=== PATIENT | male | born 1950 | race Caucasian/White ===

== ENCOUNTER 2016-08-30 15:30 | Emergency (ER) | payer MEDICARE, BC ==
[~2016-08-30] VITALS: Ht 185.4 cm; Wt 77.1 kg
[2016-08-30] MEDS ORDERED: METO-209 PO (15:50)
[2016-08-30] MEDS ORDERED: AMLO10CA29 PO (15:50)
[2016-08-30 17:21] VITALS: BP 140/90
== END 2016-08-30 18:43 | disposition home or self-care (01) ==
LOC: M ED 18:38
DX: R04.0 Epistaxis (principal); I10 Essential (primary) hypertension; F17.200 Nicotine dependence, unspecified, uncomplicated; Z79.899 Other long term (current) drug therapy

== ENCOUNTER 2018-05-07 14:52 | Inpatient (IN) | payer MEDICARE, BC ==
[~2018-05-07] VITALS: Ht 185.4 cm; Wt 85.6 kg
[~2018-05-07 14:52] MED LIST: AMLO10CA29 PO; METO1TAB33 PO
[2018-05-07] MEDS ORDERED: IBUPOTC PO (15:15)
--- NOTE | 2018-05-07 16:30 | REP ---
Clinical: Pain with recent fall. Technique: AP, lateral, bilateral oblique views of the left knee. Findings: Lateral view demonstrates a moderate suprapatellar effusion. Moderate to early advanced osteoarthritic degenerative changes include subchondral sclerosis and heterogeneity, joint space narrowing, cortical irregularity and chondrocalcinosis. No obvious acute fracture or dislocation. Peripheral vascular disease noted. Impression: Suprapatellar effusion. Osteoarthritic degenerative changes. No obvious acute fracture or dislocation. Electronically Signed by Cong Fay MD 05/07/2018 04:22 P
--- NOTE | 2018-05-07 18:04 | REP ---
Portable chest, 05:44 p.m., single AP view, the patient upright: There are two AP views. There are no comparisons. There is a focal mass-like density in the right mid lung of uncertain significance in the absence of comparison studies. No focal infiltrates are identified. No pleural effusions are identified. Cardiac size is normal. The abraham, mediastinum, skeletal structures are remarkable. Impression: Mass-like density in the right mid lung of uncertain significance in the absence of comparison studies. Electronically Signed by Alex Kowalski MD 05/07/2018 05:56 P
[2018-05-07 18:38] LABS: HEMATOCRIT 45.3 % (42.0-52.0); HEMOGLOBIN 16.2 g/dl (13.5-17.5); MEAN CORPUSCULAR HEMOGLOBIN 29.3 pg (27.0-33.0); MEAN CORPUSCULAR HGB CONC 35.8 g/dl (32.0-36.5); MEAN CORPUSCULAR VOLUME 81.9 fl (80.0-96.0); PLATELET COUNT, AUTOMATED 212 10^3/uL (150-450); RED BLOOD COUNT 5.53 10^6/uL (4.30-6.10); WHITE BLOOD COUNT 10.4 10^3/uL (4.0-10.0)
[2018-05-07 18:54] LABS: BLOOD UREA NITROGEN 4 MG/DL (7-18); CALCIUM LEVEL 8.5 MG/DL (8.8-10.2); CARBON DIOXIDE LEVEL 24 MEQ/L (21-32); CHLORIDE LEVEL 86 MEQ/L (98-107); GLOMERULAR FILTRATION RATE > 60.0 (>49); GLUCOSE, FASTING 84 MG/DL (70-100); POTASSIUM SERUM 4.4 MEQ/L (3.5-5.1); SODIUM LEVEL 122 MEQ/L (136-145)
[2018-05-07] MEDS ORDERED: NORCO, ANEXSIA 5/325MG TABLET (HYDROcodone/ACETAMINOPHEN) PO ONE (20:00)
[2018-05-07] MEDS ORDERED: NS 1,000 ML IV ONE (20:00)
[2018-05-07 20:01] LABS: ETHYL ALCOHOL (ETHANOL) < 0.003 % (0.000-0.010); THYROID STIMULATING HORMONE 0.437 uIU/ML (0.358-3.740)
[2018-05-07] MEDS ORDERED: ISOVUE-370 76% 100ML VIAL (Q9967) As Ordered ONE (20:12)
--- NOTE | 2018-05-07 21:09 | REPVR ---
EXAM: CT Chest With Contrast EXAM DATE/TIME: 05/07/2018 8:31 PM CLINICAL HISTORY: 68 years old, male; Signs and symptoms; Mass, lump, or swelling in the chest; Patient HX: Mass seen on cxr TECHNIQUE: Axial computed tomography images of the chest with intravenous contrast. All CT scans at this facility use at least one of these dose optimization techniques: automated exposure control; mA and/or kV adjustment per patient size (includes targeted exams where dose is matched to clinical indication); or iterative reconstruction. Coronal and sagittal reformatted images were created and reviewed. CONTRAST: 100 ml of iso 370 administered intravenously. COMPARISON: CR PORTABLE CHEST X-RAY 05/07/2018 5:42 PM FINDINGS: Thyroid: Normal thyroid. Lungs: There is a 3 CM oval solid spiculated mass right upper lobe at the mid lung field abutting and tenting the pleura. This has the appearance of a primary malignant neoplasm of the lung. There is hyperinflation of the lungs probably the result of COPD or emphysema. Pleural space: There is no evidence of pneumothorax. There is no evidence of pleural effusion. Heart: Mild cardiac enlargement. Pulmonary arteries: There is opacification of the pulmonary arteries with no evidence of pulmonary embolus. Aorta: There is opacification of the aorta which appears intact. There is atherosclerotic change with calcification. Lymph nodes: There are small lymph nodes in the mediastinum and a small right hilar lymph node. Bones/joints: There is no evidence of bony abnormality. Soft tissues: Small lateral hernia. IMPRESSION: 3 CM oval solid mass lesion right upper lung/right midlung field with prominent spiculated borders suspicious for primary malignancy of the lung. Electronically signed by: Misael Lemon On 05/07/2018 21:09:32 PM
--- NOTE | 2018-05-07 21:19 | REPVR ---
EXAM: CT Abdomen and Pelvis With Contrast EXAM DATE/TIME: 05/07/2018 8:31 PM CLINICAL HISTORY: 68 years old, male; Signs and symptoms; Mass, lump, or swelling; Additional info: Mass/staging TECHNIQUE: Axial computed tomography images of the abdomen and pelvis with intravenous contrast. All CT scans at this facility use at least one of these dose optimization techniques: automated exposure control; mA and/or kV adjustment per patient size (includes targeted exams where dose is matched to clinical indication); or iterative reconstruction. Coronal and sagittal reformatted images were created and reviewed. CONTRAST: 100 ml of iso 370 administered intravenously. COMPARISON: No relevant prior studies available. FINDINGS: Lower thorax: There is a small hiatal hernia. ABDOMEN: Liver: Normal appearing liver. Gallbladder and bile ducts: Normal gallbladder. Normal common bile duct. Pancreas: Normal pancreas. Spleen: Normal appearing spleen. Adrenals: Normal adrenal glands. Kidneys and ureters: 4 CM cyst lower pole right kidney. There is enhancement of the right and left kidney. There is no evidence of a stone in the right or left ureter. Stomach and bowel: The cecum is in the right pelvis. Normal-appearing small bowel with no evidence of obstruction. PELVIS: Bladder: Normal appearing urinary bladder. Reproductive: Normal-appearing prostate. ABDOMEN and PELVIS: Intraperitoneal space: There is no evidence of pneumoperitoneum. There is no evidence of free fluid in the abdomen or pelvis. Bones/joints: DJD Vasculature: There is severe atherosclerotic plaque along the anterior and margins of the aorta. There is occlusion of the origin of the left iliac artery. Thrombus in the left proximal femoral artery. Probable reconstitution of the lower left femoral artery. Lymph nodes: There is no evidence of lymphadenopathy. Small lymph nodes right and left groin. IMPRESSION: There is atherosclerotic plaque formation throughout the aorta and occlusion of the left iliac artery. Electronically signed by: Misael Lemon On 05/07/2018 21:19:10 PM
[2018-05-07] MEDS ORDERED: ALBUTEROL SULFATE 2.5 MG/0.5 ML INH NEB SOLN INH ONE (21:45)
[2018-05-07] MEDS ORDERED: IPRATROPIUM 0.5MG/ALBUTEROL 2.5MG INH SOL UD 3ML (DUONEB)(J7620) NEB ONE (21:45)
[2018-05-07] MEDS ORDERED: METO200T28 PO (21:52)
[2018-05-08] VITALS (7 sets, daily range): BP systolic 136–159; BP diastolic 70–98
[2018-05-08 00:13] LABS: CPK CREATINE PHOSPHOKINASE 103 U/L (39-308); MB/CK RELATIVE INDEX 3.59 (< OR =4); TROPONIN I < 0.02 NG/ML (< 0.10)
[2018-05-08 00:14] LABS: CREATININE,RANDOM URINE 83.2 MG/DL
[2018-05-08 00:26] LABS: OSMOLALITY SERUM 258 MOSM/KG (280-301)
--- NOTE | 2018-05-08 00:30 | REPVR ---
EXAM: US Duplex Bilateral Lower Extremity Veins EXAM DATE/TIME: 05/07/2018 12:04 AM CLINICAL HISTORY: 68 years old, male; Pain; Other: Lt knee; Additional info: Hypoxia TECHNIQUE: Real-time duplex ultrasound of the Bilateral Lower Extremities with 2-D larsen scale, color Doppler flow and spectral waveform analysis. Complete exam focused on the bilateral lower extremity veins. COMPARISON: No relevant prior studies available. FINDINGS: Right deep veins: Unremarkable. The common femoral, femoral, proximal profunda femoral and popliteal veins are patent without thrombus. Normal Doppler waveforms. Normal compressibility and/or augmentation response. Right superficial veins: Saphenofemoral junction is patent without thrombus. Left deep veins: Unremarkable. The common femoral, femoral, proximal profunda femoral and popliteal veins are patent without thrombus. Normal Doppler waveforms. Normal compressibility and/or augmentation response. Left superficial veins: Saphenofemoral junction is patent without thrombus. Soft tissues: Unremarkable. IMPRESSION: No sonographic evidence of deep vein thrombosis. Electronically signed by: Adrian Bills On 05/08/2018 00:30:27 AM
[2018-05-08] MEDS ORDERED: NICOTINE 21MG/24HR 1 EA TRANSDERMAL TD PRN (01:00)
[2018-05-08] MEDS ORDERED: ACETAMINOPHEN TAB 650MG DOSE (2X325MG) PO PRN (01:00)
[2018-05-08] MEDS ORDERED: ENOXAPARIN 100MG/1ML SYRINGE (J1650) SC ONE (01:00)
[2018-05-08] MEDS ORDERED: LORazepam 2 MG TAB PO PRN (01:15)
[2018-05-08] MEDS ORDERED: NS 1,000 ML IV SCH (01:15)
[2018-05-08] MEDS ORDERED: ACETAMINOPHEN 325 MG TAB PO PRN (01:15)
[2018-05-08 02:23] LABS: INR 1.13; PROTHROMBIN TIME 14.7 SECONDS (12.1-14.4)
[2018-05-08 02:24] LABS: PARTIAL THROMBOPLASTIN TIME 37.5 SECONDS (25.4-37.6)
[2018-05-08 02:32] LABS: BLOOD UREA NITROGEN 6 MG/DL (7-18); CALCIUM LEVEL 7.9 MG/DL (8.8-10.2); CARBON DIOXIDE LEVEL 23 MEQ/L (21-32); CHLORIDE LEVEL 90 MEQ/L (98-107); CREATININE FOR GFR 0.55 MG/DL (0.70-1.30); GLOMERULAR FILTRATION RATE > 60.0 (>49); GLUCOSE, FASTING 87 MG/DL (70-100); POTASSIUM SERUM 4.1 MEQ/L (3.5-5.1); SODIUM LEVEL 124 MEQ/L (136-145)
[2018-05-08] MEDS: amLODIPine 10 MG TAB PO SCH ×2 (03:21→17:23)
[2018-05-08] MEDS: BENAZEPRIL 20 MG TAB PO SCH ×2 (03:22→17:23)
[2018-05-08] MEDS: METOPROLOL SUCC (TopROL XL) 100MG *XL* TAB PO SCH ×2 (03:23→17:22)
[2018-05-08] MEDS: THIAMINE 100 MG TAB PO SCH ×3 (03:23→20:49)
[2018-05-08] MEDS: IPRATROPIUM 0.5MG/ALBUTEROL 2.5MG INH SOL UD 3ML (DUONEB)(J7620) NEB SCH ×5 (04:00→20:00)
--- NOTE | 2018-05-08 04:32 | HPE ---
DATE OF ADMISSION: 05/08/2018 CHIEF COMPLAINT: The patient presents for knee pain status post fall but also incidentally complained of shortness of breath. HISTORY OF PRESENT ILLNESS: The patient is a 68-year-old male with a significant past medical history of hypertension, tobacco abuse without presented to the emergency room after sustaining a fall to the knee yesterday afternoon. He presents with knee pain, difficulty moving the knee. An x-ray was done which showed a small suprapateller effusion. Incidentally, the patient was noted to be hypoxic in the emergency room to the 80s. He has a strong smoking history. An x-ray of the chest was done which showed a mass like density in the right lung. Subsequently, a CT of the chest was completed with contrast which showed a 3.3 cm oval solid mass lesion in the right upper lung, right midlung field with prominent spiculated borders suspicious for malignancy. On laboratories the patient was also noted to be hyponatremic with a sodium of 122. The patient also has a history of ethanol (EtOH) abuse. He does complain of progressive dyspnea on exertion. He is mildly wheezing on examination. He denies any chest pain. He denies any fevers, chills, cough. He denies any urinary symptoms, abdominal pain, constipation or diarrhea. PAST MEDICAL HISTORY: See history of the present illness (HPI). PAST SURGICAL HISTORY: None. ALLERGIES: No known drug allergies. HOME MEDICATIONS: Include: - amlodipine - benazepril - metoprolol SOCIAL HISTORY: He consumes approximately 8 beers per day for many years. Smokes now 1 pack per day. He has smoked for the last 50 years. Was previously smoking 2 packs per day. Denies any illicit drug use. FAMILY HISTORY: Family history is noncontributory. REVIEW OF SYSTEMS: A 12-point review of systems was completed, all of which were negative except those listed in the history of the present illness. VITAL SIGNS ON ADMISSION: Temperature 97.6, pulse of 79, respirations of 30, blood pressure (BP) 165/98, saturating at 93% on room air initially went down to the mid 80s, was supplemented with nasal cannula and subsequently improved. PHYSICAL EXAMINATION: General: He is in no apparent distress. He is slightly disheveled. Head is normocephalic, atraumatic. Eyes: Extraocular movements are intact. Pupils equal, round, reactive to light. Neck is supple. No jugular venous pressure (JVP). Lungs: Expiratory wheezing noted at the bases. No crackles. Cardiovascular: Regular rate and rhythm. Normal S1, S2. No murmurs, gallops, or rubs. Abdomen: Soft, nontender, nondistended, positive bowel sounds. No rebound or guarding. Extremities: He has multiple abrasions. Dorsalis pedis is diminished but still palpable. Trace edema. No calf tenderness. Neurological: Neurological: Alert and oriented (A and O) times three. No focal deficits appreciated on examination. LABORATORIES AND IMAGING COMPLETED IN THE EMERGENCY ROOM: He has a white count of 10, hemoglobin and hematocrit (H and H) of 16/45, platelet count of 212. Chemistry shows a sodium of 122, chloride of 86, BUN and creatinine of 4/0.5. Thyroid-stimulating hormone (TSH) within normal limits. Troponins are negative. Blood alcohol level was negative. X-ray of the knee shows suprapatellar effusion, osteoarthritic degenerative changes. Chest x-ray shows a mass-like density in the right midlung. Chest CT shows 3 cm oval solid mass lesion right upper lung, right midlung field with prominent spiculated borders suspicious for primary malignancy of the lung. CT of the abdomen and pelvis shows there are atherosclerotic plaque formation throughout the aorta and occlusion of the left iliac artery and Doppler showed no sonographic evidence of deep vein thrombosis (DVT). ASSESSMENT AND PLAN: 1. Acute hypoxic respiratory failure likely secondary to chronic obstructive pulmonary disease (COPD) exacerbation. Rule out malignancy in the setting of what appears to be possible primary lung cancer. For now, we will place the patient on oxygen as needed to maintain oxygen saturations greater than 90%, standing DuoNebs every 4 hours, prednisone 40 mg by mouth daily. Since the patient already received contrast we will get a V/Q scan in the morning. Doppler is already negative. We will give him one dose of Lovenox. 2. Lung mass. Likely possibly malignancy versus inflammatory, the patient will likely benefit from a CT-guided biopsy as the lung mass is peripheral. Discussed with patient and he is open to the idea of having a biopsy. 3. Hyponatremia. Likely secondary to beer potomania versus syndrome of inappropriate antidiuretic hormone secretion (SIADH) from lung mass. Will fluid hydrate. Will do serial basic metabolic panels (BMP) to correct sodium 8 - 10 in the first 24 hours. If this is acute or chronic I am not fully aware but likely the patient will benefit from fluid restriction if this is SIADH from the underlying lung lesion. Will send morning cortisol. Thyroid-stimulating hormone (TSH) within normal limits. Will send urine and serum osmolality. 4. For left iliac occlusion peripheral arterial disease. Likely has collaterals because patient does not have an ischemic limb and peripheral pulses are palpable though diminished. Vascular surgery consulted. Will place on aspirin. 5. Tobacco abuse. Nicotine replacement patch, consult. 6. Ethanol (EtOH) abuse. Will place on the Clinical [place] Withdrawal Assessment for Alcohol (CIWA) protocol. Ativan as needed. 7. Will send his liver function tests (LFTs) as well as coagulation panel (coags) before initiating the one dose of Lovenox. 8. Fall with knee pain: anti-inflammatories PRN. consider ortho consult in am MTDD
--- NOTE | 2018-05-08 05:57 | ECGEPIP ---
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
[2018-05-08] MEDS: MULTIVITAMINS/MINERALS THERAP 1 TAB PO SCH (08:10)
[2018-05-08] MEDS: ASPIRIN 81 MG ENTERIC TAB PO SCH (08:10)
[2018-05-08] MEDS: FOLIC ACID 1 MG TAB PO SCH (08:10)
[2018-05-08 08:47] LABS: ALBUMIN 2.7 GM/DL (3.2-5.2); BILIRUBIN,DIRECT 0.3 MG/DL (0.0-0.2); TOTAL PROTEIN 6.7 GM/DL (6.4-8.2)
[2018-05-08] MEDS ORDERED: predniSONE 20 MG TAB PO SCH (09:00)
[2018-05-08 09:54] LABS: CORTISOL AM 28.3 UG/DL (4.3-22.4)
[2018-05-08 11:42] LABS: ABG BASE EXCESS 1.5 (-2.0-2.0); ABG HCO3 25.5 MEQ/L (22.0-26.0); ABG O2 SATURATION 89.4 % (95.0-99.0); ABG PARTIAL PRESSURE CO2 38.5 mmHg (35.0-45.0); ABG PARTIAL PRESSURE O2 54.2 mmHg (75.0-100.0); ABG STANDARD HCO3 25.5 MEQ/L (22.0-26.0); ABG TOTAL CO2 26.7 MEQ/L (23.0-31.0); ABG pH (ARTERIAL) 7.439 UNITS (7.350-7.450)
[2018-05-08] MEDS ORDERED: PERCOCET 5MG/325MG TAB PO PRN ×2 (12:30)
--- NOTE | 2018-05-08 14:19 | CR ---
DATE OF CONSULTATION: 05/08/2018 CHIEF COMPLAINT: Left knee pain and swelling after a fall sustained yesterday. HISTORY OF PRESENT ILLNESS: This is a 68-year-old male who tripped on a cord while navigating in his trailer making direct impact about his left knee to a metal threshold. He was taken to [facility] for evaluation. X-rays were taken showing tricompartmental degenerative knee arthritis with some suprapatellar effusion. During his workup, it was uncovered that he has multiple medical comorbidities that have not been attended to formerly in some time including dyspnea, chronic tobacco abuse, hypertension. Chest x-ray showed a mass density in the right lung with subsequent CT chest with contrast showing a 3.3 cm oval solid mass lesion in the right upper lung, right mid lung field with prominent spiculated borders suspicious for malignancy. Laboratories positive for hyponatremia with sodium 122 with a history of alcohol abuse. PAST MEDICAL HISTORY: As noted above. PAST SURGICAL HISTORY: None. ALLERGIES: None known to drugs. HOME MEDICATIONS INCLUDE: Amlodipine, benazepril, metoprolol. SOCIAL HISTORY: He consumes eight beers per day times many years. Smokes a pack of cigarettes per day for the last 50 years. Previously was a two pack per day smoker. Denies illicit drugs. FAMILY HISTORY: Noncontributory. REVIEW OF SYSTEMS: He denies chest pain. Admits to shortness of breath longstanding with wheezing. No urinary tract symptoms. No dizziness. He can feel his extremities without numbness or tingling. Admits to positive pain about the left knee with fullness. The pain is with palpation or weightbearing. Otherwise, resting it settles. VITALS: Temperature 98.5 temporal today as of 0600. Respiratory rate 88 as of 1200. Blood pressure 142/76 at 1200. Pulse oximetry 96 nasal cannula at 2 liters as of 0600. PHYSICAL EXAMINATION: This is a pleasant 68-year-old male, alert and oriented times three. Mood and affect are appropriate. He is resting comfortably about a hospital bed with his left lower extremity propped up on a blanket with ice directly to the knee. He is noted to be on oxygen. His deliverer outside strength was intact about the left hand, rather weak to the right. All four extremities appear to be well perfused, intact to light touch. Normocephalic. Eyes equal, round and reactive to light. Chest rises symmetrically. Breathing was not labored during our conversation. Bilateral lower extremities noted anterior knee abrasions which are benign and not infectious looking, not hot to touch. He does have left knee supracondylar tenderness to palpation with a mild suprapatellar effusion. No gross defect at the quad tendon. He can do a straight leg raise. Just mild tenderness to the patella bone. The tendon is intact without defect or tenderness to palpation. No proximal or lateral tibial plateau pain. He has some mild tenderness to the proximal fibula. Knee range of motion is 0 to just about 45 actively passively, approximately 60-70 degrees. Left hip range of motion was irritable through internal and external range of motion. He is not tender about the thigh or below the knee. He can wiggle his toes just fine. Brisk capillary refill. Distal pulse was intact. No popliteal fossa mass or pain. His knee is grossly. Stable to A to P stressing intact with end ramos to valgus and varus stressing without pain. Right knee was not tender to palpation and stable about the collateral ligaments, and patella quadriceps tendons. No popliteal fossa mass just abrasion as noted at the anterior knee. LABS: Reviewed which were acquired on at 1827. White count 10.4, RDW 14.6, otherwise within normal limits. Chemistry: Sodium 124, chloride 90, BUN 6, GFR filtration rate 0.55, calcium 7.9, direct bilirubin 0.3, alkaline phosphatase 144, albumin 2.7, albumin/globulin ratio 0.68. CK MB: CK 2, 4.0, cortisol am 28.3. Osmolality 258. These were labs acquired between 05/07/2018 and 05/08/2018: ABG pO2 54.2, ABG oxygen saturation 89.4, otherwise unremarkable. Ethyl alcohol less than 0.003. PT 14.7, INR 1.13, APTT 37.5. Abdomen and pelvis CT completed on 05/07/2018 at 2301 showing atherosclerotic plaque formation throughout the aorta and occlusion of the left iliac artery as read by Dr. Villeda. Awaiting MRI results as ordered by Dr. Grider. ASSESSMENT: Bilateral knee abrasions with a left knee contusion and suprapatellar effusion awaiting MRI completion to rule out internal derangement and/or fracture. This is overlapped with multiple comorbidities including acute hypoxic respiratory failure, lung mass, hyponatremia, left iliac occlusion, peripheral artery disease, longstanding tobacco and ethanol abuse. RECOMMENDATION: We will await MRI results to see if it sheds light on a subtle fracture, bony contusion or soft tissue derangement. If that requires further orthopaedic intervention will be available at that time. Thank you for letting me participate in Mr. Saulo Gabriel's care. If there is any further orthopaedic issue, please contact our service. ARA
[2018-05-08] MEDS: methylPREDNISolone INJ 40 MG/1 ML VIAL (J2920) IV SCH ×2 (14:33→20:49)
[2018-05-08 16:09] LABS: BLOOD UREA NITROGEN 8 MG/DL (7-18); CARBON DIOXIDE LEVEL 27 MEQ/L (21-32); CHLORIDE LEVEL 93 MEQ/L (98-107); CREATININE FOR GFR 0.72 MG/DL (0.70-1.30); GLOMERULAR FILTRATION RATE > 60.0 (>49); GLUCOSE, FASTING 163 MG/DL (70-100); POTASSIUM SERUM 4.1 MEQ/L (3.5-5.1); SODIUM LEVEL 126 MEQ/L (136-145)
--- NOTE | 2018-05-08 16:50 | REP ---
MRI LEFT KNEE: TECHNIQUE: Axial proton density fat saturation, sagittal proton density T2 STIR, water excitation, coronal proton density, proton density fat saturation. There appears to be a tear centrally at the posterior horn of the lateral meniscus. The medial meniscus is intact. The cruciate and collateral ligaments are intact. The extensor mechanism is intact. There is mild global chondromalacia with a moderate degree of chondromalacia along the medial femoral condyle. There is an osteochondral defect of the medial femoral condyle with a depth of 5 mm, AP diameter of 2.2 cm in transverse approximately 16 mm. There is an occult nondisplaced fracture involving the central and lateral tibial plateau extending to the tibial joint surface. The fracture predominately is just inferior to the tibial spines and involves the central aspect of the lateral tibial plateau. Mild subchondral marrow edema is seen in the peripheral medial femoral condyle. Hemarthrosis is noted which is moderate in size. IMPRESSION: Occult nondisplaced fracture of the tibial plateau. Hemarthrosis. There is a tear centrally of the posterior horn of the lateral meniscus. Osteochondral defect medial femoral condyle. Electronically Signed by Alex Mata MD 05/09/2018 10:46 A
[2018-05-09] VITALS (10 sets, daily range): BP systolic 120–150; BP diastolic 72–91
[2018-05-09] MEDS: IPRATROPIUM 0.5MG/ALBUTEROL 2.5MG INH SOL UD 3ML (DUONEB)(J7620) NEB SCH ×7 (03:39→23:08)
[2018-05-09] MEDS: methylPREDNISolone INJ 40 MG/1 ML VIAL (J2920) IV SCH ×3 (05:07→21:02)
[2018-05-09 06:44] LABS: HEMATOCRIT 42.2 % (42.0-52.0); HEMOGLOBIN 14.7 g/dl (13.5-17.5); MEAN CORPUSCULAR HEMOGLOBIN 29.3 pg (27.0-33.0); MEAN CORPUSCULAR HGB CONC 34.8 g/dl (32.0-36.5); MEAN CORPUSCULAR VOLUME 84.1 fl (80.0-96.0); PLATELET COUNT, AUTOMATED 206 10^3/uL (150-450); RED BLOOD COUNT 5.02 10^6/uL (4.30-6.10); WHITE BLOOD COUNT 6.8 10^3/uL (4.0-10.0)
[2018-05-09 07:11] LABS: ALBUMIN 2.6 GM/DL (3.2-5.2); ALT/SGPT 15 U/L (12-78); BILIRUBIN,TOTAL 0.7 MG/DL (0.2-1.0); BLOOD UREA NITROGEN 10 MG/DL (7-18); CALCIUM LEVEL 8.4 MG/DL (8.8-10.2); CARBON DIOXIDE LEVEL 25 MEQ/L (21-32); CHLORIDE LEVEL 91 MEQ/L (98-107); CREATININE FOR GFR 0.56 MG/DL (0.70-1.30); GLOMERULAR FILTRATION RATE > 60.0 (>49); GLUCOSE, FASTING 128 MG/DL (70-100); SODIUM LEVEL 126 MEQ/L (136-145); TOTAL PROTEIN 6.9 GM/DL (6.4-8.2)
[2018-05-09] MEDS: THIAMINE 100 MG TAB PO SCH ×2 (07:52→21:02)
[2018-05-09] MEDS: MULTIVITAMINS/MINERALS THERAP 1 TAB PO SCH (07:52)
[2018-05-09] MEDS: ASPIRIN 81 MG ENTERIC TAB PO SCH (07:52)
[2018-05-09] MEDS: FOLIC ACID 1 MG TAB PO SCH (07:52)
[2018-05-09 08:14] LABS: URIC ACID 2.3 MG/DL (3.5-7.2)
[2018-05-09] MEDS ORDERED: ISOVUE-370 76% 100ML VIAL (Q9967) As Ordered ONE (08:30)
--- NOTE | 2018-05-09 09:23 | PFTRPT ---
Site: [facility], [address] [place], [address] ID: [id number] Name: KULWANT CORREIA Visit Date: 05/09/2018 Second ID: [id number] Referring Doctor: Sivan Grider DO Reviewing Doctor: Adán Pedroza MD Forepart Rounder: Aicha RUBIN RRT Age: 68 : 1950 Sex: Male Race: Height: 73.00 Inches Weight: 185.00 Lbs BSA: 2.08 Order IDs: [id number] Requested Test(s): <RESP-PFT.PFTINPT> Diagnosis: SOB Review Status: Not Reviewed Pre-Bronch Post-Bronch Pred Actual %Pred Actual %Chng SPIROMETRY FVC (L) 5.01 2.23 44 FEV1 (L) 3.72 1.11 29 FEV1/FVC (%) 74 50 66 FEF 25% (L/sec) 7.26 1.02 13 FEF 50% (L/sec) 3.94 0.62 15 FEF 75% (L/sec) 1.25 0.39 30 FEF 25-75% (L/sec) 2.86 0.56 19 FEF Max (L/sec) 9.24 4.16 45 FIVC (L) 2.36 FIF 50% (L/sec) 4.51 3.06 67 FIF Max (L/sec) 3.17 Expiratory Time (sec) 4.49 Back Extrap Vol (L) 0.06 Time To FEFmax (sec) 0.055
[2018-05-09] MEDS ORDERED: LIDOCAINE 1% MDV 20ML VIAL As Ordered ONE (09:53)
--- NOTE | 2018-05-09 10:08 | PULFX ---
DATE OF PROCEDURE: 05/09/2018 ORDERED BY: Cheo. Study of excellent technical quality. Forced vital capacity reduced. FEV1 out of proportion. Obstructive index is, therefore, reduced. The expiratory limb of the flow volume loop is consistent with significant flow rate limitation. IMPRESSION: At least moderate obstructive ventilatory impairment with air trapping versus true concomitant restriction. Clinical correlation as well as flow study will be required.
--- NOTE | 2018-05-09 10:58 | REP ---
CT pulmonary angiogram: With IV contrast. History: Hypoxia. Comparison studies: May 07, 2018. Contrast dose: 75 mL of Isovue [address] technique: Helical scanning is acquired and overlapping 1.5 mm and contiguous 3 mm axial images are reformatted. In addition, maximum intensity projection and multiplanar re-formation images are generated in sagittal and coronal imaging projections. CT pulmonary angiographic findings: There is good opacification of the pulmonary arterial tree and there is no CT evidence to suggest pulmonary embolism. Thoracic aorta shows atherosclerotic changes without evidence of aneurysm or dissection. No mediastinal or hilar mass or adenopathy is observed. The previously noted spiculated 3.1 cm posterior segment right upper lobe lung mass is again seen unchanged. There is some new consolidation posterior to the mass and superior to it. There is also new consolidation in the left lower lobe posteriorly and to a lesser extent in the right lower lobe. There are small bilateral pleural effusions which are new findings as well. No pericardial effusion is seen. No adrenal lesion is observed. The visualized upper abdominal structures are otherwise unremarkable. Impression: 3.1 cm mass again noted in the right upper lobe with spiculated contours consistent with primary lung malignancy. There are new areas of pulmonary parenchymal consolidation consistent with pneumonia posterior and superior to the mass in the right upper lobe as well as in the left lower lobe and, to some degree, the right lower lobe. There is a band of linear plate-like atelectasis in the left upper lobe posteriorly. There is a small spiculated nodule in the left upper lobe measuring 6 mm as well. Electronically Signed by Jose Luis Garland MD 05/09/2018 11:38 A
--- NOTE | 2018-05-09 11:18 | IPNPDOC ---
Date Seen The patient was seen on 05/09/18. Progress Note SUBJECTIVE: Patient is a 68-year-old male with mechanical fall and incidental finding of right lung mass with hypoxia. Patient is evaluated at bedside this morning. He is drinking hot chocolate. Patient has a 98.5 pack year smoking history and is an active every day beer drinker of approximately 6- 8 beers. He sustained a mechanical fall to his left knee when he tripped over a cord running across his floor by the back door into the living room. He denies fecal or urinary incontinence and did not hit his head or pass out. He has also noticed over the last couple of week that he has become increasingly short of breath without orthopnea or PND. He is coughing, but it is non-productive. He does not wear oxygen at home. Denies fevers, night sweats, chills. He follows regularly with the [facility] and was last seen about 60 days ago. 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 He denies any prior imaging. He does not recall any weight loss and has no numbness, tingling, lateralizing weakness. He has been informed of the right sided lung mass which is possibly cancer. Yesterday, he said that he would like to undergo the lung biopsy and would be agreeable to possible chemotherapy and radiation, but has declined surgical intervention. Today during discussions, patient seems a bit more apprehensive regarding the lung biopsy due to the possible complications. Patient has been informed that he can decline proceeding with the biopsy at any time. He said that he would like to have his left knee investigated first. OBJECTIVE PHYSICAL EXAMINATION: VITAL SIGNS: Please see below. GENERAL: Well nourished, well developed male, appropriately dressed in hospital attire, alert and conversant, answers questions appropriately, no acute distress. HEENT: Atraumatic, normocephalic, PERRL, EOMI, facial plethora, nasal cannula in place, oral mucosa appears pink and moist, nasal septum appears midline, nares are patent. CARDIOVASCULAR: Somewhat difficult to appreciate cardiac sounds; however, appears to have a regular rate and rhythm, normal S1 and S2, no definite cardiac murmur, rub, or click. RESPIRATORY: Poor inspiratory and expiratory effort, diminished in the lower lobes bilaterally, no definite wheeze, rhonchi, or crackles. ABDOMINAL: Soft, non-tender, non-distended, bowel sounds appreciated. EXTREMITIES: No clubbing, no cyanosis, no peripheral edema, suprapatellar edema noted on the left knee, no discoloration, bruising, or rashes appreciated. NEUROLOGICAL: No focal neurological deficits. PSYCHOLOGICAL: Mood and affect appropriate. LABORATORY DATA, IMAGING STUDIES, MICROBIOLOGY: Please see below. Left complete knee x-ray on 05/07/2018 - suprapatellar effusion, osteoarthritic degenerative changes, no fracture or dislocation. Portable chest x-ray on 05/07/2018 - mass-like density in the right mid lung. CT chest with contrast on 05/07/2018 - 3cm oval solid mass lesion right upper lung/right midlung field with prominent spiculated borders. CT abdomen and pelvis with contrast on 05/07/2018 - artherosclerotic plaque formation throughout aorta and occlusion of left iliac artery. Bilateral lower extremity duplex ultrasound on 05/07/2018 - no sonographic evidence of deep venous thrombosis. MRI left knee without contrast on 05/08/2018 - occult non-displaced fracture of tibial plateau, hemarthrosis, tear centrally of posterior horn of lateral meniscus, osteochondral defect medial femoral condyle. DVT prophylaxis ordered?: TEDs, sequentials, knee high compression. ASSESSMENT AND PLAN: This is a 68-year-old male with mechanical fall resulting in left knee injury; shortness of breath and hypoxia likely secondary to undiagnosed chronic obstructive pulmonary disease; incidentally found right lung mass suspicious for malignancy. PROBLEMS: 1. Mechanical fall: MRI reveals non-displaced fracture of tibial plateau with hemarthosis, and lateral meniscal tear. Orthopedics consulted. Will organize for patient to receive brace will hospitalized. May be toe-down weightbearing/egg-shell weight bearing with a walker or crutches. Physical therapy and occupational therapy have been ordered. Oxycodone for pain. 2. Shortness of breath with hypoxia: Likely undiagnosed COPD. Oxygen orders to maintain saturations 88-92%. ABG within normal limits. Spirometry which revealed "moderate obstructive ventilatory impairment with air trapping versus true concomitant restriction." Would benefit from full PFTs. Would benefit from out-patient pulmonology referral. Ambulate patient on room to document saturation. Patient may require oxygen at home. Continue with Duonebs. Continue with Methylprednisolone 40mg IV every 8 hours. Obtaining CTA chest to rule out PE. Possible pneumonia noted on imaging. 3. Right sided lung mass: Suspicious for malignancy. Ordered CT guided biopsy. Out-patient work-up would be strongly recommended. Smoking cessation counseling provided at every encounter. Nicotine patch ordered. No pharmacological DVT prophylaxis due to needle thoracentesis. 4. Hyponatremia: Serum osmolality 258. Urine osmolality 501. Renal function within normal limits with a serum creatinine 0.56. Urine creatinine 83.2. Urine sodium 16. Serum sodium 126. Uric acid 2.3. SIADH vs. beer potomania vs. adrenal insufficiency. Intravenous fluids have been discontinued. Fluid restriction of 2L daily. Active alcohol drinker. Alcohol level < 0.003. Ativan as needed for agitation. Continue multivitamin, folic acid, and thiamine. Cortisol level 28.3. However, patient has been on steroids which could alter the test result. 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 Leg is not cool to the touch, pulse is appreciated, no mottling noted. 6. Hypertension: Continue Amlodipine, Benazepril, and Metoprolol. 7. Tobacco dependence: Nicotine patch ordered. Counseling provided. 8. Alcohol dependence: CIWA. Ativan as needed. Continue with multivitamin, folic acid, and thiamine. DISPOSITION: Left knee brace. Optimize respiratory status. [facility]/I&O Vital Signs Date Time Temp Pulse Resp B/P (MAP) Pulse Ox O2 Delivery O2 Flow Rate FiO2 05/09/18 08:00 3.0 05/09/18 06:00 98.1 94 22 131/90 (104) 91 05/08/18 06:00 Nasal Cannula I&O- Last 24 Hours up to 6 AM 05/09/18 06:00 Intake Total 1745 ml Output Total 900 ml Balance 845 ml Laboratory Data 24H LABS Laboratory Tests 2 05/08/18 11:25: Blood Gas Bicarbonate Standard 25.5, Arterial Blood pH 7.439, Arterial Blood Partial Pressure CO2 38.5, Arterial Blood Partial Pressure O2 54.2L, Arterial Blood Total CO2 26.7, Arterial Blood HCO3 25.5, Arterial Blood Base Excess 1.5, Arterial Blood Oxygen Saturation 89.4L 05/08/18 15:39: Anion Gap 6L, Glomerular Filtration Rate > 60.0, Blood Urea Nitrogen 8, Creatinine 0.72, Sodium Level 126L, Potassium Level 4.1, Chloride Level 93L, Carbon Dioxide Level 27, Calcium Level 8.0L 05/08/18 17:24: Urine Random Sodium 16 05/09/18 06:13: Anion Gap 10, Glomerular Filtration Rate > 60.0, Blood Urea Nitrogen 10, Creatinine 0.56L, Sodium Level 126L, Potassium Level 4.0, Chloride Level 91L, Carbon Dioxide Level 25, Calcium Level 8.4L, Nucleated Red Blood Cells % (auto) 0.0, Aspartate Amino Transf (AST/SGOT) 19, Alanine Aminotransferase (ALT/SGPT) 15, Alkaline Phosphatase 119H, Total Bilirubin 0.7, Uric Acid 2.3L, Total Protein 6.9, Albumin 2.6L, Albumin/Globulin Ratio 0.60L CBC/BMP Laboratory Tests 05/08/18 15:39 Calcium Level 8.0 L 05/09/18 06:13 Calcium Level 8.4 L, Red Blood Count 5.02, Mean Corpuscular Volume 84.1, Mean Corpuscular Hemoglobin 29.3, Mean Corpuscular Hemoglobin Concent 34.8, Red Cell Distribution Width 14.8 H, Aspartate Amino Transf (AST/SGOT) 19, Alanine Aminotransferase (ALT/SGPT) 15, Alkaline Phosphatase 119 H, Total Bilirubin 0.7, Uric Acid 2.3 L, Total Protein 6.9, Albumin 2.6 L GME ATTESTATION GME ATTESTATION My faculty preceptor for this patient encounter was physically present during the encounter and was fully available. All aspects of the patient interview, examination, medical decision making process, and medical care plan development were reviewed and approved by the faculty preceptor. The faculty preceptor is aware and concurs with the plan as stated in the body of this note and will attest to such by his/her cosignature. ATTENDING NOTE I, Adele Obrien, have both independently examined this patient as well as reviewed the documentation. I have discussed in detail with the resident the findings and plan of treatment as documented in the residents documentation. I will continue to follow the patient and offer further guidance to the patients care as necessary during this hospital stay. EBENEZER OLSON DO May 09, 2018 11:17 ADELE OBRIEN MD May 23, 2018 17:36
--- NOTE | 2018-05-09 11:59 | REP ---
POSTBIOPSY CHEST: Single view of the chest is performed status post right lung biopsy. I do not see a significant pneumothorax. Spiculated mass is again seen in the right upper lobe. Very mild patchy atelectasis or infiltrate is seen in each lung base. Electronically Signed by Alex Mata MD 05/09/2018 12:01 P
--- NOTE | 2018-05-09 13:57 | REP ---
Clinical: Status post biopsy. Comparison: 05/09/2018. Findings: No evidence for pneumothorax. A spiculated mass in the right mid lung zone is unchanged. Perihilar and bibasilar opacities/atelectasis identified. Pulmonary vascular congestion as well as small basilar pleural reactions cannot be excluded. Impression: 1. No pneumothorax identified. 2. Spiculated mass in the right mid lung zone unchanged. 3. Findings suggesting bibasilar atelectasis as well as possible pulmonary vascular congestion and small pleural reactions. Electronically Signed by Cong Fay MD 05/09/2018 01:48 P
[2018-05-09] MEDS: METOPROLOL SUCC (TopROL XL) 100MG *XL* TAB PO SCH (17:24)
[2018-05-09] MEDS: AZITHROMYCIN INJ 500 MG, VIAL MATE ADAPTER 1 EACH in D5W 250 ML IV SCH (17:24)
[2018-05-09] MEDS: BENAZEPRIL 20 MG TAB PO SCH (17:25)
[2018-05-09] MEDS: amLODIPine 10 MG TAB PO SCH (17:25)
[2018-05-09] MEDS: cefTRIAXone SOD 1 GM in D5W MINI-BAG PLUS 50 ML IV SCH (18:52)
[2018-05-10] MEDS: IPRATROPIUM 0.5MG/ALBUTEROL 2.5MG INH SOL UD 3ML (DUONEB)(J7620) NEB SCH ×5 (04:00→20:00)
[2018-05-10 04:51] VITALS: BP 130/80
[2018-05-10] MEDS: methylPREDNISolone INJ 40 MG/1 ML VIAL (J2920) IV SCH ×2 (05:01→17:41)
[2018-05-10 06:00] VITALS: BP 130/80
[2018-05-10 06:44] LABS: HEMATOCRIT 38.8 % (42.0-52.0); HEMOGLOBIN 13.6 g/dl (13.5-17.5); MEAN CORPUSCULAR HEMOGLOBIN 28.9 pg (27.0-33.0); MEAN CORPUSCULAR HGB CONC 35.1 g/dl (32.0-36.5); MEAN CORPUSCULAR VOLUME 82.6 fl (80.0-96.0); PLATELET COUNT, AUTOMATED 229 10^3/uL (150-450)
[2018-05-10 07:14] LABS: ALBUMIN 2.7 GM/DL (3.2-5.2); ALT/SGPT 15 U/L (12-78); BILIRUBIN,TOTAL 0.6 MG/DL (0.2-1.0); BLOOD UREA NITROGEN 12 MG/DL (7-18); CALCIUM LEVEL 8.2 MG/DL (8.8-10.2); CARBON DIOXIDE LEVEL 26 MEQ/L (21-32); CHLORIDE LEVEL 95 MEQ/L (98-107); CREATININE FOR GFR 0.63 MG/DL (0.70-1.30); GLOMERULAR FILTRATION RATE > 60.0 (>49); GLUCOSE, FASTING 144 MG/DL (70-100); SODIUM LEVEL 129 MEQ/L (136-145); TOTAL PROTEIN 6.7 GM/DL (6.4-8.2)
[2018-05-10] MEDS: ASPIRIN 81 MG ENTERIC TAB PO SCH (08:57)
[2018-05-10] MEDS: THIAMINE 100 MG TAB PO SCH (08:57)
[2018-05-10] MEDS: FOLIC ACID 1 MG TAB PO SCH (08:57)
[2018-05-10] MEDS: MULTIVITAMINS/MINERALS THERAP 1 TAB PO SCH (08:57)
--- NOTE | 2018-05-10 10:35 | REP ---
CT-GUIDED RIGHT UPPER LOBE LUNG BIOPSY The procedure was performed under the direct supervision of Dr. mata. Patient has a history of a 3.1 cm mass in the right upper lobe seen on a previous CT scan dated 05/07/2018. The risks and benefits of the procedure were explained to the patient and informed consent was obtained. The right upper lobe lung mass was localized using CT guidance. The skin was prepped and draped in a sterile fashion. 1% lidocaine was used as a local anesthetic. Using CT guidance a 19/20 gauge coaxial needle biopsy system was inserted and advanced into the mass. Four core biopsy samples were obtained and sent to lab. Post biopsy images demonstrate a tiny pneumothorax. Images obtained 5 minutes later show some resolution of the pneumothorax. Chest x-ray performed immediately after the procedure shows no evidence of pneumothorax. The patient tolerated the procedure well and there were no immediate complications. Reviewed by ALEXANDRA Garcia 05/09/2018 04:12 P Electronically Signed by Alex Mata MD 05/10/2018 10:27 A
[2018-05-10] MEDS: ADVAIR HFA 115/21MCG INHALER INH SCH ×2 (10:53→20:30)
--- NOTE | 2018-05-10 11:18 | IPNPDOC ---
Date Seen The patient was seen on 05/10/18. Progress Note SUBJECTIVE: Patient is a 68-year-old male with mechanical fall and incidental finding of right lung mass with hypoxia. Patient is evaluated at bedside this morning. He is sitting up in bed. He is alert and oriented. He has no chest pain and feels as though his breathing has improved somewhat. He is not getting out of bed, but is able to bend his left knee. No fevers, night sweats, chills. OBJECTIVE PHYSICAL EXAMINATION: VITAL SIGNS: Please see below. GENERAL: Well nourished, well developed male, appropriately dressed in hospital attire, alert and conversant, answers questions appropriately, no acute distress. HEENT: Atraumatic, normocephalic, PERRL, EOMI, facial plethora, nasal cannula in place, oral mucosa appears pink and moist, nasal septum appears midline, nares are patent. CARDIOVASCULAR: Somewhat difficult to appreciate cardiac sounds; however, appear s to have a regular rate and rhythm, normal S1 and S2, no definite cardiac murmur, rub, or click. RESPIRATORY: Poor inspiratory and expiratory effort, diminished in the lower lobes bilaterally, no definite wheeze, rhonchi, or crackles. ABDOMINAL: Soft, non-tender, non-distended, bowel sounds appreciated. EXTREMITIES: No clubbing, no cyanosis, no peripheral edema, suprapatellar edema noted on the left knee, no discoloration, bruising, or rashes appreciated. NEUROLOGICAL: No focal neurological deficits. PSYCHOLOGICAL: Mood and affect appropriate. LABORATORY DATA, IMAGING STUDIES, MICROBIOLOGY: Please see below. Left complete knee x-ray on 05/07/2018 - suprapatellar effusion, osteoarthritic degenerative changes, no fracture or dislocation. Portable chest x-ray on 05/07/2018 - mass-like density in the right mid lung. CT chest with contrast on 05/07/2018 - 3cm oval solid mass lesion right upper lung/right midlung field with prominent spiculated borders. CT abdomen and pelvis with contrast on 05/07/2018 - artherosclerotic plaque formation throughout aorta and occlusion of left iliac artery. Bilateral lower extremity duplex ultrasound on 05/07/2018 - no sonographic evidence of deep venous thrombosis. MRI left knee without contrast on 05/08/2018 - occult non-displaced fracture of tibial plateau, hemarthrosis, tear centrally of posterior horn of lateral meniscus, osteochondral defect medial femoral condyle. CT chest angiogram on 05/09/2018 - 3.1 cm mass again noted in the right upper lobe with spiculated contours consistent with primary lung malignancy. There are new areas of pulmonary parenchymal consolidation consistent with pneumonia posterior and superior to the mass in the right upper lobe as well as in the left lower lobe and, to some degree, the right lower lobe. There is a band of linear plate-like atelectasis in the left upper lobe posteriorly. There is a sma ll spiculated nodule in the left upper lobe measuring [address] guided thoracentesis needle placement. Post-biopsy chest x-ray on 05/09/2018 - no pneumothorax. Chest x-ray, 1 view on 05/09/2018 - no pneumothorax, spiculated mass in right mid lung. DVT prophylaxis ordered?: Lovenox 40mg subcutaneously daily; TEDs, sequentials, knee high compression. ASSESSMENT AND PLAN: This is a 68-year-old male with mechanical fall resulting in left knee injury; shortness of breath and hypoxia likely secondary to undiagnosed chronic obstructive pulmonary disease; incidentally found right lung mass suspicious for malignancy. PROBLEMS: 1. Mechanical fall: MRI reveals non-displaced fracture of tibial plateau with hemarthosis, and lateral meniscal tear. Orthopedics consulted. Patient to receive brace. Physical and occupational therapy once left knee brace has been fitted. May be toe-down weightbearing/eggshell weightbearing with walker and/or crutches with brace. May remove brace when in bed. May need rehabilitation. Percocet and Tylenol for pain management as needed. 2. Shortness of breath with hypoxia: Likely undiagnosed COPD. Oxygen orders to maintain saturations 88-92%. ABG within normal limits. Spirometry which revealed "moderate obstructive ventilatory impairment with air trapping versus true concomitant restriction." Would benefit from full PFTs. Would benefit from out-patient pulmonology referral. Ambulate patient on room to document saturation. Patient may require oxygen at home. Continue with Duonebs. Decrease Methylprednisolone 40mg IV every 12 hours. Negative for Pe on CTA chest. Added Advair. 3. 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 Discussed verbally with hematology/oncology. Recommended brain MRI with contrast and adding pharmacological DVT prophylaxis. Would need to obtain out-patient PET scan for staging. Patient to follow up out-patient with hematology/oncology. Smoking cessation counseling provided at every encounter. Nicotine patch ordered. 4. Post-obstructive pneumonia: Started Ceftriaxone and Azithromycin. Mildly elevated leukocytosis. Continue oxygen therapy orders. 5. Hyponatremia: Likely SIADH. Serum osmolality 258. Urine osmolality 501. Renal function within normal limits with a serum creatinine 0.63. Urine creatinine 83.2. Urine sodium 16. Serum sodium 126. Uric acid 2.3. SIADH vs. beer potomania vs. adrenal insufficiency (less likely). Intravenous fluids have been discontinued. Fluid restriction of 2L daily. Active alcohol drinker. Alcohol level < 0.003. Ativan as needed for agitation. Continue multivitamin, folic acid, and thiamine. Cortisol level 28.3. However, patient has been on steroids which could alter the test result. 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 Leg is not cool to the touch, pulse is appreciated, no mottling noted. 7. Hypertension: Continue Amlodipine, Benazepril, and Metoprolol. 8. Tobacco dependence: Nicotine patch ordered. Counseling provided. 9. Alcohol dependence: CIWA. Ativan as needed. Continue with multivitamin, folic acid, and thiamine. DISPOSITION: Left knee brace. Physical and occupational therapy. Optimize respiratory status. Brain MRI. VS, I&O, 24H, Fishbone Vital Signs/I&O Vital Signs Date Time Temp Pulse Resp B/P (MAP) Pulse Ox O2 Delivery O2 Flow Rate FiO2 05/10/18 06:00 98.7 89 22 130/80 (97) 4.0 05/09/18 22:00 90 05/08/18 06:00 Nasal Cannula I&O- Last 24 Hours up to 6 AM 05/10/18 06:00 Intake Total 1880 ml Output Total 1290 ml Balance 590 ml Laboratory Data 24H LABS Laboratory Tests 2 05/10/18 06:05: Nucleated Red Blood Cells % (auto) 0.0, Anion Gap 8, Glomerular Filtration Rate > 60.0, Blood Urea Nitrogen 12, Creatinine 0.63L, Sodium Level 129L, Potassium Level 4.0, Chloride Level 95L, Carbon Dioxide Level 26, Calcium Level 8.2L, Aspartate Amino Transf (AST/SGOT) 22, Alanine Aminotransferase (ALT/SGPT) 15, Alkaline Phosphatase 96, Total Bilirubin 0.6, Total Protein 6.7, Albumin 2.7L, Albumin/Globulin Ratio 0.68L CBC/BMP Laboratory Tests 05/10/18 06:05 Red Blood Count 4.70, Mean Corpuscular Volume 82.6, Mean Corpuscular Hemoglobin 28.9, Mean Corpuscular Hemoglobin Concent 35.1, Red Cell Distribution Width 15.1 H, Calcium Level 8.2 L, Aspartate Amino Transf (AST/SGOT) 22, Alanine Aminotransferase (ALT/SGPT) 15, Alkaline Phosphatase 96, Total Bilirubin 0.6, Total Protein 6.7, Albumin 2.7 L Microbiology Microbiology 05/10/18 Gram Stain - Final, Resulted 05/10/18 Sputum Culture, Resulted Pending GME ATTESTATION GME ATTESTATION My faculty preceptor for this patient encounter was physically present during the encounter and was fully available. All aspects of the patient interview, examination, medical decision making process, and medical care plan development were reviewed and approved by the faculty preceptor. The faculty preceptor is aware and concurs with the plan as stated in the body of this note and will attest to such by his/her cosignature. ATTENDING NOTE I, Adele Obrien, have both independently examined this patient as well as reviewed the documentation. I have discussed in detail with the resident the findings and plan of treatment as documented in the residents documentation. I will continue to follow the patient and offer further guidance to the patients care as necessary during this hospital stay. EBENEZER OLSON DO May 10, 2018 11:18 ADELE OBRIEN MD May 23, 2018 17:38
[2018-05-10] MEDS ORDERED: ISOVUE-370 76% 100ML VIAL (Q9967) As Ordered ONE (12:50)
--- NOTE | 2018-05-10 13:15 | REP ---
CT brain without and with IV contrast: History: Moderately differentiated adenocarcinoma right lung. No comparison brain imaging. CT contrast dose: 75 ml of intravenous Isovue 370. CT findings: Preliminary digital attorney lawyer radiograph is unremarkable. Bone window settings show vascular calcification in the distal vertebral and distal carotid arteries bilaterally. No bony calvarial defect is seen. A small amount of fluid is seen in the apex of the right maxillary sinus. Otherwise, the visualized paranasal sinuses appear appear clear. On soft tissue window settings, there is generalized cerebral atrophy. There is no evidence of infarct or hemorrhage. There is some periventricular white matter low density in the frontal and parietal lobes bilaterally consistent with small vessel atherosclerotic changes. Postcontrast imaging shows no abnormal contrast enhancement. There is no evidence of infarct, mass, or midline shift. Impression: Diffuse atrophy, vascular calcification, small vessel changes. No evidence to suggest intracranial metastasis by CT scanning. No acute intracranial abnormality. Electronically Signed by Jose Luis Garland MD 05/10/2018 01:06 P
[2018-05-10] MEDS: ENOXAPARIN 40 MG/0.4 ML SYRINGE (J1650) SC SCH (13:24)
[2018-05-10 14:00] VITALS: BP 135/97
[2018-05-10] MEDS: amLODIPine 10 MG TAB PO SCH (17:40)
[2018-05-10] MEDS: AZITHROMYCIN INJ 500 MG, VIAL MATE ADAPTER 1 EACH in D5W 250 ML IV SCH (17:40)
[2018-05-10] MEDS: METOPROLOL SUCC (TopROL XL) 100MG *XL* TAB PO SCH (17:41)
[2018-05-10] MEDS: BENAZEPRIL 20 MG TAB PO SCH (17:41)
[2018-05-10] MEDS: cefTRIAXone SOD 1 GM in D5W MINI-BAG PLUS 50 ML IV SCH (19:23)
[2018-05-10 22:00] VITALS: BP 128/76
[2018-05-11] MEDS: IPRATROPIUM 0.5MG/ALBUTEROL 2.5MG INH SOL UD 3ML (DUONEB)(J7620) NEB SCH ×7 (04:42→23:25)
[2018-05-11] MEDS: methylPREDNISolone INJ 40 MG/1 ML VIAL (J2920) IV SCH ×2 (05:38→17:40)
[2018-05-11 06:00] VITALS: BP 132/80
[2018-05-11 06:07] LABS: HEMATOCRIT 40.6 % (42.0-52.0); HEMOGLOBIN 13.9 g/dl (13.5-17.5); MEAN CORPUSCULAR HGB CONC 34.2 g/dl (32.0-36.5); MEAN CORPUSCULAR VOLUME 84.8 fl (80.0-96.0); PLATELET COUNT, AUTOMATED 235 10^3/uL (150-450); RED BLOOD COUNT 4.79 10^6/uL (4.30-6.10); WHITE BLOOD COUNT 11.2 10^3/uL (4.0-10.0)
[2018-05-11 06:36] LABS: ALBUMIN 2.7 GM/DL (3.2-5.2); ALT/SGPT 24 U/L (12-78); BILIRUBIN,TOTAL 0.5 MG/DL (0.2-1.0); BLOOD UREA NITROGEN 17 MG/DL (7-18); CARBON DIOXIDE LEVEL 29 MEQ/L (21-32); CHLORIDE LEVEL 98 MEQ/L (98-107); CREATININE FOR GFR 0.62 MG/DL (0.70-1.30); GLOMERULAR FILTRATION RATE > 60.0 (>49); GLUCOSE, FASTING 131 MG/DL (70-100); POTASSIUM SERUM 3.7 MEQ/L (3.5-5.1); SODIUM LEVEL 134 MEQ/L (136-145); TOTAL PROTEIN 6.5 GM/DL (6.4-8.2)
[2018-05-11] MEDS: ADVAIR HFA 115/21MCG INHALER INH SCH ×2 (07:43→21:02)
[2018-05-11] MEDS: FOLIC ACID 1 MG TAB PO SCH (09:07)
[2018-05-11] MEDS: ASPIRIN 81 MG ENTERIC TAB PO SCH (09:07)
[2018-05-11] MEDS: ENOXAPARIN 40 MG/0.4 ML SYRINGE (J1650) SC SCH (09:07)
[2018-05-11] MEDS: MULTIVITAMINS/MINERALS THERAP 1 TAB PO SCH (09:07)
--- NOTE | 2018-05-11 09:21 | IPNPDOC ---
Date Seen The patient was seen on 05/11/18. Progress Note SUBJECTIVE: Patient is a 68-year-old male with mechanical fall and incidental finding of right lung mass with hypoxia. Patient is evaluated at bedside this morning. He is finishing breakfast during my evaluation. He underwent head CT yesterday which was unrevealing for intracranial mass or lesion. He states that his breathing continues to be problematic and he continues to feel short of breath. He did receive his left knee brace and has been out of bed. He inquires about exercises and activities to sustain his muscle strength in his right lower extremity. OBJECTIVE PHYSICAL EXAMINATION: VITAL SIGNS: Please see below. GENERAL: Well nourished, well developed male, appropriately dressed in hospital attire, alert and conversant, answers questions appropriately, no acute distress, somewhat tremulous. HEENT: Atraumatic, normocephalic, PERRL, EOMI, improving facial plethora, nasal cannula in place, oral mucosa appears pink and moist, nasal septum appears midline, nares are patent, dentition in poor condition. CARDIOVASCULAR: Regular rate and rhythm, normal S1 and S2, no murmur, rub, click. RESPIRATORY: Improved inspiratory and expiratory effort, diminished airway entry throughout, no wheeze, rhonchi, crackles appreciated. ABDOMINAL: Soft, non-tender, non-distended, bowel sounds appreciated. EXTREMITIES: No clubbing, no cyanosis, no peripheral edema, suprapatellar edema noted on the left knee, abrasions and excoriations noted to bilateral knees and bilateral lower extremities. NEUROLOGICAL: No focal neurological deficits. PSYCHOLOGICAL: Mood and affect appropriate. LABORATORY DATA, IMAGING STUDIES, MICROBIOLOGY: Please see below. Left complete knee x-ray on 05/07/2018 - suprapatellar effusion, osteoarthritic degenerative changes, no fracture or dislocation. Portable chest x-ray on 05/07/2018 - mass-like density in the right mid lung. CT chest with contrast on 05/07/2018 - 3cm oval solid mass lesion right upper lung/right midlung field with prominent spiculated borders. CT abdomen and pelvis with contrast on 05/07/2018 - artherosclerotic plaque formation throughout aorta and occlusion of left iliac artery. Bilateral lower extremity duplex ultrasound on 05/07/2018 - no sonographic evidence of deep venous thrombosis. MRI left knee without contrast on 05/08/2018 - occult non-displaced fracture of tibial plateau, hemarthrosis, tear centrally of posterior horn of lateral meniscus, osteochondral defect medial femoral condyle. CT chest angiogram on 05/09/2018 - 3.1 cm mass again noted in the right upper lobe with spiculated contours consistent with primary lung malignancy. There are new areas of pulmonary parenchymal consolidation consistent with pneumonia posterior and superior to the mass in the right upper lobe as well as in the left lower lobe and, to some degree, the right lower lobe. There is a band of linear plate-like atelectasis in the left upper lobe posteriorly. There is a small spiculated nodule in the left upper lobe measuring [address] guided thoracentesis needle placement. Post-biopsy chest x-ray on 05/09/2018 - no pneumothorax. Chest x-ray, 1 view on 05/09/2018 - no pneumothorax, spiculated mass in right mid lung. CT head without followed by with contrast on 05/10/2018 - diffuse atrophy, vas cular calcification, small vessel changes, no evidence to suggest intracranial metastasis, no acute intracranial abnormality. DVT prophylaxis ordered?: Lovenox 40mg subcutaneously daily; TEDs, sequentials, knee high compression. ASSESSMENT AND PLAN: This is a 68-year-old male with mechanical fall resulting in left knee injury; shortness of breath and hypoxia likely secondary to undiagnosed chronic obstructive pulmonary disease; incidentally found right lung mass suspicious for malignancy. PROBLEMS: 1. Mechanical fall: MRI reveals non-displaced fracture of tibial plateau with hemarthosis, and lateral meniscal tear. Orthopedics consulted. Patient has received brace. Patient may be out of bed and toe touchdown/eggshell touchdown on the left lower extremity with a walker or crutches. Patient needs to wear the brace when out of bed. He may remove the brace when in bed. Physical and occupational therapy have been ordered. Patient may benefit from continued rehabilitation once medically stable. Continue with Percocet and Tylenol as needed for pain. 2. Shortness of breath with hypoxia: Likely undiagnosed COPD. Oxygen orders to maintain saturations 88-92%. ABG within normal limits. Spirometry which revealed "moderate obstructive ventilatory impairment with air trapping versus true concomitant restriction." Would benefit from full PFTs. Would benefit from out-patient pulmonology referral. Ambulate patient on room air to document saturation. Patient may require oxygen at home. Continue with Duonebs and Advair. Continue with methylprednisolone 40 mg IV every 12 hours. Negative for pulmonary embolus on CTA chest. 3. 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 Discussed verbally with hematology/oncology. Patient refused brain MRI, but agreed to head CT with results reported above. Continue with Lovenox 40 mg subcutaneous daily. Would need to obtain out-patient PET scan for staging. Patient to follow up out-patient with hematology/oncology. Nicotine patch ordered. 4. Post-obstructive pneumonia: Continue Ceftriaxone and Azithromycin. Mildly elevated leukocytosis. Continue oxygen therapy orders. 5. Hyponatremia: Significantly improved. Likely SIADH. Serum osmolality 258. Urine osmolality 501. Renal function within normal limits with a serum creatinine 0.62. Urine creatinine 83.2. Urine sodium 16. Serum sodium 126. Uric acid 2.3. Intravenous fluids have been discontinued. Fluid restriction of 2L daily. Active alcohol drinker. Alcohol level < 0.003. Ativan as needed for agitation. Continue multivitamin, folic acid, and thiamine. Cortisol level 28.3. 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 Leg is not cool to the touch, pulse is appreciated, no mottling noted. 7. Hypertension: Continue Amlodipine, Benazepril, and Metoprolol. 8. Tobacco dependence: Nicotine patch ordered. Counseling provided. 9. Alcohol dependence: Is noted to be tremulous on examination. CIWA. Ativan as needed. Continue with multivitamin, folic acid, and thiamine. DISPOSITION: Physical and occupational therapy. Improvement in respiratory status. Would likely benefit from continued rehabilitation once medically cleared. VS, I&O, 24H, Fishbone Vital Signs/I&O Vital Signs Date Time Temp Pulse Resp B/P (MAP) Pulse Ox O2 Delivery O2 Flow Rate FiO2 05/11/18 06:00 98.5 85 18 132/80 (97) 90 3.0 05/08/18 06:00 Nasal Cannula I&O- Last 24 Hours up to 6 AM 05/11/18 06:00 Intake Total 1290 ml Output Total 1140 ml Balance 150 ml Laboratory Data 24H LABS Laboratory Tests 2 05/11/18 05:44: Nucleated Red Blood Cells % (auto) 0.0, Anion Gap 7L, Glomerular Filtration Rate > 60.0, Blood Urea Nitrogen 17, Creatinine 0.62L, Sodium Level 134L, Potassium Level 3.7, Chloride Level 98, Carbon Dioxide Level 29, Calcium Level 8.0L, Aspartate Amino Transf (AST/SGOT) 27, Alanine Aminotransferase (ALT/SGPT) 24, Alkaline Phosphatase 90, Total Bilirubin 0.5, Total Protein 6.5, Albumin 2.7L, Albumin/Globulin Ratio 0.71L CBC/BMP Laboratory Tests 05/11/18 05:44 Red Blood Count 4.79, Mean Corpuscular Volume 84.8, Mean Corpuscular Hemoglobin 29.0, Mean Corpuscular Hemoglobin Concent 34.2, Red Cell Distribution Width 15.3 H, Calcium Level 8.0 L, Aspartate Amino Transf (AST/SGOT) 27, Alanine Aminotransferase (ALT/SGPT) 24, Alkaline Phosphatase 90, Total Bilirubin 0.5, Total Protein 6.5, Albumin 2.7 L Microbiology Microbiology 05/10/18 Gram Stain - Final, Resulted 05/10/18 Sputum Culture, Resulted Pending GME ATTESTATION GME ATTESTATION My faculty preceptor for this patient encounter was physically present during the encounter and was fully available. All aspects of the patient interview, examination, medical decision making process, and medical care plan development were reviewed and approved by the faculty preceptor. The faculty preceptor is aware and concurs with the plan as stated in the body of this note and will attest to such by his/her cosignature. ATTENDING NOTE I, Adele Obrien, have both independently examined this patient as well as reviewed the documentation. I have discussed in detail with the resident the findings and plan of treatment as documented in the residents documentation. I will continue to follow the patient and offer further guidance to the patients care as necessary during this hospital stay. EBENEZER OLSON DO May 11, 2018 09:21 ADELE OBRIEN MD May 23, 2018 17:41
[2018-05-11 09:54] VITALS: BP 130/93
[2018-05-11 09:55] VITALS: BP 130/93
[2018-05-11] MEDS ORDERED: LORazepam 1 MG TAB PO PRN (13:00)
[2018-05-11 14:00] VITALS: BP 146/91
[2018-05-11] MEDS: BENAZEPRIL 20 MG TAB PO SCH (17:41)
[2018-05-11] MEDS: amLODIPine 10 MG TAB PO SCH (17:42)
[2018-05-11] MEDS: AZITHROMYCIN INJ 500 MG, VIAL MATE ADAPTER 1 EACH in D5W 250 ML IV SCH (17:42)
[2018-05-11] MEDS: METOPROLOL SUCC (TopROL XL) 100MG *XL* TAB PO SCH (17:42)
[2018-05-11 19:30] VITALS: BP 148/96
[2018-05-11] MEDS: cefTRIAXone SOD 1 GM in D5W MINI-BAG PLUS 50 ML IV SCH (19:37)
[2018-05-11 22:00] VITALS: BP 135/84
[2018-05-12] MEDS: IPRATROPIUM 0.5MG/ALBUTEROL 2.5MG INH SOL UD 3ML (DUONEB)(J7620) NEB SCH ×5 (03:41→23:14)
[2018-05-12 04:00] VITALS: BP 155/85
[2018-05-12] MEDS: methylPREDNISolone INJ 40 MG/1 ML VIAL (J2920) IV SCH (05:08)
[2018-05-12 06:00] VITALS: BP 155/85
[2018-05-12 06:23] LABS: HEMATOCRIT 41.3 % (42.0-52.0); HEMOGLOBIN 14.4 g/dl (13.5-17.5); MEAN CORPUSCULAR HEMOGLOBIN 29.3 pg (27.0-33.0); MEAN CORPUSCULAR HGB CONC 34.9 g/dl (32.0-36.5); MEAN CORPUSCULAR VOLUME 84.1 fl (80.0-96.0); PLATELET COUNT, AUTOMATED 243 10^3/uL (150-450); RED BLOOD COUNT 4.91 10^6/uL (4.30-6.10); WHITE BLOOD COUNT 10.1 10^3/uL (4.0-10.0)
[2018-05-12 06:45] LABS: ALBUMIN 2.8 GM/DL (3.2-5.2); ALT/SGPT 46 U/L (12-78); BILIRUBIN,TOTAL 0.5 MG/DL (0.2-1.0); BLOOD UREA NITROGEN 17 MG/DL (7-18); CALCIUM LEVEL 8.3 MG/DL (8.8-10.2); CARBON DIOXIDE LEVEL 29 MEQ/L (21-32); CHLORIDE LEVEL 98 MEQ/L (98-107); CREATININE FOR GFR 0.62 MG/DL (0.70-1.30); GLOMERULAR FILTRATION RATE > 60.0 (>49); GLUCOSE, FASTING 129 MG/DL (70-100); SODIUM LEVEL 134 MEQ/L (136-145); TOTAL PROTEIN 6.5 GM/DL (6.4-8.2)
[2018-05-12] MEDS: ADVAIR HFA 115/21MCG INHALER INH SCH ×2 (08:11→20:48)
[2018-05-12] MEDS: MULTIVITAMINS/MINERALS THERAP 1 TAB PO SCH (10:44)
[2018-05-12] MEDS: ASPIRIN 81 MG ENTERIC TAB PO SCH (10:45)
[2018-05-12] MEDS: FOLIC ACID 1 MG TAB PO SCH (10:45)
[2018-05-12] MEDS: ENOXAPARIN 40 MG/0.4 ML SYRINGE (J1650) SC SCH (10:45)
[2018-05-12 14:00] VITALS: BP 141/92
--- NOTE | 2018-05-12 15:27 | IPNPDOC ---
Text Note Date of Service The patient was seen on 05/12/18. NOTE Subjective: Patient is a 60-year-old male with a PMHx of HTN, Tobacco abuse, who presented to the ER after he had fallen on his left knee. Patient was also found requiring supplemental oxygen. Imaging completed revealed that the patient had a nondisplaced fracture of his left tibial plateau. Patient was admitted to hospitalist service for further evaluation and treatment, orthopedic surgery was called on consultation. Patient was seen and examined at the bedside. Patient was complaining about diet being restricted to 2 g sodium and fluid restricted 2000 advised him that we will transition to a normal diet with more liberal fluid restrictions. He denies chest pain or palpitations. Notes that his breathing is somewhat improved. Denies nausea, vomiting, abdominal pain, constipation, diarrhea or discomfort with urination. Objective: Vitals (See below) General: Lying in bed, no acute distress, comfortable, AAOx3 HEENT: NC, AT CVS: RRR, +S1S2 Lungs: Poor inspiratory effort, difficult to appreciate airflow, no significant wheezing, rales or rhonchi Abdomen: Soft, ND, NT Extremities: - Edema, - Calf tenderness Assessment and plan: Mechanical fall with non-displaced fracture of left tibial plateau - Left knee with decreased ROM - MRI L Knee 05/09: Occult nondisplaced fracture of the tibial plateau. Hemarthrosis. There is a tear centrally of the posterior horn of the lateral meniscus. Osteochondral defect medial femoral condyle. - Brace in placed - c/w PT / OT; will likely need subacute rehabilitation - Orthopedic surgery on consultation; appreciate their input Shortness of breath - likely 2/2 acute on chronic COPD, possibly 2/2 Community acquired pneumonia - Patient is having improvement in his breathing - Still requiring supplement oxygen; will likely need to be discharged with supplemental oxygen - Leukocytosis improving - possibly 2/2 corticosteroids - Sputum culture 05/10: Pending - CTA chest 05/09: 3.1 cm mass again noted in the right upper lobe with spiculated contours consistent with primary lung malignancy. There are new areas of pulmonary parenchymal consolidation consistent with pneumonia posterior and superior to the mass in the right upper lobe as well as in the left lower lobe and, to some degree, the right lower lobe. There is a band of linear plate-like atelectasis in the left upper lobe posteriorly. There is a small spiculated nodule in the left upper lobe measuring 6 mm as well. - Will start Prednisone; Will DC solumedrol - c/w Ceftriaxone and Azithromycin (Day #4) - c/w Inhaled therapy as ordered Right upper lung mass - likely 2/2 moderately differentiated adenocarcinoma - s/p CT guided biopsy - Pathology 05/09: Moderately differentiated adenocarcinoma - CT head 05/10: Diffuse atrophy, vascular calcification, small vessel changes. No evidence to suggest intracranial metastasis by CT scanning. No acute intracranial abnormality. - Discussed with Dr. Workman (Oncology); will have outpatient f/u for PET scan / treatment options Smoking dependence - Advised smoking cessation; notes he stopped a few years ago - c/w Nicotine patch Hyponatremia - likely 2/2 hypotonic euvolemic etiology - likely 2/2 SIADH - Improving - c/w Fluid restrictions Left iliac artery occlusion - Left leg without any signs of ischemia - CT abdomen / pelvis 05/07: There is atherosclerotic plaque formation throughout the aorta and occlusion of the left iliac artery. - c/w ASA 81 - Discussed with vascular surgery (Dr. Villatoro); advised that collaterals are likely in place; c/w HTN - BP well controlled - c/w Amlodipine, Benazepril, Metoprolol Alcohol dependence - c/w Thiamine, Folate, MVI DVT prophylaxis - c/w Lovenox VS,Fishbone, I+O VS, Fishbone, I+O Laboratory Tests 05/12/18 06:03 Red Blood Count 4.91, Mean Corpuscular Volume 84.1, Mean Corpuscular Hemoglobin 29.3, Mean Corpuscular Hemoglobin Concent 34.9, Red Cell Distribution Width 15.7 H, Calcium Level 8.3 L, Aspartate Amino Transf (AST/SGOT) 34, Alanine Aminotransferase (ALT/SGPT) 46, Alkaline Phosphatase 86, Total Bilirubin 0.5, Total Protein 6.5, Albumin 2.8 L Vital Signs Date Time Temp Pulse Resp B/P (MAP) Pulse Ox O2 Delivery O2 Flow Rate FiO2 05/12/18 14:00 98.4 95 21 141/92 (108) 88 3.0 05/08/18 06:00 Nasal Cannula I&O- Last 24 Hours up to 6 AM 05/12/18 06:00 Intake Total 930 ml Output Total 1325 ml Balance -395 ml KODY OBRIEN MD May 12, 2018 15:27
[2018-05-12] MEDS: BENAZEPRIL 20 MG TAB PO SCH (17:52)
[2018-05-12] MEDS: METOPROLOL SUCC (TopROL XL) 100MG *XL* TAB PO SCH (17:52)
[2018-05-12] MEDS: amLODIPine 10 MG TAB PO SCH (17:53)
[2018-05-12] MEDS: cefTRIAXone SOD 1 GM in D5W MINI-BAG PLUS 50 ML IV SCH (17:54)
[2018-05-12] MEDS: AZITHROMYCIN INJ 500 MG, VIAL MATE ADAPTER 1 EACH in D5W 250 ML IV SCH (18:41)
[2018-05-12 22:00] VITALS: BP 137/87
[2018-05-13] MEDS: IPRATROPIUM 0.5MG/ALBUTEROL 2.5MG INH SOL UD 3ML (DUONEB)(J7620) NEB SCH ×6 (04:00→23:57)
[2018-05-13 06:00] VITALS: BP 143/91
[2018-05-13 06:55] LABS: HEMATOCRIT 43.4 % (42.0-52.0); HEMOGLOBIN 14.7 g/dl (13.5-17.5); MEAN CORPUSCULAR HEMOGLOBIN 29.2 pg (27.0-33.0); MEAN CORPUSCULAR HGB CONC 33.9 g/dl (32.0-36.5); MEAN CORPUSCULAR VOLUME 86.1 fl (80.0-96.0); PLATELET COUNT, AUTOMATED 251 10^3/uL (150-450); RED BLOOD COUNT 5.04 10^6/uL (4.30-6.10); WHITE BLOOD COUNT 11.9 10^3/uL (4.0-10.0)
[2018-05-13 07:25] LABS: ALBUMIN 2.8 GM/DL (3.2-5.2); ALT/SGPT 57 U/L (12-78); BILIRUBIN,TOTAL 0.6 MG/DL (0.2-1.0); BLOOD UREA NITROGEN 21 MG/DL (7-18); CARBON DIOXIDE LEVEL 30 MEQ/L (21-32); CHLORIDE LEVEL 98 MEQ/L (98-107); CREATININE FOR GFR 0.66 MG/DL (0.70-1.30); GLOMERULAR FILTRATION RATE > 60.0 (>49); GLUCOSE, FASTING 92 MG/DL (70-100); POTASSIUM SERUM 3.9 MEQ/L (3.5-5.1); SODIUM LEVEL 135 MEQ/L (136-145); TOTAL PROTEIN 6.4 GM/DL (6.4-8.2)
[2018-05-13] MEDS: ADVAIR HFA 115/21MCG INHALER INH SCH ×2 (08:00→20:00)
[2018-05-13] MEDS: ASPIRIN 81 MG ENTERIC TAB PO SCH (10:40)
[2018-05-13] MEDS: MULTIVITAMINS/MINERALS THERAP 1 TAB PO SCH (10:40)
[2018-05-13] MEDS: predniSONE 20 MG TAB PO SCH (10:40)
[2018-05-13] MEDS: FOLIC ACID 1 MG TAB PO SCH (10:40)
[2018-05-13] MEDS: ENOXAPARIN 40 MG/0.4 ML SYRINGE (J1650) SC SCH (10:41)
--- NOTE | 2018-05-13 12:25 | IPNPDOC ---
Text Note Date of Service The patient was seen on 05/13/18. NOTE Subjective: Patient is a 60-year-old male with a PMHx of HTN, Tobacco abuse, who presented to the ER after he had fallen on his left knee. Patient was also found requiring supplemental oxygen. Imaging completed revealed that the patient had a nondisplaced fracture of his left tibial plateau. Patient was admitted to hospitalist service for further evaluation and treatment, orthopedic surgery was called on consultation. Patient was seen and examined at the bedside. Patient notes that his breathing is slightly better. Still notes a cough. Denies chest pain or palpitations. Denies nausea, vomiting, abdominal pain, constipation, diarrhea or discomfort with urination. Objective: Vitals (See below) General: Lying in bed, no acute distress, comfortable, AAOx3 HEENT: NC, AT CVS: RRR, +S1S2 Lungs: Poor inspiratory effort, there does not appear to be any evidence of rhonchi or rales. Does appear to be mild wheezing Abdomen: Soft, abdomen, remains nondistended without tenderness Extremities: No evidence of lower extremity edema, - Calf tenderness Assessment and plan: Mechanical fall with non-displaced fracture of left tibial plateau - Patient notes that his left knee does not experience much pain - MRI L Knee 05/09: Occult nondisplaced fracture of the tibial plateau. Hemarthrosis. There is a tear centrally of the posterior horn of the lateral meniscus. Osteochondral defect medial femoral condyle. - Brace in place - c/w PT / OT; will likely need subacute rehabilitation - Orthopedic surgery on consultation; appreciate their input Shortness of breath - likely 2/2 acute on chronic COPD, possibly 2/2 Community acquired pneumonia - Patient is having improvement in his breathing - Will likely need outpatient supplemental oxygen - Leukocytosis improving - possibly 2/2 corticosteroids - Sputum culture 05/10: Pending - CTA chest 05/09: 3.1 cm mass again noted in the right upper lobe with spiculated contours consistent with primary lung malignancy. There are new areas of pulmonary parenchymal consolidation consistent with pneumonia posterior and superior to the mass in the right upper lobe as well as in the left lower lobe and, to some degree, the right lower lobe. There is a band of linear plate-like atelectasis in the left upper lobe posteriorly. There is a small spiculated nodule in the left upper lobe measuring 6 mm as well. - c/w Prednisone; s/p solumedrol - c/w Ceftriaxone and Azithromycin (Day #5) - c/w Inhaled therapy as ordered Right upper lung mass - likely 2/2 moderately differentiated adenocarcinoma - s/p CT guided biopsy - Pathology 05/09: Moderately differentiated adenocarcinoma - CT head 05/10: Diffuse atrophy, vascular calcification, small vessel changes. No evidence to suggest intracranial metastasis by CT scanning. No acute intracranial abnormality. - Discussed with Dr. Workman (Oncology); will have outpatient f/u for PET scan / treatment options Smoking dependence - Advised smoking cessation; notes he stopped a few years ago - c/w Nicotine patch Hyponatremia - likely 2/2 hypotonic euvolemic etiology - likely 2/2 SIADH - Improving - c/w Fluid restrictions Left iliac artery occlusion - Left leg without any signs of ischemia - Discussed with vascular surgery (Dr. Villatoro); advised that collaterals are likely in place; c/w ASA 81 HTN - BP well controlled - c/w Amlodipine, Benazepril, Metoprolol Alcohol dependence - c/w Thiamine, Folate, MVI DVT prophylaxis - c/w Lovenox Disposition: - c/w Physical therapy; likely will need TONY placement VS,Fishbone, I+O VS, Fishbone, I+O Laboratory Tests 05/13/18 06:06 Red Blood Count 5.04, Mean Corpuscular Volume 86.1, Mean Corpuscular Hemoglobin 29.2, Mean Corpuscular Hemoglobin Concent 33.9, Red Cell Distribution Width 15.9 H, Calcium Level 8.0 L, Aspartate Amino Transf (AST/SGOT) 37, Alanine Aminotransferase (ALT/SGPT) 57, Alkaline Phosphatase 81, Total Bilirubin 0.6, Total Protein 6.4, Albumin 2.8 L Vital Signs Date Time Temp Pulse Resp B/P (MAP) Pulse Ox O2 Delivery O2 Flow Rate FiO2 05/13/18 06:00 98.2 83 18 143/91 (108) 88 3.0 05/08/18 06:00 Nasal Cannula I&O- Last 24 Hours up to 6 AM 05/13/18 05:59 Intake Total 1835 ml Output Total 1725 ml Balance 110 ml KODY OBRIEN MD May 13, 2018 12:25
[2018-05-13 14:00] VITALS: BP 142/83
[2018-05-13] MEDS: AZITHROMYCIN 250 MG TAB PO SCH (14:54)
[2018-05-13] MEDS: CEFDINIR 300 MG CAP (OMNICEF) PO SCH ×2 (14:54→20:10)
[2018-05-13] MEDS: BENAZEPRIL 20 MG TAB PO SCH (17:26)
[2018-05-13] MEDS: amLODIPine 10 MG TAB PO SCH (17:26)
[2018-05-13] MEDS: METOPROLOL SUCC (TopROL XL) 100MG *XL* TAB PO SCH (17:27)
[2018-05-13 22:00] VITALS: BP 126/78
[2018-05-14] MEDS ORDERED: FUROSEMIDE 20 MG/2 ML VIAL (J1940) IV ONE (00:30)
[2018-05-14 00:51] VITALS: BP 150/94
[2018-05-14] MEDS: IPRATROPIUM 0.5MG/ALBUTEROL 2.5MG INH SOL UD 3ML (DUONEB)(J7620) NEB SCH ×5 (04:00→23:29)
[2018-05-14 06:00] VITALS: BP 135/92
[2018-05-14 06:29] LABS: HEMATOCRIT 47.4 % (42.0-52.0); HEMOGLOBIN 16.1 g/dl (13.5-17.5); MEAN CORPUSCULAR HEMOGLOBIN 29.1 pg (27.0-33.0); MEAN CORPUSCULAR VOLUME 85.7 fl (80.0-96.0); PLATELET COUNT, AUTOMATED 279 10^3/uL (150-450); RED BLOOD COUNT 5.53 10^6/uL (4.30-6.10); WHITE BLOOD COUNT 13.6 10^3/uL (4.0-10.0)
[2018-05-14 06:52] LABS: ALBUMIN 2.9 GM/DL (3.2-5.2); ALT/SGPT 68 U/L (12-78); BILIRUBIN,TOTAL 0.8 MG/DL (0.2-1.0); BLOOD UREA NITROGEN 22 MG/DL (7-18); CALCIUM LEVEL 8.3 MG/DL (8.8-10.2); CARBON DIOXIDE LEVEL 30 MEQ/L (21-32); CHLORIDE LEVEL 97 MEQ/L (98-107); CREATININE FOR GFR 0.67 MG/DL (0.70-1.30); GLOMERULAR FILTRATION RATE > 60.0 (>49); GLUCOSE, FASTING 92 MG/DL (70-100); POTASSIUM SERUM 3.8 MEQ/L (3.5-5.1); SODIUM LEVEL 136 MEQ/L (136-145); TOTAL PROTEIN 6.7 GM/DL (6.4-8.2)
[2018-05-14 07:38] LABS: C REACTIVE PROTEIN QUANTITATIV 0.49 MG/DL (0.00-0.30)
[2018-05-14] MEDS: ADVAIR HFA 115/21MCG INHALER INH SCH ×2 (08:11→20:28)
[2018-05-14] MEDS: predniSONE 20 MG TAB PO SCH (08:45)
[2018-05-14] MEDS: CEFDINIR 300 MG CAP (OMNICEF) PO SCH ×2 (08:45→20:21)
[2018-05-14] MEDS: FOLIC ACID 1 MG TAB PO SCH (08:46)
[2018-05-14] MEDS: MULTIVITAMINS/MINERALS THERAP 1 TAB PO SCH (08:46)
[2018-05-14] MEDS: ASPIRIN 81 MG ENTERIC TAB PO SCH (08:46)
[2018-05-14] MEDS: AZITHROMYCIN 250 MG TAB PO SCH (08:46)
[2018-05-14] MEDS: ENOXAPARIN 40 MG/0.4 ML SYRINGE (J1650) SC SCH (08:46)
[2018-05-14 09:00] VITALS: BP 131/92
--- NOTE | 2018-05-14 11:37 | IPNPDOC ---
Text Note Date of Service The patient was seen on 05/14/18. NOTE Subjective: Patient is a 60-year-old male with a PMHx of HTN, Tobacco abuse, who presented to the ER after he had fallen on his left knee. Patient was also found requiring supplemental oxygen. Imaging completed revealed that the patient had a nondisplaced fracture of his left tibial plateau. Patient was admitted to hospitalist service for further evaluation and treatment, orthopedic surgery was called on consultation. Patient was seen and examined at the bedside. Patient notes that he hasn't slept well. He denies any chest pain, shortness of breath or palpitations. Denies nausea, vomiting, abdominal pain, constipation, diarrhea or discomfort with urination. He does note that yesterday he had received diuretics and was urinating excessively. Patient is willing to continue working with physical therapy and wants to find an exercise band for his right leg to help improve his strength. Objective: Vitals (See below) General: Lying in bed, no acute distress, comfortable, AAOx3 HEENT: NC, AT CVS: RRR, +S1S2 Lungs: Poor inspiratory effort without any evidence of rhonchi or crackles. There does appear to be mild wheezing upon expiration Abdomen: Soft, nondistended, no evidence of tenderness Extremities: LE without any edema, - Calf tenderness Assessment and plan: Mechanical fall with non-displaced fracture of left tibial plateau - Notes that there is some pain of his left knee. This morning - MRI L Knee 05/09: Occult nondisplaced fracture of the tibial plateau. Hemarthrosis. There is a tear centrally of the posterior horn of the lateral meniscus. Osteochondral defect medial femoral condyle. - Brace in place - c/w PT / OT; will likely need subacute rehabilitation - Orthopedic surgery on consultation; appreciate their input Shortness of breath - likely 2/2 acute on chronic COPD, possibly 2/2 Community acquired pneumonia - Patient is having improvement in his breathing - Will likely need outpatient supplemental oxygen - Remains afebrile and hemodynamically stable - Elevation of WBC; Will trend CRP - Sputum culture 05/10: Normal jose - CTA chest 05/09: 3.1 cm mass again noted in the right upper lobe with spiculated contours consistent with primary lung malignancy. There are new areas of pulmonary parenchymal consolidation consistent with pneumonia posterior and superior to the mass in the right upper lobe as well as in the left lower lobe and, to some degree, the right lower lobe. There is a band of linear plate-like atelectasis in the left upper lobe posteriorly. There is a small spiculated nodule in the left upper lobe measuring 6 mm as well. - c/w Prednisone; s/p solumedrol - will continue taper steroids - Will start Cefdinir and Azithromycin PO; Will DC Ceftriaxone and Azithromycin (Day #6) - c/w Inhaled therapy as ordered Right upper lung mass - likely 2/2 moderately differentiated adenocarcinoma - I discussed the findings with the patient extensively on several occasions; advised him that we are aware of the diagnosis of cancer at his right upper lung - Patient has noted that he "kind of knew it would be cancer" - He understands that he will need further workup before treatment can begin; advised him that case has been discussed with Dr. Workman of oncology and that a PET scan will be required - s/p CT guided biopsy - Pathology 05/09: Moderately differentiated adenocarcinoma - CT head 05/10: Diffuse atrophy, vascular calcification, small vessel changes. No evidence to suggest intracranial metastasis by CT scanning. No acute intracranial abnormality. - Discussed with Dr. 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 Villatoro); advised that collaterals are likely in place; c/w ASA 81 HTN - BP well controlled - c/w Amlodipine, Benazepril, Metoprolol Alcohol dependence - c/w Thiamine, Folate, MVI DVT prophylaxis - c/w Lovenox Disposition: - c/w Physical therapy; likely will need TONY placement VS,Fishbone, I+O VS, Fishbone, I+O Laboratory Tests 05/14/18 06:06 Red Blood Count 5.53, Mean Corpuscular Volume 85.7, Mean Corpuscular Hemoglobin 29.1, Mean Corpuscular Hemoglobin Concent 34.0, Red Cell Distribution Width 15.9 H, Calcium Level 8.3 L, Aspartate Amino Transf (AST/SGOT) 38 H, Alanine A minotransferase (ALT/SGPT) 68, Alkaline Phosphatase 90, Total Bilirubin 0.8, Total Protein 6.7, Albumin 2.9 L Vital Signs Date Time Temp Pulse Resp B/P (MAP) Pulse Ox O2 Delivery O2 Flow Rate FiO2 05/14/18 10:00 3.0 05/14/18 09:00 97.5 80 14 131/92 (105) 90 05/08/18 06:00 Nasal Cannula I&O- Last 24 Hours up to 6 AM 05/14/18 06:00 Intake Total 1290 ml Output Total 1660 ml Balance -370 ml KODY OBRIEN MD May 14, 2018 11:37
[2018-05-14 14:00] VITALS: BP 123/73
[2018-05-14] MEDS: BENAZEPRIL 20 MG TAB PO SCH (17:35)
[2018-05-14] MEDS: METOPROLOL SUCC (TopROL XL) 100MG *XL* TAB PO SCH (17:36)
[2018-05-14] MEDS: amLODIPine 10 MG TAB PO SCH (18:11)
[2018-05-14] MEDS ORDERED: RAMELTEON 8 MG TAB (ROZEREM) PO SCH (21:00)
[2018-05-14 22:00] VITALS: BP 111/66
[2018-05-15] MEDS: IPRATROPIUM 0.5MG/ALBUTEROL 2.5MG INH SOL UD 3ML (DUONEB)(J7620) NEB SCH ×5 (04:00→20:00)
[2018-05-15 06:00] VITALS: BP 146/90
[2018-05-15 06:19] LABS: HEMATOCRIT 45.4 % (42.0-52.0); HEMOGLOBIN 15.4 g/dl (13.5-17.5); MEAN CORPUSCULAR HEMOGLOBIN 29.3 pg (27.0-33.0); MEAN CORPUSCULAR HGB CONC 33.9 g/dl (32.0-36.5); MEAN CORPUSCULAR VOLUME 86.3 fl (80.0-96.0); PLATELET COUNT, AUTOMATED 260 10^3/uL (150-450); RED BLOOD COUNT 5.26 10^6/uL (4.30-6.10); WHITE BLOOD COUNT 14.4 10^3/uL (4.0-10.0)
[2018-05-15 06:41] LABS: C REACTIVE PROTEIN QUANTITATIV 1.02 MG/DL (0.00-0.30)
[2018-05-15 07:23] LABS: ALBUMIN 2.7 GM/DL (3.2-5.2); ALT/SGPT 60 U/L (12-78); BILIRUBIN,TOTAL 0.7 MG/DL (0.2-1.0); BLOOD UREA NITROGEN 23 MG/DL (7-18); CALCIUM LEVEL 8.3 MG/DL (8.8-10.2); CARBON DIOXIDE LEVEL 30 MEQ/L (21-32); CHLORIDE LEVEL 100 MEQ/L (98-107); GLOMERULAR FILTRATION RATE > 60.0 (>49); GLUCOSE, FASTING 88 MG/DL (70-100); POTASSIUM SERUM 3.6 MEQ/L (3.5-5.1); SODIUM LEVEL 137 MEQ/L (136-145)
[2018-05-15] MEDS: ADVAIR HFA 115/21MCG INHALER INH SCH ×2 (07:57→20:02)
--- NOTE | 2018-05-15 08:58 | REP ---
Chest x-ray: Two views. History: Leukocytosis. Comparison chest x-ray: May 09, 2018. Findings: There is blunting of both posterior pleural angles indicating small bilateral pleural effusions. The ill-defined spiculated mass previously noted in the right upper lobe is again seen measuring up to 3.8 cm in diameter although its margins are ill-defined today. This appears to be posterior on lateral radiograph. No new infiltrate is appreciated. Cardiomegaly is observed mild in degree. Pulmonary vasculature is not increased. Impression: Small bilateral pleural effusions. Spiculated right upper lobe mass again seen. No definite new infiltrate. Electronically Signed by Jose Luis Garland MD 05/15/2018 06:46 P
[2018-05-15] MEDS: TAMSULOSIN 0.4 MG CAP PO SCH (09:12)
[2018-05-15] MEDS: predniSONE 20 MG TAB PO SCH (09:12)
[2018-05-15] MEDS: CEFDINIR 300 MG CAP (OMNICEF) PO SCH ×2 (09:12→21:09)
[2018-05-15] MEDS: ASPIRIN 81 MG ENTERIC TAB PO SCH (09:12)
[2018-05-15] MEDS: AZITHROMYCIN 250 MG TAB PO SCH (09:12)
[2018-05-15] MEDS: FOLIC ACID 1 MG TAB PO SCH (09:12)
[2018-05-15] MEDS: MULTIVITAMINS/MINERALS THERAP 1 TAB PO SCH (09:12)
[2018-05-15] MEDS: ENOXAPARIN 40 MG/0.4 ML SYRINGE (J1650) SC SCH (09:13)
[2018-05-15] MEDS ORDERED: NS 1,000 ML IV SCH (11:00)
[2018-05-15 11:37] LABS: MAGNESIUM LEVEL 2.4 MG/DL (1.8-2.4)
--- NOTE | 2018-05-15 12:10 | IPNPDOC ---
Text Note Date of Service The patient was seen on 05/15/18. NOTE Subjective: Patient is a 60-year-old male with a PMHx of HTN, Tobacco abuse, who presented to the ER after he had fallen on his left knee. Patient was also found requiring supplemental oxygen. Imaging completed revealed that the patient had a nondisplaced fracture of his left tibial plateau. Patient was admitted to hospitalist service for further evaluation and treatment, orthopedic surgery was called on consultation. Patient was seen and examined at the bedside. Patient has no contact with this morning. Denies any chest pain, short of breath, palpitations. Denies nausea, vomiting, abdominal pain, has had regular bowel movements. He notes that he is expressing difficulty with urination. Yesterday evening patient has difficulty with urination and was straight cath to remove approximately 2000 mL of urine. Objective: Vitals (See below) General: Lying in bed, no acute distress, comfortable, AAOx3 HEENT: NC, AT CVS: RRR, +S1S2 Lungs: Poor inspiratory effort, there does not appear to be auscultated wheezing, rhonchi or rales Abdomen: Soft, there is no tenderness. There is no distention Extremities: LE without any evidence of edema, - Calf tenderness Assessment and plan: Mechanical fall with non-displaced fracture of left tibial plateau - Notes that there is some pain of his left knee. This morning - MRI L Knee 05/09: Occult nondisplaced fracture of the tibial plateau. Hemarthrosis. There is a tear centrally of the posterior horn of the lateral meniscus. Osteochondral defect medial femoral condyle. - Brace in place - c/w PT / OT; will likely need subacute rehabilitation - Orthopedic surgery on consultation; appreciate their input Shortness of breath - likely 2/2 acute on chronic COPD, possibly 2/2 Community acquired pneumonia - Patient was that his breathing has improved significantly from the point of arrival - Patient has failed to have improvement of his oxygenation; he is likely oxygen dependent - Remains afebrile and hemodynamically stable - Elevation of WBC; Increase of CRP - Sputum culture 05/10: Normal jose - CTA chest 05/09: 3.1 cm mass again noted in the right upper lobe with spiculated contours consistent with primary lung malignancy. There are new areas of pulmonary parenchymal consolidation consistent with pneumonia posterior and superior to the mass in the right upper lobe as well as in the left lower lobe and, to some degree, the right lower lobe. There is a band of linear plate-like atelectasis in the left upper lobe posteriorly. There is a small spiculated nodule in the left upper lobe measuring 6 mm as well. - Will check UA / Urine culture - c/w Prednisone; s/p solumedrol - will continue taper steroids - c/w Cefdinir and Azithromycin PO; s/p Ceftriaxone and Azithromycin (Day #6) - c/w Inhaled therapy as ordered Urinary retention - possibly 2/2 UTI - Patient had approximate 2000 mL of urine removed on the evening of 05/14 - Patient has failed to void since that point; will place Salguero catheter - We'll send urine for analysis and culture Right upper lung mass - likely 2/2 moderately differentiated adenocarcinoma - I discussed the findings with the patient extensively on several occasions; advised him that we are aware of the diagnosis of cancer at his right upper lung - Patient has noted that he "kind of knew it would be cancer" - He understands that he will need further workup before treatment can begin; advised him that case has been discussed with Dr. Workman of oncology and that a PET scan will be required - s/p CT guided biopsy - Pathology 05/09: Moderately differentiated adenocarcinoma - CT head 05/10: Diffuse atrophy, vascular calcification, small vessel changes. No evidence to suggest intracranial metastasis by CT scanning. No acute intracranial abnormality. - Discussed with Dr. 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 Villatoro); advised that collaterals are likely in place; c/w ASA 81 HTN - BP well controlled - c/w Amlodipine, Benazepril, Metoprolol Alcohol dependence - c/w Thiamine, Folate, MVI DVT prophylaxis - c/w Lovenox Disposition: - c/w Physical therapy; likely will need TONY placement, consideration for ARU VS,Fishbone, I+O VS, Fishbone, I+O Laboratory Tests 05/15/18 06:01 Red Blood Count 5.26, Mean Corpuscular Volume 86.3, Mean Corpuscular Hemoglobin 29.3, Mean Corpuscular Hemoglobin Concent 33.9, Red Cell Distribution Width 15.7 H, Calcium Level 8.3 L, Aspartate Amino Transf (AST/SGOT) 26, Alanine Aminotransferase (ALT/SGPT) 60, Alkaline Phosphatase 84, Total Bilirubin 0.7, Total Protein 6.0 L, Albumin 2.7 L Vital Signs Date Time Temp Pulse Resp B/P (MAP) Pulse Ox O2 Delivery O2 Flow Rate FiO2 05/15/18 06:00 97.4 79 18 146/90 (108) 93 2.0 I&O- Last 24 Hours up to 6 AM 05/15/18 06:00 Intake Total 1460 ml Output Total 3050 ml Balance -1590 ml KODY OBRIEN MD May 15, 2018 12:10
[2018-05-15 14:00] VITALS: BP 118/77
[2018-05-15] MEDS: amLODIPine 10 MG TAB PO SCH (18:00)
[2018-05-15] MEDS: METOPROLOL SUCC (TopROL XL) 100MG *XL* TAB PO SCH (18:00)
[2018-05-15] MEDS: BENAZEPRIL 20 MG TAB PO SCH (18:00)
[2018-05-15 18:30] VITALS: BP 110/73
--- NOTE | 2018-05-15 21:43 | ECGEPIP ---
Stationary ECG Study [facility] Test Date: 2018-05-15 Pat Name: KULWANT CORREIA Department: Room: [place] [address] Gender: M Report Analyst: LEONILA : 1950 Requested By: KODY OBRIEN Order Number: [id number] Reading MD: Meche Daniels Measurements Intervals [place] Rate: 81 P: 60 [place]: 188 QRS: 20 QRSD: 105 T: -7 QT: 394 QTc: 458 Interpretive Statements SINUS RHYTHM WITH FREQUENT SUPRAVENTRICULAR PREMATURE COMPLEXES NONSPECIFIC ST & T-WAVE ABNORMALITY ABNORMAL RHYTHM ECG SIMILAR TO 05/08/18 Electronically Signed On 05-15-2018 21:42:33 EST by Meche Daniels
[2018-05-15 22:00] VITALS: BP 110/70
[2018-05-16] VITALS (8 sets, daily range): BP systolic 106–155; BP diastolic 72–92
[2018-05-16] MEDS: IPRATROPIUM 0.5MG/ALBUTEROL 2.5MG INH SOL UD 3ML (DUONEB)(J7620) NEB SCH ×7 (03:58→23:52)
[2018-05-16] MEDS ORDERED: LR 1,000 ML IV SCH ×2 (06:15→18:00)
--- NOTE | 2018-05-16 06:32 | IPNPDOC ---
Text Note Date of Service The patient was seen on 05/16/18. NOTE I was called urgently to the patient's bedside due to 6.8 seconds of asystole on the patient's telemetry. S: Patient denies any palpitations, chest pain, or dizziness. Denies feeling syncopal. He denies SOB or dyspnea. Has at least a 50 pack year smoking history. Has never seen a oncology social work. O: General: Awake, alert, oriented, no acute distress Lungs: CTA bilaterally, no wheezes, rhonchi or rales Heart: Regular rate, irregular rhythm; no murmurs, gallops, or rubs Extremities: Good pulses in upper and lower extremities A: 68 year old male with 6.8 seconds of asystole, multiple bradycardic episodes overnight which were asymptomatic. Case discussed with Dr. Sunshine, Toprol may be the reason. Last dose was on 05/14/16 in the evening. P: Transfer to the ICU, patient is FULL CODE. Dr. Sunshine consulted and will see the patient this afternoon. D/C's Toprol and Lovenox in case pacer is needed. VS,Fishbone, I+O VS, Fishbone, I+O Vital Signs Date Time Temp Pulse Resp B/P (MAP) Pulse Ox O2 Delivery O2 Flow Rate FiO2 05/16/18 05:45 97.4 100 12 134/76 (95) 91 2.0 I&O- Last 24 Hours up to 6 AM 05/16/18 06:00 Intake Total 1630 ml Output Total 1250 ml Balance 380 ml GME ATTESTATION GME ATTESTATION My faculty preceptor for this patient encounter was physically present during the encounter and was fully available. All aspects of the patient interview, examination, medical decision making process, and medical care plan development were reviewed and approved by the faculty preceptor. The faculty preceptor is aware and concurs with the plan as stated in the body of this note and will attest to such by his/her cosignature. ATTENDING NOTE Attestation: I have supervised the program medical director and discussed patients evaluation and medical management. I agree with the outlined management plan as documented in the residents note. SAMIR GARCIA DO May 16, 2018 06:32 INA KULKARNI MD May 16, 2018 06:57
--- NOTE | 2018-05-16 08:14 | ECGEPIP ---
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
[2018-05-16] MEDS: CEFDINIR 300 MG CAP (OMNICEF) PO SCH ×2 (08:57→21:49)
[2018-05-16] MEDS: predniSONE 10 MG TAB PO SCH (08:58)
[2018-05-16] MEDS: TAMSULOSIN 0.4 MG CAP PO SCH (08:58)
[2018-05-16] MEDS: FOLIC ACID 1 MG TAB PO SCH (08:58)
[2018-05-16] MEDS: ASPIRIN 81 MG ENTERIC TAB PO SCH (08:58)
[2018-05-16] MEDS: AZITHROMYCIN 250 MG TAB PO SCH (08:59)
[2018-05-16] MEDS: MULTIVITAMINS/MINERALS THERAP 1 TAB PO SCH (08:59)
[2018-05-16] MEDS: ADVAIR HFA 115/21MCG INHALER INH SCH ×2 (11:31→20:03)
[2018-05-16] MEDS ORDERED: LIDOCAINE 2% INJ 100 MG/5 ML SDV (FOR ANES.) As Ordered ONE (14:30)
[2018-05-16] MEDS ORDERED: ceFAZolin SOD 1 GM in D5W MINI-BAG PLUS 50 ML IV ONE (14:30)
[2018-05-16] MEDS ORDERED: PROPOFOL 200 MG/20 ML VIAL As Ordered ONE ×2 (14:30→16:42)
[2018-05-16] MEDS ORDERED: fentaNYL 100 MCG/2 ML INJECTION (J3010) As Ordered ONE (14:31)
[2018-05-16] MEDS ORDERED: MIDAZOLAM INJ 2 MG/2 ML VIAL (J2250) As Ordered ONE (14:31)
[2018-05-16] MEDS ORDERED: LIDOCAINE 1% SDV INJ 30 ML VIAL As Ordered ONE (14:33)
[2018-05-16] MEDS ORDERED: ISOVUE-300 61% 50ML VIAL (Q9967) As Ordered ONE (14:33)
[2018-05-16] MEDS ORDERED: MUPIROCIN 2% OINT 22 GM TUBE As Ordered ONE (14:33)
[2018-05-16] MEDS ORDERED: VANCOMYCIN 1000 MG/20 ML VIAL (J3370) As Ordered ONE (14:34)
[2018-05-16 14:39] LABS: BASO % 0.2 % (0.0-1.0); EOS % 0.2 % (0.0-3.0); HEMATOCRIT 45.6 % (42.0-52.0); HEMOGLOBIN 15.4 g/dl (13.5-17.5); LYMPH # 0.6 10^3/uL (1.5-4.5); LYMPH % 5.3 % (24.0-44.0); MEAN CORPUSCULAR HEMOGLOBIN 29.1 pg (27.0-33.0); MEAN CORPUSCULAR HGB CONC 33.8 g/dl (32.0-36.5); MONO # 0.5 10^3/uL (0.0-0.8); MONO % 4.6 % (0.0-5.0); NEUTROPHILS # 9.7 10^3/uL (1.8-7.7); PLATELET COUNT, AUTOMATED 252 10^3/uL (150-450); WHITE BLOOD COUNT 10.9 10^3/uL (4.0-10.0)
[2018-05-16 14:50] LABS: INR 1.01; PROTHROMBIN TIME 13.4 SECONDS (12.1-14.4)
[2018-05-16 14:51] LABS: PARTIAL THROMBOPLASTIN TIME 28.7 SECONDS (25.4-37.6)
[2018-05-16] MEDS ORDERED: ceFAZolin 1GM INJ (J0690 PER 500MG) As Ordered ONE (15:04)
[2018-05-16 15:11] LABS: ALBUMIN 2.7 GM/DL (3.2-5.2); ALT/SGPT 46 U/L (12-78); BILIRUBIN,TOTAL 0.8 MG/DL (0.2-1.0); BLOOD UREA NITROGEN 14 MG/DL (7-18); CALCIUM LEVEL 8.4 MG/DL (8.8-10.2); CARBON DIOXIDE LEVEL 28 MEQ/L (21-32); CHLORIDE LEVEL 99 MEQ/L (98-107); CREATININE FOR GFR 0.57 MG/DL (0.70-1.30); GLOMERULAR FILTRATION RATE > 60.0 (>49); GLUCOSE, FASTING 109 MG/DL (70-100); POTASSIUM SERUM 4.1 MEQ/L (3.5-5.1); SODIUM LEVEL 133 MEQ/L (136-145); TOTAL PROTEIN 6.2 GM/DL (6.4-8.2)
[2018-05-16] MEDS ORDERED: PHENYLephrine HCL 500 MCG/5 ML (100MCG/ML) SYRINGE (J2370) As Ordered ONE ×2 (16:08→17:03)
[2018-05-16] MEDS ORDERED: ALBUTEROL SULFATE 2.5 MG/0.5 ML INH NEB SOLN As Ordered ONE (17:52)
[2018-05-16] MEDS ORDERED: ONDANSETRON 4MG/2ML VIAL (J2405) IV PRN (18:00)
[2018-05-16] MEDS ORDERED: fentaNYL 100 MCG/2 ML INJECTION (J3010) IV PRN (18:00)
[2018-05-16] MEDS ORDERED: PERCOCET 5MG/325MG TAB PO PRN (18:00)
[2018-05-16] MEDS ORDERED: NS 250 ML IV SCH (18:00)
--- NOTE | 2018-05-16 18:04 | REP ---
Chest one-view HISTORY: Postop Comparison: 05/15/2018 A 3.4 cm spiculated mass is present in the right upper lobe. Parenchymal densities are present in the left lower lobe consistent with atelectasis or infiltrate. There is blunting of the costophrenic angles due to small pleural effusions. The cardiac silhouette is enlarged. The pulmonary vasculature is normal in appearance. A cardiac pacemaker is present. Impression: 1. 3.4 cm spiculated right upper lobe mass unchanged compared to the previous study. 2. Left lower lobe atelectasis or infiltrate. 3. Small bilateral pleural effusions. Electronically Signed by Jesús Orellana MD 05/16/2018 05:56 P
--- NOTE | 2018-05-16 18:17 | REP ---
FLUOROSCOPIC GUIDANCE: HISTORY: Pacemaker insertion. A single radiograph was obtained with a C-ARM. The patient is status-post pacemaker insertion. Fluoroscopic time 9 minutes 40 seconds. IMPRESSION:The patient is status post pacemaker insertion. Electronically Signed by Jesús Orellana MD 05/16/2018 06:35 P
[2018-05-16] MEDS ORDERED: ALBUTEROL SULFATE 2.5 MG/0.5 ML INH NEB SOLN INH SCH (18:30)
--- NOTE | 2018-05-16 18:33 | RO ---
DATE OF PROCEDURE: 05/16/2018 PREPROCEDURE DIAGNOSIS: Second degree high-grade atrioventricular (AV) block. POSTPROCEDURE DIAGNOSIS: Second degree high-grade atrioventricular block. FINDINGS: Second degree high-grade atrioventricular block. PROCEDURE: Implantation of permanent dual-chamber pacemaker (Medtronic). SURGEON: Josep Sunshine MD CHIEF HUMAN RESOURCES OFFICER: None. ANESTHESIA: Lidocaine 1% local/monitored anesthetic care. No specimens. Estimated blood loss: Less than 5 mL. No blood products replaced. No drains. No complications. DESCRIPTION OF PROCEDURE: The patient was prepped and draped over the left pectoral region. 3M Ioban film was applied. Lidocaine 1% was used for local anesthetic. The left subclavian vein was entered by percutaneous technique using a micropuncture needle, starting with the needle in the deltoid pectoral groove and aiming towards the first rib. This was then guidewire exchanged for a guidewire that came with one of the 7-Kazakh sheaths. Next, I made an incision approximately 2-1/2 inches in length using a PEAK PlasmaBlade with the incision approximately parallel to the left clavicle and 1 cm below the skin entry site of the guidewire. The PEAK PlasmaBlade was then used to get through the fibrous Neida's fascia and the fatty layer above it. The pacemaker pocket was then formed in a caudal direction using blunt dissection using two fingers to separate the prepectoral fascia from the Neida's fascia. Next, the guidewire was pulled through the skin into the incision site. I next then took another separate micropuncture needle and worked on getting venous access at the level of the pectoral muscle more lateral to the first guidewire. To assist with this, a left subclavian venogram was performed using 20 mL of a mixture containing five parts Isovue to one part normal saline. The quality of the venogram was very poor and was not helpful for visualization of the subclavian vein. I persisted under fluoroscopic guidance using the first guidewire as a marker and was able to get successful entry into the left subclavian vein. This was then guidewire exchanged for a guidewire that came with the other 7-Kazakh sheath. Next, the standard length 7-Kazakh introducer/sheath was placed over the more lateral of the guidewires and was used for vein access for the right ventricle lead. The right ventricle lead would not negotiate the tortuosity in the innominate vein over to the superior vena cava. I then removed the right ventricle lead temporarily, and I placed a long guidewire from a long 7-Kazakh sheath into the standard length 7-Kazakh sheath. The standard 7-Kazakh sheath was removed leaving the long guidewire in place. I then placed a long 7-Kazakh sheath with introducer over the long guidewire and was able to steer it into the upper portion of the superior vena cava. This was then used for placement of the right ventricle lead. The right ventricle lead was placed under fluoroscopic guidance into the right ventricle apex position where it was secured with a total of 10 turns. This position was found to be electrically and anatomically satisfactory. No diaphragm stimulation could be palpated on either side with 10 volts high output pacing. Next, the long 7-Kazakh sheath was broken apart and removed. The ventricular lead was then secured to the pectoral muscle using the three individual sutures around the tie-down sleeve to secure it to the pectoral muscle using #0 Ethibond suture material. Next, I took a standard length 7-Kazakh sheath and placed it over the more medial of the guidewires into the left subclavian vein, and this was used for vein access for the right atrial lead. The right atrial lead was placed under fluoroscopic guidance into the right atrial appendage position where it was secured with a total of 10 turns. This position was found to be electrically and anatomically satisfactory and no diaphragm stimulation could be palpated with high output pacing. The 7-Kazakh sheath was then broken apart and removed, and the atrial lead was secured to the pectoral muscle using two individual sutures consisting of #2-0 Vicryl to secure it to the pectoral muscle using the supplied tie-down sleeve. Next, an additional #0 Ethibond suture was placed in the pectoral muscle to serve as the tie-down for the pacemaker pulse generator. I then took a medium size TYRX antimicrobial envelope and cut it into four pieces, which were placed into the pulse generator pocket. The terminal pins of the ventricle and atrial leads were placed into their respective ports in the header of the pacemaker pulse generator and each one was secured by tightening the set screws with the hex screwdriver. The excess lead material was then coiled underneath the pacemaker pulse generator and placed along with the pacemaker pulse generator into the pacemaker pocket with the excess lead material below and the pulse generator above. The pulse generator was then secured with the previously placed #0 Ethibond suture. The deep layer was closed using individual sutures consisting of #2-0 Vicryl. A few additional #2-0 Vicryl sutures were used to help approximate the more superficial layer. The skin was then closed using rose. The patient tolerated the procedure well without any immediate complications. The pacemaker pulse generator implanted was a Seesmic Minco XT DR MRI with model number W1DR01. It had serial number [id number]. The TYRX antimicrobial envelope implanted had a reference number of [id number] with lot number [id number]. The atrial lead implanted was a Medtronic, model number 4076-52 with serial number [id number]. Final testing in the operating room with the pulse analyzer for the right atrial lead in bipolar configuration showed capture threshold of 0.5 volts at 0.5 milliseconds with lead impedance of 542 ohms and P wave amplitude of 4.1 millivolts and slew rate of 1.70 volts per second. The right ventricle lead implanted was a Medtronic, model 4076-58 cm with serial number [id number]. Final testing of the right ventricle lead in bipolar configuration with the pulse analyzer showed a capture threshold of 0.3 volts at 0.5 milliseconds with lead impedance of 645 ohms and R wave amplitude of 8.9 millivolts with slew rate of 4.0 volts per second.
[2018-05-16] MEDS: amLODIPine 10 MG TAB PO SCH (18:39)
[2018-05-16] MEDS: BENAZEPRIL 20 MG TAB PO SCH (18:40)
--- NOTE | 2018-05-16 19:49 | CR ---
DATE OF CONSULTATION: 05/16/2018 REFERRING PHYSICIAN: Dr. Carol Dunn REASON FOR CONSULTATION: High-grade second-degree atrioventricular (AV) block. HISTORY OF THE PRESENT ILLNESS: Mr. Saulo Gabriel is a pleasant 68-year-old man with no primary care provider, who has a history of hepatitis B and chronic alcoholism, systemic hypertension, and current cigarette smoking. He was admitted 05/08/2018 after presenting with knee pain following a fall. He also complained of shortness of breath. During this hospitalization, he was diagnosed with chronic obstructive pulmonary disease (COPD). Overnight, he had several prolonged pauses, more than 5 seconds which were a consequence of high-grade second-degree AV block. For this reason, cardiology consultation was placed. The patient has been off of metoprolol succinate for more than 36 hours. CARDIAC SYMPTOM STATUS: The patient has no knowledge of any prior heart problems. No prior heart attacks, percutaneous coronary interventions, cardiac dysrhythmias, or heart failure prior to admission to his knowledge. Denies any chest pain or discomfort with or without exertion. He reports chronic shortness of breath that occurs with low levels of activity. No orthopnea or paroxysmal nocturnal dyspnea (PND). No leg or ankle swelling. No presyncope or syncope. No palpitations. No embolic events. No intermittent claudication symptoms. OTHER PAST MEDICAL AND SURGICAL HISTORY: Hepatitis B, COPD, chronic alcoholism, right lung mass (detected on CT chest this hospitalization). Prior abdominal surgery. ADVERSE DRUG REACTIONS: No known adverse drug reactions. MEDICATIONS PRIOR TO ADMISSION: - amlodipine/benazepril 10-40 mg one at 5:00 p.m. - ibuprofen 200 mg every 6 hours as needed for pain - metoprolol succinate 200 mg every evening PATIENT'S CURRENT MEDICATIONS ARE FOLLOWS: - prednisone 30 mg daily - albuterol nebulizers 2.5 mg as directed - Fentanyl 25 mcg every 5 minutes as needed for moderate pain - Percocet one tablet as needed for mild to moderate pain - Zofran 4 mg IV every 4 hours as needed for nausea or vomiting - aspirin 81 mg daily - tamsulosin 0.4 mg daily - Omnicef 300 mg by mouth twice a day - Zithromax 250 mg by mouth daily - Advair two puffs twice a day - folic acid 1 mg daily - multivitamin one daily - DuoNebs every 4 hours - acetaminophen 325 mg every 8 hours as needed for pain - nicotine patch 21 mg one daily - amlodipine 10 mg daily - benazepril 40 mg daily SOCIAL HISTORY: Consumes eight beers daily. One pack per day smoking. Prior smoker history for 50 years. He previously was a two pack per day smoker. No illicit drug use. FAMILY HISTORY: Family history noncontributory. REVIEW OF SYSTEMS: Twelve-point review of systems negative except for those listed in the history of the present illness above. No anxiety, panic attacks, or depression. PHYSICAL EXAMINATION: Temperature 97.5, pulse 89, respiratory rate 16, blood pressure 155/92, oxygen (O2) saturation 91% on oxygen at 3 liters per minute by nasal cannula. Height 73 inches, weight 84 kg, body mass index (BMI) 24.4. Pleasant man who appears to be of normal body weight, who is not in any respiratory or psychologic distress. No gross head, facial, or skeletal deformities. No conjunctival pallor, scleral icterus, or xanthomas. Teeth are in poor condition with multiple dental fillings and missing teeth. Oral mucosa was moist and without pallor or cyanosis. Jugular venous pulsations were at 2 cm. Trachea midline. No palpable thyroid. No clubbing, nail bed cyanosis, or splinter hemorrhages. No skin lesions, skin pallor, or icterus. Oriented to person, place and time. Mood and affect normal. Curvature of the spine normal. Gait not appropriate to test at this time because of intermittent advanced AV block with ventricular asystole. Currently on bed rest. Gross motor strength and tone appear normal. No abnormal muscle atrophy, fasciculations, or tremors. Respiratory expansion effort was fair. Mild diffuse wheezes. No crackles. No palpable apex beat. No left parasternal lifts, heaves, thrills, or palpable heart sounds. First and second heart sounds are normal. No S3 or S4 or murmurs appreciated. Carotids were normal in volume and contour and without bruits. No palpable abdominal aorta. No abdominal bruits. Femoral pulses normal. Pedal pulses normal. No peripheral edema. No varicose veins. Abdomen was soft, nontender with normal bowel sounds. No hepatosplenomegaly or other organomegaly. Liver span 12 cm in the right midclavicular line. Stool for occult blood not presently indicated. INVESTIGATIONS: Laboratory work 05/15/2018 showed WBC 14.4, hemoglobin 15.4, hematocrit 45.4, platelets 260, sodium 137, potassium 3.6, chloride 100, CO2 30, BUN 23, creatinine 0.60, estimated GFR greater than 60, glucose 88, calcium 8.3, magnesium 2.4, total bilirubin 0.7, AST 26, ALT 60, alkaline phosphatase 84, albumin 2.7, total protein 6.0. PA and lateral chest x-ray 05/15/2018 reported small bilateral pleural effusions. Spiculated right upper lobe mass. Mild cardiomegaly. Pulmonary vasculature is not increased. Electrocardiogram 05/16/2018 at 6:14 a.m. reported sinus rhythm with frequent premature atrial contractions (PACs), nonspecific ST-T abnormalities. Abnormal rhythm. ASSESSMENT AND RECOMMENDATIONS: 1. Intermittent high-grade second-degree AV block with extensive episodes of ventricular standstill observed overnight. He has not had metoprolol succinate for at least 36 hours and therefore, the high-grade second-degree AV block is secondary to conduction system disease and not due to metoprolol succinate. He meets criteria for implantation of a permanent dual-chamber pacemaker. This was discussed with the patient, and he was agreeable. The alternative of no pacemaker was also discussed with the patient, which could result in syncope and its consequences, as well as increased risk for sudden cardiac . Risks of pacemaker implantation explained to the patient were as listed on the consent form and included, but not all inclusive infection (1%), pneumothorax (1%), bleeding, poor wound healing, adverse drug reaction, cardiac dysrhythmias, lead dislodgement, perforation with cardiac tamponade (06/999). Patient was agreeable and signed the consent form. He will undergo implantation of a permanent dual-chamber pacemaker later today (Medtronic). 2. Systemic hypertension. Blood pressure presently controlled. Continue amlodipine and benazepril. 3. Frequent PACs. Likely secondary to COPD. Asymptomatic. I would recommend not restarting metoprolol even after the pacemaker has been implanted. 4. Abnormal ECG. Electrocardiogram as described.
[2018-05-16] MEDS: ASCORBIC ACID 250 MG TAB PO SCH (21:21)
[2018-05-17] VITALS (12 sets, daily range): BP systolic 96–153; BP diastolic 53–88
[2018-05-17] MEDS: IPRATROPIUM 0.5MG/ALBUTEROL 2.5MG INH SOL UD 3ML (DUONEB)(J7620) NEB SCH ×7 (03:47→23:27)
[2018-05-17 04:47] LABS: HEMATOCRIT 41.8 % (42.0-52.0); HEMOGLOBIN 14.4 g/dl (13.5-17.5); MEAN CORPUSCULAR HEMOGLOBIN 29.6 pg (27.0-33.0); MEAN CORPUSCULAR HGB CONC 34.4 g/dl (32.0-36.5); PLATELET COUNT, AUTOMATED 227 10^3/uL (150-450); RED BLOOD COUNT 4.86 10^6/uL (4.30-6.10); WHITE BLOOD COUNT 11.2 10^3/uL (4.0-10.0)
[2018-05-17 05:10] LABS: BLOOD UREA NITROGEN 19 MG/DL (7-18); CALCIUM LEVEL 7.7 MG/DL (8.8-10.2); CARBON DIOXIDE LEVEL 28 MEQ/L (21-32); CHLORIDE LEVEL 101 MEQ/L (98-107); CREATININE FOR GFR 0.54 MG/DL (0.70-1.30); GLOMERULAR FILTRATION RATE > 60.0 (>49); GLUCOSE, FASTING 76 MG/DL (70-100); MAGNESIUM LEVEL 2.2 MG/DL (1.8-2.4); POTASSIUM SERUM 3.9 MEQ/L (3.5-5.1); SODIUM LEVEL 136 MEQ/L (136-145)
[2018-05-17] MEDS: ADVAIR HFA 115/21MCG INHALER INH SCH ×2 (07:40→20:51)
--- NOTE | 2018-05-17 08:44 | ECGEPIP ---
Stationary ECG Study [facility] Test Date: 2018-05-16 Pat Name: KULWANT CORREIA Department: Room: [place] [address] Gender: M City Administrator: LEONILA : 1950 Requested By: Josep Sunshine Order Number: [id number] Reading MD: Meche Daniels Measurements Intervals [place] Rate: 82 P: 52 MO: 160 QRS: 29 QRSD: 101 T: 59 QT: 373 QTc: 436 Interpretive Statements SINUS RHYTHM WITH SINUS ARRHYTHMIA NONSPECIFIC ST & T-WAVE ABNORMALITY SIMILAR TO 09/13/18, PAC'S ARE NO LONGER PRESENT Electronically Signed On 05-17-2018 8:44:37 EST by Meche Daniels
[2018-05-17] MEDS: ASCORBIC ACID 250 MG TAB PO SCH ×2 (08:52→20:20)
[2018-05-17] MEDS: FOLIC ACID 1 MG TAB PO SCH (08:52)
[2018-05-17] MEDS: MULTIVITAMINS/MINERALS THERAP 1 TAB PO SCH (08:52)
[2018-05-17] MEDS: predniSONE 10 MG TAB PO SCH (08:53)
[2018-05-17] MEDS: CEFDINIR 300 MG CAP (OMNICEF) PO SCH ×2 (08:53→20:20)
[2018-05-17] MEDS: THIAMINE 100 MG TAB PO SCH (08:53)
[2018-05-17] MEDS: AZITHROMYCIN 250 MG TAB PO SCH (08:53)
[2018-05-17] MEDS: TAMSULOSIN 0.4 MG CAP PO SCH (08:54)
--- NOTE | 2018-05-17 08:58 | REP ---
Chest x-ray: Two views. History: Post pacemaker. Comparison study: May 16, 2018. Findings: A bipolar pacemaker remains in place in the right heart. There is no evidence of pneumothorax. There is slight blunting of the left lateral pleural angle. There is blunting of both posterior pleural angles on the lateral radiograph. There is evidence of infiltrate adjacent to the mass like density seen on yesterday's radiograph in the right upper lobe. This projects posteriorly on the lateral view. Impression: Question new infiltrate adjacent to the mass like density in the right upper lobe. Status post pacemaker. Small bilateral pleural effusions. Electronically Signed by Jose Luis Garland MD 05/17/2018 03:22 P
[2018-05-17] MEDS: METOPROLOL SUCC *XL* 25MG TAB (TopROL *XL*) PO SCH (09:04)
[2018-05-17] MEDS: ASPIRIN 81 MG ENTERIC TAB PO SCH (09:05)
[2018-05-17] MEDS: BENAZEPRIL 20 MG TAB PO SCH (18:00)
--- NOTE | 2018-05-17 19:44 | IPNPDOC ---
Date Seen The patient was seen on 05/17/18. Progress Note SUBJECTIVE: Patient said he is doing much better OBJECTIVE REVIEW OF SYSTEMS: All 14 points ROS is negative except what's stated above PHYSICAL EXAMINATION: GEN: no acute distress HEENT : no lymphadenopathy, PERRLA , no oropharyngeal erythema or exudates CVS: Normal S1/s2, no murmurs, rubs or gallops, left sided pacemaker placed - clean dressing RESP: poor air movement with some wheezes bilaterally, but improved per patient - saturating at 96% on 3 L NC, no crackles or rhonchi Abd: soft, nontender, nondistended, + BS MSK: full ROM, 5/5 strength in all extremities - except left arm due to sling for pacemaker Integumentary: no rash or bruises Neuro: AOAx3, no focal deficit psych: normal mood, good judgement and cooperative LABORATORY DATA, IMAGING STUDIES, MICROBIOLOGY: Please see below. ASSESSMENT AND PLAN: Had 6 sec pause - now s/p pacemaker placement Hypoxia - improved - c/w nasal cannula active smoker - counseled on smoking cessation >10 mins COPD - c/w duonebs, advair , and systemic steroid - on taper Pleural effusion on cxr - f/u echo lasix 40mg po daily dvt ppx full code ,from home VS, I&O, 24H, Fishbone Vital Signs/I&O Vital Signs Date Time Temp Pulse Resp B/P (MAP) Pulse Ox O2 Delivery O2 Flow Rate FiO2 05/17/18 18:00 98/61 05/17/18 18:00 97.6 109 18 93 2.0 05/16/18 18:15 Nasal Cannula I&O- Last 24 Hours up to 6 AM 05/17/18 06:00 Intake Total 2925 ml Output Total 1934 ml Balance 991 ml Laboratory Data 24H LABS Laboratory Tests 2 05/17/18 04:23: Nucleated Red Blood Cells % (auto) 0.0, Anion Gap 7L, Glomerular Filtration Rate > 60.0, Blood Urea Nitrogen 19H, Creatinine 0.54L, Sodium Level 136, Potassium Level 3.9, Chloride Level 101, Carbon Dioxide Level 28, Calcium Level 7.7L, Magnesium Level 2.2, C-Reactive Protein, Quantitative 1.87H CBC/BMP Laboratory Tests 05/17/18 04:23 Red Blood Count 4.86, Mean Corpuscular Volume 86.0, Mean Corpuscular Hemoglobin 29.6, Mean Corpuscular Hemoglobin Concent 34.4, Red Cell Distribution Width 15.9 H, Calcium Level 7.7 L Microbiology Microbiology 05/10/18 Gram Stain - Final, Complete 05/10/18 Sputum Culture - Final, Complete RENETTA GIMENEZ MD May 17, 2018 19:43
--- NOTE | 2018-05-17 20:36 | IPN ---
DATE OF PROCEDURE: 05/16/2018 This is a 68-year-old male with a past medical history of hypertension, tobacco abuse, who had come to the emergency room (ER) after falling on his knee. X-rays were done. He had a nondisplaced fracture of the left tibial plateau. He was admitted for further evaluation and treatment. Orthopedics was consulted. MRI of the knee showed an occult nondisplaced fracture of the tibial plateau, hemarthrosis and a tear centrally of the posterior horn of the lateral meniscus. The patient has a brace. Shortness of breath; the patient was treated for acute chronic obstructive pulmonary disease (COPD), he has had pneumonia. He is now on Omnicef and Zithromax. He initially had Solu-Medrol and is now on a prednisone taper with good response. He has urinary issues and retention, has been placed on Flomax. He is having physical therapy. LABORATORY STUDIES: White count improved 10.9 from 14.4 yesterday, hemoglobin 15.4, hematocrit 43.6, platelets are 252. Sodium 133, potassium 4.1, chloride 99, CO2 28, BUN 14, creatinine 0.57, fasting glucose 109, calcium slightly low at 8.4, magnesium 2.4 yesterday. The patient has been transferred to the intensive care unit (ICU) having had 6.8 seconds of asystole on telemetry. His Toprol has been discontinued. Lovenox has been held in anticipation of possible pacemaker implantation. Consult was done by Dr. Sunshine. The patient has a high-grade second-degree AV block. Evaluation was done by Dr. Sunshine, and the patient will have a permanent pacemaker implanted today. OBJECTIVE: Vital Signs: Stable. Blood pressure 106/72, pulse 97, temperature 97.9. Mr. Gabriel is alert and oriented times three. Pupils equal and reactive to light. Extraocular movements intact. Cornea and sclerae clear. Conjunctivae is normal. No facial asymmetry. Pharynx: Tongue and gums pink and moist. Tongue is midline. Neck is supple without lymphadenopathy. No thyromegaly. No goiter. Chest has decreased breath sounds. Heart is regular. Abdomen: Benign. Bowel sounds positive. Genitalia/Rectal: Not done. Extremities: Show no cyanosis, clubbing, or edema. Left has a brace on. IMPRESSION: Respiratory failure with hypoxia, improved. Pneumonia. Continue antibiotics. Followup on wound culture. PLAN: Pacemaker insertion to be done by Dr. Sunshine. Exacerbation of chronic obstructive pulmonary disease (COPD), improved. Continue prednisone taper. Continue antibiotics. Continue physical therapy (PT), occupational therapy (OT).
[2018-05-17] MEDS: FUROSEMIDE 40 MG TAB PO SCH (20:38)
[2018-05-18] VITALS (7 sets, daily range): BP systolic 108–144; BP diastolic 68–94
[2018-05-18] MEDS: IPRATROPIUM 0.5MG/ALBUTEROL 2.5MG INH SOL UD 3ML (DUONEB)(J7620) NEB SCH ×6 (04:04→23:41)
[2018-05-18 04:34] LABS: HEMATOCRIT 41.4 % (42.0-52.0); HEMOGLOBIN 14.1 g/dl (13.5-17.5); MEAN CORPUSCULAR HEMOGLOBIN 29.6 pg (27.0-33.0); MEAN CORPUSCULAR HGB CONC 34.1 g/dl (32.0-36.5); MEAN CORPUSCULAR VOLUME 86.8 fl (80.0-96.0); PLATELET COUNT, AUTOMATED 222 10^3/uL (150-450); RED BLOOD COUNT 4.77 10^6/uL (4.30-6.10); WHITE BLOOD COUNT 12.6 10^3/uL (4.0-10.0)
[2018-05-18 04:54] LABS: BLOOD UREA NITROGEN 18 MG/DL (7-18); CALCIUM LEVEL 7.7 MG/DL (8.8-10.2); CARBON DIOXIDE LEVEL 30 MEQ/L (21-32); CHLORIDE LEVEL 99 MEQ/L (98-107); CREATININE FOR GFR 0.59 MG/DL (0.70-1.30); GLOMERULAR FILTRATION RATE > 60.0 (>49); GLUCOSE, FASTING 84 MG/DL (70-100); POTASSIUM SERUM 3.7 MEQ/L (3.5-5.1); SODIUM LEVEL 134 MEQ/L (136-145)
[2018-05-18] MEDS: ADVAIR HFA 115/21MCG INHALER INH SCH ×2 (08:23→20:00)
[2018-05-18] MEDS: MULTIVITAMINS/MINERALS THERAP 1 TAB PO SCH (09:06)
[2018-05-18] MEDS: THIAMINE 100 MG TAB PO SCH (09:06)
[2018-05-18] MEDS: TAMSULOSIN 0.4 MG CAP PO SCH (09:06)
[2018-05-18] MEDS: FOLIC ACID 1 MG TAB PO SCH (09:06)
[2018-05-18] MEDS: ASPIRIN 81 MG ENTERIC TAB PO SCH (09:06)
[2018-05-18] MEDS: AZITHROMYCIN 250 MG TAB PO SCH (09:06)
[2018-05-18] MEDS: CEFDINIR 300 MG CAP (OMNICEF) PO SCH ×2 (09:06→20:18)
[2018-05-18] MEDS: ASCORBIC ACID 250 MG TAB PO SCH ×2 (09:06→20:18)
[2018-05-18] MEDS: predniSONE 10 MG TAB PO SCH (09:07)
[2018-05-18] MEDS: FUROSEMIDE 40 MG TAB PO SCH (09:07)
[2018-05-18] MEDS: METOPROLOL SUCC *XL* 25MG TAB (TopROL *XL*) PO SCH (09:08)
--- NOTE | 2018-05-18 10:15 | IPN ---
DATE: 05/18/2018 Saulo is seen in intensive care unit (ICU). He was getting his echocardiogram while I was examining him so it was somewhat brief. He denies any shortness of breath. No chest pain. His telemetry shows that his pacemaker is working appropriately. PHYSICAL EXAMINATION: 121/87. Pulse 90. 90% oxygen saturation on 1 liter. HEENT: Unremarkable. Lungs: Clear. Heart: Regular rhythm. Abdomen: Soft. Nontender. No peripheral edema. Pacemaker site is nontender. LABS: CBC unremarkable. BMP unremarkable. IMPRESSION: 1. Pneumonia with hypoxia. Clinically improved. Currently on Omnicef and Zithromax. The Zithromax has been six days now so I do not think we need to continue that, particularly in a patient with rhythm problems. Highly unlikely this is atypical pneumonitis anyway. Continue the Cefdinir. 2. Status post pacemaker. 3. Chronic obstructive pulmonary disease (COPD) exacerbation secondary to pneumonia. Lungs are clear and he is clinically improved. 4. Benign prostatic hypertrophy (BPH). Continue the tamsulosin. 5. Hypertensive heart disease. Blood pressure is well controlled on current regimen. 6. Status post pacemaker insertion. Functioning well. Being followed by cardiology.
[2018-05-18] MEDS: BENAZEPRIL 20 MG TAB PO SCH (18:07)
[2018-05-19] VITALS (7 sets, daily range): BP systolic 100–156; BP diastolic 57–97
[2018-05-19 04:38] LABS: HEMATOCRIT 41.8 % (42.0-52.0); HEMOGLOBIN 14.3 g/dl (13.5-17.5); MEAN CORPUSCULAR HEMOGLOBIN 29.1 pg (27.0-33.0); MEAN CORPUSCULAR HGB CONC 34.2 g/dl (32.0-36.5); MEAN CORPUSCULAR VOLUME 85.1 fl (80.0-96.0); PLATELET COUNT, AUTOMATED 233 10^3/uL (150-450); RED BLOOD COUNT 4.91 10^6/uL (4.30-6.10); WHITE BLOOD COUNT 11.6 10^3/uL (4.0-10.0)
[2018-05-19 04:52] LABS: BLOOD UREA NITROGEN 18 MG/DL (7-18); CALCIUM LEVEL 7.7 MG/DL (8.8-10.2); CARBON DIOXIDE LEVEL 29 MEQ/L (21-32); CHLORIDE LEVEL 98 MEQ/L (98-107); CREATININE FOR GFR 0.55 MG/DL (0.70-1.30); GLOMERULAR FILTRATION RATE > 60.0 (>49); GLUCOSE, FASTING 89 MG/DL (70-100); POTASSIUM SERUM 3.8 MEQ/L (3.5-5.1); SODIUM LEVEL 133 MEQ/L (136-145)
[2018-05-19] MEDS: ADVAIR HFA 115/21MCG INHALER INH SCH ×2 (07:57→20:21)
[2018-05-19] MEDS: IPRATROPIUM 0.5MG/ALBUTEROL 2.5MG INH SOL UD 3ML (DUONEB)(J7620) NEB SCH ×4 (07:57→20:00)
--- NOTE | 2018-05-19 09:01 | ECHO ---
DATE OF PROCEDURE: 05/18/2018 REFERRING PHYSICIAN: Dr. Vivien Beard INDICATION: Dyspnea. Height 185 cm Weight 84 kg DIMENSIONS IVS 1.2 LV 4.4 LVPW 1.1 Left atrium 4.3 Aorta 4.0 Left atrium volume index 29 IVC 2.1 Mitral E wave velocity 47 A-wave 63 E prime septal 5.7 E prime lateral 6.2 FINDINGS: The study is of a relatively limited technical quality with difficult visualization. The patient is in sinus rhythm with very frequent supraventricular ectopy at times, resembling atrial fibrillation. Left ventricle is of normal size. Based on very limited views, I assume normal systolic function, no distinct wall motion abnormalities were seen. Right ventricle was poorly visualized. There is an ECHO artifact suggestive of pacemaker electrode. Left atrium is normal size. Right atrium also appears grossly normal. Aortic valve is heavily sclerotic. There are dense calcifications but mobility seems to be reasonably preserved. Again, visualization was rather poor. There are also mild degenerative abnormalities with mitral annular calcifications. Tricuspid valve appears normal. Pulmonic valve was not seen. No pericardial effusion is noted. Inferior vena cava is mildly dilated but collapses with respiration, indicative of likely mildly elevated central venous pressure. Aortic root is dilated at 4.0 cm. Aortic arch was not seen. Abdominal aorta appears normal. Doppler interrogation reveals no aortic insufficiency and mild stenosis with mean gradient 10 mmHg. There is trace mitral and tricuspid insufficiency. Calculated pulmonary artery pressure was in high 30s, corresponding to mild pulmonary hypertension. Pulmonic valve was not visualized. Mitral inflow pattern and tissue Doppler imaging of mitral annulus reveal grade 1 diastolic dysfunction. CONCLUSIONS: 1. Study is of rather limited technical quality. 2. Normal LV size with mild LVH and grossly preserved LV systolic function. I have to admit that even fairly significant wall motion abnormalities could be easily missed based on quality of this study. 3. Aortic sclerosis with mild stenosis and no insufficiency. 4. Trace mitral and tricuspid insufficiency. 5. Likely elevated central venous pressure and at least mild pulmonary hypertension. 6. Dilated aortic root (4.0 cm). 7. Echo artifact in right-sided heart chambers suggestive of pacemaker electrode. COMMENTS: SBE prophylaxis is not recommended. MTDD
[2018-05-19] MEDS: MULTIVITAMINS/MINERALS THERAP 1 TAB PO SCH (10:29)
[2018-05-19] MEDS: ASCORBIC ACID 250 MG TAB PO SCH ×2 (10:29→21:13)
[2018-05-19] MEDS: THIAMINE 100 MG TAB PO SCH (10:29)
[2018-05-19] MEDS: FOLIC ACID 1 MG TAB PO SCH (10:30)
[2018-05-19] MEDS: ASPIRIN 81 MG ENTERIC TAB PO SCH (10:30)
[2018-05-19] MEDS: CEFDINIR 300 MG CAP (OMNICEF) PO SCH ×2 (10:30→21:13)
[2018-05-19] MEDS: TAMSULOSIN 0.4 MG CAP PO SCH (10:30)
[2018-05-19] MEDS: predniSONE 20 MG TAB PO SCH (10:30)
[2018-05-19] MEDS: METOPROLOL SUCC *XL* 25MG TAB (TopROL *XL*) PO SCH (10:31)
[2018-05-19] MEDS: FUROSEMIDE 40 MG TAB PO SCH (10:32)
--- NOTE | 2018-05-19 13:02 | ECGEPIP ---
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
[2018-05-19] MEDS: BENAZEPRIL 20 MG TAB PO SCH (17:41)
[2018-05-20] MEDS ORDERED: CALCIUM CARBONATE 500 MG CHEW U/D PO PRN
[2018-05-20] MEDS: IPRATROPIUM 0.5MG/ALBUTEROL 2.5MG INH SOL UD 3ML (DUONEB)(J7620) NEB SCH ×7 (04:00→23:10)
[2018-05-20 06:00] VITALS: BP 147/94
[2018-05-20 06:12] LABS: HEMATOCRIT 40.5 % (42.0-52.0); HEMOGLOBIN 14.1 g/dl (13.5-17.5); MEAN CORPUSCULAR HEMOGLOBIN 29.1 pg (27.0-33.0); MEAN CORPUSCULAR HGB CONC 34.8 g/dl (32.0-36.5); MEAN CORPUSCULAR VOLUME 83.5 fl (80.0-96.0); PLATELET COUNT, AUTOMATED 256 10^3/uL (150-450); RED BLOOD COUNT 4.85 10^6/uL (4.30-6.10); WHITE BLOOD COUNT 12.4 10^3/uL (4.0-10.0)
--- NOTE | 2018-05-20 06:24 | IPN ---
DATE OF VISIT: 05/19/2018 The patient feels well. He is not short of breath. He is getting out of bed. He had a bowel movement. Overall he feels improved from yesterday. PHYSICAL EXAMINATION: VITAL SIGNS: Afebrile. Vital signs stable, 100/57. LUNGS: A few rhonchi but better than yesterday. HEART: Regular rate and rhythm. ABDOMEN: Soft, nontender, no masses. EXTREMITIES: No peripheral edema. Pace maker site is nontender. LABORATORY DATA: White count is down to 11.7, electrolytes unremarkable. Sodium is a little low at 133. IMPRESSION: 1. Pneumonia with hypoxia. We stopped the Zithromax, he is only oh Omnicef. He is improved for transfer him to the floor. 2. Chronic pulmonary obstructive disease (COPD) exacerbation. Secondary to pneumonia. He is clinically improved. I think he can get out of the intensive care unit (ICU). 3. Hypertensive heart disease. Blood pressure is well controlled. 4. Status post pacemaker insertion. The pacemaker is working well. Cardiology is following him for this.
[2018-05-20 06:42] LABS: BLOOD UREA NITROGEN 15 MG/DL (7-18); CALCIUM LEVEL 8.1 MG/DL (8.8-10.2); CARBON DIOXIDE LEVEL 29 MEQ/L (21-32); CHLORIDE LEVEL 98 MEQ/L (98-107); CREATININE FOR GFR 0.59 MG/DL (0.70-1.30); GLOMERULAR FILTRATION RATE > 60.0 (>49); GLUCOSE, FASTING 78 MG/DL (70-100); POTASSIUM SERUM 3.7 MEQ/L (3.5-5.1); SODIUM LEVEL 133 MEQ/L (136-145)
[2018-05-20] MEDS: ADVAIR HFA 115/21MCG INHALER INH SCH ×2 (07:28→20:08)
[2018-05-20] MEDS: FUROSEMIDE 40 MG TAB PO SCH (08:58)
[2018-05-20] MEDS: MULTIVITAMINS/MINERALS THERAP 1 TAB PO SCH (08:58)
[2018-05-20] MEDS: ASPIRIN 81 MG ENTERIC TAB PO SCH (08:58)
[2018-05-20] MEDS: FOLIC ACID 1 MG TAB PO SCH (08:58)
[2018-05-20] MEDS: ASCORBIC ACID 250 MG TAB PO SCH ×2 (08:58→20:35)
[2018-05-20] MEDS: TAMSULOSIN 0.4 MG CAP PO SCH (08:58)
[2018-05-20] MEDS: METOPROLOL SUCC *XL* 25MG TAB (TopROL *XL*) PO SCH (08:59)
[2018-05-20] MEDS: predniSONE 20 MG TAB PO SCH (08:59)
[2018-05-20] MEDS ORDERED: PERCOCET 5MG/325MG TAB PO PRN ×2 (10:00)
[2018-05-20] MEDS: CEFDINIR 300 MG CAP (OMNICEF) PO SCH ×2 (10:10→20:33)
[2018-05-20] MEDS ORDERED: POTASSIUM CHLORIDE 10 MEQ SR TABLET PO ONE (10:45)
[2018-05-20 11:29] LABS: MAGNESIUM LEVEL 1.9 MG/DL (1.8-2.4)
--- NOTE | 2018-05-20 11:36 | IPN ---
DATE: 05/20/2018 Levy is seen [address] [place]. He feels about the same. He nightly pneumonia with hypoxia, for which he is on oral antibiotics. Patient has chronic obstructive pulmonary disease (COPD) on a steroid taper. Hypertensive heart disease; he had a pacemaker inserted. At this point, we are looking at acute rehabilitation unit (ARU) evaluation. He had acute urinary retention during this admission. Has an indwelling catheter, which I think should come out. He wants to keep in because he likes the convenience of not having to get out of bed to void, but he is aware of the increased risk of infection. He is willing to try to have this taken out. The nursing staff just called me and said he had a brief run of nonsustained ventricular tachycardia that was asymptomatic. PHYSICAL EXAMINATION: 147/94, pulse of 89, respiratory rate 19, 93% oxygen saturation. General appearance: He is resting comfortably, in no distress. Lungs: Clear. Heart: Regular rhythm. Abdomen: Soft. Nontender. No peripheral edema. Catheter in place. LABS: White count 12.4, on steroids, hemoglobin 14.1, platelets 256. Sodium 133, potassium 3.7, BUN 15, creatinine 0.6, glucose of 71. IMPRESSION: 1. Nonsustained ventricular tachycardia (V-tach) probably from hypokalemia. Supplemental potassium has been ordered. We will get a magnesium level. 2. Acute urinary retention. We will take out his catheter today. Do a trial of voiding. He is on tamsulosin. 3. Pneumonia. He is on Omnicef 300 mg twice a day. 4. Hypertensive heart disease. Blood pressure is well controlled on current regimen. 5. Chronic obstructive pulmonary disease exacerbation. He is on a tapering dose of steroids. 6. Tobacco abuse. Smoking cessation discussed. He is on a nicotine substitution patch. ARU consult today.
[2018-05-20 14:00] VITALS: BP 104/60
[2018-05-20] MEDS: BENAZEPRIL 20 MG TAB PO SCH (18:00)
[2018-05-20 22:00] VITALS: BP 124/80
[2018-05-21] MEDS: IPRATROPIUM 0.5MG/ALBUTEROL 2.5MG INH SOL UD 3ML (DUONEB)(J7620) NEB SCH ×4 (04:00→16:09)
[2018-05-21 06:00] VITALS: BP 148/97
[2018-05-21 06:59] LABS: HEMATOCRIT 42.6 % (42.0-52.0); HEMOGLOBIN 14.7 g/dl (13.5-17.5); MEAN CORPUSCULAR HEMOGLOBIN 29.8 pg (27.0-33.0); MEAN CORPUSCULAR HGB CONC 34.5 g/dl (32.0-36.5); MEAN CORPUSCULAR VOLUME 86.4 fl (80.0-96.0); PLATELET COUNT, AUTOMATED 240 10^3/uL (150-450); RED BLOOD COUNT 4.93 10^6/uL (4.30-6.10); WHITE BLOOD COUNT 10.8 10^3/uL (4.0-10.0)
[2018-05-21 07:16] LABS: BLOOD UREA NITROGEN 14 MG/DL (7-18); CARBON DIOXIDE LEVEL 28 MEQ/L (21-32); CHLORIDE LEVEL 98 MEQ/L (98-107); CREATININE FOR GFR 0.51 MG/DL (0.70-1.30); GLOMERULAR FILTRATION RATE > 60.0 (>49); GLUCOSE, FASTING 64 MG/DL (70-100); POTASSIUM SERUM 4.2 MEQ/L (3.5-5.1); SODIUM LEVEL 134 MEQ/L (136-145)
[2018-05-21] MEDS: ASCORBIC ACID 250 MG TAB PO SCH ×2 (08:36→20:24)
[2018-05-21] MEDS: CEFDINIR 300 MG CAP (OMNICEF) PO SCH ×2 (08:37→20:24)
[2018-05-21] MEDS: predniSONE 20 MG TAB PO SCH (08:37)
[2018-05-21] MEDS: ASPIRIN 81 MG ENTERIC TAB PO SCH (08:37)
[2018-05-21] MEDS: TAMSULOSIN 0.4 MG CAP PO SCH (08:37)
[2018-05-21] MEDS: MULTIVITAMINS/MINERALS THERAP 1 TAB PO SCH (08:37)
[2018-05-21] MEDS: FOLIC ACID 1 MG TAB PO SCH (08:37)
[2018-05-21] MEDS: METOPROLOL SUCC *XL* 25MG TAB (TopROL *XL*) PO SCH (08:37)
[2018-05-21] MEDS: FUROSEMIDE 40 MG TAB PO SCH (08:37)
[2018-05-21] MEDS: ADVAIR HFA 115/21MCG INHALER INH SCH ×2 (08:44→19:56)
[2018-05-21 14:00] VITALS: BP 98/64
[2018-05-21 16:00] VITALS: BP 112/58
[2018-05-21] MEDS: BENAZEPRIL 20 MG TAB PO SCH (17:13)
--- NOTE | 2018-05-21 20:50 | IPNPDOC ---
Text Note Date of Service The patient was seen on 05/21/18. NOTE SUBJECTIVE: Patient freda not offer any complaints this am. Says his breathing is much better compared to admission. No fever or chills, nochest pain , no abdominal pain , nausea or vomtiing or diarrhea. This am while sitting in the chair he had slipped to the edge and then felt sharp pain radiating down the left leg with numbness. This slowly got better after lying down and relieving the pressure on his left buttock. Vital Signs: As below GENERAL: alert and oriented times three. HEENT:Pupils equal and reactive to light. Extraocular movements intact. Cornea and sclerae clear. Conjunctivae is normal. No facial asymmetry. Neck is supple without lymphadenopathy. No thyromegaly. No goiter. Chest has decreased breath sounds.No ronchi or crackles Heart is regular.No rub murmur or gallop Abdomen: Benign. Bowel sounds positive. Extremities: Show no cyanosis, clubbing, or edema. Left has a brace on. Labs and Radiology: Reviewed Assessment and Plan: Patient is a 68-year-old male with a PMHx of HTN, Tobacco abuse, Alcohol abuse, who presented to the ER after he had fallen on his left knee following which he had difficulty getting up from chair. Patient was a lso found to be hypoxic requiring supplemental oxygen. Imaging completed revealed that the patient had a nondisplaced fracture of his left tibial plateau. CXR showed RUL mass and emphysematous changes. PFTs revealed patient has COPD. CTA revealed patchy pneumonia and RUL lung mass no Pulmonary embolism. Patient was admitted to hospitalist service for further evaluation and treatment. For the RUL mass he underwent CT guided biopsy. While on telemetry he was noted to have high degree A-V block with pauses so had pacemaker placed. Mechanical fall with non-displaced fracture of left tibial plateau MRI L Knee 05/09: Occult nondisplaced fracture of the tibial plateau. Hemarthrosis. There is a tear centrally of the posterior horn of the lateral meniscus. Osteochondral defect medial femoral condyle. Brace in place c/w PT / OT; will likely need subacute rehabilitation Acute exacerbation of COPD with mild pulmonary hypertension Due to Community acquired pneumonia continue duo nebs, advair, prednisone taper off oxygen now. CAP CTA chest 05/09: 3.1 cm mass again noted in the right upper lobe with spiculated contours consistent with primary lung malignancy. There are new areas of pulmonary parenchymal consolidation consistent with pneumonia posterior and superior to the mass in the right upper lobe as well as in the left lower lobe and, to some degree, the right lower lobe. There is a band of linear plate-like atelectasis in the left upper lobe posteriorly. There is a small spiculated nodule in the left upper lobe measuring 6 mm as well. finish course of antibiotics now on cefdinir. New Right upper lobe lung mass moderately differentiated adenocarcinoma in pathology Discussed with Dr. Workman (Oncology); will have outpatient f/u for PET scan / treatment options Intermittent High grade second degree Heart block with multiple prolonged pauses> 5 secs noted on telemetry s/p dual chamber pacemaker insertion on 05/16 Recurrent Urinary retention Patient had approximate 2000 mL of urine removed on the evening of 05/14 then had cath placed. Removed on 05/20 again failure to void buenrostro reinserted with 700 ml possibly has neurogenic bladder. Patient never has any sensation of fulness or urge to void. continue flomax. Smoking dependence Advised smoking cessation; notes he stopped a few years ago c/w Nicotine patch S/p Hyponatremia likely 05/11 SIADH c/w Fluid restrictions and Lasix. Left iliac artery occlusion Left leg without any signs of ischemia Discussed with vascular surgery (Dr. Villatoro); advised that collaterals are likely in place; c/w ASA 81 HTN BP well controlled c/w Amlodipine, Benazepril, Metoprolol Alcohol dependence c/w Thiamine, Folate, MVI DVT prophylaxis TEDS and Sequentials. VS,Fishbone, I+O VS, Fishbone, I+O Laboratory Tests 05/21/18 05:21 Red Blood Count 4.93, Mean Corpuscular Volume 86.4, Mean Corpuscular Hemoglobin 29.8, Mean Corpuscular Hemoglobin Concent 34.5, Red Cell Distribution Width 16.1 H, Calcium Level 8.0 L Vital Signs Date Time Temp Pulse Resp B/P (MAP) Pulse Ox O2 Delivery O2 Flow Rate FiO2 05/21/18 17:13 138/88 05/21/18 14:00 97.9 98 19 90 05/18/18 20:00 1.0 05/16/18 18:15 Nasal Cannula I&O- Last 24 Hours up to 6 AM 05/21/18 06:00 Intake Total 1160 ml Output Total 2325 ml Balance -1165 ml KOSTA BUTLER MD May 21, 2018 20:49
[2018-05-21 22:00] VITALS: BP 133/78
[2018-05-22] MEDS: IPRATROPIUM 0.5MG/ALBUTEROL 2.5MG INH SOL UD 3ML (DUONEB)(J7620) NEB SCH ×4 (02:00→19:45)
[2018-05-22 05:53] LABS: HEMATOCRIT 42.7 % (42.0-52.0); HEMOGLOBIN 14.7 g/dl (13.5-17.5); MEAN CORPUSCULAR HEMOGLOBIN 29.3 pg (27.0-33.0); MEAN CORPUSCULAR HGB CONC 34.4 g/dl (32.0-36.5); MEAN CORPUSCULAR VOLUME 85.1 fl (80.0-96.0); PLATELET COUNT, AUTOMATED 252 10^3/uL (150-450); RED BLOOD COUNT 5.02 10^6/uL (4.30-6.10); WHITE BLOOD COUNT 10.3 10^3/uL (4.0-10.0)
[2018-05-22 06:00] VITALS: BP 142/93
[2018-05-22 06:14] LABS: BLOOD UREA NITROGEN 13 MG/DL (7-18); CALCIUM LEVEL 8.1 MG/DL (8.8-10.2); CARBON DIOXIDE LEVEL 27 MEQ/L (21-32); CHLORIDE LEVEL 97 MEQ/L (98-107); CREATININE FOR GFR 0.64 MG/DL (0.70-1.30); GLOMERULAR FILTRATION RATE > 60.0 (>49); GLUCOSE, FASTING 84 MG/DL (70-100); SODIUM LEVEL 132 MEQ/L (136-145)
[2018-05-22] MEDS: TAMSULOSIN 0.4 MG CAP PO SCH (08:36)
[2018-05-22] MEDS: CEFDINIR 300 MG CAP (OMNICEF) PO SCH ×2 (08:36→22:33)
[2018-05-22] MEDS: MULTIVITAMINS/MINERALS THERAP 1 TAB PO SCH (08:36)
[2018-05-22] MEDS: METOPROLOL SUCC *XL* 25MG TAB (TopROL *XL*) PO SCH (08:37)
[2018-05-22] MEDS: ASCORBIC ACID 250 MG TAB PO SCH ×2 (08:37→22:33)
[2018-05-22] MEDS: predniSONE 10 MG TAB PO SCH (08:37)
[2018-05-22] MEDS: FOLIC ACID 1 MG TAB PO SCH (08:37)
[2018-05-22] MEDS: FUROSEMIDE 40 MG TAB PO SCH (08:37)
[2018-05-22] MEDS: ASPIRIN 81 MG ENTERIC TAB PO SCH (08:37)
[2018-05-22] MEDS: ADVAIR HFA 115/21MCG INHALER INH SCH ×2 (08:46→19:45)
--- NOTE | 2018-05-22 13:41 | IPNPDOC ---
Text Note Date of Service The patient was seen on 05/22/18. NOTE SUBJECTIVE: Pateint seen in am , lying comfortably in bed. But he complains that he is having severe pain when he is sitting up on the bed side commode. He says the buckle seems to be pressing into his nerve in the left buttock causing severe sharp pain. This is making it very difficult for him to sit up. Say his SOb is better, he did have a bowel movement . no chest pain or cough. No nausea vomiting or diarrhea. Vital Signs: As below GENERAL: alert and oriented times three. HEENT:Pupils equal and reactive to light. Extraocular movements intact. Cornea and sclerae clear. Conjunctivae is normal. No facial asymmetry. Neck is supple without lymphadenopathy. No thyromegaly. No goiter. Chest has decreased breath sounds.No ronchi or crackles Heart is regular.No rub murmur or gallop Abdomen: Benign. Bowel sounds positive. Extremities: Show no cyanosis, clubbing, or edema. Labs and Radiology: Reviewed Assessment and Plan: Patient is a 68-year-old male with a PMHx of HTN, Tobacco abuse, Alcohol abuse, who presented to the ER after he had fallen on his left knee following which he had difficulty getting up from chair. Patient was also found to be hypoxic requiring supplemental oxygen. Imaging completed revealed that the patient had a nondisplaced fracture of his left tibial plateau. CXR showed RUL mass and emphysematous changes. PFTs revealed patient has COPD. CTA revealed patchy pneumonia and RUL lung mass no Pulmonary embolism. Patient was admitted to hospitalist service for further evaluation and treatment. For the RUL mass he underwent CT guided biopsy. While on telemetry he was noted to have high degree A-V block with pauses so had pacemaker placed. Mechanical fall with non-displaced fracture of left tibial plateau MRI L Knee 05/09: Occult nondisplaced fracture of the tibial plateau. Hemarthrosis. There is a tear centrally of the posterior horn of the lateral meniscus. Osteochondral defect medial femoral condyle. Brace in place c/w PT / OT; will need subacute rehabilitation Acute exacerbation of COPD with mild pulmonary hypertension Due to Community acquired pneumonia continue duo nebs, advair, prednisone taper off oxygen now. CAP CTA chest 05/09: 3.1 cm mass again noted in the right upper lobe with spiculated contours consistent with primary lung malignancy. There are new areas of pulmonary parenchymal consolidation consistent with pneumonia posterior and superior to the mass in the right upper lobe as well as in the left lower lobe and, to some degree, the right lower lobe. There is a band of linear plate-like atelectasis in the left upper lobe posteriorly. There is a small spiculated nodule in the left upper lobe measuring 6 mm as well. finish course of antibiotics now on cefdinir. New Right upper lobe lung mass moderately differentiated adenocarcinoma in pathology Discussed with Dr. Workman (Oncology); will have outpatient f/u for PET scan / treatment options Intermittent High grade second degree Heart block with multiple prolonged pauses> 5 secs noted on telemetry s/p dual chamber pacemaker insertion on 05/16 Recurrent Urinary retention Patient had approximate 2000 mL of urine removed on the evening of 05/14 then had cath placed. Removed on 05/20 again failure to void buenrostro reinserted with 700 ml possibly has neurogenic bladder. Patient never has any sensation of fulness or urge to void. continue flomax. Smoking dependence Advised smoking cessation; notes he stopped a few years ago c/w Nicotine patch S/p Hyponatremia likely 05/11 SIADH c/w Fluid restrictions and Lasix. Left iliac artery occlusion Left leg without any signs of ischemia Discussed with vascular surgery (Dr. Villatoro); advised that collaterals are likely in place; c/w ASA 81 HTN BP well controlled c/w Amlodipine, Benazepril, Metoprolol Alcohol dependence c/w Thiamine, Folate, MVI DVT prophylaxis TEDS and Sequentials. VS,Fishbone, I+O VS, Fishbone, I+O Laboratory Tests 05/22/18 05:32 Red Blood Count 5.02, Mean Corpuscular Volume 85.1, Mean Corpuscular Hemoglobin 29.3, Mean Corpuscular Hemoglobin Concent 34.4, Red Cell Distribution Width 16.0 H, Calcium Level 8.1 L Vital Signs Date Time Temp Pulse Resp B/P (MAP) Pulse Ox O2 Delivery O2 Flow Rate FiO2 05/22/18 08:37 86 136/88 05/22/18 06:00 97.6 18 91 05/18/18 20:00 1.0 05/16/18 18:15 Nasal Cannula I&O- Last 24 Hours up to 6 AM 05/22/18 06:00 Intake Total 2270 ml Output Total 2875 ml Balance -605 ml KOSTA BUTLER MD May 22, 2018 13:41
[2018-05-22 14:00] VITALS: BP 138/74
[2018-05-22] MEDS: BENAZEPRIL 20 MG TAB PO SCH (19:14)
[2018-05-22 22:00] VITALS: BP 103/65
[2018-05-23 06:00] VITALS: BP 128/78
[2018-05-23] MEDS: IPRATROPIUM 0.5MG/ALBUTEROL 2.5MG INH SOL UD 3ML (DUONEB)(J7620) NEB SCH ×2 (07:50→13:02)
[2018-05-23] MEDS: ADVAIR HFA 115/21MCG INHALER INH SCH (07:51)
[2018-05-23] MEDS: TAMSULOSIN 0.4 MG CAP PO SCH (08:20)
[2018-05-23] MEDS: CEFDINIR 300 MG CAP (OMNICEF) PO SCH (08:20)
[2018-05-23] MEDS: ASCORBIC ACID 250 MG TAB PO SCH (08:20)
[2018-05-23] MEDS: ASPIRIN 81 MG ENTERIC TAB PO SCH (08:20)
[2018-05-23] MEDS: MULTIVITAMINS/MINERALS THERAP 1 TAB PO SCH (08:20)
[2018-05-23 08:21] VITALS: BP 128/78
[2018-05-23] MEDS: predniSONE 10 MG TAB PO SCH (08:21)
[2018-05-23] MEDS: FOLIC ACID 1 MG TAB PO SCH (08:21)
[2018-05-23] MEDS: METOPROLOL SUCC *XL* 25MG TAB (TopROL *XL*) PO SCH (08:21)
[2018-05-23] MEDS: FUROSEMIDE 40 MG TAB PO SCH (08:21)
[2018-05-23] MEDS ORDERED: CALC500C16 PO ×2 (10:20→16:15)
[2018-05-23] MEDS ORDERED: FLOM0.4C39 PO (10:20)
[2018-05-23] MEDS ORDERED: METO1TAB32 PO ×2 (10:20→16:15)
[2018-05-23] MEDS ORDERED: FOLI1TAB11 PO ×2 (10:20→16:15)
[2018-05-23] MEDS ORDERED: ASCO25TA PO (10:20)
[2018-05-23] MEDS ORDERED: PRED10TA2 PO ×2 (10:20→16:15)
[2018-05-23] MEDS ORDERED: FURO40TA2 PO ×2 (10:20→16:15)
[2018-05-23] MEDS ORDERED: NICO21PAT TD (10:20)
[2018-05-23] MEDS ORDERED: BENA20TA PO (10:20)
[2018-05-23] MEDS ORDERED: IPRA0.00 NEB (10:20)
[2018-05-23] MEDS ORDERED: ASPI81TAEC PO (10:20)
[2018-05-23] MEDS ORDERED: VITMTA PO ×2 (10:20→16:15)
[2018-05-23] MEDS ORDERED: ADVA115A INH ×2 (10:20→16:15)
--- NOTE | 2018-05-23 12:31 | DS.PDOC ---
Discharge Summary General Date of Admission May 08, 2018 at 00:53 Date of Discharge 05/23/17 Attending Physician: KOSTA BUTLER MD Specialist/Consultants Involve: Yovanny Hall MD Specialist/Consultants Involve Dr Sunshine, Dr Pedroza. Discharge Summary PROCEDURES PERFORMED DURING STAY: Permanent Pacemaker Placement DISCHARGE DIAGNOSES: Non displaced fracture of left tibial plateau Left lateral meniscus tear COPD exacerbation Mild pulmonary hypertension RUL moderately differentiated adenocarcinoma new diagnosis. 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 COMPLICATIONS/CHIEF COMPLAINT: Respiratory Failure With Hypoxia. HISTORY OF PRESENT ILLNESS: See history and physical HOSPITAL COURSE: Patient is a 68-year-old male with a PMHx of HTN, Tobacco abuse, Alcohol abuse, who presented to the ER after he had fallen on his left knee following which he had difficulty getting up from chair. Patient was also found to be hypoxic requiring supplemental oxygen. Imaging completed revealed that the patient had a nondisplaced fracture of his left tibial plateau. CXR showed RUL mass and emphysematous changes. PFTs revealed patient has COPD. CTA revealed patchy pneumonia and RUL lung mass no Pulmonary embolism. Patient was admitted to hospitalist service for further evaluation and treatment. For the RUL mass he underwent CT guided biopsy. While on telemetry he was noted to have high degree A-V block with pauses so had pacemaker placed. Mechanical fall with non-displaced fracture of left tibial plateau MRI L Knee 05/09: Occult nondisplaced fracture of the tibial plateau. Hemarthrosis. There is a tear centrally of the posterior horn of the lateral meniscus. Osteochondral defect medial femoral condyle. Brace in place c/w PT / OT; will need subacute rehabilitation Acute exacerbation of COPD with mild pulmonary hypertension Due to Community acquired pneumonia continue duo nebs, advair, prednisone taper off oxygen now. CAP CTA chest 05/09: 3.1 cm mass again noted in the right upper lobe with spiculated contours consistent with primary lung malignancy. There are new areas of pulmonary parenchymal consolidation consistent with pneumonia posterior and superior to the mass in the right upper lobe as well as in the left lower lobe and, to some degree, the right lower lobe. There is a band of linear plate-like atelectasis in the left upper lobe posteriorly. There is a small spiculated nodule in the left upper lobe measuring 6 mm as well. finished course of antibiotics New Right upper lobe lung mass moderately differentiated adenocarcinoma in pathology Discussed with Dr. Workman (Oncology); will have outpatient f/u for PET scan / treatment options Intermittent High grade second degree Heart block with multiple prolonged pauses> 5 secs noted on telemetry s/p dual chamber pacemaker insertion on 05/16 Recurrent Urinary retention Patient had approximate 2000 mL of urine removed on the evening of 05/14 then had cath placed. Removed on 05/20 again failure to void buenrostro reinserted with 700 ml possibly has neurogenic bladder. Patient never has any sensation of fulness or urge to void. continue flomax. Smoking dependence Advised smoking cessation; notes he stopped a few years ago c/w Nicotine patch S/p Hyponatremia likely 05/11 SIADH c/w Fluid restrictions and Lasix. Left iliac artery occlusion Left leg without any signs of ischemia Discussed with vascular surgery (Dr. Villatoro); advised that collaterals are likely in place; c/w ASA 81 HTN BP well controlled c/w Amlodipine, Benazepril, Metoprolol Alcohol dependence c/w Thiamine, Folate, MVI DISCHARGE MEDICATIONS: Please see below. ALLERGIES: Please see below. PHYSICAL EXAMINATION ON DISCHARGE: VITAL SIGNS: Please see below. GENERAL: alert and oriented times three. HEENT:Pupils equal and reactive to light. Extraocular movements intact. Cornea and sclerae clear. Conjunctivae is normal. No facial asymmetry. Neck is supple without lymphadenopathy. No thyromegaly. No goiter. Chest has decreased breath sounds.No ronchi or crackles Heart is regular.No rub murmur or gallop Abdomen: Benign. Bowel sounds positive. Extremities: Show no cyanosis, clubbing, or edema. LABORATORY DATA: Please see below. ACTIVITY: [As tolerated]. DIET: Dash diet, 2000 cc fluid restriction DISCHARGE PLAN: ARU DISCHARGE INSTRUCTIONS: 1. Dr Workman in 2 weeks for new lung cancer 2. Dr Sunshine in 1 week for pacemaker check 3. Urology referral in 1 month after discharge if fails trial of void DISCHARGE CONDITION: Stable TIME SPENT ON DISCHARGE: Greater than 30 minutes. Vital Signs/I&Os Vital Signs Date Time Temp Pulse Resp B/P (MAP) Pulse Ox O2 Delivery O2 Flow Rate FiO2 05/23/18 08:21 89 128/78 05/23/18 06:00 97.5 18 90 05/18/18 20:00 1.0 I&O- Last 24 Hours up to 6 AM 05/23/18 06:00 Intake Total 790 ml Output Total 2150 ml Balance -1360 ml Discharge Medications Scheduled Albuterol/Ipratropium (Ipratropium [place]/Albut 0.5-2.5 (3) mg/3Ml) 1 [place], 3 ML NEB TID Ascorbic Acid (Vitamin C) 250 Mg Tab, 250 MG PO BID Aspirin (Aspirin EC) 81 Mg Tabec, 81 MG PO QAM Benazepril Hcl (Lotensin) 20 Mg Tab, 40 MG PO DAILY@1800 Folic Acid (Folic Acid) 1 Mg Tab, 1 MG PO DAILY Furosemide (Furosemide) 40 Mg Tab, 40 MG PO DAILY Metoprolol Succinate (Metoprolol Succinate ER) 25 Mg Tab, 25 MG PO DAILY Multivitamins *[facility]OCK[facility]* (Thera M Plus *[facility]OCK[facility]*) 1 Tab Tab, 1 TAB PO DAILY Prednisone (Prednisone) 10 Mg Tab, 10 MG PO DAILY for 1 day then stop Salmeterol/Fluticasone (Advair Hfa 115-21 Mcg/Act) 1 Aer Aer, 2 PUFF INH RBID Tamsulosin Hydrochloride (Flomax) 0.4 Mg Cap, 0.4 MG PO DAILY Scheduled PRN Calcium Carbonate (Calcium Carbonate) 500 Mg Chw, 1,000 MG PO Q4HP PRN for HEARTBURN Nicotine (Nicotine Transdermal Syst) 21 Mg/24 Hr Dis, 1 PATCH TD DAILYPRN PRN for NICOTINE WITHDRAWAL Allergies Coded Allergies: Metoprolol (Verified Adverse Reaction, Severe, ASYSTOLE, 05/16/18) per nurse patient did not experience allergic reactions such as swelling or hives with lopressor. patient was just experiencing "pause" with metoprolol- KOSTA Reese MD May 23, 2018 12:31
[2018-05-23] MEDS ORDERED: ASPI1TAB15 PO (16:15)
[2018-05-23] MEDS ORDERED: TAMS1CAP17 PO (16:15)
[2018-05-23] MEDS ORDERED: CEFD1CAP8 PO (16:15)
[2018-05-23] MEDS ORDERED: IPRA0.00 INH (16:15)
[2018-05-23] MEDS ORDERED: ACET1TAB55 PO (16:15)
[2018-05-23] MEDS ORDERED: VITA1TAB23 PO (16:15)
[2018-05-23] MEDS ORDERED: BENA40TA PO (16:15)
== END 2018-05-23 14:16 | DRG 981 ==
LOC: EDBD 14:52 → M ED 14:52 → M ED INP 05-08 00:53 → M MSPAV 05-08 02:50 → M ICU 05-16 06:36 → M MSPAV 05-19 13:46
PROVIDERS: ADMIT Internal Medicine; ATTEND Internal Medicine Nephrology
PROC: 0BBC3ZX Excision of Right Upper Lung Lobe, Percutaneous Approach, Diagnostic (ICD-10-PCS; 2018-05-09)
PROC: 02H63JZ Insertion of Pacemaker Lead into Right Atrium, Percutaneous Approach (ICD-10-PCS; 2018-05-16)
PROC: 02HK3JZ Insertion of Pacemaker Lead into Right Ventricle, Percutaneous Approach (ICD-10-PCS; 2018-05-16)
PROC: 0JH606Z Insertion of Pacemaker, Dual Chamber into Chest Subcutaneous Tissue and Fascia, Open Approach (ICD-10-PCS; principal; 2018-05-16 15:00)
DX: J44.1 Chronic obstructive pulmonary disease with (acute) exacerbation (principal); J96.01 Acute respiratory failure with hypoxia; J18.9 Pneumonia, unspecified organism; E22.2 Syndrome of inappropriate secretion of antidiuretic hormone; S82.144A Nondisplaced bicondylar fracture of right tibia, initial encounter for closed fracture; C34.11 Malignant neoplasm of upper lobe, right bronchus or lung; I74.5 Embolism and thrombosis of iliac artery; I47.2 Ventricular tachycardia; M25.461 Effusion, right knee; J44.0 Chronic obstructive pulmonary disease with (acute) lower respiratory infection; I11.9 Hypertensive heart disease without heart failure; F17.210 Nicotine dependence, cigarettes, uncomplicated; F10.20 Alcohol dependence, uncomplicated; E87.6 Hypokalemia; I73.9 Peripheral vascular disease, unspecified; N40.1 Benign prostatic hyperplasia with lower urinary tract symptoms; M17.11 Unilateral primary osteoarthritis, right knee; I70.0 Atherosclerosis of aorta; I44.1 Atrioventricular block, second degree; W18.09XA Striking against other object with subsequent fall, initial encounter; I27.20 Pulmonary hypertension, unspecified; R33.9 Retention of urine, unspecified; S83.281A Other tear of lateral meniscus, current injury, right knee, initial encounter; Y92.029 Unspecified place in mobile home as the place of occurrence of the external cause; Z88.8 Allergy status to other drugs, medicaments and biological substances; Z79.899 Other long term (current) drug therapy

== ENCOUNTER 2018-05-23 12:17 | Inpatient (IN) | payer MEDICARE, BC ==
[~2018-05-23] VITALS: Ht 185.4 cm; Wt 81.7 kg
[2018-05-23] MEDS: NICOTINE 21MG/24HR 1 EA TRANSDERMAL TD SCH (09:00)
[~2018-05-23 12:17] MED LIST changes: +ADVA115A INH; +ASCO25TA PO; +ASPI81TAEC PO; +BENA20TA PO; +CALC500C16 PO; +FLOM0.4C39 PO; +FOLI1TAB11 PO; +FURO40TA2 PO; +IBUPOTC PO; +IPRA0.00 NEB; +METO1TAB32 PO; +METO200T28 PO; +NICO21PAT TD; +PRED10TA2 PO; +VITMTA PO
[2018-05-23 14:45] VITALS: BP 94/60
[2018-05-23] MEDS ORDERED: IPRATROPIUM 0.5MG/ALBUTEROL 2.5MG INH SOL UD 3ML (DUONEB)(J7620) NEB PRN (15:45)
[2018-05-23] MEDS ORDERED: BISACODYL 10 MG SUPP PR PRN (15:45)
[2018-05-23] MEDS ORDERED: ACETAMINOPHEN TAB 650MG DOSE (2X325MG) PO PRN (15:45)
[2018-05-23] MEDS ORDERED: CALCIUM CARBONATE 500 MG CHEW U/D PO PRN (15:45)
[2018-05-23] MEDS ORDERED: CEFD1CAP8 PO (16:15)
[2018-05-23] MEDS ORDERED: FOLI1TAB11 PO (16:15)
[2018-05-23] MEDS ORDERED: METO1TAB32 PO (16:15)
[2018-05-23] MEDS ORDERED: BENA40TA PO (16:15)
[2018-05-23] MEDS ORDERED: ADVA115A INH (16:15)
[2018-05-23] MEDS ORDERED: VITA1TAB23 PO (16:15)
[2018-05-23] MEDS ORDERED: PRED10TA2 PO (16:15)
[2018-05-23] MEDS ORDERED: ASPI1TAB15 PO (16:15)
[2018-05-23] MEDS ORDERED: CALC500C16 PO (16:15)
[2018-05-23] MEDS ORDERED: ACET1TAB55 PO (16:15)
[2018-05-23] MEDS ORDERED: IPRA0.00 INH (16:15)
[2018-05-23] MEDS ORDERED: FURO40TA2 PO (16:15)
[2018-05-23] MEDS ORDERED: VITMTA PO (16:15)
[2018-05-23] MEDS ORDERED: TAMS1CAP17 PO (16:15)
[2018-05-23] MEDS: BENAZEPRIL 20 MG TAB PO SCH (17:49)
[2018-05-23 18:15] LABS: APPEARANCE, URINE CLEAR (CLEAR); BACTERIA, URINE AUTO NEGATIVE (NEGATIVE); BILIRUBIN, URINE AUTO NEGATIVE (NEGATIVE); BLOOD, URINE BLOOD 1+ (NEGATIVE); COLOR, URINE YELLOW (YELLOW); GLUCOSE, URINE (UA) AUTO NEGATIVE (NEGATIVE); KETONE, URINE AUTO NEGATIVE (NEGATIVE); LEUKOCYTE ESTERASE, URINE AUTO NEGATIVE (NEGATIVE); MUCUS, URINE SMALL (NEGATIVE); NITRITE, URINE AUTO NEGATIVE (NEGATIVE); PROTEIN, URINE AUTO NEGATIVE (NEGATIVE); RBC, URINE AUTO 72 /HPF (0-3); SPECIFIC GRAVITY URINE AUTO 1.016 (1.002-1.035); SQUAMOUS EPITHELIAL CELL UR AU 0 /HPF (0-6); UROBILINOGEN, URINE AUTO 0.2 mg/dL (0.0-2.0); WBC, URINE AUTO 2 /HPF (0-3)
[2018-05-23] MEDS: ADVAIR HFA 115/21MCG INHALER INH SCH (19:44)
[2018-05-23 20:00] VITALS: BP 100/63
[2018-05-23] MEDS: ASCORBIC ACID 250 MG TAB PO SCH (20:54)
[2018-05-23] MEDS: DOCUSATE SODIUM 100 MG CAP PO SCH (20:54)
[2018-05-24 05:03] VITALS: BP 148/91
[2018-05-24 07:02] LABS: BASO % 0.4 % (0.0-1.0); EOS # 0.1 10^3/uL (0.0-0.50); EOS % 0.5 % (0.0-3.0); HEMATOCRIT 41.5 % (42.0-52.0); HEMOGLOBIN 14.4 g/dl (13.5-17.5); LYMPH # 1.5 10^3/uL (1.5-4.5); LYMPH % 13.7 % (24.0-44.0); MEAN CORPUSCULAR HEMOGLOBIN 29.7 pg (27.0-33.0); MEAN CORPUSCULAR HGB CONC 34.7 g/dl (32.0-36.5); MEAN CORPUSCULAR VOLUME 85.6 fl (80.0-96.0); MONO # 1.4 10^3/uL (0.0-0.8); NEUTROPHILS # 7.8 10^3/uL (1.8-7.7); NEUTROPHILS % 71.9 % (36.0-66.0); PLATELET COUNT, AUTOMATED 228 10^3/uL (150-450); RED BLOOD COUNT 4.85 10^6/uL (4.30-6.10); WHITE BLOOD COUNT 10.9 10^3/uL (4.0-10.0)
[2018-05-24 07:29] LABS: ALBUMIN 2.6 GM/DL (3.2-5.2); ALT/SGPT 37 U/L (12-78); BILIRUBIN,TOTAL 0.7 MG/DL (0.2-1.0); BLOOD UREA NITROGEN 16 MG/DL (7-18); CALCIUM LEVEL 8.2 MG/DL (8.8-10.2); CARBON DIOXIDE LEVEL 26 MEQ/L (21-32); CHLORIDE LEVEL 100 MEQ/L (98-107); CREATININE FOR GFR 0.66 MG/DL (0.70-1.30); GLOMERULAR FILTRATION RATE > 60.0 (>49); GLUCOSE, FASTING 85 MG/DL (70-100); POTASSIUM SERUM 3.6 MEQ/L (3.5-5.1); SODIUM LEVEL 135 MEQ/L (136-145); TOTAL PROTEIN 6.1 GM/DL (6.4-8.2)
[2018-05-24] MEDS: ADVAIR HFA 115/21MCG INHALER INH SCH ×2 (07:44→19:55)
[2018-05-24] MEDS: predniSONE 10 MG TAB PO SCH (09:40)
[2018-05-24] MEDS: ASCORBIC ACID 250 MG TAB PO SCH ×2 (09:40→20:45)
[2018-05-24] MEDS: FUROSEMIDE 40 MG TAB PO SCH (09:40)
[2018-05-24] MEDS: FOLIC ACID 1 MG TAB PO SCH (09:40)
[2018-05-24] MEDS: ASPIRIN 81 MG ENTERIC TAB PO SCH (09:40)
[2018-05-24] MEDS: TAMSULOSIN 0.4 MG CAP PO SCH (09:40)
[2018-05-24] MEDS: ENOXAPARIN 40 MG/0.4 ML SYRINGE (J1650) SC SCH (09:40)
[2018-05-24] MEDS: METOPROLOL SUCC *XL* 25MG TAB (TopROL *XL*) PO SCH (09:41)
[2018-05-24] MEDS: DOCUSATE SODIUM 100 MG CAP PO SCH ×2 (09:42→20:45)
[2018-05-24] MEDS: NICOTINE 21MG/24HR 1 EA TRANSDERMAL TD SCH (09:42)
[2018-05-24] MEDS: MULTIVITAMINS/MINERALS THERAP 1 TAB PO SCH (09:49)
--- NOTE | 2018-05-24 13:10 | IPNPDOC ---
Date Seen The patient was seen on 05/24/18. Progress Note HPI: Patient is a 68-year-old male who presented to the ER after he had fallen on his left knee following which he had difficulty getting up from chair. Patient was also found to be hypoxic requiring supplemental oxygen. Imaging completed revealed that the patient had a nondisplaced fracture of his left tibial plateau. CXR showed RUL mass and emphysematous changes. PFTs revealed patient has COPD. CTA revealed patchy pneumonia and RUL lung mass no Pulmonary embolism. Patient was admitted to hospitalist service for further evaluation and treatment. For the RUL mass he underwent CT guided biopsy. While on telemetry he was noted to have high degree A-V block with pauses so had pacemaker placed. The pt was transferred to the care of THALIA Lerma, 05/23/18. No medical complaints today. Denies any fevers, chills, weakness, fatigue, Headache, Chest Pain, Shortness of breath, cough, palpitations, abdominal pain, N/V/D or changes in bowel or bladder habits. PMHx: HTN alcohol use tobacco use COPD Non displaced fracture of left tibial plateau Left lateral meniscus tear Mild pulmonary hypertension RUL moderately differentiated adenocarcinoma, new diagnosis. 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 PSHX: pacemaker 05/16/18 PE: GEN: 68yoM, appears stated age. No acute distress. Alert and oriented x 3. HEENT: Normocephalic, atraumatic. Pupils are equal, round, and reactive to light. No nystagmus appreciated. Sclera are nonicteric. Conjunctiva without injection. No facial asymmetry. Moist mucous membranes. CHEST: Regular rate and rhythm, +S1, +S2 LUNGS: Clear to auscultation bilaterally. No wheezes, rales, or rhonchi. Breathing appears symmetric and easy. ABD: Round, soft, non-tender, non-distended. +Bowel sounds throughout. No rebound or guarding. EXT: Pulses 2+ bilaterally dorsalis pedis and radial. No lower extremity edema appreciated. SKIN: [place], dry, warm. No rashes. NEURO: Alert and oriented x 3. No focal deficits appreciated. A&P: Patient is a 68-year-old male who presented to the ER after he had fallen on his left knee following which he had difficulty getting up from chair. Patient was also found to be hypoxic requiring supplemental oxygen. Imaging completed revealed that the patient had a nondisplaced fracture of his left tibial plateau. CXR showed RUL mass and emphysematous changes. PFTs revealed patient has COPD. CTA revealed patchy pneumonia and RUL lung mass no Pulmonary embolism. Patient was admitted to hospitalist service for further evaluation and treatment. For the RUL mass he underwent CT guided biopsy. While on telemetry he was noted to have high degree A-V block with pauses so had pacemaker placed. The pt was transferred to the care of THALIA Lerma, 05/23/18. Mechanical fall with non-displaced fracture of left tibial plateau MRI L Knee 05/09: Occult nondisplaced fracture of the tibial plateau. Hemarthrosis. There is a tear centrally of the posterior horn of the lateral meniscus. Osteochondral defect medial femoral condyle. Continue mgmt as per Orthopedics. Brace as per Orthopedics. PT/OT as per Dr Brent VÁSQUEZ. DVT prophylaxis as per Dr Brent VÁSQUEZ. COPD/COPD exacerbation. continue duo nebs, advair, prednisone taper. off oxygen. Completed po antibiotics. CAP CTA chest 05/09: 3.1 cm mass again noted in the right upper lobe with spiculated contours consistent with primary lung malignancy. There are new areas of pulmonary parenchymal consolidation consistent with pneumonia posterior and superior to the mass in the right upper lobe as well as in the left lower lobe and, to some degree, the right lower lobe. There is a band of linear plate-like atelectasis in the left upper lobe posteriorly. There is a small spiculated nodule in the left upper lobe measuring 6 mm as well. Pt finished course of antibiotics. New Right upper lobe lung mass moderately differentiated adenocarcinoma on pathology Previously discussed with Dr. Workman (Oncology), plan for outpatient f/u for PET scan / treatment options. Intermittent High grade second degree Heart block with multiple prolonged pauses> 5 secs noted on telemetry s/p dual chamber pacemaker insertion on 05/16. F/U with Cardiology. Recurrent Urinary retention Salguero reinserted. possibly has neurogenic bladder. continue Flomax. UC 05/23/18 neg. Mgmt as per Dr Brent VÁSQUEZ. Hyponatremia felt likely 2/2 SIADH c/w Fluid restrictions and Lasix. Left iliac artery occlusion Left leg without any signs of ischemia Previously discussed with vascular surgery (Dr. Villatoro); advised that collaterals are likely in place; c/w ASA 81 HTN BP well controlled c/w Benazepril, Metoprolol Alcohol use c/w Thiamine, Folate, MVI VS, I&O, 24H, Fishbone Vital Signs/I&O Vital Signs Date Time Temp Pulse Resp B/P (MAP) Pulse Ox O2 Delivery O2 Flow Rate FiO2 05/24/18 09:41 83 156/88 05/24/18 05:03 97.7 18 90 I&O- Last 24 Hours up to 6 AM 05/24/18 06:00 Intake Total 240 ml Output Total 700 ml Balance -460 ml Laboratory Data 24H LABS Laboratory Tests 2 05/23/18 17:43: Urine Appearance CLEAR, Urine Color YELLOW, Urine pH 5.0, Urine Specific [place] 1.016, Urine Protein NEGATIVE, Urine Glucose (UA) NEGATIVE, Urine Ketones NEGATIVE, Urine Urobilinogen 0.2, Urine Bilirubin NEGATIVE, Urine Leukocyte Esterase NEGATIVE, Urine Blood 1+H, Urine Nitrite NEGATIVE, Urine WBC (Auto) 2, Urine RBC (Auto) 72H, Urine Hyaline Casts (Auto) 3, Urine Bacteria (Auto) NEGATIVE, Urine Squamous Epithelial Cells 0, Urine Mucus (Auto) SMALL, Urine Sperm (Auto) 05/24/18 06:12: Immature Granulocyte % (Auto) 0.5, White Blood Count 10.9H, Red Blood Count 4.85, Hemoglobin 14.4, Hematocrit 41.5L, Mean Corpuscular Volume 85.6, Mean Corpuscular Hemoglobin 29.7, Mean Corpuscular Hemoglobin Concent 34.7, Red Cell Distribution Width 16.3H, Platelet Count 228, Neutrophils (%) (Auto) 71.9H, Lymphocytes (%) (Auto) 13.7L, Monocytes (%) (Auto) 13.0H, Eosinophils (%) (Auto) 0.5, Basophils (%) (Auto) 0.4, Neutrophils # (Auto) 7.8H, Lymphocytes # (Auto) 1.5, Monocytes # (Auto) 1.4H, Eosinophils # (Auto) 0.1, Basophils # (Auto) 0.0, Nucleated Red Blood Cells % (auto) 0.0, Anion Gap 9, Glomerular Filtration Rate > 60.0, Blood Urea Nitrogen 16, Creatinine 0.66L, Sodium Level 135L, Potassium Level 3.6, Chloride Level 100, Carbon Dioxide Level 26, Calcium Level 8.2L, Aspartate Amino Transf (AST/SGOT) 23, Alanine Aminotransferase (ALT/SGPT) 37, Alkaline Phosphatase 93, Total Bilirubin 0.7, Total Protein 6.1L, Albumin 2.6L, Albumin/Globulin Ratio 0.74L CBC/BMP Laboratory Tests 05/24/18 06:12 Red Blood Count 4.85, Mean Corpuscular Volume 85.6, Mean Corpuscular Hemoglobin 29.7, Mean Corpuscular Hemoglobin Concent 34.7, Red Cell Distribution Width 16.3 H, Neutrophils (%) (Auto) 71.9 H, Lymphocytes (%) (Auto) 13.7 L, Monocytes (%) (Auto) 13.0 H, Eosinophils (%) (Auto) 0.5, Basophils (%) (Auto) 0.4, Neutrophils # (Auto) 7.8 H, Lymphocytes # (Auto) 1.5, Monocytes # (Auto) 1.4 H, Eosinophils # (Auto) 0.1, Basophils # (Auto) 0.0, Calcium Level 8.2 L, Aspartate Amino Transf (AST/SGOT) 23, Alanine Aminotransferase (ALT/SGPT) 37, Alkaline Phosphatase 93, Total Bilirubin 0.7, Total Protein 6.1 L, Albumin 2.6 L Microbiology Microbiology 05/23/18 Urine Culture - Final, Complete Maria Alejandra Roque May 24, 2018 13:10
[2018-05-24 14:00] VITALS: BP 116/58
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
--- NOTE | 2018-05-24 16:03 | REP ---
RENAL ULTRASOUND: Real-time sonographic evaluation of the kidneys performed. The kidneys are normal in size and echotexture, right kidney measuring 11.1 x 4.7 x 4.6 cm and left kidney 11.5 x 6.1 x 5.1 cm. There is no hydronephrosis bilaterally. There is a cyst in the lower pole of the right kidney 4.4 x 4.0 x 3.5 cm. No definite stone is seen bilaterally. Salguero catheter is seen in the collapsed urinary bladder. IMPRESSION: No hydronephrosis. Cyst lower pole right kidney. Maximum diameter 4.4 cm. Electronically Signed by Alex Mata MD 05/24/2018 04:16 P
[2018-05-24] MEDS: BENAZEPRIL 20 MG TAB PO SCH (18:05)
[2018-05-24 20:00] VITALS: BP 122/72
[2018-05-25 06:00] VITALS: BP 161/96
[2018-05-25] MEDS: ADVAIR HFA 115/21MCG INHALER INH SCH ×2 (07:33→20:21)
[2018-05-25] MEDS: DOCUSATE SODIUM 100 MG CAP PO SCH ×2 (09:00→20:55)
[2018-05-25] MEDS: FUROSEMIDE 40 MG TAB PO SCH (09:00)
[2018-05-25] MEDS: TAMSULOSIN 0.4 MG CAP PO SCH (09:00)
[2018-05-25] MEDS: MULTIVITAMINS/MINERALS THERAP 1 TAB PO SCH (09:38)
[2018-05-25] MEDS: ASPIRIN 81 MG ENTERIC TAB PO SCH (09:38)
[2018-05-25] MEDS: ENOXAPARIN 40 MG/0.4 ML SYRINGE (J1650) SC SCH (09:38)
[2018-05-25] MEDS: METOPROLOL SUCC *XL* 25MG TAB (TopROL *XL*) PO SCH (09:39)
[2018-05-25] MEDS: FOLIC ACID 1 MG TAB PO SCH (09:39)
[2018-05-25] MEDS: ASCORBIC ACID 250 MG TAB PO SCH ×2 (09:39→20:55)
[2018-05-25] MEDS: predniSONE 10 MG TAB PO SCH (09:39)
[2018-05-25 14:00] VITALS: BP 112/61
[2018-05-25] MEDS: BENAZEPRIL 20 MG TAB PO SCH (17:26)
[2018-05-25 20:00] VITALS: BP 131/89
[2018-05-26 06:00] VITALS: BP 147/105
[2018-05-26] MEDS: ADVAIR HFA 115/21MCG INHALER INH SCH ×2 (08:20→20:08)
[2018-05-26] MEDS: METOPROLOL SUCC *XL* 25MG TAB (TopROL *XL*) PO SCH (09:00)
[2018-05-26] MEDS: MULTIVITAMINS/MINERALS THERAP 1 TAB PO SCH (09:28)
[2018-05-26] MEDS: DOCUSATE SODIUM 100 MG CAP PO SCH ×2 (09:28→21:12)
[2018-05-26] MEDS: FUROSEMIDE 40 MG TAB PO SCH (09:29)
[2018-05-26] MEDS: ASPIRIN 81 MG ENTERIC TAB PO SCH (09:29)
[2018-05-26] MEDS: ASCORBIC ACID 250 MG TAB PO SCH ×2 (09:29→21:12)
[2018-05-26] MEDS: predniSONE 10 MG TAB PO SCH (09:29)
[2018-05-26] MEDS: FOLIC ACID 1 MG TAB PO SCH (09:29)
[2018-05-26] MEDS: TAMSULOSIN 0.4 MG CAP PO SCH (09:30)
[2018-05-26] MEDS: ENOXAPARIN 40 MG/0.4 ML SYRINGE (J1650) SC SCH (09:31)
[2018-05-26 14:00] VITALS: BP 122/72
[2018-05-26] MEDS: BENAZEPRIL 20 MG TAB PO SCH (17:18)
[2018-05-26 20:00] VITALS: BP 119/83
[2018-05-27 06:00] VITALS: BP 150/96
[2018-05-27 07:11] LABS: BASO # 0.1 10^3/uL (0.0-0.2); BASO % 0.7 % (0.0-1.0); EOS # 0.1 10^3/uL (0.0-0.50); EOS % 0.9 % (0.0-3.0); HEMATOCRIT 40.7 % (42.0-52.0); LYMPH # 1.5 10^3/uL (1.5-4.5); LYMPH % 15.3 % (24.0-44.0); MEAN CORPUSCULAR HEMOGLOBIN 29.3 pg (27.0-33.0); MEAN CORPUSCULAR HGB CONC 34.4 g/dl (32.0-36.5); MEAN CORPUSCULAR VOLUME 85.1 fl (80.0-96.0); MONO # 1.1 10^3/uL (0.0-0.8); MONO % 11.4 % (0.0-5.0); NEUTROPHILS # 6.8 10^3/uL (1.8-7.7); NEUTROPHILS % 71.3 % (36.0-66.0); PLATELET COUNT, AUTOMATED 214 10^3/uL (150-450); RED BLOOD COUNT 4.78 10^6/uL (4.30-6.10); WHITE BLOOD COUNT 9.6 10^3/uL (4.0-10.0)
[2018-05-27 07:31] LABS: BLOOD UREA NITROGEN 11 MG/DL (7-18); CREATININE FOR GFR 0.55 MG/DL (0.70-1.30); GLOMERULAR FILTRATION RATE > 60.0 (>49); GLUCOSE, FASTING 83 MG/DL (70-100)
[2018-05-27 07:32] LABS: CALCIUM LEVEL 8.4 MG/DL (8.8-10.2); CARBON DIOXIDE LEVEL 27 MEQ/L (21-32); CHLORIDE LEVEL 100 MEQ/L (98-107); POTASSIUM SERUM 3.9 MEQ/L (3.5-5.1); SODIUM LEVEL 134 MEQ/L (136-145)
[2018-05-27] MEDS: ADVAIR HFA 115/21MCG INHALER INH SCH ×2 (07:43→21:00)
[2018-05-27] MEDS: DOCUSATE SODIUM 100 MG CAP PO SCH ×2 (09:06→20:52)
[2018-05-27] MEDS: ENOXAPARIN 40 MG/0.4 ML SYRINGE (J1650) SC SCH (09:06)
[2018-05-27] MEDS: MULTIVITAMINS/MINERALS THERAP 1 TAB PO SCH (09:07)
[2018-05-27] MEDS: TAMSULOSIN 0.4 MG CAP PO SCH (09:07)
[2018-05-27] MEDS: FUROSEMIDE 40 MG TAB PO SCH (09:07)
[2018-05-27] MEDS: ASPIRIN 81 MG ENTERIC TAB PO SCH (09:07)
[2018-05-27] MEDS: ASCORBIC ACID 250 MG TAB PO SCH ×2 (09:07→20:52)
[2018-05-27] MEDS: predniSONE 10 MG TAB PO SCH (09:07)
[2018-05-27] MEDS: FOLIC ACID 1 MG TAB PO SCH (09:07)
[2018-05-27] MEDS: METOPROLOL SUCC *XL* 25MG TAB (TopROL *XL*) PO SCH (09:08)
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
[2018-05-27 14:00] VITALS: BP 131/85
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
[2018-05-27] MEDS: BENAZEPRIL 20 MG TAB PO SCH (17:59)
[2018-05-27 20:00] VITALS: BP 117/77
[2018-05-27 20:14] VITALS: BP 117/77
[2018-05-28 06:00] VITALS: BP 131/80
[2018-05-28] MEDS: ADVAIR HFA 115/21MCG INHALER INH SCH ×2 (07:33→19:25)
[2018-05-28] MEDS: FOLIC ACID 1 MG TAB PO SCH (09:09)
[2018-05-28] MEDS: MULTIVITAMINS/MINERALS THERAP 1 TAB PO SCH (09:09)
[2018-05-28] MEDS: FUROSEMIDE 40 MG TAB PO SCH (09:09)
[2018-05-28] MEDS: ENOXAPARIN 40 MG/0.4 ML SYRINGE (J1650) SC SCH (09:09)
[2018-05-28] MEDS: METOPROLOL SUCC *XL* 25MG TAB (TopROL *XL*) PO SCH (09:09)
[2018-05-28] MEDS: predniSONE 10 MG TAB PO SCH (09:09)
[2018-05-28] MEDS: ASPIRIN 81 MG ENTERIC TAB PO SCH (09:09)
[2018-05-28] MEDS: DOCUSATE SODIUM 100 MG CAP PO SCH ×2 (09:09→20:41)
[2018-05-28] MEDS: TAMSULOSIN 0.4 MG CAP PO SCH (09:10)
[2018-05-28] MEDS: ASCORBIC ACID 250 MG TAB PO SCH ×2 (09:10→20:41)
[2018-05-28] MEDS ORDERED: FLEET ENEMA PR PRN (11:15)
[2018-05-28 14:00] VITALS: BP 110/70
[2018-05-28] MEDS: BENAZEPRIL 20 MG TAB PO SCH (17:51)
[2018-05-28 20:00] VITALS: BP 115/72
[2018-05-29 06:00] VITALS: BP 145/84
[2018-05-29 07:22] LABS: BASO # 0.1 10^3/uL (0.0-0.2); BASO % 0.8 % (0.0-1.0); EOS # 0.1 10^3/uL (0.0-0.50); EOS % 1.3 % (0.0-3.0); HEMATOCRIT 40.9 % (42.0-52.0); HEMOGLOBIN 13.9 g/dl (13.5-17.5); LYMPH # 1.4 10^3/uL (1.5-4.5); LYMPH % 19.5 % (24.0-44.0); MEAN CORPUSCULAR HEMOGLOBIN 29.5 pg (27.0-33.0); MEAN CORPUSCULAR VOLUME 86.8 fl (80.0-96.0); MONO # 0.8 10^3/uL (0.0-0.8); NEUTROPHILS # 4.8 10^3/uL (1.8-7.7); NEUTROPHILS % 66.8 % (36.0-66.0); PLATELET COUNT, AUTOMATED 230 10^3/uL (150-450); RED BLOOD COUNT 4.71 10^6/uL (4.30-6.10); WHITE BLOOD COUNT 7.2 10^3/uL (4.0-10.0)
[2018-05-29] MEDS: ADVAIR HFA 115/21MCG INHALER INH SCH ×2 (07:45→20:28)
[2018-05-29 07:58] LABS: BLOOD UREA NITROGEN 13 MG/DL (7-18); CALCIUM LEVEL 8.4 MG/DL (8.8-10.2); CARBON DIOXIDE LEVEL 29 MEQ/L (21-32); CHLORIDE LEVEL 102 MEQ/L (98-107); CREATININE FOR GFR 0.64 MG/DL (0.70-1.30); GLOMERULAR FILTRATION RATE > 60.0 (>49); GLUCOSE, FASTING 89 MG/DL (70-100); POTASSIUM SERUM 3.9 MEQ/L (3.5-5.1); SODIUM LEVEL 136 MEQ/L (136-145)
[2018-05-29] MEDS: DOCUSATE SODIUM 100 MG CAP PO SCH ×2 (10:27→20:41)
[2018-05-29] MEDS: TAMSULOSIN 0.4 MG CAP PO SCH (10:28)
[2018-05-29] MEDS: predniSONE 10 MG TAB PO SCH (10:28)
[2018-05-29] MEDS: ASCORBIC ACID 250 MG TAB PO SCH ×2 (10:28→20:41)
[2018-05-29] MEDS: MULTIVITAMINS/MINERALS THERAP 1 TAB PO SCH (10:28)
[2018-05-29] MEDS: SENNA 8.6 MG TAB (SENOKOT) PO PRN (10:28)
[2018-05-29] MEDS: ASPIRIN 81 MG ENTERIC TAB PO SCH (10:28)
[2018-05-29] MEDS: FOLIC ACID 1 MG TAB PO SCH (10:28)
[2018-05-29] MEDS: FUROSEMIDE 40 MG TAB PO SCH (10:28)
[2018-05-29] MEDS: METOPROLOL SUCC *XL* 25MG TAB (TopROL *XL*) PO SCH (10:29)
[2018-05-29] MEDS: ENOXAPARIN 40 MG/0.4 ML SYRINGE (J1650) SC SCH (10:29)
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
[2018-05-29] MEDS: BOUDREAUX'S BUTT PASTE 4OZ TOP SCH ×3 (13:00→20:41)
[2018-05-29 14:00] VITALS: BP 94/63
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
[2018-05-29] MEDS: BENAZEPRIL 20 MG TAB PO SCH (17:38)
[2018-05-29 20:00] VITALS: BP 121/80
[2018-05-30 06:00] VITALS: BP 150/80
[2018-05-30] MEDS: ENOXAPARIN 40 MG/0.4 ML SYRINGE (J1650) SC SCH (08:44)
[2018-05-30] MEDS: FOLIC ACID 1 MG TAB PO SCH (08:44)
[2018-05-30] MEDS: TAMSULOSIN 0.4 MG CAP PO SCH (08:44)
[2018-05-30] MEDS: DOCUSATE SODIUM 100 MG CAP PO SCH ×2 (08:45→20:24)
[2018-05-30] MEDS: MULTIVITAMINS/MINERALS THERAP 1 TAB PO SCH (08:45)
[2018-05-30] MEDS: FUROSEMIDE 40 MG TAB PO SCH (08:45)
[2018-05-30] MEDS: METOPROLOL SUCC *XL* 25MG TAB (TopROL *XL*) PO SCH (08:45)
[2018-05-30] MEDS: ADVAIR HFA 115/21MCG INHALER INH SCH ×2 (08:45→20:19)
[2018-05-30] MEDS: ASPIRIN 81 MG ENTERIC TAB PO SCH (08:45)
[2018-05-30] MEDS: ASCORBIC ACID 250 MG TAB PO SCH ×2 (08:45→20:24)
[2018-05-30] MEDS: predniSONE 10 MG TAB PO SCH (08:46)
[2018-05-30] MEDS: BOUDREAUX'S BUTT PASTE 4OZ TOP SCH ×4 (08:46→20:31)
[2018-05-30 14:00] VITALS: BP 129/81
[2018-05-30] MEDS: BENAZEPRIL 20 MG TAB PO SCH (17:57)
[2018-05-30 20:00] VITALS: BP 124/78
[2018-05-31 06:00] VITALS: BP 144/98
[2018-05-31] MEDS: ADVAIR HFA 115/21MCG INHALER INH SCH ×2 (08:43→20:31)
[2018-05-31] MEDS: ENOXAPARIN 40 MG/0.4 ML SYRINGE (J1650) SC SCH (09:19)
[2018-05-31] MEDS: predniSONE 10 MG TAB PO SCH (09:19)
[2018-05-31] MEDS: DOCUSATE SODIUM 100 MG CAP PO SCH ×2 (09:19→20:47)
[2018-05-31] MEDS: ASCORBIC ACID 250 MG TAB PO SCH ×2 (09:19→20:47)
[2018-05-31] MEDS: ASPIRIN 81 MG ENTERIC TAB PO SCH (09:19)
[2018-05-31] MEDS: TAMSULOSIN 0.4 MG CAP PO SCH (09:19)
[2018-05-31] MEDS: MULTIVITAMINS/MINERALS THERAP 1 TAB PO SCH (09:20)
[2018-05-31] MEDS: BOUDREAUX'S BUTT PASTE 4OZ TOP SCH ×4 (09:20→20:48)
[2018-05-31] MEDS: FOLIC ACID 1 MG TAB PO SCH (09:20)
[2018-05-31] MEDS: METOPROLOL SUCC *XL* 25MG TAB (TopROL *XL*) PO SCH (09:20)
[2018-05-31] MEDS: FUROSEMIDE 40 MG TAB PO SCH (09:20)
[2018-05-31 14:00] VITALS: BP 126/87
[2018-05-31] MEDS: BENAZEPRIL 20 MG TAB PO SCH (17:43)
[2018-05-31 20:00] VITALS: BP 110/66
[2018-06-01 06:00] VITALS: BP 155/98
[2018-06-01] MEDS: TAMSULOSIN 0.4 MG CAP PO SCH (08:44)
[2018-06-01] MEDS: MULTIVITAMINS/MINERALS THERAP 1 TAB PO SCH (08:44)
[2018-06-01] MEDS: FUROSEMIDE 40 MG TAB PO SCH (08:44)
[2018-06-01] MEDS: ENOXAPARIN 40 MG/0.4 ML SYRINGE (J1650) SC SCH (08:44)
[2018-06-01] MEDS: METOPROLOL SUCC *XL* 25MG TAB (TopROL *XL*) PO SCH (08:44)
[2018-06-01] MEDS: predniSONE 10 MG TAB PO SCH (08:44)
[2018-06-01] MEDS: DOCUSATE SODIUM 100 MG CAP PO SCH ×2 (08:44→20:45)
[2018-06-01] MEDS: ASPIRIN 81 MG ENTERIC TAB PO SCH (08:44)
[2018-06-01] MEDS: ASCORBIC ACID 250 MG TAB PO SCH ×2 (08:44→20:44)
[2018-06-01] MEDS: BOUDREAUX'S BUTT PASTE 4OZ TOP SCH ×4 (08:45→20:44)
[2018-06-01] MEDS: FOLIC ACID 1 MG TAB PO SCH (08:45)
[2018-06-01] MEDS: ADVAIR HFA 115/21MCG INHALER INH SCH ×2 (09:00→19:32)
[2018-06-01 14:00] VITALS: BP 112/60
[2018-06-01] MEDS: BENAZEPRIL 20 MG TAB PO SCH (18:27)
[2018-06-01 20:00] VITALS: BP 129/75
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
[2018-06-02 06:05] VITALS: BP 158/89
[2018-06-02] MEDS: ADVAIR HFA 115/21MCG INHALER INH SCH ×2 (07:18→20:37)
[2018-06-02] MEDS: FOLIC ACID 1 MG TAB PO SCH (08:58)
[2018-06-02] MEDS: DOCUSATE SODIUM 100 MG CAP PO SCH ×2 (08:58→21:14)
[2018-06-02] MEDS: ASPIRIN 81 MG ENTERIC TAB PO SCH (08:58)
[2018-06-02] MEDS: ASCORBIC ACID 250 MG TAB PO SCH ×2 (08:58→21:14)
[2018-06-02] MEDS: FUROSEMIDE 40 MG TAB PO SCH (08:58)
[2018-06-02] MEDS: TAMSULOSIN 0.4 MG CAP PO SCH (08:58)
[2018-06-02] MEDS: ENOXAPARIN 40 MG/0.4 ML SYRINGE (J1650) SC SCH (08:58)
[2018-06-02] MEDS: predniSONE 10 MG TAB PO SCH (08:58)
[2018-06-02] MEDS: MULTIVITAMINS/MINERALS THERAP 1 TAB PO SCH (08:58)
[2018-06-02] MEDS: BOUDREAUX'S BUTT PASTE 4OZ TOP SCH ×4 (08:59→21:00)
[2018-06-02] MEDS: METOPROLOL SUCC *XL* 25MG TAB (TopROL *XL*) PO SCH (08:59)
[2018-06-02] MEDS: BENAZEPRIL 20 MG TAB PO SCH (17:39)
[2018-06-02 20:00] VITALS: BP 150/80
[2018-06-03] VITALS (7 sets, daily range): BP systolic 80–152; BP diastolic 55–84
[2018-06-03] MEDS: ADVAIR HFA 115/21MCG INHALER INH SCH ×2 (08:30→23:10)
[2018-06-03] MEDS: BOUDREAUX'S BUTT PASTE 4OZ TOP SCH ×4 (09:00→20:41)
[2018-06-03] MEDS: METOPROLOL SUCC *XL* 25MG TAB (TopROL *XL*) PO SCH (09:00)
[2018-06-03] MEDS: FUROSEMIDE 40 MG TAB PO SCH (09:00)
[2018-06-03] MEDS: predniSONE 10 MG TAB PO SCH (09:19)
[2018-06-03] MEDS: ASPIRIN 81 MG ENTERIC TAB PO SCH (09:19)
[2018-06-03] MEDS: DOCUSATE SODIUM 100 MG CAP PO SCH ×2 (09:19→20:38)
[2018-06-03] MEDS: TAMSULOSIN 0.4 MG CAP PO SCH (09:19)
[2018-06-03] MEDS: MULTIVITAMINS/MINERALS THERAP 1 TAB PO SCH (09:19)
[2018-06-03] MEDS: FOLIC ACID 1 MG TAB PO SCH (09:19)
[2018-06-03] MEDS: ENOXAPARIN 40 MG/0.4 ML SYRINGE (J1650) SC SCH (09:20)
[2018-06-03] MEDS: ASCORBIC ACID 250 MG TAB PO SCH ×2 (09:20→20:38)
[2018-06-03] MEDS ORDERED: NS 500 ML IV ONE (09:30)
[2018-06-03 11:06] LABS: BASO # 0.1 10^3/uL (0.0-0.2); BASO % 0.6 % (0.0-1.0); EOS # 0.1 10^3/uL (0.0-0.50); EOS % 1.6 % (0.0-3.0); HEMATOCRIT 38.6 % (42.0-52.0); HEMOGLOBIN 13.2 g/dl (13.5-17.5); LYMPH # 1.5 10^3/uL (1.5-4.5); LYMPH % 16.9 % (24.0-44.0); MEAN CORPUSCULAR HEMOGLOBIN 29.5 pg (27.0-33.0); MEAN CORPUSCULAR HGB CONC 34.2 g/dl (32.0-36.5); MEAN CORPUSCULAR VOLUME 86.2 fl (80.0-96.0); MONO % 10.9 % (0.0-5.0); NEUTROPHILS # 6.1 10^3/uL (1.8-7.7); NEUTROPHILS % 69.5 % (36.0-66.0); PLATELET COUNT, AUTOMATED 270 10^3/uL (150-450); RED BLOOD COUNT 4.48 10^6/uL (4.30-6.10); WHITE BLOOD COUNT 8.7 10^3/uL (4.0-10.0)
[2018-06-03 11:31] LABS: BLOOD UREA NITROGEN 13 MG/DL (7-18); CALCIUM LEVEL 8.4 MG/DL (8.8-10.2); CARBON DIOXIDE LEVEL 28 MEQ/L (21-32); CHLORIDE LEVEL 100 MEQ/L (98-107); CREATININE FOR GFR 0.64 MG/DL (0.70-1.30); GLOMERULAR FILTRATION RATE > 60.0 (>49); GLUCOSE, FASTING 127 MG/DL (70-100); POTASSIUM SERUM 4.1 MEQ/L (3.5-5.1); SODIUM LEVEL 135 MEQ/L (136-145)
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
[2018-06-03] MEDS: BENAZEPRIL 20 MG TAB PO SCH (17:39)
[2018-06-04 06:00] VITALS: BP 158/86
[2018-06-04 06:31] LABS: BASO % 0.5 % (0.0-1.0); EOS # 0.2 10^3/uL (0.0-0.50); EOS % 2.2 % (0.0-3.0); HEMATOCRIT 40.1 % (42.0-52.0); HEMOGLOBIN 13.7 g/dl (13.5-17.5); LYMPH # 1.8 10^3/uL (1.5-4.5); MEAN CORPUSCULAR HEMOGLOBIN 29.6 pg (27.0-33.0); MEAN CORPUSCULAR HGB CONC 34.2 g/dl (32.0-36.5); MEAN CORPUSCULAR VOLUME 86.6 fl (80.0-96.0); MONO % 11.9 % (0.0-5.0); NEUTROPHILS # 5.5 10^3/uL (1.8-7.7); NEUTROPHILS % 63.9 % (36.0-66.0); PLATELET COUNT, AUTOMATED 264 10^3/uL (150-450); RED BLOOD COUNT 4.63 10^6/uL (4.30-6.10); WHITE BLOOD COUNT 8.5 10^3/uL (4.0-10.0)
[2018-06-04 07:07] LABS: BLOOD UREA NITROGEN 10 MG/DL (7-18); CALCIUM LEVEL 8.1 MG/DL (8.8-10.2); CARBON DIOXIDE LEVEL 31 MEQ/L (21-32); CHLORIDE LEVEL 101 MEQ/L (98-107); CREATININE FOR GFR 0.56 MG/DL (0.70-1.30); GLOMERULAR FILTRATION RATE > 60.0 (>49); GLUCOSE, FASTING 81 MG/DL (70-100); POTASSIUM SERUM 4.6 MEQ/L (3.5-5.1); SODIUM LEVEL 135 MEQ/L (136-145)
[2018-06-04 08:43] VITALS: BP 106/72
[2018-06-04] MEDS: FUROSEMIDE 40 MG TAB PO SCH (08:44)
[2018-06-04] MEDS: METOPROLOL SUCC *XL* 25MG TAB (TopROL *XL*) PO SCH (08:44)
[2018-06-04] MEDS: FOLIC ACID 1 MG TAB PO SCH (08:46)
[2018-06-04] MEDS: ASPIRIN 81 MG ENTERIC TAB PO SCH (08:46)
[2018-06-04] MEDS: MULTIVITAMINS/MINERALS THERAP 1 TAB PO SCH (08:47)
[2018-06-04] MEDS: ASCORBIC ACID 250 MG TAB PO SCH ×2 (08:47→21:36)
[2018-06-04] MEDS: predniSONE 10 MG TAB PO SCH (08:47)
[2018-06-04] MEDS: ENOXAPARIN 40 MG/0.4 ML SYRINGE (J1650) SC SCH (08:47)
[2018-06-04] MEDS: BOUDREAUX'S BUTT PASTE 4OZ TOP SCH ×4 (08:47→21:00)
[2018-06-04] MEDS: DOCUSATE SODIUM 100 MG CAP PO SCH ×2 (08:47→21:36)
[2018-06-04] MEDS: ADVAIR HFA 115/21MCG INHALER INH SCH ×2 (09:00→19:40)
[2018-06-04] MEDS: METOPROLOL TART 12.5 MG PER 1/2 TAB PO SCH ×3 (11:00→21:37)
[2018-06-04 11:45] VITALS: BP 158/98
--- NOTE | 2018-06-04 11:56 | REP ---
Clinical: Right calf swelling and decreased mobility . Technique: Mata scale and color Doppler evaluation using linear high frequency transducer. Findings: Ultrasound examination of the right and left lower extremity deep venous structures from the common femoral vein to the popliteal vein demonstrates normal compressibility flow and wave patterns in response to respiration and augmentation. There is no evidence for deep venous thrombosis. Impression: No evidence for deep venous thrombosis bilateral lower extremities. Electronically Signed by Cong Fay MD 06/04/2018 11:47 A
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
[2018-06-04 14:00] VITALS: BP 143/79
[2018-06-04] MEDS: NYSTATIN 100,000 UNITS/GM TOPICAL PWD 15 GM TOP SCH ×2 (14:30→21:00)
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
[2018-06-04] MEDS: BENAZEPRIL 20 MG TAB PO SCH (17:48)
[2018-06-04 20:00] VITALS: BP 127/80
[2018-06-04] MEDS ORDERED: NYSTATIN 100,000 UNITS/GM TOPICAL PWD 15 GM TOP SCH (21:00)
[2018-06-04] MEDS: TAMSULOSIN 0.4 MG CAP PO SCH (21:36)
[2018-06-05 06:00] VITALS: BP 137/88
[2018-06-05] MEDS: ADVAIR HFA 115/21MCG INHALER INH SCH ×2 (08:06→19:54)
[2018-06-05] MEDS: ASPIRIN 81 MG ENTERIC TAB PO SCH (09:12)
[2018-06-05] MEDS: ASCORBIC ACID 250 MG TAB PO SCH ×2 (09:12→21:29)
[2018-06-05] MEDS: DOCUSATE SODIUM 100 MG CAP PO SCH ×2 (09:12→21:28)
[2018-06-05] MEDS: ENOXAPARIN 40 MG/0.4 ML SYRINGE (J1650) SC SCH (09:12)
[2018-06-05] MEDS: METOPROLOL TART 12.5 MG PER 1/2 TAB PO SCH ×3 (09:12→21:29)
[2018-06-05] MEDS: MULTIVITAMINS/MINERALS THERAP 1 TAB PO SCH (09:12)
[2018-06-05] MEDS: FOLIC ACID 1 MG TAB PO SCH (09:12)
[2018-06-05] MEDS: FUROSEMIDE 40 MG TAB PO SCH (09:12)
[2018-06-05] MEDS: predniSONE 5 MG TAB PO SCH (09:13)
[2018-06-05] MEDS: BOUDREAUX'S BUTT PASTE 4OZ TOP SCH ×4 (09:14→21:30)
[2018-06-05] MEDS: NYSTATIN 100,000 UNITS/GM TOPICAL PWD 15 GM TOP SCH ×2 (09:14→21:30)
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
[2018-06-05 14:00] VITALS: BP 122/93
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
[2018-06-05] MEDS: BENAZEPRIL 20 MG TAB PO SCH (18:44)
[2018-06-05 20:00] VITALS: BP 139/86
[2018-06-05] MEDS: TAMSULOSIN 0.4 MG CAP PO SCH (21:29)
[2018-06-06 06:00] VITALS: BP 124/69
[2018-06-06] MEDS: FOLIC ACID 1 MG TAB PO SCH (08:28)
[2018-06-06] MEDS: MULTIVITAMINS/MINERALS THERAP 1 TAB PO SCH (08:28)
[2018-06-06] MEDS: predniSONE 5 MG TAB PO SCH (08:28)
[2018-06-06] MEDS: ASCORBIC ACID 250 MG TAB PO SCH ×2 (08:28→20:35)
[2018-06-06] MEDS: FUROSEMIDE 40 MG TAB PO SCH (08:28)
[2018-06-06] MEDS: DOCUSATE SODIUM 100 MG CAP PO SCH ×3 (08:28→20:35)
[2018-06-06] MEDS: ASPIRIN 81 MG ENTERIC TAB PO SCH (08:28)
[2018-06-06] MEDS: METOPROLOL TART 12.5 MG PER 1/2 TAB PO SCH ×3 (08:29→20:36)
[2018-06-06] MEDS: ENOXAPARIN 40 MG/0.4 ML SYRINGE (J1650) SC SCH (08:29)
[2018-06-06] MEDS: BOUDREAUX'S BUTT PASTE 4OZ TOP SCH ×4 (08:29→20:37)
[2018-06-06] MEDS: NYSTATIN 100,000 UNITS/GM TOPICAL PWD 15 GM TOP SCH ×2 (08:30→20:37)
[2018-06-06] MEDS: ADVAIR HFA 115/21MCG INHALER INH SCH ×2 (08:33→19:39)
[2018-06-06 14:00] VITALS: BP 107/68
[2018-06-06] MEDS: BENAZEPRIL 20 MG TAB PO SCH (18:40)
[2018-06-06 20:00] VITALS: BP 124/85
[2018-06-06] MEDS: TAMSULOSIN 0.4 MG CAP PO SCH (20:35)
[2018-06-07 04:00] VITALS: BP 137/86
[2018-06-07 07:22] LABS: BASO # 0.1 10^3/uL (0.0-0.2); BASO % 0.7 % (0.0-1.0); EOS # 0.1 10^3/uL (0.0-0.50); EOS % 1.8 % (0.0-3.0); HEMATOCRIT 39.5 % (42.0-52.0); HEMOGLOBIN 13.5 g/dl (13.5-17.5); LYMPH # 1.7 10^3/uL (1.5-4.5); LYMPH % 25.1 % (24.0-44.0); MEAN CORPUSCULAR HEMOGLOBIN 29.6 pg (27.0-33.0); MEAN CORPUSCULAR HGB CONC 34.2 g/dl (32.0-36.5); MEAN CORPUSCULAR VOLUME 86.6 fl (80.0-96.0); MONO # 0.8 10^3/uL (0.0-0.8); MONO % 11.2 % (0.0-5.0); NEUTROPHILS # 4.1 10^3/uL (1.8-7.7); NEUTROPHILS % 60.8 % (36.0-66.0); PLATELET COUNT, AUTOMATED 248 10^3/uL (150-450); RED BLOOD COUNT 4.56 10^6/uL (4.30-6.10); WHITE BLOOD COUNT 6.8 10^3/uL (4.0-10.0)
[2018-06-07 07:44] LABS: BLOOD UREA NITROGEN 13 MG/DL (7-18); CALCIUM LEVEL 8.6 MG/DL (8.8-10.2); CARBON DIOXIDE LEVEL 28 MEQ/L (21-32); CHLORIDE LEVEL 104 MEQ/L (98-107); CREATININE FOR GFR 0.73 MG/DL (0.70-1.30); GLOMERULAR FILTRATION RATE > 60.0 (>49); GLUCOSE, FASTING 81 MG/DL (70-100); POTASSIUM SERUM 4.1 MEQ/L (3.5-5.1); SODIUM LEVEL 138 MEQ/L (136-145)
[2018-06-07] MEDS: BOUDREAUX'S BUTT PASTE 4OZ TOP SCH ×4 (09:00→21:00)
[2018-06-07] MEDS: METOPROLOL TART 12.5 MG PER 1/2 TAB PO SCH ×3 (09:00→21:39)
[2018-06-07] MEDS: ADVAIR HFA 115/21MCG INHALER INH SCH ×2 (09:00→21:00)
[2018-06-07] MEDS: ENOXAPARIN 40 MG/0.4 ML SYRINGE (J1650) SC SCH (11:38)
[2018-06-07] MEDS: ASPIRIN 81 MG ENTERIC TAB PO SCH (11:40)
[2018-06-07] MEDS: FOLIC ACID 1 MG TAB PO SCH (11:41)
[2018-06-07] MEDS: ASCORBIC ACID 250 MG TAB PO SCH ×2 (11:42→21:38)
[2018-06-07] MEDS: DOCUSATE SODIUM 100 MG CAP PO SCH ×3 (11:42→21:38)
[2018-06-07] MEDS: SENNA 8.6 MG TAB (SENOKOT) PO PRN (11:42)
[2018-06-07] MEDS: MULTIVITAMINS/MINERALS THERAP 1 TAB PO SCH (11:42)
[2018-06-07] MEDS: FUROSEMIDE 40 MG TAB PO SCH (11:42)
[2018-06-07] MEDS: NYSTATIN 100,000 UNITS/GM TOPICAL PWD 15 GM TOP SCH ×2 (11:44→21:00)
[2018-06-07] MEDS ORDERED: predniSONE 5 MG TAB As Ordered ONE (11:54)
[2018-06-07] MEDS: predniSONE 5 MG TAB PO SCH (11:55)
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
[2018-06-07 14:00] VITALS: BP 112/72
[2018-06-07 17:34] VITALS: BP 110/72
[2018-06-07] MEDS: BENAZEPRIL 20 MG TAB PO SCH (17:37)
[2018-06-07 20:00] VITALS: BP 130/82
[2018-06-07] MEDS: TAMSULOSIN 0.4 MG CAP PO SCH (21:38)
[2018-06-08 06:00] VITALS: BP 155/95
[2018-06-08] MEDS: ASCORBIC ACID 250 MG TAB PO SCH ×2 (08:25→20:43)
[2018-06-08] MEDS: ENOXAPARIN 40 MG/0.4 ML SYRINGE (J1650) SC SCH (08:26)
[2018-06-08] MEDS: ASPIRIN 81 MG ENTERIC TAB PO SCH (08:26)
[2018-06-08] MEDS: FUROSEMIDE 40 MG TAB PO SCH (08:26)
[2018-06-08] MEDS: FOLIC ACID 1 MG TAB PO SCH (08:26)
[2018-06-08] MEDS: METOPROLOL TART 12.5 MG PER 1/2 TAB PO SCH ×3 (08:26→20:43)
[2018-06-08] MEDS: MULTIVITAMINS/MINERALS THERAP 1 TAB PO SCH (08:26)
[2018-06-08] MEDS: DOCUSATE SODIUM 100 MG CAP PO SCH ×3 (08:26→20:43)
[2018-06-08] MEDS: BOUDREAUX'S BUTT PASTE 4OZ TOP SCH ×4 (08:27→20:43)
[2018-06-08] MEDS: NYSTATIN 100,000 UNITS/GM TOPICAL PWD 15 GM TOP SCH ×2 (08:28→20:44)
[2018-06-08] MEDS: ADVAIR HFA 115/21MCG INHALER INH SCH ×2 (09:00→21:00)
[2018-06-08 14:00] VITALS: BP 143/77
[2018-06-08] MEDS: BENAZEPRIL 20 MG TAB PO SCH (17:27)
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
[2018-06-08 20:00] VITALS: BP 134/86
[2018-06-08] MEDS: TAMSULOSIN 0.4 MG CAP PO SCH (20:43)
[2018-06-09 06:00] VITALS: BP 130/86
[2018-06-09 07:26] LABS: HEMATOCRIT 39.7 % (42.0-52.0); HEMOGLOBIN 13.3 g/dl (13.5-17.5); MEAN CORPUSCULAR HEMOGLOBIN 29.1 pg (27.0-33.0); MEAN CORPUSCULAR HGB CONC 33.5 g/dl (32.0-36.5); MEAN CORPUSCULAR VOLUME 86.9 fl (80.0-96.0); PLATELET COUNT, AUTOMATED 238 10^3/uL (150-450); RED BLOOD COUNT 4.57 10^6/uL (4.30-6.10); WHITE BLOOD COUNT 7.9 10^3/uL (4.0-10.0)
[2018-06-09] MEDS: ENOXAPARIN 40 MG/0.4 ML SYRINGE (J1650) SC SCH (07:40)
[2018-06-09] MEDS: FUROSEMIDE 40 MG TAB PO SCH (07:41)
[2018-06-09] MEDS: DOCUSATE SODIUM 100 MG CAP PO SCH ×3 (07:41→21:35)
[2018-06-09] MEDS: ASCORBIC ACID 250 MG TAB PO SCH ×2 (07:41→21:36)
[2018-06-09] MEDS: FOLIC ACID 1 MG TAB PO SCH (07:41)
[2018-06-09] MEDS: METOPROLOL TART 12.5 MG PER 1/2 TAB PO SCH ×3 (07:41→21:36)
[2018-06-09] MEDS: ASPIRIN 81 MG ENTERIC TAB PO SCH (07:41)
[2018-06-09] MEDS: MULTIVITAMINS/MINERALS THERAP 1 TAB PO SCH (07:41)
[2018-06-09] MEDS: BOUDREAUX'S BUTT PASTE 4OZ TOP SCH ×4 (07:42→21:00)
[2018-06-09] MEDS: NYSTATIN 100,000 UNITS/GM TOPICAL PWD 15 GM TOP SCH ×2 (07:42→21:37)
[2018-06-09 07:50] LABS: BLOOD UREA NITROGEN 13 MG/DL (7-18); CALCIUM LEVEL 8.2 MG/DL (8.8-10.2); CARBON DIOXIDE LEVEL 29 MEQ/L (21-32); CHLORIDE LEVEL 104 MEQ/L (98-107); GLOMERULAR FILTRATION RATE > 60.0 (>49); GLUCOSE, FASTING 84 MG/DL (70-100); POTASSIUM SERUM 4.5 MEQ/L (3.5-5.1); SODIUM LEVEL 139 MEQ/L (136-145)
[2018-06-09] MEDS: ADVAIR HFA 115/21MCG INHALER INH SCH ×2 (12:30→20:31)
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
[2018-06-09 14:00] VITALS: BP 118/69
[2018-06-09] MEDS: BENAZEPRIL 20 MG TAB PO SCH (17:24)
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
[2018-06-09 20:00] VITALS: BP 113/72
[2018-06-09] MEDS: TAMSULOSIN 0.4 MG CAP PO SCH (21:36)
[2018-06-10 06:00] VITALS: BP 143/87
[2018-06-10] MEDS: ASCORBIC ACID 250 MG TAB PO SCH ×2 (09:26→20:12)
[2018-06-10] MEDS: FOLIC ACID 1 MG TAB PO SCH (09:26)
[2018-06-10] MEDS: FUROSEMIDE 40 MG TAB PO SCH (09:26)
[2018-06-10] MEDS: DOCUSATE SODIUM 100 MG CAP PO SCH ×3 (09:26→20:12)
[2018-06-10] MEDS: MULTIVITAMINS/MINERALS THERAP 1 TAB PO SCH (09:26)
[2018-06-10] MEDS: ASPIRIN 81 MG ENTERIC TAB PO SCH (09:26)
[2018-06-10] MEDS: ENOXAPARIN 40 MG/0.4 ML SYRINGE (J1650) SC SCH (09:27)
[2018-06-10] MEDS: METOPROLOL TART 12.5 MG PER 1/2 TAB PO SCH ×3 (09:27→20:12)
[2018-06-10] MEDS: BOUDREAUX'S BUTT PASTE 4OZ TOP SCH ×4 (09:28→20:12)
[2018-06-10] MEDS: NYSTATIN 100,000 UNITS/GM TOPICAL PWD 15 GM TOP SCH ×2 (09:28→20:14)
[2018-06-10] MEDS: ADVAIR HFA 115/21MCG INHALER INH SCH ×2 (09:31→19:47)
[2018-06-10 12:00] VITALS: BP 127/82
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
[2018-06-10] MEDS: BENAZEPRIL 20 MG TAB PO SCH (18:43)
[2018-06-10 20:11] VITALS: BP 131/70
[2018-06-10] MEDS: TAMSULOSIN 0.4 MG CAP PO SCH (20:12)
[2018-06-11 05:07] VITALS: BP 120/87
[2018-06-11] MEDS: ENOXAPARIN 40 MG/0.4 ML SYRINGE (J1650) SC SCH (09:18)
[2018-06-11] MEDS: DOCUSATE SODIUM 100 MG CAP PO SCH ×3 (09:19→19:55)
[2018-06-11] MEDS: METOPROLOL TART 12.5 MG PER 1/2 TAB PO SCH ×3 (09:19→19:56)
[2018-06-11] MEDS: MULTIVITAMINS/MINERALS THERAP 1 TAB PO SCH (09:19)
[2018-06-11] MEDS: ASPIRIN 81 MG ENTERIC TAB PO SCH (09:19)
[2018-06-11] MEDS: FOLIC ACID 1 MG TAB PO SCH (09:19)
[2018-06-11] MEDS: FUROSEMIDE 40 MG TAB PO SCH (09:19)
[2018-06-11] MEDS: BOUDREAUX'S BUTT PASTE 4OZ TOP SCH ×4 (09:19→19:56)
[2018-06-11] MEDS: ASCORBIC ACID 250 MG TAB PO SCH ×2 (09:19→19:55)
[2018-06-11] MEDS: NYSTATIN 100,000 UNITS/GM TOPICAL PWD 15 GM TOP SCH ×2 (09:20→19:56)
[2018-06-11] MEDS: ADVAIR HFA 115/21MCG INHALER INH SCH ×2 (11:00→21:36)
[2018-06-11 14:00] VITALS: BP 132/77
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
[2018-06-11] MEDS: BENAZEPRIL 20 MG TAB PO SCH (18:35)
[2018-06-11] MEDS: TAMSULOSIN 0.4 MG CAP PO SCH (19:55)
[2018-06-11 20:00] VITALS: BP 113/75
[2018-06-12 06:00] VITALS: BP 125/82
[2018-06-12] MEDS: ADVAIR HFA 115/21MCG INHALER INH SCH ×2 (08:00→21:50)
[2018-06-12] MEDS: BOUDREAUX'S BUTT PASTE 4OZ TOP SCH ×4 (09:00→20:33)
[2018-06-12] MEDS: NYSTATIN 100,000 UNITS/GM TOPICAL PWD 15 GM TOP SCH ×2 (09:00→20:32)
[2018-06-12] MEDS: DOCUSATE SODIUM 100 MG CAP PO SCH ×3 (09:12→20:31)
[2018-06-12] MEDS: METOPROLOL TART 12.5 MG PER 1/2 TAB PO SCH ×3 (09:12→20:32)
[2018-06-12] MEDS: ENOXAPARIN 40 MG/0.4 ML SYRINGE (J1650) SC SCH (09:12)
[2018-06-12] MEDS: ASCORBIC ACID 250 MG TAB PO SCH ×2 (09:12→20:32)
[2018-06-12] MEDS: ASPIRIN 81 MG ENTERIC TAB PO SCH (09:12)
[2018-06-12] MEDS: FUROSEMIDE 40 MG TAB PO SCH (09:13)
[2018-06-12] MEDS: FOLIC ACID 1 MG TAB PO SCH (09:13)
[2018-06-12] MEDS: MULTIVITAMINS/MINERALS THERAP 1 TAB PO SCH (09:13)
[2018-06-12 14:00] VITALS: BP 107/64
[2018-06-12] MEDS: BENAZEPRIL 20 MG TAB PO SCH (17:44)
[2018-06-12 20:00] VITALS: BP 144/79
[2018-06-12] MEDS: TAMSULOSIN 0.4 MG CAP PO SCH (20:31)
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
[2018-06-13 06:00] VITALS: BP 123/89
[2018-06-13] MEDS: ADVAIR HFA 115/21MCG INHALER INH SCH (07:29)
[2018-06-13] MEDS: BOUDREAUX'S BUTT PASTE 4OZ TOP SCH (09:00)
[2018-06-13 09:46] VITALS: BP 123/89
[2018-06-13] MEDS: DOCUSATE SODIUM 100 MG CAP PO SCH (09:46)
[2018-06-13] MEDS: MULTIVITAMINS/MINERALS THERAP 1 TAB PO SCH (09:46)
[2018-06-13] MEDS: METOPROLOL TART 12.5 MG PER 1/2 TAB PO SCH (09:46)
[2018-06-13] MEDS: FUROSEMIDE 40 MG TAB PO SCH (09:46)
[2018-06-13] MEDS: ASPIRIN 81 MG ENTERIC TAB PO SCH (09:46)
[2018-06-13] MEDS: FOLIC ACID 1 MG TAB PO SCH (09:46)
[2018-06-13] MEDS: ASCORBIC ACID 250 MG TAB PO SCH (09:46)
[2018-06-13] MEDS: NYSTATIN 100,000 UNITS/GM TOPICAL PWD 15 GM TOP SCH (09:47)
[2018-06-13] MEDS ORDERED: METO1TAB87 PO (09:47)
[2018-06-13] MEDS ORDERED: SENN18TA PO (09:47)
[2018-06-13] MEDS: ENOXAPARIN 40 MG/0.4 ML SYRINGE (J1650) SC SCH (09:47)
[2018-06-13] MEDS ORDERED: ASPI81TAEC PO (09:47)
[2018-06-13] MEDS ORDERED: ADVA115A INH (09:47)
[2018-06-13] MEDS ORDERED: BENA20TA PO (09:47)
[2018-06-13] MEDS ORDERED: COLA100C5 PO (09:47)
[2018-06-13] MEDS ORDERED: IPRA0.00 NEB (09:47)
[2018-06-13] MEDS ORDERED: FLOM0.4C39 PO (09:47)
[2018-06-17] MEDS ORDERED: VITA50005 PO (18:27)
--- NOTE | 2018-06-18 14:01 | PMRDS ---
DATE OF ADMISSION: 05/23/2018 DATE OF DISCHARGE: 06/13/2018 CHIEF COMPLAINT/DISCHARGE DIAGNOSIS: Left tibial fracture with debility and chronic spinal cord injury. 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 Knee x-ray did not show any acute fracture. Patient also had dyspnea on exam so a chest x-ray was ordered, which was negative for acute infiltrate or effusion. However, did reveal "Mass-like density in the right mid lung". Followup CT chest on 05/07/2018 showed "3 cm oval solid mass lesion right upper lung/right mid lung field with prominent spiculated border suspicious for primary malignancy of the lung". CT abdomen and pelvis ordered for further malignancy workup, which did not show any masses, but did reveal "There is atherosclerotic plaque formation throughout the aorta and occlusion of the left iliac artery." Given his left knee swelling MRI was ordered showing, "Occult nondisplaced fracture of the tibial plateau. Heme arthrosis. There is a tear central at the posterior horn of lateral meniscus. Osteochondral defect medial femoral condyle." Orthopedics was consulted who did not feel the injury required surgery and made him toe-down weightbearing with a knee immobilizer to be worn at all times. He continued to have difficulty breathing, Doppler required surgery and were negative for lower extremity deep venous thrombosis and CT angiogram of the chest did not show pulmonary embolus (PE). However, it showed multifocal infiltrate and an additional "small spiculated nodule in the left upper lobe measuring 6 mm. He was started on antibiotics for presumed pneumonia. CT-guided needle placement of the lung tissue was performed on 05/09/2018 with pathology results showing "moderately differentiated adenocarcinoma". He had urinary retention for which a Salguero was placed and hyponatremia. The patient had episodes of asystole on telemetry and dual-chamber pacemaker was placed per Dr. Sunshine on 05/16/2018 for high grade AV block type 2. The patient was evaluated by therapy and deemed to have gait and activities of daily living (ADL) impairments and deemed medical appropriate for discharge to acute rehabilitation unit (ARU) on 05/23/2018. PAST MEDICAL HISTORY: As per history of present illness (HPI). HOSPITAL COURSE: Patient was admitted to enroll in a comprehensive physical therapy (PT), occupational therapy (OT) program. Patient continued to have urinary retention. Concern for neurogenic bladder and was maintained with a Salguero. He was found to have elevated red blood cells RBCs in his urine times two, phone conversation with Dr. Ojeda was had who recommended outpatient urology for cystoscopy and urodynamic studies. He was maintained on a knee immobilizer while out of bed with toe-touch down weightbearing status for at least 6 weeks. Patient was educated multiple times on the importance of maintaining weightbearing status which he did follow, however, occasionally unable to maintain weightbearing precautions due to overall generalized weakness from a cervical spinal cord injury. He was maintained on Lovenox for deep venous thrombosis prophylaxis and his bowel regimen was optimized with senna, Colace and suppositories. He was deemed functionally medically stable to return to home with a walker with outpatient followup with urology, oncology, orthopedics and primary care physician. DISCHARGE MEDICATIONS: - benazepril 40 daily - Colace - senna - tamsulosin - Tylenol - ascorbic acid - aspirin - Lasix - multivitamin FUNCTIONAL HISTORY UPON DISCHARGE: Patient was modified independent or all functional transfers, able to ambulate 60 feet with a rolling walker. In occupational therapy, he was modified independent for upper and lower body dressing and able to don and doff his knee immobilizer. Patient was given room privileges prior to discharge in addition to home services.
== END 2018-06-13 14:20 | disposition home health service (06) | DRG 560 ==
LOC: M PM&R 14:25
PROVIDERS: ADMIT Physical Medicine & Rehabilitation; ATTEND Physical Medicine & Rehabilitation
DX: S82.142D Displaced bicondylar fracture of left tibia, subsequent encounter for closed fracture with routine healing (principal); C34.11 Malignant neoplasm of upper lobe, right bronchus or lung; E22.2 Syndrome of inappropriate secretion of antidiuretic hormone; I74.5 Embolism and thrombosis of iliac artery; R26.9 Unspecified abnormalities of gait and mobility; F10.10 Alcohol abuse, uncomplicated; F17.200 Nicotine dependence, unspecified, uncomplicated; I70.0 Atherosclerosis of aorta; S83.282A Other tear of lateral meniscus, current injury, left knee, initial encounter; R33.9 Retention of urine, unspecified; N31.9 Neuromuscular dysfunction of bladder, unspecified; K59.00 Constipation, unspecified; R53.81 Other malaise; I27.20 Pulmonary hypertension, unspecified; J44.9 Chronic obstructive pulmonary disease, unspecified; I10 Essential (primary) hypertension; Z79.82 Long term (current) use of aspirin; Z95.0 Presence of cardiac pacemaker; Z79.52 Long term (current) use of systemic steroids; Z79.899 Other long term (current) drug therapy; Z88.8 Allergy status to other drugs, medicaments and biological substances

== ENCOUNTER → 2018-06-25 | Outpatient (CLI) | payer MEDICARE, BC ==
[~2018-06-25] MED LIST changes: +ACET1TAB55 PO; -ASCO25TA PO; +ASPI1TAB15 PO; +BENA40TA PO; +CEFD1CAP8 PO; +COLA100C5 PO; +IPRA0.00 INH; +METO1TAB87 PO; +SENN18TA PO; +TAMS1CAP17 PO; +VITA1TAB23 PO; +VITA50005 PO
--- NOTE | 2018-06-25 19:42 | REP ---
PET/CT: History: Staging lung cancer. Adenocarcinoma right upper lobe. Comparisons: Comparison CT study of the chest May 09, 2018. TECHNIQUE: 54 minutes following the intravenous injection of a 10.44 mCi dose of F-18 FDG, three-dimensional PET scintigraphy is acquired from the skull base to the proximal thighs. Triplanar noncontrast CT scanning is acquired through the same anatomic range for attenuation correction, and image registration with scan parameters optimized to minimize radiation exposure to the patient. PET scintigraphy and CT datasets were fused and displayed on a workstation with multiplanar and projection display capability. PET/CT Findings: Head and neck soft tissues are unremarkable. There is normal variant skeletal muscle/arthritis associated uptake in the region of the left shoulder AC joint. There is a left-sided pacemaker. There is no abnormal hilar or mediastinal hypermetabolic uptake. The right upper lobe spiculated mass lesion seen on recent CT studies is hypermetabolic. Maximum standard uptake value within this is 10.15. There is no other abnormal pulmonary parenchymal hypermetabolic uptake. There is a small quantity of right pleural fluid but no hypermetabolic pleural uptake is seen. There is a non hypermetabolic visible uptake maximum standard uptake value 2.14. No abnormal adrenal uptake is seen. In the abdomen and pelvis, normal hepatic and splenic FDG accumulation is seen. No abnormal intra-abdominal or pelvic hypermetabolic uptake is seen. There is some skeletal muscle uptake and one of the thigh abductor muscles on the left consistent with muscle spasm normal variant. No abnormal skeletal hypermetabolic uptake is seen. Impression: The known right upper lobe lung mass is hypermetabolic. There is visible but non hypermetabolic right pleural FDG accumulation. No other abnormal hypermetabolic uptake is seen. Electronically Signed by Jose Luis Garland MD 06/25/2018 07:58 P
== END ==
LOC: M PLARAD 10:49
PROVIDERS: ATTEND Internal Medicine Hematology & Oncology
DX: C34.11 Malignant neoplasm of upper lobe, right bronchus or lung (principal); Z95.0 Presence of cardiac pacemaker
CPT/HCPCS: 51798; 78815; A9552; G0463

== ENCOUNTER → 2018-07-19 | Outpatient (CLI) | payer MEDICARE, BC ==
--- NOTE | 2018-07-19 12:26 | REP ---
CHEST, TWO VIEWS: Two views of the chest are performed and compared to prior study of 05/17/2018. Right upper lobe mass density is again seen. There are new patchy infiltrates in each lung base. I cannot exclude a small right effusion. Cardiac borders are obscured by the bibasilar infiltrates. Mediastinal silhouette otherwise appears unchanged. There is a left dual-lead pacemaker. There is osteopenia with mild degenerative change of the spine. There appears to be increased compression of a lower thoracic vertebral body. IMPRESSION: Patchy bibasilar infiltrates. I cannot exclude a small right effusion. There is increased compression of a lower thoracic vertebral body. Electronically Signed by Alex Mata MD 07/19/2018 05:04 P
== END ==
LOC: M RAD 10:49
PROVIDERS: ATTEND Internal Medicine Medical Oncology
DX: J90 Pleural effusion, not elsewhere classified (principal)

== ENCOUNTER → 2018-07-30 | Outpatient (CLI) | payer MEDICARE, BC ==
--- NOTE | 2018-07-30 18:22 | REP ---
CHEST, TWO VIEWS: Two views of the chest are performed. Patient had a thoracentesis today. Comparison is made with prior study of 07/19/2018. There is decreased right pleural fluid. There are bibasilar infiltrates which appear quite similar to the prior study. The remainder of the study is unchanged. IMPRESSION: Decreased right pleural fluid with no pneumothorax. Bibasilar infiltrates similar to the prior study. Electronically Signed by Alex Mata MD 07/31/2018 10:32 A
--- NOTE | 2018-07-31 10:01 | REP ---
Ultrasound-guided right thoracentesis This procedure is performed by ALEXANDRA Tracey, under the personal supervision of Dr. Mata. The patient has a history of a bilateral pleural effusions. The risks and benefits of the procedure were explained to the patient and informed consent was obtained both verbally and written. Directly prior to the beginning of the exam, a formal time a was completed in the procedure room. Pleural fluid in the right lower lung zone was localized using ultrasound guidance. The skin was prepped and draped in a sterile fashion. mL of 1% lidocaine was used as a local anesthetic. Using ultrasound guidance, an 8-[employer] Lucian multiphase side-hole catheter was inserted and advanced into the fluid. 360 ml of yellow colored fluid was withdrawn and sent to the lab for analysis. The patient tolerated the procedure well and there were no immediate complications. After the appropriate monitored convalescence the patient was discharged from the department. Reviewed by ALEXANDRA Tracey 07/30/2018 04:58 P Electronically Signed by Alex Mata MD 07/31/2018 09:52 A
== END ==
LOC: M RADPRO 12:07
PROVIDERS: ATTEND Internal Medicine Medical Oncology
DX: C34.90 Malignant neoplasm of unspecified part of unspecified bronchus or lung (principal); J90 Pleural effusion, not elsewhere classified; Z79.899 Other long term (current) drug therapy

== ENCOUNTER → 2018-08-08 | Outpatient (CLI) | payer MEDICARE, BC ==
--- NOTE | 2018-08-08 15:01 | REP ---
Chest two views HISTORY: Orthopnea Comparison: 07/30/2018 Parenchymal densities are present in the lower lobes consistent with bibasilar infiltrates unchanged compared to the previous study. A 3.2 cm parenchymal density is present in the right upper lobe unchanged compared to the previous study. Small bilateral pleural effusions are present unchanged compared to the previous study. The heart is normal in size. The pulmonary vasculature is normal in appearance. The bony structure is intact. A cardiac pacemaker is present. IMPRESSION: 1. Bibasilar infiltrates unchanged compared to the previous study. 2. Small bilateral pleural effusions unchanged compared to the previous study. 3. There is a 3.2 cm parenchymal density in the right upper lobe unchanged compared to the previous study. Electronically Signed by Jesús Orelalna MD 08/08/2018 02:53 P
== END ==
LOC: M RAD 14:06
PROVIDERS: ATTEND Internal Medicine Medical Oncology
DX: R06.01 Orthopnea (principal); J90 Pleural effusion, not elsewhere classified; R91.8 Other nonspecific abnormal finding of lung field

== ENCOUNTER 2018-10-30 14:24 | Inpatient (IN) | payer MEDICARE, BC ==
[~2018-10-30] VITALS: Ht 185.4 cm; Wt 87.0 kg
[~2018-10-30 14:24] MED LIST changes: +AMLO10CA22 PO; -AMLO10CA29 PO
[2018-10-30] MEDS ORDERED: BENA20TA8 PO (14:46)
[2018-10-30] MEDS ORDERED: FURO20TA2 PO (14:46)
[2018-10-30 14:51] LABS: BASO % 0.5 % (0.0-1.0); EOS # 0.1 10^3/uL (0.0-0.50); EOS % 1.6 % (0.0-3.0); HEMATOCRIT 38.6 % (42.0-52.0); HEMOGLOBIN 11.4 g/dl (13.5-17.5); LYMPH # 0.8 10^3/uL (1.5-4.5); MEAN CORPUSCULAR HEMOGLOBIN 24.4 pg (27.0-33.0); MEAN CORPUSCULAR HGB CONC 29.5 g/dl (32.0-36.5); MEAN CORPUSCULAR VOLUME 82.5 fl (80.0-96.0); MONO % 15.6 % (0.0-5.0); NEUTROPHILS # 4.4 10^3/uL (1.8-7.7); PLATELET COUNT, AUTOMATED 196 10^3/uL (150-450); RED BLOOD COUNT 4.68 10^6/uL (4.30-6.10); WHITE BLOOD COUNT 6.3 10^3/uL (4.0-10.0)
[2018-10-30] MEDS ORDERED: FUROSEMIDE 40 MG/4 ML VIAL (J1940) IV ONE (15:30)
[2018-10-30 15:38] LABS: ALBUMIN 2.5 GM/DL (3.2-5.2); ALT/SGPT 14 U/L (12-78); BILIRUBIN,DIRECT 0.3 MG/DL (0.0-0.2); BILIRUBIN,TOTAL 0.6 MG/DL (0.2-1.0); BLOOD UREA NITROGEN 11 MG/DL (7-18); CALCIUM LEVEL 8.4 MG/DL (8.8-10.2); CARBON DIOXIDE LEVEL 34 MEQ/L (21-32); CHLORIDE LEVEL 101 MEQ/L (98-107); CK-MB VALUE MASS 7.4 NG/ML (<3.6); CPK CREATINE PHOSPHOKINASE 96 U/L (39-308); CREATININE FOR GFR 0.97 MG/DL (0.70-1.30); GLOMERULAR FILTRATION RATE > 60.0 (>49); GLUCOSE, FASTING 92 MG/DL (70-100); MB/CK RELATIVE INDEX 7.71 (< OR =4); NT-PRO BNP 5300 PG/ML (<125); POTASSIUM SERUM 4.5 MEQ/L (3.5-5.1); SODIUM LEVEL 139 MEQ/L (136-145); THYROID STIMULATING HORMONE 0.761 uIU/ML (0.358-3.740); THYROXINE (T4) 9.8 UG/DL (4.5-12.0); TROPONIN I 2.43 NG/ML (< 0.10)
--- NOTE | 2018-10-30 16:01 | REP ---
HISTORY: Cough and dyspnea. COMPARISON: 08/08/2018, a two view exam. A bandlike opacity has developed in the right lower lobe. Bilateral pleural effusions, status quo. Cardiomegaly unchanged, but accentuated by technique. Interstitial fibrosis, status quo. No change in the pacemaker. IMPRESSION: Bilateral pleural effusions and chronic lung field changes as described above. There is a bandlike opacity in the right lower lobe, which is most probably fluid in the right minor fissure. With that exception and the technical differences between the examinations there does not appear to be a significant change. Electronically Signed by Stuart Piña DO 10/30/2018 04:22 P
[2018-10-30] MEDS ORDERED: COLA100C5 PO (16:48)
[2018-10-30] MEDS ORDERED: METO1TAB87 PO (16:50)
[2018-10-30] MEDS ORDERED: FLOM0.4C39 PO (16:50)
--- NOTE | 2018-10-30 17:24 | HPEPDOC ---
[facility] Medical History & Physical Date of Admission Oct 30, 2018 Date of Service: Oct 30, 2018 Attending Physician: DREW LEVINE MD History and Physical CHIEF COMPLAINT "fluid" HISTORY OF PRESENT ILLNESS: Harvey is a 68-year-old male who presented with complaints of excess fluid. Specifically, he has been collecting excessive amounts of fluid in his legs, his groin area and in his belly for about 1 month. He decided to come to the hospital today because the swelling has become so bad that he has difficulty walking due to the chafing in the groin area. He reports previously being given fluid pills which he takes off and on. Associated symptoms include shortness of breath with walking (he can only walk a few feet without having to stop to rest), shortness of breath while sitting down, and shortness of breath while trying to talk. He denies having chest pain. PAST MEDICAL HISTORY & PAST SURGICAL HISTORY 1 COPD with an FEV1 per FVC ratio 50% and chronic oxygen-dependent respiratory failure 2. Pacemaker placement for second-degree heart block 3 CHF 4. Chronic hypertension. 5. History of stage IAIII, [id number] right upper lobe moderately differentiated PDL 1 Low, DM MRD negative adenocarcinoma of the lungs 7 venous insufficiency. 8. History of DVTs 9. History of urinary retention requiring indwelling urinary catheter 10. History of cervical spinal cord injury. 11 Status dermatitis. 12. Debility SOCIAL HISTORY: Remote history of tobacco abuse (reports quitting in May) Remote history of alcohol abuse (reports quitting in May) FAMILY HISTORY: Family medical history of cancer or lung problems ALLERGIES: Please see below. REVIEW OF SYSTEMS: 12 point review of systems negative except as listed in HPI HOME MEDICATIONS: Please see below. PHYSICAL EXAMINATION: Temperature 97.7, pulse 94, respiratory rate 22, blood pressure 120/87, pulse oximetry 90% on 10 L via nasal cannula GENERAL APPEARANCE: Appears anxious, restless and disheveled HEENT: Normocephalic, atraumatic, cyanosis of the nose and lips, spider angiomata noted on the nose, nasal cannula in place CARDIOVASCULAR: Regular rate and rhythm, positive systolic murmur LUNGS: Patient is very short of breath and unable to speak a full sentence without stopping to rest, and is using accessory muscles. coarse expiratory rhonchi noted on auscultation ABDOMEN: Firm and distended. Hypoactive bowel sounds MUSCULOSKELETAL: . Range of motion intact 4 extremities EXTREMITIES: 2+ bilateral pitting edema. Skin stasis dermatitis changes noted on both lower extremities NEUROLOGICAL: 2-12 grossly intact. Speech is not dysarthric PSYCHIATRIC: Alert and oriented 3, able to understand and follow commands. LABORATORY DATA: See below. IMAGING: Chest x-ray shows bilateral pleural effusions and chronic lung field changes, likely due to interstitial fibrosis MICROBIOLOGY: Not applicable ASSESSMENT: Mr. Gabriel is a 68-year-old male with a past medical history includes COPD with oxygen dependence, pacemaker placement for heart block, CHF, hypertension, adenocarcinoma of the lungs, venous insufficiency and DVTs who initially presented with complaints of swelling who will be admitted for management of acute CHF and NSTEMI. . PLAN: 1. NSTEMI. -Per discussion with the ED attending, the patient refused cath. -EKG showed sinus tachycardia w PVCs and non-specific T wave abnormalities -Troponin >20 Plan: admit to ICU/ continue telemetry/ follow-up serial troponins,serial EKGs, echo, lipid panel and A1c/ acetaminophen and nitroglycerin when necessary for chest pain / c/w beta osbaldo & ASA/ add Plavix, therapeutic dose of lovenox and atorvastatin/ cardio consult for medical co-management of NSTEMI 2. Acute CHF -unable to track down echo to confirm if it is diastolic or systolic -Clinically decompensated. -chest xray as above -BNP elevated Plan admit to ICU for continuous BiPAP & pulm consult for co-management of BIPAP / c/w aggressive diuresis / follow-up Is and Os & daily weights / restrict salt to less than 2 g and restrict fluid to less than 2 L/continue with home doses of ACEI and BB/ f/u Echo report 3. COPD with oxygen-dependence. Plan c/w home meds & supplemental oxygen 4. Normocytic normochromic anemia. to be determined, likely due to chronic disease. Plan: follow-up CBC & Iron panel 5 Chronic hypertension. Plan: Continue with home meds 6. History of stage IAIII, [id number] right upper lobe moderately differentiated PDL 1 Low, DM MRD negative adenocarcinoma of the lungs Plan: follow up with oncologist on an outpatient basis 7 venous insufficiency. Plan: wound care consult 8. Debility. Plan: PT consult once the patient is more stable CODE STATUS DNR/I DISPO: pending clinical course DVT px - pt on AC for NSTEMI Vital Signs Vital Signs Date Time Temp Pulse Resp B/P (MAP) Pulse Ox O2 Delivery O2 Flow Rate FiO2 10/30/18 17:16 103 22 125/78 (94) 90 Nasal Cannula 3.0 10/30/18 14:36 97.7 Laboratory Data Labs 24H Laboratory Tests 2 10/30/18 14:38: Immature Granulocyte % (Auto) 0.3, White Blood Count 6.3, Red Blood Count 4.68, Hemoglobin 11.4L, Hematocrit 38.6L, Mean Corpuscular Volume 82.5, Mean Corpuscular Hemoglobin 24.4L, Mean Corpuscular Hemoglobin Concent 29.5L, Red Cell Distribution Width 17.8H, Platelet Count 196, Neutrophils (%) (Auto) 69.0H, Lymphocytes (%) (Auto) 13.0L, Monocytes (%) (Auto) 15.6H, Eosinophils (%) (Auto) 1.6, Basophils (%) (Auto) 0.5, Neutrophils # (Auto) 4.4, Lymphocytes # (Auto) 0.8L, Monocytes # (Auto) 1.0H, Eosinophils # (Auto) 0.1, Basophils # (Auto) 0.0, Nucleated Red Blood Cells % (auto) 0.0, Anion Gap 4L, Glomerular Filtration Rate > 60.0, Calcium Level 8.4L, Aspartate Amino Transf (AST/SGOT) 28, Alanine Aminotransferase (ALT/SGPT) 14, Alkaline Phosphatase 124H, Total Bilirubin 0.6, Direct Bilirubin 0.3H, Total Creatine Kinase 96, Creatine Kinase MB 7.4H, Creatine Kinase MB Relative Index 7.71H, Troponin I 2.43*H, PI-Grc-O-Type Natriuretic Peptide 5300H, Total Protein 7.0, Albumin 2.5L, Albumin/Globulin Ra andrea 0.56L, Thyroid Stimulating Hormone (TSH) 0.761, Thyroxine (T4) 9.8 CBC/BMP Laboratory Tests 10/30/18 14:38 Red Blood Count 4.68, Mean Corpuscular Volume 82.5, Mean Corpuscular Hemoglobin 24.4 L, Mean Corpuscular Hemoglobin Concent 29.5 L, Red Cell Distribution Width 17.8 H, Neutrophils (%) (Auto) 69.0 H, Lymphocytes (%) (Auto) 13.0 L, Monocytes (%) (Auto) 15.6 H, Eosinophils (%) (Auto) 1.6, Basophils (%) (Auto) 0.5, Neutrophils # (Auto) 4.4, Lymphocytes # (Auto) 0.8 L, Monocytes # (Auto) 1.0 H, Eosinophils # (Auto) 0.1, Basophils # (Auto) 0.0 Home Medications Scheduled Aspirin (Aspirin EC) 81 Mg Tab, 81 MG PO DAILY Benazepril HCl (Benazepril HCl) 20 Mg Tablet, 20 MG PO BID PATIENT STATES THAT HE STOPPED TAKING THIS MEDICATION TWO DAYS AGO Docusate Sodium (Colace) 100 Mg Capsule, 100 MG PO BID Furosemide (Furosemide) 20 Mg Tablet, 20 MG PO BID PATIENT STATES THAT HE STOPPED TAKING THIS MEDICATION TWO DAYS AGO Metoprolol Tartrate (Metoprolol Tartrate) 25 Mg Tablet, 12.5 MG PO BID Tamsulosin HCl (Flomax) 0.4 Mg Capsule, 0.4 MG PO QHS Scheduled PRN Acetaminophen (Acetaminophen) 325 Mg Tab, 325 MG PO Q8H PRN for PAIN Ipratropium/Albuterol Sulfate (Iprat-Albut 0.5-3(2.5) mg/3 ml) 3 Ml Ampul.neb, 3 ML INH Q6HP PRN for SHORTNESS OF BREATH Allergies Coded Allergies: No Known Allergies (Unverified , 10/30/18) A-FIB/CHADSVASC A-FIB History Current/History of A-Fib/PAF?: No DREW LEVINE MD Oct 30, 2018 17:24
[2018-10-30] MEDS ORDERED: CLOPIDOGREL 300 MG TAB (PLAVIX) PO STA (18:10)
[2018-10-30] MEDS ORDERED: ACETAMINOPHEN 650MG ER TAB (TYLENOL ARTHRITIS) PO PRN (18:15)
[2018-10-30] MEDS ORDERED: NITROGLYCERIN 0.4 MG SUBL TABLET SL PRN (18:15)
[2018-10-30] MEDS ORDERED: FUROSEMIDE 100 MG/10 ML VIAL (J1940) IV SCH (19:00)
[2018-10-30 20:00] VITALS: BP 121/74
[2018-10-30] MEDS: ENOXAPARIN 100MG/1ML SYRINGE (J1650) SC SCH (20:33)
[2018-10-30] MEDS: TAMSULOSIN 0.4 MG CAP PO SCH (20:34)
[2018-10-30] MEDS: BENAZEPRIL 20 MG TAB PO SCH (20:34)
[2018-10-30] MEDS: DOCUSATE SODIUM 100 MG CAP PO SCH (20:34)
[2018-10-30] MEDS: METOPROLOL TART 12.5 MG PER 1/2 TAB PO SCH (20:35)
--- NOTE | 2018-10-30 20:50 | ECGEPIP ---
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
[2018-10-31] VITALS (21 sets, daily range): BP systolic 85–140; BP diastolic 55–98
[2018-10-31 02:03] LABS: BASO % 0.3 % (0.0-1.0); HEMATOCRIT 37.8 % (42.0-52.0); HEMOGLOBIN 11.4 g/dl (13.5-17.5); LYMPH # 0.4 10^3/uL (1.5-4.5); LYMPH % 9.3 % (24.0-44.0); MEAN CORPUSCULAR HEMOGLOBIN 25.1 pg (27.0-33.0); MEAN CORPUSCULAR HGB CONC 30.2 g/dl (32.0-36.5); MEAN CORPUSCULAR VOLUME 83.3 fl (80.0-96.0); MONO # 0.3 10^3/uL (0.0-0.8); MONO % 7.3 % (0.0-5.0); NEUTROPHILS # 3.3 10^3/uL (1.8-7.7); NEUTROPHILS % 82.8 % (36.0-66.0); PLATELET COUNT, AUTOMATED 200 10^3/uL (150-450); RED BLOOD COUNT 4.54 10^6/uL (4.30-6.10)
[2018-10-31 02:20] LABS: HEMOGLOBIN A1c 5.9 %
[2018-10-31 02:37] LABS: BLOOD UREA NITROGEN 14 MG/DL (7-18); CALCIUM LEVEL 8.5 MG/DL (8.8-10.2); CARBON DIOXIDE LEVEL 36 MEQ/L (21-32); CHLORIDE LEVEL 98 MEQ/L (98-107); CHOLESTEROL LEVEL 142 MG/DL (<200); CHOLESTEROL RISK RATIO 4.057 (<5); CREATININE FOR GFR 1.04 MG/DL (0.70-1.30); FERRITIN 35 NG/ML (26-388); GLOMERULAR FILTRATION RATE > 60.0 (>49); GLUCOSE, FASTING 123 MG/DL (70-100); HDL CHOLESTEROL 35 MG/DL (>40); IRON (FE) 15 UG/DL (65-175); LDL CHOLESTEROL 95 MG/DL (<100); NON-HDL-C 107 MG/DL; PERCENT SATURATION 4.6 % (19.7-50.0); POTASSIUM SERUM 4.2 MEQ/L (3.5-5.1); SODIUM LEVEL 140 MEQ/L (136-145); TOTAL IRON BINDING CAPACITY 326 UG/DL (250-450); TRIGLYCERIDES LEVEL 61 MG/DL (<150); TROPONIN I 2.28 NG/ML (< 0.10)
[2018-10-31] MEDS: CLOPIDOGREL 75 MG TAB PO SCH (08:24)
[2018-10-31] MEDS: ATORVASTATIN 20 MG TAB PO SCH (08:24)
[2018-10-31] MEDS: ASPIRIN 81 MG ENTERIC TAB PO SCH (08:24)
[2018-10-31] MEDS: DOCUSATE SODIUM 100 MG CAP PO SCH ×2 (08:24→20:42)
[2018-10-31] MEDS: METOPROLOL TART 12.5 MG PER 1/2 TAB PO SCH (08:27)
[2018-10-31] MEDS: BENAZEPRIL 20 MG TAB PO SCH (08:28)
[2018-10-31] MEDS: ENOXAPARIN 100MG/1ML SYRINGE (J1650) SC SCH ×2 (08:28→19:52)
[2018-10-31] MEDS: FUROSEMIDE 40 MG/4 ML VIAL (J1940) IV SCH ×5 (12:00→23:51)
--- NOTE | 2018-10-31 12:53 | IPNPDOC ---
Subjective Date Seen The patient was seen on 10/31/18. Time of service 9 AM Subjective Chief Complaint/HPI Dyspnea Events since last encounter Per discussion with nursing staff. The patient's shortness of breath is improved rapidly. The patient didn't use BiPAP overnight. The patient reports feeling a bit better this morning but not back to his baseline. He still has shortness of breath but doesn't have any chest pain. Assessment /Plan Assessment Mr. Gabriel is a 68-year-old male with a past medical history includes COPD with oxygen dependence, pacemaker placement for heart block, CHF, hypertension, adenocarcinoma of the lungs, venous insufficiency and DVTs who initially present ed with complaints of swelling who will be admitted for management of acute CHF and NSTEMI. . PLAN: 1. NSTEMI. -Per discussion with the ED attending, the patient refused cath. -EKG showed sinus tachycardia w PVCs and non-specific T wave abnormalities -The troponin decreased from 2.43 to 1.18 today -Lipid panel and hemoglobin A1c reviewed Plan: As her to the PCU/ continue telemetry/ follow-up serial troponins,serial EKGs, echo, lipid /acetaminophen and nitroglycerin when necessary for chest pain / c/w beta osbaldo & ASA/ add Plavix, therapeutic dose of lovenox and atorvastatin/ follow up with cardiology 2. Acute CHF -unable to track down old echo to confirm if it is diastolic or systolic -Partially compensated -BNP above 5000 Plan outreach counselor the pulmonology consult because the patient is no longer using BiPAP / c/w aggressive diuresis / follow-up Is and Os & daily weights / restrict salt to less than 2 g and restrict fluid to less than 2 L/continue with home doses of ACEI and BB/ f/u Echo report 3. COPD with oxygen-dependence. Plan c/w home meds & supplemental oxygen 4. Iron deficiency anemia Plan: follow-up CBC & Iron panel 5 Chronic hypertension. Plan: Continue with home meds 6. History of stage IAIII, [id number] right upper lobe moderately differentiated PDL 1 Low, DM MRD negative adenocarcinoma of the lungs Plan: follow up with oncologist on an outpatient basis 7 venous insufficiency. Plan: wound care consult 8. Debility. Plan: PT consult once the patient is more stable CODE STATUS The patient rescinded his DNI, DNR status. Pending discussion with his family Plan/VTE VTE Prophylaxis Ordered?: Yes VS, I&O, 24H, [facility] Vital Signs/I&O Vital Signs Date Time Temp Pulse Resp B/P (MAP) Pulse Ox O2 Delivery O2 Flow Rate FiO2 10/31/18 08:27 103 116/93 10/31/18 08:00 5.0 10/31/18 08:00 98.0 20 93 10/30/18 19:15 Nasal Cannula I&O- Last 24 Hours up to 6 AM 10/31/18 06:00 Intake Total 200 ml Output Total 2940 ml Balance -2740 ml Laboratory Data 24H LABS Laboratory Tests 2 10/30/18 14:38: Immature Granulocyte % (Auto) 0.3, White Blood Count 6.3, Red Blood Count 4.68, Hemoglobin 11.4L, Hematocrit 38.6L, Mean Corpuscular Volume 82.5, Mean Corpu scular Hemoglobin 24.4L, Mean Corpuscular Hemoglobin Concent 29.5L, Red Cell Distribution Width 17.8H, Platelet Count 196, Neutrophils (%) (Auto) 69.0H, Lymphocytes (%) (Auto) 13.0L, Monocytes (%) (Auto) 15.6H, Eosinophils (%) (Auto) 1.6, Basophils (%) (Auto) 0.5, Neutrophils # (Auto) 4.4, Lymphocytes # (Auto) 0.8L, Monocytes # (Auto) 1.0H, Eosinophils # (Auto) 0.1, Basophils # (Auto) 0.0, Nucleated Red Blood Cells % (auto) 0.0, Anion Gap 4L, Glomerular Filtration Rate > 60.0, Calcium Level 8.4L, Aspartate Amino Transf (AST/SGOT) 28, Alanine Aminotransferase (ALT/SGPT) 14, Alkaline Phosphatase 124H, Total Bilirubin 0.6, Direct Bilirubin 0.3H, Total Creatine Kinase 96, Creatine Kinase MB 7.4H, Creatine Kinase MB Relative Index 7.71H, Troponin I 2.43*H, NF-Sss-T-Type Natriuretic Peptide 5300H, Total Protein 7.0, Albumin 2.5L, Albumin/Globulin Ratio 0.56L, Thyroid Stimulating Hormone (TSH) 0.761, Thyroxine (T4) 9.8 10/30/18 20:00: Troponin I 2.05*H 10/31/18 01:58: Immature Granulocyte % (Auto) 0.3, White Blood Count 4.0, Red Blood Count 4.54, Hemoglobin 11.4L, Hematocrit 37.8L, Mean Corpuscular Volume 83.3, Mean Corpuscular Hemoglobin 25.1L, Mean Corpuscular Hemoglobin Concent 30.2L, Red Cell Distribution Width 17.6H, Platelet Count 200, Neutrophils (%) (Auto) 82.8H, Lymphocytes (%) (Auto) 9.3L, Monocytes (%) (Auto) 7.3H, Eosinophils (%) (Auto) 0.0, Basophils (%) (Auto) 0.3, Neutrophils # (Auto) 3.3, Lymphocytes # (Auto) 0.4L, Monocytes # (Auto) 0.3, Eosinophils # (Auto) 0.0, Basophils # (Auto) 0.0, Nucleated Red Blood Cells % (auto) 0.0, Anion Gap 6L, Glomerular Filtration Rate > 60.0, Calcium Level 8.5L, Troponin I 2.28*H, Estimated Mean Plasma Glucose 123H, Hemoglobin A1c 5.9, Iron Level 15L, Total Iron Binding Capacity 326, Briones sferrin % Saturation 4.6L, Ferritin 35, Triglycerides Level 61, LDL Cholesterol 95, Total Cholesterol 142, Non-HDL Cholesterol (LDL + VLDL) 107, Total HDL Cholesterol 35L, Cholesterol/HDL Ratio 4.057 10/31/18 07:46: Troponin I 1.81#*H CBC/BMP Laboratory Tests 10/30/18 14:38 Red Blood Count 4.68, Mean Corpuscular Volume 82.5, Mean Corpuscular Hemoglobin 24.4 L, Mean Corpuscular Hemoglobin Concent 29.5 L, Red Cell Distribution Width 17.8 H, Neutrophils (%) (Auto) 69.0 H, Lymphocytes (%) (Auto) 13.0 L, Monocytes (%) (Auto) 15.6 H, Eosinophils (%) (Auto) 1.6, Basophils (%) (Auto) 0.5, Neutrophils # (Auto) 4.4, Lymphocytes # (Auto) 0.8 L, Monocytes # (Auto) 1.0 H, Eosinophils # (Auto) 0.1, Basophils # (Auto) 0.0 10/31/18 01:58 Red Blood Count 4.54, Mean Corpuscular Volume 83.3, Mean Corpuscular Hemoglobin 25.1 L, Mean Corpuscular Hemoglobin Concent 30.2 L, Red Cell Distribution Width 17.6 H, Neutrophils (%) (Auto) 82.8 H, Lymphocytes (%) (Auto) 9.3 L, Monocytes (%) (Auto) 7.3 H, Eosinophils (%) (Auto) 0.0, Basophils (%) (Auto) 0.3, Neutrophils # (Auto) 3.3, Lymphocytes # (Auto) 0.4 L, Monocytes # (Auto) 0.3, Eosinophils # (Auto) 0.0, Basophils # (Auto) 0.0 DREW LEVINE MD Oct 31, 2018 12:53
--- NOTE | 2018-10-31 15:03 | CR ---
DATE OF CONSULTATION: 10/31/2018 REFERRING PHYSICIAN: Dr. Saray Arthur REASON FOR CONSULTATION: Non-ST elevation myocardial infarction (NSTEMI). HISTORY OF PRESENT ILLNESS: Saulo Gabriel is a 68-year-old man with multiple medical problems including chronic obstructive pulmonary disease (COPD), lung cancer, second degree high grade AV block for which he is status post dual chamber pacemaker in situ, heart failure unspecified, systemic hypertension, and frequent premature atrial contractions (PACs) and abnormal EKG. He was admitted to the hospital yesterday (10/30/2018) after presenting with complaints of progressive edema, especially in his lower extremities over the course of about a month and also a sensation of fluid retention in his abdomen. He has been developing progressive shortness of breath to the point of having shortness of breath with only walking a few feet. No orthopnea or paroxysmal nocturnal dyspnea (PND). No pain, pressure, tightness, squeezing or heaviness in the chest. No palpitations. No presyncope or syncope. No embolic events. No intermittent claudication. PAST MEDICAL/SURGICAL HISTORY: COPD, oxygen dependent. Chronic respiratory failure. Heart failure unspecified. Systemic hypertension. Right upper lobe lung cancer. Chronic venous insufficiency. Prior deep vein thrombosis (DVT). Urinary retention for which he has an indwelling urinary catheter. Prior cervical spinal cord injury. Stasis dermatitis. Debility. High grade second degree AV block for which the patient is status post dual chamber pacemaker implant by Dr. Sunshine, 05/16/2018 ([employer]). ALLERGIES: No known adverse drug reactions. MEDICATIONS PRIOR TO ADMISSION: - acetaminophen 325 mg every 8 hours as needed - aspirin 81 mg daily - benazepril 20 mg twice a day (patient had reported he had stopped taking this medication) - docusate 100 mg twice a day - furosemide 20 mg twice a day (patient reported he stopped taking this medication) - DuoNebs every 6 hours as needed - metoprolol tartrate 12.5 mg twice a day - tamsulosin 0.4 mg at bedtime CURRENT MEDICATIONS: The patient's current medications in hospital are as follows: - aspirin 81 mg daily - clopidogrel 75 mg daily - Lipitor 40 mg daily - benazepril 20 mg twice a day - Colace 100 mg twice a day - metoprolol tartrate 12.5 mg twice a day - tamsulosin 0.4 mg at bedtime - furosemide 80 mg IV daily - Lovenox 100 mg subcu every 12 hours - Nitrostat 0.4 mg every 5 minutes as needed - acetaminophen 650 mg every 8 hours as needed - DuoNebs every 6 hours as needed SOCIAL HISTORY: Prior smoking history (quite May 2018). History of alcohol abuse (quite May 2018). FAMILY HISTORY: Family history of lung cancer. REVIEW OF SYSTEMS: 12 point review of systems negative except for as listed in the HPI above. PHYSICAL EXAMINATION: Pleasant, overweight man who appears his chronologic age who is not in any respiratory or psychologic distress. Temperature 97.8, pulse 90 (regular), respiratory rate 20, blood pressure 106/66, oxygen saturation 97% on oxygen 5 liters via nasal cannula. Edentulous with full upper dental plate and only a few lower teeth present, which were in poor condition. No conjunctival pallor, scleral icterus or xanthomas. Oral mucosa is moist and without pallor or stenosis. Jugular venous pulsations were 15 cm. Trachea midline. No palpable thyroid. No clubbing, nailbed stenosis or splinter hemorrhages. Stasis dermatitis present in both legs. No skin pallor or icterus. Oriented to person, place and time. Mood and affect were normal. Curvature of the spine normal. Gait not tested as the patient is on bedrest. Gross motor strength and tone normal. No abnormal muscle atrophy, fasciculations, or tremors. Respiratory expansion effort was fair to poor. Especially decreased air entry at both bases. A few bibasilar crackles were present. Prolonged expiration but no musical wheezes. No dullness to percussion. No palpable apex beat. No parasternal lifts, heaves, thrills, or palpable heart sounds. Pacemaker in situ left pectoral region. First and second heart sounds were diminished. No S3, S4 or murmurs appreciated. Carotids were normal in volume and contour and without bruits. No palpable abdominal aorta. No abdominal bruits. Femoral pulses normal. Pedal pulses normal. Both legs were wrapped. There was 3 mm of pitting edema in the upper pretibial region and distal tibial region. No varicose veins. Abdomen was mildly obese, soft, nontender with normal bowel sounds. No hepatosplenomegaly or organomegaly. Liver span difficult to assess due to abdominal obesity. Stool for occult blood to be ordered as the patient has been started on Lovenox. Laboratory work 10/30/2018 was reviewed: WBC 6.3, hemoglobin 11.4, hematocrit 38.6, platelets 196. sodium 139, potassium 4.5, chloride 101, CO2 34, BUN 11, creatinine 0.97. Estimated GFR greater than 60. Glucose 2, calcium 8.4, bilirubin 0.6, direct bilirubin elevated at 0.3, AST normal, ALT normal, alkaline phosphatase elevated at 124, CPK 96, CPK-MB 7.4 (7.71%), troponin I 2.43. NT-proBNP 5300. Total protein 7.0, albumin low at 2.5, TSH 0.761, T4 9.8. Laboratory work 10/31/2018 shows sodium 140, potassium 4.2, chloride 98, CO2 36, BUN 14, creatinine 1.04, estimated GFR greater than 60, triglycerides 61, total cholesterol 142, LDL 95, HDL 35. Electrocardiogram 10/31/2018 at 4:23 a.m. shows sinus rhythm with occasional PACs, minor nonspecific ST-T abnormalities. Decreased heart rate from 10/30/2018. I have independently visualized the patient's semi-upright portable AP chest x-ray acquired 10/30/2018 at 2:43 p.m. Difficult to customer program specialist for cardiac size given the portable technique and partially obscured right heart border due to pleural effusion. Moderate sized right pleural effusion and mild left pleural effusion. Presence of pulmonary vascular distribution. Peribronchial cuffing. Fluid in the right lung minor fissure. Some fairly diffuse interstitial pulmonary edema. No alveolar edema. Presence of a dual chamber pacemaker in situ over the left pectoral region with pacemaker leads in the right atrial appendage and the right ventricle apex. ASSESSMENT/RECOMMENDATIONS: 1. NSTEMI. I suspect this patient's NSTEMI is more likely secondary to heart failure rather than an acute primary coronary event. I think it is reasonable for the patient to continue with the current medical therapy consisting of aspirin 81 mg daily, atorvastatin 40 mg daily, clopidogrel 75 mg daily, and benazepril. The patient has expressed he does not want to undergo cardiac catheterization, percutaneous coronary intervention or bypass surgery. His desire is only for medical therapy. Recommend cardiac rehabilitation. 2. Heart failure (acute on chronic). Noncompliance contributes greatly to this patient's decompensated heart failure. He was not taking his furosemide. Agree with obtaining an echocardiogram Doppler. This will help differentiate systolic versus diastolic heart failure as well as define diastolic characteristics of the heart and condition of the heart claire and assess for evidence of pulmonary hypertension. Since this patient has normal renal functions, I recommend dosing furosemide IV more frequently than once a day and I will adjust the dosing. Continue with benazepril. I will increase the dosage of metoprolol to less than the heart rate with the goal of achieving a heart rate of 70 or less. Further management will also depend upon results of the echocardiogram Doppler. 3. Pacemaker in situ. The patient is currently in sinus rhythm with frequent PACs and is not showing any need to pace at this time. Stable. 4. Systemic hypertension. Patient had some transient hypotension earlier today. It would be helpful to apply some hold parameters on some of the blood pressure medications. 5. Second degree high grade AV block. The patient is currently conducting on his own. He is status post [employer] dual chamber pacemaker in situ. Stable. 6. Frequent PACs. No palpitations. This patient's frequent PACs are likely influenced and contributed to by the presence of extensive lung disease (COPD and lung cancer). 7. Abnormal ECG. ECG as described above. 8. Medication noncompliance. Recommend social work be involved with the patient's care. Patient is strongly encouraged to be compliant with this medications. LUISD
--- NOTE | 2018-10-31 18:37 | ECHO ---
DATE OF PROCEDURE: 10/31/2018 REFERRING PHYSICIAN: Dr. Saray Arthur INDICATION: Heart failure, unspecified. HEIGHT: 73 inches WEIGHT: 103 kg 2D MEASUREMENTS: Left ventricle diastole: 5.3 cm Ventricular septum: 1.16 cm Posterior wall: 1.08 cm Aortic annulus: 2.5 cm Aortic root: 4.0 cm Left atrium: 4.3 cm Inferior vena cava: 2.7 cm with marked reduction of respiratory variation. DOPPLER MEASUREMENTS: Aortic valve velocity: 201 cm/s LVOT velocity: 60.3 cm/s Mild mitral regurgitation. No mitral stenosis. Mitral E velocity: 70.3 cm/s Mitral A velocity: 38.8 cm/s Mitral deceleration time: 158 ms Very mild tricuspid regurgitation. Estimated right ventricle systolic pressure: At least 52 mmHg assuming a pressure of at least 20 mmHg. Mild pulmonic regurgitation. MITRAL ANNULAR TISSUE DOPPLER: E prime septal: 4.35 cm/s E prime lateral: 7.72 cm/s DESCRIPTION: Rhythm was sinus. Image quality was fair. This was a 2D, M-mode, color flow Doppler and pulse wave Doppler examination and included mitral annular tissue Doppler. CONCLUSIONS: 1. Normal left ventricle internal dimensions and wall thickness. Moderate global left ventricular (LV) hypokinesis with severe reduction in overall LV systolic function. Left ventricular ejection fraction (LVEF) 35% by visual estimate. Grade 2 LV diastolic dysfunction (pseudo-normal LV filling pattern). Suggestive of elevated mean left atrial pressure. 2. Appearance of mild right ventricle dilatation and at least mild right atrial dilatation. Moderately severe hypokinesis of the right ventricle free wall. At least moderate reduction in overall right ventricular (RV) systolic function. Structurally normal appearing tricuspid leaflets with very mild tricuspid regurgitation. Suggestive of at least moderate elevation of estimated right ventricle systolic pressure. Inferior vena cava plethora with marked reduction of respiratory variation suggestive of elevated central venous pressure of at least 20 mmHg. 3. Severe focal thickening and focal calcific deposits of a 3-cusp aortic valve with mild to moderate reduction in aortic cusp mobility. No fusion of the aortic cusps. Suggestive of mild aortic stenosis. No aortic regurgitation. 4. Mild left atrial dilatation. 5. Mild dilatation of the aortic root at the level of the sinuses of Valsalva. 6. Moderate mitral annular calcification. No mitral stenosis. Mild mitral regurgitation. 7. Presence of endocardial, right atrial and right ventricle pacemaker leads. 8. Presence of bilateral pleural effusions. MTDD
[2018-10-31] MEDS: TAMSULOSIN 0.4 MG CAP PO SCH (20:42)
--- NOTE | 2018-10-31 23:24 | ECGEPIP ---
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
--- NOTE | 2018-10-31 23:26 | ECGEPIP ---
[facility] Test Date: 2018-10-31 Pat Name: KULWANT CORREIA Department: Room: [place] [address] Gender: Male Hospice Physician: SONU : 1950 Requested By: DREW LEVINE Order Number: [id number] Reading MD: Josep Sunshine Measurements Intervals [place] Rate: 88 P: 23 CT: 189 QRS: 26 QRSD: 109 T: 23 QT: 389 QTc: 473 Interpretive Statements SINUS RHYTHM WITH OCCASIONAL SUPRAVENTRICULAR PREMATURE COMPLEXES NONSPECIFIC ST & T-WAVE ABNORMALITY Electronically Signed on 10-31-2018 23:25:47 EDT by Josep Sunshine
--- NOTE | 2018-10-31 23:26 | ECGEPIP ---
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
--- NOTE | 2018-10-31 23:32 | ECGEPIP ---
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 MODERATE INTRAVENTRICULAR CONDUCTION DELAY NONSPECIFIC ST & T-WAVE ABNORMALITY ABNORMAL RHYTHM ECG Electronically Signed on 10-31-2018 23:32:46 EDT by Josep Sunshine
--- NOTE | 2018-10-31 23:36 | ECGEPIP ---
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
[2018-11-01] VITALS (10 sets, daily range): BP systolic 91–123; BP diastolic 53–82
[2018-11-01] MEDS: FUROSEMIDE 40 MG/4 ML VIAL (J1940) IV SCH ×6 (04:24→21:52)
[2018-11-01] MEDS: ENOXAPARIN 100MG/1ML SYRINGE (J1650) SC SCH (06:29)
[2018-11-01 07:14] LABS: BASO % 0.5 % (0.0-1.0); EOS # 0.1 10^3/uL (0.0-0.50); EOS % 0.9 % (0.0-3.0); HEMATOCRIT 37.5 % (42.0-52.0); HEMOGLOBIN 11.1 g/dl (13.5-17.5); LYMPH # 1.1 10^3/uL (1.5-4.5); LYMPH % 17.3 % (24.0-44.0); MEAN CORPUSCULAR HEMOGLOBIN 25.1 pg (27.0-33.0); MEAN CORPUSCULAR HGB CONC 29.6 g/dl (32.0-36.5); MEAN CORPUSCULAR VOLUME 84.7 fl (80.0-96.0); MONO # 0.9 10^3/uL (0.0-0.8); NEUTROPHILS # 4.4 10^3/uL (1.8-7.7); NEUTROPHILS % 67.1 % (36.0-66.0); PLATELET COUNT, AUTOMATED 211 10^3/uL (150-450); RED BLOOD COUNT 4.43 10^6/uL (4.30-6.10); WHITE BLOOD COUNT 6.5 10^3/uL (4.0-10.0)
[2018-11-01 07:46] LABS: BLOOD UREA NITROGEN 22 MG/DL (7-18); CARBON DIOXIDE LEVEL 39 MEQ/L (21-32); CHLORIDE LEVEL 99 MEQ/L (98-107); CREATININE FOR GFR 0.98 MG/DL (0.70-1.30); GLOMERULAR FILTRATION RATE > 60.0 (>49); GLUCOSE, FASTING 82 MG/DL (70-100); POTASSIUM SERUM 3.6 MEQ/L (3.5-5.1); SODIUM LEVEL 140 MEQ/L (136-145); TROPONIN I 1.27 NG/ML (< 0.10)
[2018-11-01] MEDS: ASPIRIN 81 MG ENTERIC TAB PO SCH (08:09)
[2018-11-01] MEDS: ATORVASTATIN 20 MG TAB PO SCH (08:09)
[2018-11-01] MEDS: DOCUSATE SODIUM 100 MG CAP PO SCH ×2 (08:09→21:42)
[2018-11-01] MEDS: CLOPIDOGREL 75 MG TAB PO SCH (08:09)
[2018-11-01] MEDS ORDERED: BISOPROLOL FUMARATE 5 MG TAB PO SCH (09:00)
[2018-11-01] MEDS ORDERED: SLF 3 ML SYR IV PRN (11:00)
[2018-11-01] MEDS: SLF 3 ML SYR IV SCH ×2 (13:22→21:43)
[2018-11-01] MEDS ORDERED: CARVedilol 3.125 MG TAB PO SCH (18:00)
[2018-11-01] MEDS ORDERED: BISOPROLOL FUMARATE 5 MG TAB PO ONE (18:45)
--- NOTE | 2018-11-01 19:37 | IPNPDOC ---
Subjective Date Seen The patient was seen on 11/01/18. Time of service 4:25 PM Subjective Chief Complaint/HPI dyspnea Events since last encounter Patient reports feeling much better and that his dyspnea is almost completely resolved. He denies any occurrence of chest pain. Per discussion with RN. He had a 13 run of V tach, but was asymptomatic. At the time. He is noted to be sitting on his bed eating dinner. Objective Physical Examination General Exam: Positive: Cooperative, No Acute Distress ENT Exam: Positive: Mucous membr. moist/pink, Other ENT (nose and lips are cyanotic ) Neck Exam: Positive: Other (large gregg's apple) Chest Exam: Positive: Rhonchi, Other (still has difficulties speaking in full sentences) Heart Exam: Positive: Regular Rhythm, Normal S1, Normal S2 Abdomen Exam: Positive: Normal bowel sounds, Soft Extremity Exam: Positive: Edema (affecting both lower extremities) Skin Exam: Positive: Other skin issue (stasis dermatitis changes) Neuro Exam: Positive: Normal Speech, Cranial Nerves 3-12 NL Psych Exam: Positive: Oriented x 3 Assessment /Plan Assessment ASSESSMENT: Mr. Gabriel is a 68-year-old male with a past medical history includes COPD with oxygen dependence, pacemaker placement for heart block, CHF, hypertension, adenocarcinoma of the lungs, venous insufficiency and DVTs who initially presented with complaints of swelling who will be admitted for management of acute CHF and NSTEMI. . PLAN: 1. Acute systolic and diastolic CHF -Partially compensated . -chest xray and beta natruretic peptide per HPI. Plan: The patient was downgraded to the PCU / c/w aggressive diuresis / follow- up Is and Os & daily weights / restrict salt to less than 2 g and restrict fluid to less than 2 L/continue with home doses of ACEI and BB/ f/u Echo report 2 . Type II NSTEMI. -Per Dr. Sunshine the elevated troponins were likely due to acute CHF -Troponins trending down. -EKG reports reviewed. Plan: continue telemetry/ follow-up serial troponins,serial EKGs, echo, lipid panel and A1c/ acetaminophen and nitroglycerin when necessary for chest pain / c/w beta osbaldo & ASA/ add Plavix, therapeutic dose of lovenox and atorvastatin/ cardio consult for medical co-management of NSTEMI 3. Nonsustained V. tach/frequent PVCs. Plan continue to monitor telemetry, follow-up BMP and repeat keep potassium at its least 4, and magnesium at at least 2 4. Stage II COPD with oxygen-dependence. Per chart review. FEV1 to FVC ratio is 50%. Plan c/w home meds & supplemental oxygen 4. Iron deficiency anemia. Hemoglobin has been stable Plan: follow-up CBC and stool occult blood, prior to starting iron 5 Chronic hypertension. Plan: Continue with home meds 6. History of stage IAIII, [id number] right upper lobe moderately differentiated PDL 1 Low, DM MRD negative adenocarcinoma of the lungs Plan: follow up with oncologist on an outpatient basis 7 venous insufficiency. Plan: wound care consult 8. Debility. Plan: PT consult CODE STATUS pt rescinded DNR/I pending d/w his family DISPO: pending clinical course DVT px - start px dose of lovenox tomorrow Plan/VTE VTE Prophylaxis Ordered?: Yes VS, I&O, 24H, Fishbone Vital Signs/I&O Vital Signs Date Time Temp Pulse Resp B/P (MAP) Pulse Ox O2 Delivery O2 Flow Rate FiO2 11/01/18 18:59 96 123/62 11/01/18 16:00 5.0 11/01/18 16:00 98.2 22 93 10/30/18 19:15 Nasal Cannula I&O- Last 24 Hours up to 6 AM 11/01/18 06:00 Intake Total 510 ml Output Total 2500 ml Balance -1990 ml Laboratory Data 24H LABS Laboratory Tests 2 10/31/18 23:59: Troponin I 1.39H 11/01/18 07:01: Troponin I 1.27H, Immature Granulocyte % (Auto) 0.2, White Blood Count 6.5, Red Blood Count 4.43, Hemoglobin 11.1L, Hematocrit 37.5L, Mean Corpuscular Volume 84.7, Mean Corpuscular Hemoglobin 25.1L, Mean Corpuscular Hemoglobin Concent 29.6L, Red Cell Distribution Width 17.7H, Platelet Count 211, Neutrophils (%) (Auto) 67.1H, Lymphocytes (%) (Auto) 17.3L, Monocytes (%) (Auto) 14.0H, Eosinophils (%) (Auto) 0.9, Basophils (%) (Auto) 0.5, Neutrophils # (Auto) 4.4, Lymphocytes # (Auto) 1.1L, Monocytes # (Auto) 0.9H, Eosinophils # (Auto) 0.1, Basophils # (Auto) 0.0, Nucleated Red Blood Cells % (auto) 0.0, Anion Gap 2L, Glomerular Filtration Rate > 60.0, Blood Urea Nitrogen 22#H, Creatinine 0.98, Sodium Level 140, Potassium Level 3.6, Chloride Level 99, Carbon Dioxide Level 39H, Calcium Level 8.0L CBC/BMP Laboratory Tests 11/01/18 07:01 Red Blood Count 4.43, Mean Corpuscular Volume 84.7, Mean Corpuscular Hemoglobin 25.1 L, Mean Corpuscular Hemoglobin Concent 29.6 L, Red Cell Distribution Width 17.7 H, Neutrophils (%) (Auto) 67.1 H, Lymphocytes (%) (Auto) 17.3 L, Monocytes (%) (Auto) 14.0 H, Eosinophils (%) (Auto) 0.9, Basophils (%) (Auto) 0.5, Neutrophils # (Auto) 4.4, Lymphocytes # (Auto) 1.1 L, Monocytes # (Auto) 0.9 H, Eosinophils # (Auto) 0.1, Basophils # (Auto) 0.0, Calcium Level 8.0 L DREW LEVINE MD Nov 01, 2018 19:37
[2018-11-01] MEDS ORDERED: MAGNESIUM OXIDE 400 MG TAB (MAG-OX) PO ONE (20:00)
[2018-11-01] MEDS ORDERED: POTASSIUM CHLORIDE 10 MEQ SR TABLET PO ONE (20:00)
[2018-11-01] MEDS: TAMSULOSIN 0.4 MG CAP PO SCH (21:42)
[2018-11-01] MEDS: ENTRESTO 49-51MG TABLET (SACUBITRIL/VALSARTAN) PO SCH (21:42)
[2018-11-01 23:51] LABS: BLOOD UREA NITROGEN 30 MG/DL (7-18); CALCIUM LEVEL 8.2 MG/DL (8.8-10.2); CARBON DIOXIDE LEVEL 39 MEQ/L (21-32); CHLORIDE LEVEL 99 MEQ/L (98-107); GLOMERULAR FILTRATION RATE > 60.0 (>49); GLUCOSE, FASTING 113 MG/DL (70-100); MAGNESIUM LEVEL 2.2 MG/DL (1.8-2.4); POTASSIUM SERUM 4.1 MEQ/L (3.5-5.1); SODIUM LEVEL 140 MEQ/L (136-145)
[2018-11-02] MEDS: FUROSEMIDE 40 MG/4 ML VIAL (J1940) IV SCH ×7 (00:21→23:30)
[2018-11-02 04:00] VITALS: BP 98/64
[2018-11-02] MEDS: SLF 3 ML SYR IV SCH ×3 (05:08→20:02)
[2018-11-02 05:15] LABS: BASO % 0.5 % (0.0-1.0); EOS # 0.1 10^3/uL (0.0-0.50); EOS % 0.8 % (0.0-3.0); HEMOGLOBIN 10.5 g/dl (13.5-17.5); LYMPH % 13.7 % (24.0-44.0); MEAN CORPUSCULAR HEMOGLOBIN 24.9 pg (27.0-33.0); MEAN CORPUSCULAR HGB CONC 29.2 g/dl (32.0-36.5); MEAN CORPUSCULAR VOLUME 85.5 fl (80.0-96.0); MONO # 1.1 10^3/uL (0.0-0.8); MONO % 14.4 % (0.0-5.0); NEUTROPHILS # 5.3 10^3/uL (1.8-7.7); NEUTROPHILS % 70.3 % (36.0-66.0); PLATELET COUNT, AUTOMATED 205 10^3/uL (150-450); RED BLOOD COUNT 4.21 10^6/uL (4.30-6.10); WHITE BLOOD COUNT 7.5 10^3/uL (4.0-10.0)
[2018-11-02 05:39] LABS: BLOOD UREA NITROGEN 28 MG/DL (7-18); CALCIUM LEVEL 8.2 MG/DL (8.8-10.2); CARBON DIOXIDE LEVEL 38 MEQ/L (21-32); CHLORIDE LEVEL 100 MEQ/L (98-107); CREATININE FOR GFR 0.98 MG/DL (0.70-1.30); GLOMERULAR FILTRATION RATE > 60.0 (>49); GLUCOSE, FASTING 112 MG/DL (70-100); POTASSIUM SERUM 3.9 MEQ/L (3.5-5.1); SODIUM LEVEL 140 MEQ/L (136-145)
[2018-11-02 08:00] VITALS: BP 105/69
[2018-11-02] MEDS: ASPIRIN 81 MG ENTERIC TAB PO SCH (09:55)
[2018-11-02] MEDS: ENOXAPARIN 40 MG/0.4 ML SYRINGE (J1650) SC SCH (09:55)
[2018-11-02] MEDS: ATORVASTATIN 20 MG TAB PO SCH (09:56)
[2018-11-02] MEDS: BISOPROLOL FUMARATE 5 MG TAB PO SCH (09:56)
[2018-11-02] MEDS: CLOPIDOGREL 75 MG TAB PO SCH (09:56)
[2018-11-02] MEDS: DOCUSATE SODIUM 100 MG CAP PO SCH ×2 (09:56→20:01)
[2018-11-02] MEDS: ENTRESTO 49-51MG TABLET (SACUBITRIL/VALSARTAN) PO SCH ×2 (09:56→20:00)
--- NOTE | 2018-11-02 10:15 | IPN ---
DATE: 11/02/2018 Mr. Gabriel tells me that he is feeling a lot better compared to his condition when he came to the hospital, but is still feeling short of breath with fairly minimal exertion. He also gets dizzy easily when he sits up in bed or stand UP. On the other hand, he denies any chest discomfort of any sorts. Vital signs: Blood pressure 105/69, but it gets as low as into 90s, heart rate is in 80s, sinus rhythm without virtually any pacing. He is afebrile. Saturation 97% on 6 liters of oxygen by nasal cannula. Fluid balance yesterday was documented as only 320 mL negative. He made only 1700 mL of urine and weight is 104 kg. He is alert and oriented and appropriate. His jugular venous pressure (JVP) does not appear elevated above clavicle in sitting position. Lungs have very diminished breath sounds throughout. There is dullness to percussion in both bases. I do not appreciate any wheezing, rhonchi or crackles. Heart exam reveals a regular rhythm. Precordial impulse is displaced to the left. There is a blowing murmur at the apex about 2/6 intensity that is systolic in nature and likely representing mitral insufficiency. I do not appreciate distinct gallop. Abdomen is distended. It looks suspicious for ascites, even though I do not detect any convincing shifting dullness. There is about 3+ edema to his knees that is rather tense. Neurologically he is intact. LABORATORY: Basic metabolic panel - sodium 140, potassium 3.9, BUN 28, creatinine 1.0, glucose 112 and calcium 8.2. CBC hemoglobin 10.5, hematocrit 36 and platelet count 205,000. ASSESSMENT/PLAN: Mr. Gabriel is a 68-year-old man who has a multitude of medical problems that include lung cancer that was treated by radiation treatment and also cardiomyopathy that is potentially ischemic in nature. His left ventricle ejection fraction is about 35% based on echocardiogram performed during this admission. He presented with exacerbated congestive heart failure. He was started on Entresto and diuretics and bisoprolol. So far, he feels clinically improved but he is still grossly volume overloaded and he really is not accomplishing much of negative fluid balance. I am going to change the holding parameters on his diuretics because I think that we will have to accomplish more diuresis that currently is being done. Otherwise, I do not plan any further changes in his management. The patient admits that he used to be a heavy smoker and drinker, but claims that he has not drank any since May of this year. His social situation is certainly tenuous and even though he has family living nearby, he does his own cooking, which probably is a part of the problem. He will need congestive heart failure (CHF) education.
[2018-11-02 11:20] VITALS: BP 99/66
[2018-11-02 16:00] VITALS: BP 100/64
--- NOTE | 2018-11-02 16:09 | IPNPDOC ---
Subjective Date Seen The patient was seen on 11/02/18. Time of service 10:25 AM Subjective Chief Complaint/HPI dyspnea Events since last encounter The patient reports shortness of breath is better, but is not quite at baseline. Per discussion with RN. The patient has had another run of V. tach of 13 beats t otal. He was asymptomatic at the time Objective Physical Examination General Exam: Positive: Cooperative, No Acute Distress ENT Exam: Positive: Mucous membr. moist/pink, Other ENT (nose and lips are cyanotic ) Neck Exam: Positive: Other (large gregg's apple) Chest Exam: Positive: Rhonchi, Other (still has difficulties speaking in full sentences) Heart Exam: Positive: Regular Rhythm, Normal S1, Normal S2 Abdomen Exam: Positive: Normal bowel sounds, Soft Extremity Exam: Positive: Edema (affecting both lower extremities) Skin Exam: Positive: Other skin issue (stasis dermatitis changes) Neuro Exam: Positive: Normal Speech, Cranial Nerves 3-12 NL Psych Exam: Positive: Oriented x 3 Assessment /Plan Assessment Mr. Gabriel is a 68-year-old male with a past medical history includes COPD with oxygen dependence, pacemaker placement for heart block, CHF, hypertension, adenocarcinoma of the lungs, venous insufficiency and DVTs who initially presented with complaints of swelling who will be admitted for management of acute CHF and NSTEMI. . PLAN: 1. Acute systolic and diastolic CHF Partially compensated . Diuresis slowed down due to holding lasix because of blood pressure. Echo shows an EF of 35% w G2DD Plan: c/w aggressive diuresis / follow-up Is and Os & daily weights / restrict salt to less than 2 g and restrict fluid to less than 2 L/continue with home doses of ACEI/ increased bisoprolol to 10 mg daily/ he will will need to f/u w Cardio on an out pt basis for repeat Echo prior to discussing ICD placement, and for LifeVest 2 . Type II NSTEMI. Plan: continue telemetry/ follow-up serial troponins,serial EKGs, echo, lipid panel and A1c/ acetaminophen and nitroglycerin when necessary for chest pain / c/w beta osbaldo, aspirin, Plavix, and atorvastatin / cardio consult for medical co-management of NSTEMI 3. Nonsustained V. tach/frequent PVCs. Plan: Continue his beta osbaldo, to monitor telemetry, follow-up BMP and repeat keep potassium atleast 4, and magnesium at at least 2 4. Stage II COPD with oxygen-dependence. Per chart review. FEV1 to FVC ratio is 50%. Plan c/w home meds & supplemental oxygen 4. Iron deficiency anemia. Hemoglobin has been stable Plan: follow-up CBC and stool occult blood, prior to starting iron 5 Chronic hypertension. Plan: Continue with home meds 6. History of stage IAIII, [id number] right upper lobe moderately differentiated PDL 1 Low, DM MRD negative adenocarcinoma of the lungs Plan: follow up with oncologist on an outpatient basis 7 venous insufficiency. Plan: wound care consult 8. Debility. Plan: PT consult 9. Obesity. BMI 30.2 CODE STATUS pt rescinded DNR/I pending d/w his family DISPO: pending clinical course DVT px - start px dose of lovenox Plan/VTE VTE Prophylaxis Ordered?: Yes (lovenox) VS, I&O, 24H, Fishbone Vital Signs/I&O Vital Signs Date Time Temp Pulse Resp B/P (MAP) Pulse Ox O2 Delivery O2 Flow Rate FiO2 11/02/18 12:00 6.0 11/02/18 11:20 85 18 99/66 (77) 97 11/02/18 08:00 97.0 10/30/18 19:15 Nasal Cannula I&O- Last 24 Hours up to 6 AM 11/02/18 06:00 Intake Total 1510 ml Output Total 880 ml Balance 630 ml Laboratory Data 24H LABS Laboratory Tests 2 11/01/18 23:27: Anion Gap 2L, Glomerular Filtration Rate > 60.0, Blood Urea Nitrogen 30H, Creatinine 1.00, Sodium Level 140, Potassium Level 4.1, Chloride Level 99, Carbon Dioxide Level 39H, Calcium Level 8.2L, Magnesium Level 2.2 11/02/18 04:49: Anion Gap 2L, Glomerular Filtration Rate > 60.0, Blood Urea Nitrogen 28H, Creatinine 0.98, Sodium Level 140, Potassium Level 3.9, Chloride Level 100, Carbon Dioxide Level 38H, Calcium Level 8.2L, Immature Granulocyte % (Auto) 0.3, White Blood Count 7.5, Red Blood Count 4.21L, Hemoglobin 10.5L, Hematocrit 36.0L, Mean Corpuscular Volume 85.5, Mean Corpuscular Hemoglobin 24.9L, Mean Corpuscular Hemoglobin Concent 29.2L, Red Cell Distribution Width 17.4H, Platelet Count 205, Neutrophils (%) (Auto) 70.3H, Lymphocytes (%) (Auto) 13.7L, Monocytes (%) (Auto) 14.4H, Eosinophils (%) (Auto) 0.8, Basophils (%) (Auto) 0.5, Neutrophils # (Auto) 5.3, Lymphocytes # (Auto) 1.0L, Monocytes # (Auto) 1.1H, Eosinophils # (Auto) 0.1, Basophils # (Auto) 0.0, Nucleated Red Blood Cells % (auto) 0.0 CBC/BMP Laboratory Tests 11/01/18 23:27 Calcium Level 8.2 L 11/02/18 04:49 Calcium Level 8.2 L, Red Blood Count 4.21 L, Mean Corpuscular Volume 85.5, Mean Corpuscular Hemoglobin 24.9 L, Mean Corpuscular Hemoglobin Concent 29.2 L, Red Cell Distribution Width 17.4 H, Neutrophils (%) (Auto) 70.3 H, Lymphocytes (%) (Auto) 13.7 L, Monocytes (%) (Auto) 14.4 H, Eosinophils (%) (Auto) 0.8, Basophils (%) (Auto) 0.5, Neutrophils # (Auto) 5.3, Lymphocytes # (Auto) 1.0 L, Monocytes # (Auto) 1.1 H, Eosinophils # (Auto) 0.1, Basophils # (Auto) 0.0 DREW LEVINE MD Nov 02, 2018 16:09
[2018-11-02 20:00] VITALS: BP 111/73
[2018-11-02] MEDS: TAMSULOSIN 0.4 MG CAP PO SCH (20:01)
[2018-11-02 23:59] VITALS: BP 114/73
[2018-11-03 04:00] VITALS: BP 114/73
[2018-11-03] MEDS: SLF 3 ML SYR IV SCH ×3 (04:16→22:47)
[2018-11-03] MEDS: FUROSEMIDE 40 MG/4 ML VIAL (J1940) IV SCH ×6 (04:16→23:28)
[2018-11-03 08:00] VITALS: BP 103/60
[2018-11-03] MEDS: ATORVASTATIN 20 MG TAB PO SCH (08:33)
[2018-11-03] MEDS: CLOPIDOGREL 75 MG TAB PO SCH (08:33)
[2018-11-03] MEDS: ENOXAPARIN 40 MG/0.4 ML SYRINGE (J1650) SC SCH (08:34)
[2018-11-03] MEDS: DOCUSATE SODIUM 100 MG CAP PO SCH ×2 (08:35→19:57)
[2018-11-03] MEDS: ASPIRIN 81 MG ENTERIC TAB PO SCH (08:35)
[2018-11-03] MEDS: BISOPROLOL FUMARATE 5 MG TAB PO SCH (08:37)
[2018-11-03 11:17] LABS: BASO % 0.3 % (0.0-1.0); EOS # 0.1 10^3/uL (0.0-0.50); EOS % 1.5 % (0.0-3.0); HEMATOCRIT 37.8 % (42.0-52.0); HEMOGLOBIN 11.1 g/dl (13.5-17.5); LYMPH # 0.7 10^3/uL (1.5-4.5); LYMPH % 10.4 % (24.0-44.0); MEAN CORPUSCULAR HGB CONC 29.4 g/dl (32.0-36.5); MEAN CORPUSCULAR VOLUME 85.1 fl (80.0-96.0); MONO % 14.1 % (0.0-5.0); NEUTROPHILS % 73.4 % (36.0-66.0); PLATELET COUNT, AUTOMATED 195 10^3/uL (150-450); RED BLOOD COUNT 4.44 10^6/uL (4.30-6.10); WHITE BLOOD COUNT 6.8 10^3/uL (4.0-10.0)
[2018-11-03 11:58] LABS: BLOOD UREA NITROGEN 27 MG/DL (7-18); CALCIUM LEVEL 8.1 MG/DL (8.8-10.2); CARBON DIOXIDE LEVEL 40 MEQ/L (21-32); CHLORIDE LEVEL 98 MEQ/L (98-107); GLOMERULAR FILTRATION RATE > 60.0 (>49); GLUCOSE, FASTING 112 MG/DL (70-100); POTASSIUM SERUM 4.1 MEQ/L (3.5-5.1); SODIUM LEVEL 141 MEQ/L (136-145)
[2018-11-03 12:00] VITALS: BP 121/69
[2018-11-03] MEDS: SPIRONOLACTONE 25 MG TAB PO SCH (12:01)
[2018-11-03] MEDS: ENTRESTO 49-51MG TABLET (SACUBITRIL/VALSARTAN) PO SCH ×2 (12:01→20:00)
[2018-11-03 16:00] VITALS: BP 102/71
--- NOTE | 2018-11-03 17:52 | IPNPDOC ---
Subjective Date Seen The patient was seen on 11/03/18. Time of service 1:40 PM Subjective Chief Complaint/HPI Shortness of breath Events since last encounter The patient reports feeling better with regards to his dyspnea, but is not back to his baseline. Fluid balance is -75 mL today, his weight has increased from 102.5 kg on admission to 106.8 kg today Objective Physical Examination General Exam: Positive: Cooperative, No Acute Distress ENT Exam: Positive: Mucous membr. moist/pink, Other ENT (nose and lips are cyanotic ) Neck Exam: Positive: Other (large gregg's apple) Chest Exam: Positive: Rhonchi, Other (still has difficulties speaking in full sentences) Heart Exam: Positive: Regular Rhythm, Normal S1, Normal S2 Abdomen Exam: Positive: Normal bowel sounds, Soft Extremity Exam: Positive: Edema (affecting both lower extremities) Skin Exam: Positive: Other skin issue (stasis dermatitis changes) Neuro Exam: Positive: Normal Speech, Cranial Nerves 3-12 NL Psych Exam: Positive: Oriented x 3 Assessment /Plan Assessment Mr. Gabriel is a 68-year-old male with a past medical history includes COPD with oxygen dependence, pacemaker placement for heart block, CHF, hypertension, adenocarcinoma of the lungs, venous insufficiency and DVTs who initially presented with complaints of swelling who will be admitted for management of acute CHF. PLAN: 1. Acute systolic and diastolic CHF Partially compensated . Diuresis slowed down due to holding lasix because of hypotension Echo showED an EF of 35% w G2DD Plan: c/w aggressive diuresis / follow-up Is and Os & daily weights / restrict salt to less than 2 g and restrict fluid to less than 2 L/continue with home doses of ACEI/ bisoprolol to 10 mg daily/ he will will need to f/u w Cardio on an out pt basis for repeat Echo prior to discussing ICD placement, and for LifeVest 2 . Type II NSTEMI. Elevated troponins are secondary to acute CHF. Troponins, EKGs, lipid panel, A1c and echo were reviewed Plan: continue telemetry/ discontinue acetaminophen and nitroglycerin/ c/w beta osbaldo, aspirin, Plavix, and atorvastatin 3. Nonsustained V. tach/frequent PVCs. Plan: Continue c/w beta osbaldo, telemetry, keep potassium >/= 4, and magnesium >/= 2 4. Stage II COPD with oxygen-dependence. Per chart review. FEV1 to FVC ratio is 50%. Plan c/w home meds & supplemental oxygen 4. Iron deficiency anemia. Hemoglobin has been stable Plan: follow-up CBC and stool occult blood, start ferrous sulfate 325 mg every 48 hours, since he doesn't have acute anemia, we will refer him to GI on an outpatient basis for colonoscopy 5 Chronic hypertension. Plan: Continue with home meds 6. History of stage IAIII, [id number] right upper lobe moderately differentiated PDL 1 Low, DM MRD negative adenocarcinoma of the lungs Plan: follow up with oncologist on an outpatient basis 7 venous insufficiency. Plan: wound care consult 8. Debility. Plan: PT consult 9. Obesity. BMI 30.2 CODE STATUS pt rescinded DNR/I pending d/w his family DISPO: pending clinical course DVT px with lovenox Plan/VTE VTE Prophylaxis Ordered?: Yes (lovenox) VS, I&O, 24H, Fishbone Vital Signs/I&O Vital Signs Date Time Temp Pulse Resp B/P (MAP) Pulse Ox O2 Delivery O2 Flow Rate FiO2 11/03/18 15:30 5.0 11/03/18 12:00 97.9 87 24 121/69 (86) 93 10/30/18 19:15 Nasal Cannula I&O- Last 24 Hours up to 6 AM 11/03/18 05:59 Intake Total 1330 ml Output Total 1950 ml Balance -620 ml Laboratory Data 24H LABS Laboratory Tests 2 11/03/18 11:02: Immature Granulocyte % (Auto) 0.3, White Blood Count 6.8, Red Blood Count 4.44, Hemoglobin 11.1L, Hematocrit 37.8L, Mean Corpuscular Volume 85.1, Mean Corpuscular Hemoglobin 25.0L, Mean Corpuscular Hemoglobin Concent 29.4L, Red Cell Distribution Width 17.4H, Platelet Count 195, Neutrophils (%) (Auto) 73.4H, Lymphocytes (%) (Auto) 10.4L, Monocytes (%) (Auto) 14.1H, Eosinophils (%) (Auto) 1.5, Basophils (%) (Auto) 0.3, Neutrophils # (Auto) 5.0, Lymphocytes # (Auto) 0.7L, Monocytes # (Auto) 1.0H, Eosinophils # (Auto) 0.1, Basophils # (Auto) 0.0, Nucleated Red Blood Cells % (auto) 0.0, Anion Gap 3L, Glomerular Filtration Rate > 60.0, Blood Urea Nitrogen 27H, Creatinine 1.00, Sodium Level 141, Potassium Level 4.1, Chloride Level 98, Carbon Dioxide Level 40H, Calcium Level 8.1L CBC/BMP Laboratory Tests 11/03/18 11:02 Red Blood Count 4.44, Mean Corpuscular Volume 85.1, Mean Corpuscular Hemoglobin 25.0 L, Mean Corpuscular Hemoglobin Concent 29.4 L, Red Cell Distribution Width 17.4 H, Neutrophils (%) (Auto) 73.4 H, Lymphocytes (%) (Auto) 10.4 L, Monocytes (%) (Auto) 14.1 H, Eosinophils (%) (Auto) 1.5, Basophils (%) (Auto) 0.3, Neutro phils # (Auto) 5.0, Lymphocytes # (Auto) 0.7 L, Monocytes # (Auto) 1.0 H, Eosinophils # (Auto) 0.1, Basophils # (Auto) 0.0, Calcium Level 8.1 L DREW LEVINE MD Nov 03, 2018 17:52
[2018-11-03] MEDS: FERROUS SULFATE 325MG TAB PO SCH (18:12)
[2018-11-03 20:00] VITALS: BP 110/67
[2018-11-03] MEDS: TAMSULOSIN 0.4 MG CAP PO SCH (20:00)
[2018-11-04] VITALS (7 sets, daily range): BP systolic 94–117; BP diastolic 59–77
[2018-11-04] MEDS: FUROSEMIDE 40 MG/4 ML VIAL (J1940) IV SCH ×5 (04:30→21:07)
[2018-11-04] MEDS: SLF 3 ML SYR IV SCH ×3 (04:34→21:08)
[2018-11-04 06:21] LABS: BASO % 0.3 % (0.0-1.0); EOS # 0.1 10^3/uL (0.0-0.50); EOS % 1.8 % (0.0-3.0); HEMATOCRIT 35.7 % (42.0-52.0); HEMOGLOBIN 10.6 g/dl (13.5-17.5); LYMPH # 0.8 10^3/uL (1.5-4.5); LYMPH % 10.3 % (24.0-44.0); MEAN CORPUSCULAR HEMOGLOBIN 23.9 pg (27.0-33.0); MEAN CORPUSCULAR HGB CONC 29.7 g/dl (32.0-36.5); MEAN CORPUSCULAR VOLUME 80.6 fl (80.0-96.0); MONO # 1.2 10^3/uL (0.0-0.8); MONO % 15.2 % (0.0-5.0); NEUTROPHILS # 5.7 10^3/uL (1.8-7.7); PLATELET COUNT, AUTOMATED 207 10^3/uL (150-450); RED BLOOD COUNT 4.43 10^6/uL (4.30-6.10); WHITE BLOOD COUNT 7.9 10^3/uL (4.0-10.0)
[2018-11-04 06:43] LABS: BLOOD UREA NITROGEN 24 MG/DL (7-18); CALCIUM LEVEL 8.5 MG/DL (8.8-10.2); CARBON DIOXIDE LEVEL 39 MEQ/L (21-32); CHLORIDE LEVEL 97 MEQ/L (98-107); CREATININE FOR GFR 0.78 MG/DL (0.70-1.30); GLOMERULAR FILTRATION RATE > 60.0 (>49); GLUCOSE, FASTING 99 MG/DL (70-100); POTASSIUM SERUM 3.7 MEQ/L (3.5-5.1); SODIUM LEVEL 138 MEQ/L (136-145)
--- NOTE | 2018-11-04 07:52 | IPN ---
DATE: 11/03/2018 Mr. Gabriel tells me that he is feeling better. He is not as extremely short of breath with ambulation as he was previously and the swelling of his scrotum has decreased and he does not have as much pain in that area. Denies any chest discomfort. Does not have any specific complaints other day fluid restrictions. Vital signs this morning blood pressure 103/60, heart rate has been in 80s. He is afebrile. Saturation 92% on 5 liters of oxygen by nasal cannula. His fluid balance yesterday was recorded as about negative 620. He made about 2 liters of urine. Weight though his little bit up at 106.8. I am not quite certain about this accuracy. The review of telemetry tracings revealed that he continues to have runs of nonsustained ventricular tachycardia. The longest was little over 10 beats. He is alert and oriented and appropriate. His jugular venous pulse (JVP) is still very high. Lungs reveal diminished breath sounds over both bases, only fair air movement above. Heart exam regular rhythm. There is a murmur at the apex 2/6 intensity suggestive of MR. I do not appreciate distinct rub or gallop. Abdomen is soft. No convincing shifting dullness. He still has significant edema of lower extremities, it is not as hard as yesterday. LABORATORY: Basic metabolic panel - sodium 140, potassium 3.8, BUN 28, creatinine 1.0 and glucose 112 and CBC hemoglobin 10.5, hematocrit 36 and platelet count 205,000 ASSESSMENT AND PLAN: Mr. Gabriel is a 68-year-old man who presented with acute on chronic systolic/diastolic congestive heart failure possibly due to underlying ischemic cardiomyopathy. He has been treated for heart failure with Entresto in its minimal dose and unfortunately it probably cannot be safely titrated due to his low blood pressure. He is also on full dose of bisoprolol 10 mg daily. He is receiving furosemide 40 mg every 4 hours but the diuretic response has been modest at best because he does have frequent episodes of ventriculectomy I am going to add spironolactone, hopefully to retain some of the potassium in his system and also for its proven benefit in this setting. Otherwise as far as underlying coronary artery disease is concerned to the best of my understanding it has never been evaluated. He is on aspirin, Plavix and high-dose statin together with bisoprolol. He had a discussion with Dr. Sunshine and refused any possibility of defibrillator or invasive evaluation for CAD. We will continue current supportive management. Drs. Sunshine/Chandrakant' group will take over his care tomorrow morning.
[2018-11-04] MEDS: ENTRESTO 49-51MG TABLET (SACUBITRIL/VALSARTAN) PO SCH ×2 (08:31→21:08)
[2018-11-04] MEDS: BISOPROLOL FUMARATE 10 MG TAB PO SCH (08:31)
[2018-11-04] MEDS: CLOPIDOGREL 75 MG TAB PO SCH (08:31)
[2018-11-04] MEDS: ASPIRIN 81 MG ENTERIC TAB PO SCH (08:32)
[2018-11-04] MEDS: ATORVASTATIN 20 MG TAB PO SCH (08:32)
[2018-11-04] MEDS: SPIRONOLACTONE 25 MG TAB PO SCH (08:32)
[2018-11-04] MEDS: ENOXAPARIN 40 MG/0.4 ML SYRINGE (J1650) SC SCH (08:32)
[2018-11-04] MEDS: DOCUSATE SODIUM 100 MG CAP PO SCH ×3 (08:35→21:08)
--- NOTE | 2018-11-04 18:22 | IPNPDOC ---
Subjective Date Seen The patient was seen on 11/04/18. Time of service 10:30 AM Subjective Chief Complaint/HPI dyspnea Events since last encounter The patient reports that his shortness of breath is much better. Fluid balance -1.6 L. His weight has decreased from 106.8-104.4 kg Objective Physical Examination General Exam: Positive: Cooperative, No Acute Distress ENT Exam: Positive: Mucous membr. moist/pink, Other ENT (nose and lips are cyanotic ) Neck Exam: Positive: Other (large gregg's apple) Chest Exam: Positive: Rhonchi, Other (still has difficulties speaking in full sentences) Heart Exam: Positive: Regular Rhythm, Normal S1, Normal S2 Abdomen Exam: Positive: Normal bowel sounds, Soft Extremity Exam: Positive: Edema (affecting both lower extremities), Other (ARTI in right shoulder limited by pain) Skin Exam: Positive: Other skin issue (stasis dermatitis changes) Neuro Exam: Positive: Normal Speech, Cranial Nerves 3-12 NL Psych Exam: Positive: Oriented x 3 Assessment /Plan Assessment Mr. Gabriel is a 68-year-old male with a past medical history includes COPD with oxygen dependence, pacemaker placement for heart block, CHF, hypertension, adenocarcinoma of the lungs, venous insufficiency and DVTs who initially present ed with complaints of swelling who will be admitted for management of acute CHF. PLAN: 1. Acute systolic and diastolic CHF Partially compensated . Diuresis slowed down due to holding lasix because of hypotension Echo showED an EF of 35% w G2DD Pt has refused work up for ICD in the past Plan: follow-up Is and Os & daily weights / restrict salt to less than 2 g and restrict fluid to less than 2 L/continue with home doses of ACEI/ bisoprolol 10 mg daily, lasix 40 IV BID and spirinolactone 2 . Type II NSTEMI. Elevated troponins are secondary to acute CHF. Troponins, EKGs, lipid panel, A1c and echo were reviewed Plan: continue telemetry/ discontinue acetaminophen and nitroglycerin/ c/w beta osbaldo, aspirin, Plavix, and atorvastatin 3. Nonsustained V. tach/frequent PVCs. Plan: Continue c/w beta osbaldo, telemetry, keep potassium >/= 4, and magnesium >/= 2 4. Right Shoulder Pain ARTI is limited Plan: pt refused xray, Acetaminophen PRN 5.Stage II COPD with oxygen-dependence. Per chart review. FEV1 to FVC ratio is 50%. Plan c/w home meds & supplemental oxygen 6. Iron deficiency anemia. Hemoglobin has been stable Plan: follow-up CBC and stool occult blood, / c/w ferrous sulfate 325 mg every 48 hours, since he doesn't have acute anemia, we will refer him to GI on an outpatient basis for colonoscopy 7.Chronic hypertension. Plan: Continue with home meds 8. History of stage IAIII, [id number] right upper lobe moderately differentiated PDL 1 Low, DM MRD negative adenocarcinoma of the lungs Plan: follow up with oncologist on an outpatient basis 9. venous insufficiency. Plan: wound care consult 10.Debility. Plan: PT consult 11.Obesity. BMI 30.2 CODE STATUS pt rescinded DNR/I pending d/w his family DISPO: pending clinical course DVT px with lovenox Plan/VTE VTE Prophylaxis Ordered?: Yes (lovenox) VS, I&O, 24H, Fishbone Vital Signs/I&O Vital Signs Date Time Temp Pulse Resp B/P (MAP) Pulse Ox O2 Delivery O2 Flow Rate FiO2 11/04/18 16:00 97.1 83 20 112/74 (87) 98 5.0 10/30/18 19:15 Nasal Cannula I&O- Last 24 Hours up to 6 AM 11/04/18 06:00 Intake Total 720 ml Output Total 3090 ml Balance -2370 ml Laboratory Data 24H LABS Laboratory Tests 2 11/04/18 05:52: Immature Granulocyte % (Auto) 0.4, White Blood Count 7.9, Red Blood Count 4.43, Hemoglobin 10.6L, Hematocrit 35.7L, Mean Corpuscular Volume 80.6, Mean Corpuscular Hemoglobin 23.9L, Mean Corpuscular Hemoglobin Concent 29.7L, Red Cell Distribution Width 17.7H, Platelet Count 207, Neutrophils (%) (Auto) 72.0H, Lymphocytes (%) (Auto) 10.3L, Monocytes (%) (Auto) 15.2H, Eosinophils (%) (Auto) 1.8, Basophils (%) (Auto) 0.3, Neutrophils # (Auto) 5.7, Lymphocytes # (Auto) 0.8L, Monocytes # (Auto) 1.2H, Eosinophils # (Auto) 0.1, Basophils # (Auto) 0.0, Nucleated Red Blood Cells % (auto) 0.0, Anion Gap 2L, Glomerular Filtration Rate > 60.0, Blood Urea Nitrogen 24H, Creatinine 0.78, Sodium Level 138, Potassium Level 3.7, Chloride Level 97L, Carbon Dioxide Level 39H, Calcium Level 8.5L CBC/BMP Laboratory Tests 11/04/18 05:52 Red Blood Count 4.43, Mean Corpuscular Volume 80.6, Mean Corpuscular Hemoglobin 23.9 L, Mean Corpuscular Hemoglobin Concent 29.7 L, Red Cell Distribution Width 17.7 H, Neutrophils (%) (Auto) 72.0 H, Lymphocytes (%) (Auto) 10.3 L, Monocytes (%) (Auto) 15.2 H, Eosinophils (%) (Auto) 1.8, Basophils (%) (Auto) 0.3, Neutrophils # (Auto) 5.7, Lymphocytes # (Auto) 0.8 L, Monocytes # (Auto) 1.2 H, Eosinophils # (Auto) 0.1, Basophils # (Auto) 0.0, Calcium Level 8.5 L DREW LEVINE MD Nov 04, 2018 18:22
[2018-11-04] MEDS: TAMSULOSIN 0.4 MG CAP PO SCH (21:08)
[2018-11-05] VITALS (8 sets, daily range): BP systolic 97–159; BP diastolic 57–110
[2018-11-05] MEDS: IPRATROPIUM 0.5MG/ALBUTEROL 2.5MG INH SOL UD 3ML (DUONEB)(J7620) INH PRN (02:07)
[2018-11-05] MEDS: FUROSEMIDE 40 MG/4 ML VIAL (J1940) IV SCH ×6 (04:35→20:49)
[2018-11-05] MEDS: SLF 3 ML SYR IV SCH ×3 (05:52→20:58)
[2018-11-05 06:00] LABS: BASO % 0.4 % (0.0-1.0); EOS # 0.1 10^3/uL (0.0-0.50); EOS % 1.3 % (0.0-3.0); HEMATOCRIT 37.5 % (42.0-52.0); HEMOGLOBIN 11.3 g/dl (13.5-17.5); LYMPH # 0.9 10^3/uL (1.5-4.5); MEAN CORPUSCULAR HGB CONC 30.1 g/dl (32.0-36.5); MONO # 1.3 10^3/uL (0.0-0.8); MONO % 14.9 % (0.0-5.0); NEUTROPHILS # 6.3 10^3/uL (1.8-7.7); PLATELET COUNT, AUTOMATED 203 10^3/uL (150-450); RED BLOOD COUNT 4.52 10^6/uL (4.30-6.10); WHITE BLOOD COUNT 8.5 10^3/uL (4.0-10.0)
[2018-11-05 06:30] LABS: BLOOD UREA NITROGEN 22 MG/DL (7-18); CALCIUM LEVEL 8.8 MG/DL (8.8-10.2); CARBON DIOXIDE LEVEL 41 MEQ/L (21-32); CHLORIDE LEVEL 95 MEQ/L (98-107); GLOMERULAR FILTRATION RATE > 60.0 (>49); GLUCOSE, FASTING 91 MG/DL (70-100); POTASSIUM SERUM 3.4 MEQ/L (3.5-5.1); SODIUM LEVEL 139 MEQ/L (136-145)
[2018-11-05] MEDS: ACETAMINOPHEN TAB 650MG DOSE (2X325MG) PO PRN (06:50)
[2018-11-05] MEDS ORDERED: POTASSIUM CHLORIDE 10 MEQ SR TABLET PO ONE (08:00)
[2018-11-05] MEDS: ATORVASTATIN 20 MG TAB PO SCH (08:18)
[2018-11-05] MEDS: CLOPIDOGREL 75 MG TAB PO SCH (08:18)
[2018-11-05] MEDS: SPIRONOLACTONE 25 MG TAB PO SCH (08:18)
[2018-11-05] MEDS: DOCUSATE SODIUM 100 MG CAP PO SCH ×2 (08:19→20:49)
[2018-11-05] MEDS: ASPIRIN 81 MG ENTERIC TAB PO SCH (08:19)
[2018-11-05] MEDS: BISOPROLOL FUMARATE 10 MG TAB PO SCH (08:19)
[2018-11-05] MEDS: ENTRESTO 49-51MG TABLET (SACUBITRIL/VALSARTAN) PO SCH ×2 (08:19→20:48)
[2018-11-05] MEDS: ENOXAPARIN 40 MG/0.4 ML SYRINGE (J1650) SC SCH (08:19)
[2018-11-05] MEDS: LIDOCAINE 5% (LIDODERM) PATCH TD SCH (10:21)
--- NOTE | 2018-11-05 13:10 | IPNPDOC ---
Subjective Date Seen The patient was seen on 11/05/18. Time of service 10:30 AM Subjective Chief Complaint/HPI Dyspnea Events since last encounter The patient reports that his dyspnea has improved a lot, but he is not quite back at his baseline. He has not had time to discuss his CODE STATUS with his children yet. His daughter who is at the bedside requested assistance getting a life alert bracelet. He reports that he received an ICD in May 2018 Objective Physical Examination General Exam: Positive: Cooperative, No Acute Distress Eye Exam: Positive: EOMI ENT Exam: Positive: Mucous membr. moist/pink, Other ENT (nose and lips are cyanotic ) Chest Exam: Positive: Rhonchi (end expiratory rhonchi), Other (he is able to speak a few sentences without having to stop to rest today) Heart Exam: Positive: Regular Rhythm, Normal S1, Normal S2, Other (. ICD at left upper chest) Abdomen Exam: Positive: Normal bowel sounds, Soft Extremity Exam: Positive: Edema (affecting both lower extremities), Other (ARTI in right shoulder limited by pain, bilateral lower limbs are wrapped in dressings) Skin Exam: Positive: Other skin issue (stasis dermatitis changes) Neuro Exam: Positive: Normal Speech, Cranial Nerves 3-12 NL Psych Exam: Positive: Oriented x 3 Assessment /Plan Assessment Mr. Gabriel is a 68-year-old male with a past medical history includes COPD with oxygen dependence, pacemaker placement for heart block, CHF, hypertension, adenocarcinoma of the lungs, venous insufficiency and DVTs who initially presented with complaints of swelling who will be admitted for management of acute CHF. PLAN: 1. Acute systolic and diastolic CHF Partially compensated . Diuresis slowed down due to holding lasix because of hypotension Echo: EF of 35% w G2DD It was thought that the Pt had refused work up for ICD in the past, but upon fu rther questioning, he confirmed that he had an ICD placed in May of this year Plan: follow-up Is and Os & daily weights / restrict salt to less than 2 g and restrict fluid to less than 2 L/continue with home doses of ACEI/ bisoprolol 10 mg daily, lasix 40 IV BID and spirinolactone / . Appreciate cardiology's recommendations 2 . Type II NSTEMI. Elevated troponins are secondary to acute CHF. Troponins, EKGs, lipid panel, A1c and echo were reviewed Plan: continue telemetry/ c/w beta osbaldo, aspirin, Plavix, and atorvastatin 3. Nonsustained V. tach/frequent PVCs. Plan: Continue c/w beta osbaldo, telemetry, keep potassium >/= 4, and magnesium >/= 2 4. Right Shoulder Pain ARTI is limited Plan: pt refused xray, Acetaminophen and lidocaine patch PRN 5.Chronic Stage II COPD with oxygen-dependence. Per chart review. FEV1 to FVC ratio is 50%. Plan c/w home meds & supplemental oxygen 6. Chronic Iron deficiency anemia. Hemoglobin has been stable Plan: follow-up CBC and stool occult blood, / c/w ferrous sulfate 325 mg every 48 hours, since he doesn't have acute anemia, we will refer him to GI on an outpatient basis for colonoscopy 7.Chronic hypertension. Plan: Continue with home meds 8. History of stage IAIII, [id number] right upper lobe moderately differentiated PDL 1 Low, DM MRD negative adenocarcinoma of the lungs Plan: follow up with oncologist on an outpatient basis 9. venous insufficiency. Plan: wound care consult 10.Debility. Plan: PT and Physiatry consult 11.Obesity. BMI 30.2 CODE STATUS pt rescinded DNR/I pending d/w his family DISPO: pending clinical course DVT px with lovenox Plan/VTE VTE Prophylaxis Ordered?: Yes (lovenox) VS, I&O, 24H, Fishbone Vital Signs/I&O Vital Signs Date Time Temp Pulse Resp B/P (MAP) Pulse Ox O2 Delivery O2 Flow Rate FiO2 11/05/18 12:00 96.9 75 20 119/72 (88) 93 3.0 10/30/18 19:15 Nasal Cannula I&O- Last 24 Hours up to 6 AM 11/05/18 06:00 Intake Total 1080 ml Output Total 2475 ml Balance -1395 ml Laboratory Data 24H LABS Laboratory Tests 2 11/05/18 05:37: Immature Granulocyte % (Auto) 0.4, White Blood Count 8.5, Red Blood Count 4.52, Hemoglobin 11.3L, Hematocrit 37.5L, Mean Corpuscular Volume 83.0, Mean Corpuscular Hemoglobin 25.0L, Mean Corpuscular Hemoglobin Concent 30.1L, Red Cell Distribution Width 17.8H, Platelet Count 203, Neutrophils (%) (Auto) 73.0H, Lymphocytes (%) (Auto) 10.0L, Monocytes (%) (Auto) 14.9H, Eosinophils (%) (Auto) 1.3, Basophils (%) (Auto) 0.4, Neutrophils # (Auto) 6.3, Lymphocytes # (Auto) 0.9L, Monocytes # (Auto) 1.3H, Eosinophils # (Auto) 0.1, Basophils # (Auto) 0.0, Nucleated Red Blood Cells % (auto) 0.0, Anion Gap 3L, Glomerular Filtration Rate > 60.0, Blood Urea Nitrogen 22H, Creatinine 0.80, Sodium Level 139, Potassium Level 3.4L, Chloride Level 95L, Carbon Dioxide Level 41H, Calcium Level 8.8 CBC/BMP Laboratory Tests 11/05/18 05:37 Red Blood Count 4.52, Mean Corpuscular Volume 83.0, Mean Corpuscular Hemoglobin 25.0 L, Mean Corpuscular Hemoglobin Concent 30.1 L, Red Cell Distribution Width 17.8 H, Neutrophils (%) (Auto) 73.0 H, Lymphocytes (%) (Auto) 10.0 L, Monocytes (%) (Auto) 14.9 H, Eosinophils (%) (Auto) 1.3, Basophils (%) (Auto) 0.4, Ne utrophils # (Auto) 6.3, Lymphocytes # (Auto) 0.9 L, Monocytes # (Auto) 1.3 H, Eosinophils # (Auto) 0.1, Basophils # (Auto) 0.0, Calcium Level 8.8 DREW LEVINE MD Nov 05, 2018 13:10
[2018-11-05] MEDS: FERROUS SULFATE 325MG TAB PO SCH (16:46)
[2018-11-05] MEDS: TAMSULOSIN 0.4 MG CAP PO SCH (20:48)
[2018-11-05] MEDS: **NOTE PATIENT COMMENT** MISC XX SCH (20:49)
[2018-11-06] VITALS (7 sets, daily range): BP systolic 95–128; BP diastolic 60–75
[2018-11-06] MEDS: FUROSEMIDE 40 MG/4 ML VIAL (J1940) IV SCH ×3 (00:17→08:16)
[2018-11-06] MEDS: ACETAMINOPHEN TAB 650MG DOSE (2X325MG) PO PRN ×2 (00:21→14:43)
[2018-11-06] MEDS: IPRATROPIUM 0.5MG/ALBUTEROL 2.5MG INH SOL UD 3ML (DUONEB)(J7620) INH PRN ×2 (00:32→07:31)
[2018-11-06 06:17] LABS: BASO % 0.4 % (0.0-1.0); EOS # 0.1 10^3/uL (0.0-0.50); HEMATOCRIT 35.6 % (42.0-52.0); HEMOGLOBIN 10.6 g/dl (13.5-17.5); LYMPH # 0.8 10^3/uL (1.5-4.5); LYMPH % 10.2 % (24.0-44.0); MEAN CORPUSCULAR HEMOGLOBIN 24.2 pg (27.0-33.0); MEAN CORPUSCULAR HGB CONC 29.8 g/dl (32.0-36.5); MEAN CORPUSCULAR VOLUME 81.3 fl (80.0-96.0); MONO # 1.2 10^3/uL (0.0-0.8); MONO % 15.4 % (0.0-5.0); NEUTROPHILS # 5.8 10^3/uL (1.8-7.7); NEUTROPHILS % 72.6 % (36.0-66.0); PLATELET COUNT, AUTOMATED 211 10^3/uL (150-450); RED BLOOD COUNT 4.38 10^6/uL (4.30-6.10); WHITE BLOOD COUNT 7.9 10^3/uL (4.0-10.0)
[2018-11-06] MEDS: SLF 3 ML SYR IV SCH ×3 (06:17→22:08)
[2018-11-06 06:45] LABS: BLOOD UREA NITROGEN 19 MG/DL (7-18); CALCIUM LEVEL 8.4 MG/DL (8.8-10.2); CARBON DIOXIDE LEVEL 27 MEQ/L (21-32); CHLORIDE LEVEL 105 MEQ/L (98-107); CREATININE FOR GFR 0.68 MG/DL (0.70-1.30); GLOMERULAR FILTRATION RATE > 60.0 (>49); GLUCOSE, FASTING 112 MG/DL (70-100); POTASSIUM SERUM 3.2 MEQ/L (3.5-5.1); SODIUM LEVEL 137 MEQ/L (136-145)
[2018-11-06] MEDS ORDERED: metOLazone 2.5 MG TAB PO ONE (08:00)
[2018-11-06] MEDS ORDERED: POTASSIUM CHLORIDE 10 MEQ SR TABLET PO ONE (08:00)
[2018-11-06] MEDS: ENOXAPARIN 40 MG/0.4 ML SYRINGE (J1650) SC SCH (08:16)
[2018-11-06] MEDS: SPIRONOLACTONE 25 MG TAB PO SCH (08:17)
[2018-11-06] MEDS: ENTRESTO 49-51MG TABLET (SACUBITRIL/VALSARTAN) PO SCH ×2 (08:17→20:41)
[2018-11-06] MEDS: DOCUSATE SODIUM 100 MG CAP PO SCH ×2 (08:18→20:46)
[2018-11-06] MEDS: BISOPROLOL FUMARATE 10 MG TAB PO SCH (08:18)
[2018-11-06] MEDS: CLOPIDOGREL 75 MG TAB PO SCH (08:18)
[2018-11-06] MEDS: ATORVASTATIN 20 MG TAB PO SCH (08:18)
[2018-11-06] MEDS: ASPIRIN 81 MG ENTERIC TAB PO SCH (08:19)
[2018-11-06] MEDS: LIDOCAINE 5% (LIDODERM) PATCH TD SCH (08:23)
[2018-11-06 09:25] LABS: MAGNESIUM LEVEL 2.3 MG/DL (1.8-2.4)
[2018-11-06] MEDS: POTASSIUM CHLORIDE 10 MEQ SR TABLET PO SCH ×3 (11:03→20:41)
[2018-11-06] MEDS ORDERED: IPRATROPIUM 0.5MG/ALBUTEROL 2.5MG INH SOL UD 3ML (DUONEB)(J7620) NEB PRN (13:30)
--- NOTE | 2018-11-06 13:39 | IPNPDOC ---
Subjective Date Seen The patient was seen on 11/06/18. Time of service 9:30 AM Subjective Chief Complaint/HPI dyspnea Events since last encounter The patient reports that his shortness of breath is much better, but he still not quite back to baseline. He is complaining that his right shoulder still hurts and he is agreeable to having the right shoulder x-ray. Per discussion with Dr. Stallings, the patient actually has a dual-chamber pacemaker, rather than ICD. The patient is not considered a to be a good c andidate for ICD placement because of his malignancy Objective Physical Examination General Exam: Positive: Cooperative, No Acute Distress Eye Exam: Positive: EOMI ENT Exam: Positive: Mucous membr. moist/pink, Other ENT (nose and lips are cyanotic ) Chest Exam: Positive: Rhonchi (Expiratory rhonchi still prominent), Other (he is able to speak a few sentences without having to stop to rest today) Heart Exam: Positive: Regular Rhythm, Normal S1, Normal S2, Other (. ICD at left upper chest) Abdomen Exam: Positive: Normal bowel sounds, Soft Extremity Exam: Positive: Edema (affecting both lower extremities), Other (ARTI in right shoulder limited by pain, bilateral lower limbs are wrapped in dressings) Skin Exam: Positive: Other skin issue (stasis dermatitis changes) Neuro Exam: Positive: Normal Speech, Cranial Nerves 3-12 NL Psych Exam: Positive: Oriented x 3 Assessment /Plan Assessment Mr. Gabriel is a 68-year-old male with a past medical history includes COPD with oxygen dependence, pacemaker placement for heart block, CHF, hypertension, adenocarcinoma of the lungs, venous insufficiency and DVTs who initially prese nted with complaints of swelling who will be admitted for management of acute CHF. PLAN: 1. Acute systolic and diastolic CHF Partially compensated . His fluid balance is -865 mL, his weight has plateaued at 104.4 kg Diuresis slowed down due to holding lasix because of hypotension Echo: EF of 35% w G2DD The patient is not a good candidate for ICD because of his malignancy. He has a dual-chamber pacemaker. Plan: Cardiology on board, appreciate their recs / follow-up Is and Os & daily weights / restrict salt to less than 2 g and restrict fluid to less than 2 L/ continue with Bisoprolol 10 mg daily (larger than home does)/ continue with Entreso and consult cardiology to determine if his insurance will cover Entreso or he needs to be switched back to an ADE inhibitor / c/w spironolactone / start metolazone and switch from furosemide to torsemide, 2 .Possibly Acute on Chronic COPD Chronic Stage II COPD with oxygen-dependence. Per chart review. FEV1 to FVC ratio is 50%. Plan: solumedrol (day #1/5) + PPI for GI px / Duonebs scheduled w levalbuterol PRN 3 Type II NSTEMI. Elevated troponins are secondary to acute CHF. Troponins, EKGs, lipid panel, A1c and echo were reviewed Plan: continue telemetry/ c/w beta osbaldo, aspirin, Plavix, and atorvastatin 4. Nonsustained V. tach/frequent PVCs. Plan: Continue c/w beta osbaldo, telemetry, keep potassium >/= 4, and magnesium >/= 2 5. Right Shoulder Pain The pain and ROM is concering bc he has lung cancer Plan: He agreed to having an xray of the shoulder today to r/o a fx or mets, Acetaminophen and lidocaine patch PRN 6. Chronic Iron deficiency anemia. Hemoglobin has been stable Plan: follow-up CBC and stool occult blood, / c/w ferrous sulfate 325 mg every 48 hours, since he doesn't have acute anemia, we will refer him to GI on an outpatient basis for colonoscopy 7.Chronic hypertension. Plan: Continue with home meds 8. History of stage IAIII, [id number] right upper lobe moderately differentiated PDL 1 Low, DM MRD negative adenocarcinoma of the lungs Plan: follow up with oncologist on an outpatient basis 9. Venous insufficiency. Plan: wound care consult 10.Debility. Plan: PT and Physiatry consult 11.Obesity. BMI 30.2 CODE STATUS pt rescinded DNR/I pending d/w his family DISPO: pending clinical course DVT px with lovenox Plan/VTE VTE Prophylaxis Ordered?: Yes (lovenox) VS, I&O, 24H, Fishbone Vital Signs/I&O Vital Signs Date Time Temp Pulse Resp B/P (MAP) Pulse Ox O2 Delivery O2 Flow Rate FiO2 11/06/18 12:00 3.0 11/06/18 12:00 97.3 80 18 102/60 (74) 93 I&O- Last 24 Hours up to 6 AM0 11/06/18 06:00 Intake Total 1770 ml Output Total 3550 ml Balance -1780 ml Laboratory Data 24H LABS Laboratory Tests 2 11/06/18 05:34: Immature Granulocyte % (Auto) 0.4, White Blood Count 7.9, Red Blood Count 4.38, Hemoglobin 10.6L, Hematocrit 35.6L, Mean Corpuscular Volume 81.3, Mean Corpuscular Hemoglobin 24.2L, Mean Corpuscular Hemoglobin Concent 29.8L, Red Cell Distribution Width 17.9H, Platelet Count 211, Neutrophils (%) (Auto) 72.6H, Lymphocytes (%) (Auto) 10.2L, Monocytes (%) (Auto) 15.4H, Eosinophils (%) (Auto) 1.0, Basophils (%) (Auto) 0.4, Neutrophils # (Auto) 5.8, Lymphocytes # (Auto) 0.8L, Monocytes # (Auto) 1.2H, Eosinophils # (Auto) 0.1, Basophils # (Auto) 0.0, Nucleated Red Blood Cells % (auto) 0.0, Anion Gap 5L, Glomerular Filtration Rate > 60.0, Blood Urea Nitrogen 19H, Creatinine 0.68L, Sodium Level 137, Potassium Level 3.2L, Chloride Level 105, Carbon Dioxide Level 27, Calcium Level 8.4L, M agnesium Level 2.3 CBC/BMP Laboratory Tests 11/06/18 05:34 Red Blood Count 4.38, Mean Corpuscular Volume 81.3, Mean Corpuscular Hemoglobin 24.2 L, Mean Corpuscular Hemoglobin Concent 29.8 L, Red Cell Distribution Width 17.9 H, Neutrophils (%) (Auto) 72.6 H, Lymphocytes (%) (Auto) 10.2 L, Monocytes (%) (Auto) 15.4 H, Eosinophils (%) (Auto) 1.0, Basophils (%) (Auto) 0.4, Neutro phils # (Auto) 5.8, Lymphocytes # (Auto) 0.8 L, Monocytes # (Auto) 1.2 H, Eosinophils # (Auto) 0.1, Basophils # (Auto) 0.0, Calcium Level 8.4 L DREW LEVINE MD Nov 06, 2018 13:39
[2018-11-06] MEDS ORDERED: methylPREDNISolone INJ 125 MG/2 ML VIAL (J2930) IV ONE (14:00)
[2018-11-06] MEDS ORDERED: LEVALBUTEROL HFA 45MCG/ACT 15 GM INHALER INH PRN (14:00)
[2018-11-06] MEDS ORDERED: IPRATROPIUM 0.5MG/ALBUTEROL 2.5MG INH SOL UD 3ML (DUONEB)(J7620) NEB SCH (14:00)
--- NOTE | 2018-11-06 14:20 | IPN ---
DATE: 11/06/2018 I just finished speaking with Mr. Gabriel's next of kin, Arleth Gabriel, regarding his advanced, end-stage, complicated pulmonary and cardiac condition. I have also frankly indicated his prognosis is extremely guarded and the possibility that he may not survive his current hospitalization. The patient himself had a previous DO NOT RESUSCITATE (DNR) but, apparently, his daughter had been unwilling to "give up," convinced there is something we can do to reverse his problems. I explained we are dealing with conditions that have developed over decades and her father has been in hospital for 6 days and receiving aggressive care, with combination oral and parenteral medical therapy for his pulmonary and cardiac disease but remains quite tenuous. I have indicated to her he is not a candidate for heart or lung transplant nor is he a candidate for an implantable cardioverter defibrillator with his extremely guarded prognosis and cancer of the lung. I have again encouraged her to consider DNR and possibly comfort care measures for her father, as advanced intervention here is unlikely to alter his ultimate outcome. ARA
--- NOTE | 2018-11-06 14:21 | IPN ---
CARDIOLOGY PROGRESS NOTE: DATE: 11/06/2018 SUBJECTIVE: "Denies any clear-cut separate chest pain or awareness of his heart action. Continues to feel extremely weak. Requires assistance to move from his bed to his bedside chair." OBJECTIVE: Barrel-chested, obese, late middle-aged male sat on the edge of the bed with supplemental oxygen with obvious respiratory distress. Peripheral cyanosis involving his nose and digits but no central cyanosis with supplemental oxygen. Heart rate 88 beats per minute and regular with irregularities. Blood pressure 110/68 sitting with legs dependent. Respiratory rate 24 per minute. Oxygen saturation 93% on supplemental oxygen by nasal prongs at 3 liters. Despite running negative fluid balance of at least 5 liters the last 3 days his weight has remained stable at 104.4 kg. The patient claims that he has been following his fluid intake restriction query, query. Normal oral moisture. Trachea midline. Neck veins remain markedly elevated, even with him sitting more than 15 cm above the sternal angle. Increased anteroposterior chest diameter with reduced chest excursion. Has poor air entry over both lung ramos. Some persistent dullness right lower lobe posteriorly. No inspiratory rales. Obvious prolongation of expiration. Apical impulse not palpable. Heart sounds were very distant. No audible murmurs. Normal carotid upstrokes and volume. No bruits. Protuberant abdomen that is currently soft. Marked systemic edema with pitting up to his thoracic spine posteriorly and obvious pitting of his extremities. Unable to palpate pedal pulses because of his edema. 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 No more complex or symptomatic arrhythmia. LABORATORY DATA: Hemoglobin today 10.6 with normal red blood cell indices. Normal white blood cell count and platelet count. Chemistry today shows a hypokalemia, potassium 3.2. Serum magnesium level was normal at 2.3. Other electrolytes were normal. Again, despite his negative fluid balance, his BUN has actually normalized down to 19 and creatinine 0.68. Fasting glucose 112. Admission albumin was 2.5. IMPRESSION/PLAN: 1. Heart failure (systolic and diastolic/acute on chronic): As alluded to above, the patient is not complying with his fluid intake restriction which is accounting for part of his worsening respiratory problems. Still has gross congestion, mostly systemic. I have discussed the crucial importance of compliance with a modest salt fluid intake restriction. Should not be receiving more than 1500 mL of fluid daily. In light of his hypokalemia today, I have given him supplemental potassium chloride and for the time being he will remain on potassium chloride four times a day. He also remains on his Entresto 49-51 mg tablets 1 tablet twice a day and spironolactone. In light of his ongoing obvious congested state, I have given him a dose of Zaroxolyn 2.5 mg once today. His IV Lasix will be converted to torsemide 50 mg by mouth twice a day and we will continue to monitor his fluid status and chemistry closely with you. 2. Cor pulmonale/right heart failure/advanced chronic obstructive pulmonary disease/lung cancer: Undoubtedly his respiratory condition is a major issue and may possibly have been aggravated by the introduction of beta-osbaldo therapy despite the selective agents used. His recent echocardiogram/Doppler study suggested a systolic right ventricular systolic/pulmonary arterial systolic pressure of 52 mmHg. I suspect this is a gross underestimate. He undoubtedly has severe pulmonary hypertension associated with his severe right heart failure, which I am not convinced is reversible. His bisoprolol has been replaced by dose adjusted diltiazem starting tomorrow. He has been given a dose of Solu-Medrol 125 mg IV today and started on regular DuoNeb therapy every 6 hours with as needed every 3 hours. 3. Abnormal EKG: Observed findings consistent with chronic hypertension. Frequent PACs are a reflection of his advanced heart disease and lung disease. On bisoprolol he has not had any sustained atrial tachyarrhythmia, but as mentioned above, we are switching this to diltiazem in light of his severe pulmonary disease. 4. Acute coronary syndrome: I have no doubt this gentleman likely does have coronary artery disease, but suspect his elevated troponin I level is more a reflection of his advanced heart failure and severe pulmonary hypertension with acute on chronic decompensation rather than an acute coronary obstruction. No EKG evidence of myocardial infarction. Free of any actual chest pain. Remains on protective combination atorvastatin, aspirin, clopidogrel, and low-dose low-molecular weight heparin. He is also receiving Entresto, but as mentioned, his beta-osbaldo therapy will be discontinued in light of his respiratory distress. 5. Hypertensive heart disease (benign with heart failure): chronic hypertension is believed to be the chief cause of his left ventricular dysfunction. His present blood pressure is controlled on bisoprolol, Entresto, IV Lasix, and spirolactone. I am confident switching his bisoprolol to diltiazem and IV Lasix to PO torsemide will be as effective. Chemistry as mentioned above with normalizing renal function and stable weight related to noncompliance with his fluid intake restriction. 6. Mitral and aortic valve disorder (nonrheumatic): Echocardiographic study showed degenerative changes of both structures, with at least mild aortic stenosis and mild mitral insufficiency. In light of his advanced pulmonary disease, I cannot detect a murmur on auscultation. No symptoms or signs of endocarditis. 7. AV block (unspecified)/ Dual-chamber pacemaker in situ: As discussed with his attending physician, the patient does not have an ICD in situ but simply a dual- chamber pacemaker. Interestingly, despite his prior diagnosis of AV conduction disease, has not been needing to pace the ventricle even with relatively high-dose beta osbaldo therapy. Has only occasional atrially paced complex with spontaneous AV conduction. In light of his non-fixable respiratory problems, severe pulmonary hypertension and right heart failure as well as lung cancer, he is not a candidate for upgrade of his device to an ICD. Today, I spoke frankly with the patient regarding his multiple serious medical problems and extremely guarded prognosis. I will also plan on discussing his advanced/terminal condition with his next of kin. Would encourage discussions for DO NOT RESUSCITATE. Thank you. ARA
--- NOTE | 2018-11-06 14:35 | REP ---
Clinical: New onset shoulder pain. Technique: Internal rotation, external rotation, and Y view of the right shoulder. Findings: Cortical irregularity at the acromioclavicular joint is appreciated along with blunting of the ossified glenoid rim. Calcifications in the joint space consistent with tendinopathy. No acute fracture dislocation. No lytic or sclerotic lesions to suggest metastatic disease by radiographic evaluation. Impression: Arthritic degenerative changes and tendinopathy. Electronically Signed by Cong Fay MD 11/06/2018 02:27 P
[2018-11-06] MEDS: PANTOPRAZOLE 40MG TAB (PROTONIX) PO SCH (14:43)
[2018-11-06] MEDS: IPRATROPIUM 0.5MG/ALBUTEROL 2.5MG INH SOL UD 3ML (DUONEB)(J7620) NEB SCH ×3 (15:14→23:30)
[2018-11-06] MEDS: TORSEMIDE (DEMADEX) 50 MG PER 1/2 TAB PO SCH (17:31)
[2018-11-06] MEDS: TAMSULOSIN 0.4 MG CAP PO SCH (20:40)
[2018-11-06] MEDS: **NOTE PATIENT COMMENT** MISC XX SCH (20:41)
[2018-11-07 04:00] VITALS: BP 103/60
[2018-11-07] MEDS: IPRATROPIUM 0.5MG/ALBUTEROL 2.5MG INH SOL UD 3ML (DUONEB)(J7620) NEB SCH ×5 (04:21→19:55)
[2018-11-07 05:08] LABS: BASO % 0.1 % (0.0-1.0); HEMATOCRIT 33.8 % (42.0-52.0); HEMOGLOBIN 10.6 g/dl (13.5-17.5); LYMPH # 0.3 10^3/uL (1.5-4.5); LYMPH % 3.6 % (24.0-44.0); MEAN CORPUSCULAR HEMOGLOBIN 24.7 pg (27.0-33.0); MEAN CORPUSCULAR HGB CONC 31.4 g/dl (32.0-36.5); MEAN CORPUSCULAR VOLUME 78.6 fl (80.0-96.0); MONO # 0.4 10^3/uL (0.0-0.8); MONO % 4.1 % (0.0-5.0); NEUTROPHILS # 8.3 10^3/uL (1.8-7.7); NEUTROPHILS % 91.9 % (36.0-66.0); PLATELET COUNT, AUTOMATED 236 10^3/uL (150-450)
[2018-11-07 05:29] LABS: BLOOD UREA NITROGEN 21 MG/DL (7-18); CALCIUM LEVEL 8.7 MG/DL (8.8-10.2); CARBON DIOXIDE LEVEL 41 MEQ/L (21-32); CHLORIDE LEVEL 91 MEQ/L (98-107); CREATININE FOR GFR 1.04 MG/DL (0.70-1.30); GLOMERULAR FILTRATION RATE > 60.0 (>49); GLUCOSE, FASTING 177 MG/DL (70-100); POTASSIUM SERUM 3.7 MEQ/L (3.5-5.1); SODIUM LEVEL 137 MEQ/L (136-145)
[2018-11-07] MEDS: SLF 3 ML SYR IV SCH ×3 (06:39→20:22)
[2018-11-07 08:00] VITALS: BP 113/62
[2018-11-07] MEDS ORDERED: ENTR1TAB7 PO (09:34)
--- NOTE | 2018-11-07 09:36 | REP ---
Clinical: CHF. Technique: AP and lateral. Comparison: 10/30/2018. Findings: Examination is limited by technique. Cardiomegaly is appreciated with cephalization, prominent pulmonary vasculature, interstitial edema, bibasilar atelectasis and moderate pleural effusions (right greater than left). No pneumothorax. Impression: Findings compatible with CHF. Electronically Signed by Cong Fay MD 11/07/2018 09:28 A
[2018-11-07] MEDS ORDERED: methylPREDNISolone INJ 125 MG/2 ML VIAL (J2930) IV ONE (10:00)
[2018-11-07] MEDS ORDERED: metOLazone 2.5 MG TAB PO ONE (10:00)
[2018-11-07] MEDS ORDERED: DOBUTamine HCL 500,000 MCG in APPROPRIATE DILUENT 1 EA IV SCH (10:00)
[2018-11-07] MEDS: ATORVASTATIN 20 MG TAB PO SCH (10:03)
[2018-11-07] MEDS: TORSEMIDE (DEMADEX) 50 MG PER 1/2 TAB PO SCH ×2 (10:03→17:44)
[2018-11-07] MEDS: CLOPIDOGREL 75 MG TAB PO SCH (10:03)
[2018-11-07] MEDS: POTASSIUM CHLORIDE 10 MEQ SR TABLET PO SCH ×4 (10:04→20:22)
[2018-11-07] MEDS: ENTRESTO 49-51MG TABLET (SACUBITRIL/VALSARTAN) PO SCH ×2 (10:04→20:21)
[2018-11-07] MEDS: DOCUSATE SODIUM 100 MG CAP PO SCH ×2 (10:04→20:23)
[2018-11-07] MEDS: SPIRONOLACTONE 25 MG TAB PO SCH (10:05)
[2018-11-07] MEDS: PANTOPRAZOLE 40MG TAB (PROTONIX) PO SCH (10:05)
[2018-11-07] MEDS: ENOXAPARIN 40 MG/0.4 ML SYRINGE (J1650) SC SCH (10:05)
[2018-11-07] MEDS: LIDOCAINE 5% (LIDODERM) PATCH TD SCH (10:05)
[2018-11-07] MEDS: ASPIRIN 81 MG ENTERIC TAB PO SCH (10:05)
[2018-11-07 12:00] VITALS: BP 108/58
[2018-11-07 16:00] VITALS: BP 117/69
[2018-11-07] MEDS: FERROUS SULFATE 325MG TAB PO SCH (17:45)
[2018-11-07 20:00] VITALS: BP 112/58
--- NOTE | 2018-11-07 20:11 | IPNPDOC ---
Subjective Date Seen The patient was seen on 11/07/18. Subjective Chief Complaint/HPI 68m with copd and NSCLC on home oxygen, DVT, PPM, HFrEF admitted with an acute chf exacerbation. pt was started on a dobutamine drip to facilitate diuresis. On my interview pt is upset regarding the drip and the fluid restriction. he felt his symptoms were improving and he was diuresing well without these two intervention. He now complains of severe thirst and states the dobutamine is making him feel tired. a full ROS was performed and negative except as documented above Objective Physical Examination General Exam: Positive: Cooperative, No Acute Distress Eye Exam: Positive: EOMI ENT Exam: Positive: Mucous membr. moist/pink, Other ENT (nose and lips are cyanotic ) Chest Exam: Positive: Rhonchi (Expiratory rhonchi still prominent), Other (he is able to speak a few sentences without having to stop to rest today) Heart Exam: Positive: Regular Rhythm, Normal S1, Normal S2, Other (. ICD at left upper chest) Abdomen Exam: Positive: Normal bowel sounds, Soft Extremity Exam: Positive: Edema (affecting both lower extremities), Other (ARTI in right shoulder limited by pain, bilateral lower limbs are wrapped in dressings) Skin Exam: Positive: Other skin issue (stasis dermatitis changes) Neuro Exam: Positive: Normal Speech, Cranial Nerves 3-12 NL Psych Exam: Positive: Oriented x 3 Assessment /Plan Assessment 68m p/w sob and swelling acute systolic chf exacerbation continue entresto script sent to pharmacy, SW to f/u regarding insurance coverage continue torsemide continue dobutamine continue fluid restriction several attempts were made to explain the benefit of fluid restriction and inotropes pt is not satisfied with my explanation and is waiting to discuss with cardiology meanwhile seems to have improving symptoms BB switched to cardizem by cardiology continue aldactone given a dose of metolazone copd continue bronchodilators received a dose of solumedrol today from cardiology Plan/VTE VTE Prophylaxis Ordered?: Yes (lovenox) VS, I&O, 24H, Fishbone Vital Signs/I&O Vital Signs Date Time Temp Pulse Resp B/P (MAP) Pulse Ox O2 Delivery O2 Flow Rate FiO2 11/07/18 19:55 Nasal Cannula 4.0 11/07/18 17:45 80 117/69 11/07/18 16:00 98.1 20 89 I&O- Last 24 Hours up to 6 AM 11/07/18 06:00 Intake Total 580 ml Output Total 2255 ml Balance -1675 ml Laboratory Data 24H LABS Laboratory Tests 2 11/07/18 04:27: Immature Granulocyte % (Auto) 0.3, White Blood Count 9.0, Red Blood Count 4.30, Hemoglobin 10.6L, Hematocrit 33.8L, Mean Corpuscular Volume 78.6L, Mean Corpuscular Hemoglobin 24.7L, Mean Corpuscular Hemoglobin Concent 31.4L, Red Cell Distribution Width 18.3H, Platelet Count 236, Neutrophils (%) (Auto) 91.9H, Lymphocytes (%) (Auto) 3.6L, Monocytes (%) (Auto) 4.1, Eosinophils (%) (Auto) 0.0, Basophils (%) (Auto) 0.1, Neutrophils # (Auto) 8.3H, Lymphocytes # (Auto) 0.3L, Monocytes # (Auto) 0.4, Eosinophils # (Auto) 0.0, Basophils # (Auto) 0.0, Nucleated Red Blood Cells % (auto) 0.0, Anion Gap 5L, Glomerular Filtration Rate > 60.0, Blood Urea Nitrogen 21H, Creatinine 1.04#, Sodium Level 137, Potassium Level 3.7, Chloride Level 91L, Carbon Dioxide Level 41H, Calcium Level 8.7L 11/07/18 17:20: Bedside Glucose (Misc Panel) 173H CBC/BMP Laboratory Tests 11/07/18 04:27 Red Blood Count 4.30, Mean Corpuscular Volume 78.6 L, Mean Corpuscular Hemoglobin 24.7 L, Mean Corpuscular Hemoglobin Concent 31.4 L, Red Cell Distribution Width 18.3 H, Neutrophils (%) (Auto) 91.9 H, Lymphocytes (%) (Auto) 3.6 L, Monocytes (%) (Auto) 4.1, Eosinophils (%) (Auto) 0.0, Basophils (%) (Auto) 0.1, Neutrophils # (Auto) 8.3 H, Lymphocytes # (Auto) 0.3 L, Monocytes # (Auto) 0.4, Eosinophils # (Auto) 0.0, Basophils # (Auto) 0.0, Calcium Level 8.7 L BRANT CAT MD Nov 07, 2018 20:11
[2018-11-07] MEDS: TAMSULOSIN 0.4 MG CAP PO SCH (20:21)
[2018-11-07] MEDS: **NOTE PATIENT COMMENT** MISC XX SCH (20:23)
--- NOTE | 2018-11-07 21:55 | IPN ---
CARDIOLOGY PROGRESS NOTE DATE: 11/07/2018 Chart review this morning showed worsening respiratory function with dropping O2 saturation despite increased supplemental oxygen. Chest x-ray this morning showed worsening pulmonary vascular congestion, interstitial edema and pleural effusions. Chemistry shows correction of his hypokalemia with potassium replacement, but slight increase in BUN and creatinine from yesterday. In light of his deterioration despite combination vasodilator and diuretic therapies, we have introduced low-dose dobutamine IV infusion along with Zaroxolyn dose on top of his torsemide and spironolactone. With his advanced pulmonary problems, I have increased his DuoNeb therapies to every 4 hours on a regular basis and have given him an additional dose of Solu-Medrol IV. As discussed with the patient and his daughter yesterday, I believe his condition is not improving but remains tenuous and guarded. Dr. Sunshine will be assuming primary cardiology care as of tomorrow. ARA
[2018-11-07 23:59] VITALS: BP 113/70
[2018-11-08] VITALS (7 sets, daily range): BP systolic 86–120; BP diastolic 50–65
[2018-11-08] MEDS: IPRATROPIUM 0.5MG/ALBUTEROL 2.5MG INH SOL UD 3ML (DUONEB)(J7620) NEB SCH ×7 (00:38→23:18)
[2018-11-08 04:18] LABS: BASO % 0.1 % (0.0-1.0); HEMATOCRIT 34.7 % (42.0-52.0); HEMOGLOBIN 10.8 g/dl (13.5-17.5); LYMPH # 0.5 10^3/uL (1.5-4.5); MEAN CORPUSCULAR HEMOGLOBIN 25.1 pg (27.0-33.0); MEAN CORPUSCULAR HGB CONC 31.1 g/dl (32.0-36.5); MEAN CORPUSCULAR VOLUME 80.5 fl (80.0-96.0); MONO % 7.9 % (0.0-5.0); NEUTROPHILS # 10.5 10^3/uL (1.8-7.7); NEUTROPHILS % 87.4 % (36.0-66.0); PLATELET COUNT, AUTOMATED 244 10^3/uL (150-450); RED BLOOD COUNT 4.31 10^6/uL (4.30-6.10)
[2018-11-08] MEDS: ACETAMINOPHEN TAB 650MG DOSE (2X325MG) PO PRN (04:22)
[2018-11-08 04:39] LABS: BLOOD UREA NITROGEN 24 MG/DL (7-18); CALCIUM LEVEL 8.6 MG/DL (8.8-10.2); CARBON DIOXIDE LEVEL 43 MEQ/L (21-32); CHLORIDE LEVEL 90 MEQ/L (98-107); CREATININE FOR GFR 1.06 MG/DL (0.70-1.30); GLOMERULAR FILTRATION RATE > 60.0 (>49); GLUCOSE, FASTING 134 MG/DL (70-100); MAGNESIUM LEVEL 2.2 MG/DL (1.8-2.4); POTASSIUM SERUM 3.7 MEQ/L (3.5-5.1); SODIUM LEVEL 137 MEQ/L (136-145)
[2018-11-08] MEDS: SLF 3 ML SYR IV SCH ×3 (06:12→20:21)
[2018-11-08] MEDS: TORSEMIDE (DEMADEX) 50 MG PER 1/2 TAB PO SCH ×2 (08:25→17:13)
[2018-11-08] MEDS: CLOPIDOGREL 75 MG TAB PO SCH (08:26)
[2018-11-08] MEDS: ENTRESTO 49-51MG TABLET (SACUBITRIL/VALSARTAN) PO SCH ×2 (08:26→20:17)
[2018-11-08] MEDS: POTASSIUM CHLORIDE 10 MEQ SR TABLET PO SCH ×4 (08:26→20:18)
[2018-11-08] MEDS: ASPIRIN 81 MG ENTERIC TAB PO SCH (08:27)
[2018-11-08] MEDS: ATORVASTATIN 20 MG TAB PO SCH (08:27)
[2018-11-08] MEDS: DOCUSATE SODIUM 100 MG CAP PO SCH ×2 (08:27→20:17)
[2018-11-08] MEDS: ENOXAPARIN 40 MG/0.4 ML SYRINGE (J1650) SC SCH (08:27)
[2018-11-08] MEDS: SPIRONOLACTONE 25 MG TAB PO SCH (08:27)
[2018-11-08] MEDS: LIDOCAINE 5% (LIDODERM) PATCH TD SCH (08:27)
[2018-11-08] MEDS: PANTOPRAZOLE 40MG TAB (PROTONIX) PO SCH (08:28)
--- NOTE | 2018-11-08 18:47 | IPNPDOC ---
Subjective Date Seen The patient was seen on 11/08/18. Subjective Chief Complaint/HPI 68m with copd and NSCLC on home oxygen, DVT, PPM, HFrEF admitted with an acute chf exacerbation. pt had marked diuresis and weight loss on dobutamine. He reports feeling much better but not 100%. He is able to lay flat for short periods of time and points out that he is able to argue now when he could barely speak on admission. He is still frustrated with fluid restriction but is coming to terms with it. I had a long conversation with him and his daughter clarifying his prognosis. They were under the impression that his life expectancy was 2 weeks. I see no evidence to support that statement. His lung cancer was diagnosed two months ago stage I NSCLC that his oncologist has treated with "five shots", he has not followed up yet, but states his oncologist was confident that this was curable. He does have severe copd and currently improving acutely decompensated chf. Of note he also developed afib today and the dobutamine was discontinued by cardiology. a full ROS was performed and negative except as documented above Objective Physical Examination General Exam: Positive: Cooperative, No Acute Distress Eye Exam: Positive: EOMI ENT Exam: Positive: Mucous membr. moist/pink, Other ENT (nose and lips are cyanotic ) Chest Exam: Positive: Rhonchi (Expiratory rhonchi still prominent), Other (he is able to speak a few sentences without having to stop to rest today) Heart Exam: Positive: Regular Rhythm, Normal S1, Normal S2, Other (. ICD at left upper chest) Abdomen Exam: Positive: Normal bowel sounds, Soft Extremity Exam: Positive: Edema (affecting both lower extremities), Other (ARTI in right shoulder limited by pain, bilateral lower limbs are wrapped in dressings) Skin Exam: Positive: Other skin issue (stasis dermatitis changes) Neuro Exam: Positive: Normal Speech, Cranial Nerves 3-12 NL Psych Exam: Positive: Oriented x 3 Assessment /Plan Assessment 68m p/w sob and swelling acute systolic chf exacerbation continue entresto prior auth sent today by SW continue torsemide continue fluid restriction would consider switching cardizem back to metoprolol given systolic chf continue aldactone improving copd continue bronchodilators continue supplemental oxygen Afib no known history likely due to dobutamine currently on cardizem for rate control not on AC given hope that this is a transient reaction to dobutamine cardio f/u Plan/VTE VTE Prophylaxis Ordered?: Yes (lovenox) VS, I&O, 24H, Fishbone Vital Signs/I&O Vital Signs Date Time Temp Pulse Resp B/P (MAP) Pulse Ox O2 Delivery O2 Flow Rate FiO2 11/08/18 17:16 98 110/68 11/08/18 16:00 4.0 11/08/18 16:00 96.8 20 85 11/08/18 04:31 Nasal Cannula I&O- Last 24 Hours up to 6 AM 11/08/18 06:00 Intake Total 780 ml Output Total 2600 ml Balance -1820 ml Laboratory Data 24H LABS Laboratory Tests 2 11/08/18 03:59: Immature Granulocyte % (Auto) 0.6, White Blood Count 12.0H, Red Blood Count 4.31, Hemoglobin 10.8L, Hematocrit 34.7L, Mean Corpuscular Volume 80.5, Mean Corpuscular Hemoglobin 25.1L, Mean Corpuscular Hemoglobin Concent 31.1L, Red Cell Distribution Width 18.5H, Platelet Count 244, Neutrophils (%) (Auto) 87.4H, Lymphocytes (%) (Auto) 4.0L, Monocytes (%) (Auto) 7.9H, Eosinophils (%) (Auto) 0.0, Basophils (%) (Auto) 0.1, Neutrophils # (Auto) 10.5H, Lymphocytes # (Auto) 0.5L, Monocytes # (Auto) 1.0H, Eosinophils # (Auto) 0.0, Basophils # (Auto) 0.0, Nucleated Red Blood Cells % (auto) 0.0, Anion Gap 4L, Glomerular Filtration Rate > 60.0, Blood Urea Nitrogen 24H, Creatinine 1.06, Sodium Level 137, Potassium Level 3.7, Chloride Level 90L, Carbon Dioxide Level 43H, Calcium Level 8.6L, Magnesium Level 2.2 CBC/BMP Laboratory Tests 11/08/18 03:59 Red Blood Count 4.31, Mean Corpuscular Volume 80.5, Mean Corpuscular Hemoglobin 25.1 L, Mean Corpuscular Hemoglobin Concent 31.1 L, Red Cell Distribution Width 18.5 H, Neutrophils (%) (Auto) 87.4 H, Lymphocytes (%) (Auto) 4.0 L, Monocytes (%) (Auto) 7.9 H, Eosinophils (%) (Auto) 0.0, Basophils (%) (Auto) 0.1, Neutrophils # (Auto) 10.5 H, Lymphocytes # (Auto) 0.5 L, Monocytes # (Auto) 1.0 H, Eosinophils # (Auto) 0.0, Basophils # (Auto) 0.0, Calcium Level 8.6 L BRANT CAT MD Nov 08, 2018 18:47
[2018-11-08] MEDS: TAMSULOSIN 0.4 MG CAP PO SCH (20:17)
[2018-11-08] MEDS: **NOTE PATIENT COMMENT** MISC XX SCH (20:21)
[2018-11-09 04:00] VITALS: BP 98/70
[2018-11-09] MEDS: IPRATROPIUM 0.5MG/ALBUTEROL 2.5MG INH SOL UD 3ML (DUONEB)(J7620) NEB SCH ×5 (04:00→20:45)
[2018-11-09 05:52] LABS: BASO % 0.2 % (0.0-1.0); EOS % 0.1 % (0.0-3.0); HEMATOCRIT 36.5 % (42.0-52.0); HEMOGLOBIN 11.1 g/dl (13.5-17.5); LYMPH # 1.3 10^3/uL (1.5-4.5); LYMPH % 11.5 % (24.0-44.0); MEAN CORPUSCULAR HEMOGLOBIN 24.6 pg (27.0-33.0); MEAN CORPUSCULAR HGB CONC 30.4 g/dl (32.0-36.5); MEAN CORPUSCULAR VOLUME 80.8 fl (80.0-96.0); MONO # 1.4 10^3/uL (0.0-0.8); MONO % 12.2 % (0.0-5.0); NEUTROPHILS # 8.5 10^3/uL (1.8-7.7); NEUTROPHILS % 75.6 % (36.0-66.0); PLATELET COUNT, AUTOMATED 254 10^3/uL (150-450); RED BLOOD COUNT 4.52 10^6/uL (4.30-6.10); WHITE BLOOD COUNT 11.3 10^3/uL (4.0-10.0)
[2018-11-09 06:13] LABS: BLOOD UREA NITROGEN 40 MG/DL (7-18); CALCIUM LEVEL 8.2 MG/DL (8.8-10.2); CARBON DIOXIDE LEVEL 43 MEQ/L (21-32); CHLORIDE LEVEL 91 MEQ/L (98-107); GLOMERULAR FILTRATION RATE > 60.0 (>49); GLUCOSE, FASTING 98 MG/DL (70-100); MAGNESIUM LEVEL 2.2 MG/DL (1.8-2.4); POTASSIUM SERUM 4.1 MEQ/L (3.5-5.1); SODIUM LEVEL 138 MEQ/L (136-145)
[2018-11-09] MEDS: SLF 3 ML SYR IV SCH ×3 (06:28→20:37)
[2018-11-09 08:00] VITALS: BP 118/70
[2018-11-09] MEDS: DOCUSATE SODIUM 100 MG CAP PO SCH ×2 (09:00→20:36)
[2018-11-09] MEDS: TORSEMIDE (DEMADEX) 50 MG PER 1/2 TAB PO SCH ×2 (09:26→17:26)
[2018-11-09] MEDS: PANTOPRAZOLE 40MG TAB (PROTONIX) PO SCH (09:26)
[2018-11-09] MEDS: ENOXAPARIN 40 MG/0.4 ML SYRINGE (J1650) SC SCH (09:26)
[2018-11-09] MEDS: LIDOCAINE 5% (LIDODERM) PATCH TD SCH (09:26)
[2018-11-09] MEDS: ASPIRIN 81 MG ENTERIC TAB PO SCH (09:27)
[2018-11-09] MEDS: ENTRESTO 49-51MG TABLET (SACUBITRIL/VALSARTAN) PO SCH ×2 (09:28→20:36)
[2018-11-09] MEDS: POTASSIUM CHLORIDE 10 MEQ SR TABLET PO SCH ×4 (09:28→20:36)
[2018-11-09] MEDS: CLOPIDOGREL 75 MG TAB PO SCH (09:29)
[2018-11-09] MEDS: ATORVASTATIN 20 MG TAB PO SCH (09:29)
[2018-11-09] MEDS: SPIRONOLACTONE 25 MG TAB PO SCH (09:29)
[2018-11-09 12:00] VITALS: BP 90/58
[2018-11-09 16:00] VITALS: BP 105/57
[2018-11-09] MEDS: FERROUS SULFATE 325MG TAB PO SCH (17:26)
--- NOTE | 2018-11-09 17:33 | IPNPDOC ---
Subjective Date Seen The patient was seen on 11/09/18. Subjective Chief Complaint/HPI 68m with copd and NSCLC on home oxygen, DVT, PPM, HFrEF admitted with an acute chf exacerbation. Feels well, still in afib, gained a little weight from yesterday a full ROS was performed and negative except as documented above Objective Physical Examination General Exam: Positive: Cooperative, No Acute Distress Eye Exam: Positive: EOMI ENT Exam: Positive: Mucous membr. moist/pink, Other ENT (nose and lips are cyanotic ) Chest Exam: Positive: Rhonchi (Expiratory rhonchi still prominent), Other (he is able to speak a few sentences without having to stop to rest today) Heart Exam: Positive: Regular Rhythm, Normal S1, Normal S2, Other (. ICD at left upper chest) Abdomen Exam: Positive: Normal bowel sounds, Soft Extremity Exam: Positive: Edema (affecting both lower extremities), Other (ARTI in right shoulder limited by pain, bilateral lower limbs are wrapped in dressings) Skin Exam: Positive: Other skin issue (stasis dermatitis changes) Neuro Exam: Positive: Normal Speech, Cranial Nerves 3-12 NL Psych Exam: Positive: Oriented x 3 Assessment /Plan Assessment 68m p/w sob and swelling acute systolic chf exacerbation continue entresto continue torsemide continue fluid restriction would consider switching cardizem back to metoprolol given systolic chf continue aldactone may need another dose of metolazone if weight does not decrease tomorrow improving copd continue bronchodilators continue supplemental oxygen started laba and ics Afib no known history likely due to dobutamine currently on cardizem for rate control not on AC given hope that this is a transient reaction to dobutamine cardio f/u urinary retention/bph continue buenrostro continue flomax voiding trial before dc Plan/VTE VTE Prophylaxis Ordered?: Yes (lovenox) VS, I&O, 24H, Fishbone Vital Signs/I&O Vital Signs Date Time Temp Pulse Resp B/P (MAP) Pulse Ox O2 Delivery O2 Flow Rate FiO2 11/09/18 17:26 100 105/57 11/09/18 16:00 97.8 20 94 4.0 11/08/18 04:31 Nasal Cannula I&O- Last 24 Hours up to 6 AM 11/09/18 05:59 Intake Total 630 ml Output Total 1255 ml Balance -625 ml Laboratory Data 24H LABS Laboratory Tests 2 11/09/18 05:26: Immature Granulocyte % (Auto) 0.4, White Blood Count 11.3H, Red Blood Count 4.52, Hemoglobin 11.1L, Hematocrit 36.5L, Mean Corpuscular Volume 80.8, Mean Corpuscular Hemoglobin 24.6L, Mean Corpuscular Hemoglobin Concent 30.4L, Red Cell Distribution Width 19.0H, Platelet Count 254, Neutrophils (%) (Auto) 75.6H, Lymphocytes (%) (Auto) 11.5L, Monocytes (%) (Auto) 12.2H, Eosinophils (%) (Auto) 0.1, Basophils (%) (Auto) 0.2, Neutrophils # (Auto) 8.5H, Lymphocytes # (Auto) 1.3L, Monocytes # (Auto) 1.4H, Eosinophils # (Auto) 0.0, Basophils # (Auto) 0.0, Nucleated Red Blood Cells % (auto) 0.0, Anion Gap 4L, Glomerular Filtration Rate > 60.0, Blood Urea Nitrogen 40#H, Creatinine 1.20, Sodium Level 138, Potassium Level 4.1, Chloride Level 91L, Carbon Dioxide Level 43H, Calcium Level 8.2L, Magnesium Level 2.2 CBC/BMP Laboratory Tests 11/09/18 05:26 Red Blood Count 4.52, Mean Corpuscular Volume 80.8, Mean Corpuscular Hemoglobin 24.6 L, Mean Corpuscular Hemoglobin Concent 30.4 L, Red Cell Distribution Width 19.0 H, Neutrophils (%) (Auto) 75.6 H, Lymphocytes (%) (Auto) 11.5 L, Monocytes (%) (Auto) 12.2 H, Eosinophils (%) (Auto) 0.1, Basophils (%) (Auto) 0.2, Neutrophils # (Auto) 8.5 H, Lymphocytes # (Auto) 1.3 L, Monocytes # (Auto) 1.4 H, Eosinophils # (Auto) 0.0, Basophils # (Auto) 0.0, Calcium Level 8.2 L BRANT CAT MD Nov 09, 2018 17:33
--- NOTE | 2018-11-09 19:52 | ECGEPIP ---
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
[2018-11-09 20:00] VITALS: BP 98/62
[2018-11-09] MEDS: TAMSULOSIN 0.4 MG CAP PO SCH (20:36)
[2018-11-09] MEDS: **NOTE PATIENT COMMENT** MISC XX SCH (20:37)
[2018-11-09] MEDS: BUDESONIDE 0.5 MG/2 ML INHALATION SUSPENSION INH SCH (20:45)
[2018-11-09] MEDS: FORMOTEROL FUMARATE 20 MCG/2 ML INHALATION SOLUTION (PERFOROMIST) INH SCH (20:45)
[2018-11-09 23:59] VITALS: BP 108/66
[2018-11-10 04:00] VITALS: BP 100/68
[2018-11-10] MEDS: IPRATROPIUM 0.5MG/ALBUTEROL 2.5MG INH SOL UD 3ML (DUONEB)(J7620) NEB SCH ×6 (04:00→19:43)
[2018-11-10] MEDS: SLF 3 ML SYR IV SCH ×3 (05:37→21:45)
[2018-11-10 06:05] LABS: BASO % 0.3 % (0.0-1.0); EOS # 0.1 10^3/uL (0.0-0.50); EOS % 0.8 % (0.0-3.0); HEMATOCRIT 35.2 % (42.0-52.0); LYMPH # 1.1 10^3/uL (1.5-4.5); LYMPH % 12.8 % (24.0-44.0); MEAN CORPUSCULAR HEMOGLOBIN 24.5 pg (27.0-33.0); MEAN CORPUSCULAR HGB CONC 31.3 g/dl (32.0-36.5); MEAN CORPUSCULAR VOLUME 78.4 fl (80.0-96.0); MONO # 1.2 10^3/uL (0.0-0.8); MONO % 14.1 % (0.0-5.0); NEUTROPHILS # 6.2 10^3/uL (1.8-7.7); NEUTROPHILS % 71.5 % (36.0-66.0); PLATELET COUNT, AUTOMATED 259 10^3/uL (150-450); RED BLOOD COUNT 4.49 10^6/uL (4.30-6.10); WHITE BLOOD COUNT 8.7 10^3/uL (4.0-10.0)
[2018-11-10 06:31] LABS: BLOOD UREA NITROGEN 40 MG/DL (7-18); CALCIUM LEVEL 8.4 MG/DL (8.8-10.2); CARBON DIOXIDE LEVEL 44 MEQ/L (21-32); CHLORIDE LEVEL 91 MEQ/L (98-107); CREATININE FOR GFR 1.07 MG/DL (0.70-1.30); GLOMERULAR FILTRATION RATE > 60.0 (>49); GLUCOSE, FASTING 97 MG/DL (70-100); MAGNESIUM LEVEL 2.4 MG/DL (1.8-2.4); POTASSIUM SERUM 4.1 MEQ/L (3.5-5.1); SODIUM LEVEL 137 MEQ/L (136-145)
[2018-11-10] MEDS: BUDESONIDE 0.5 MG/2 ML INHALATION SUSPENSION INH SCH ×2 (07:33→19:43)
[2018-11-10] MEDS: FORMOTEROL FUMARATE 20 MCG/2 ML INHALATION SOLUTION (PERFOROMIST) INH SCH ×2 (07:33→19:43)
[2018-11-10 08:00] VITALS: BP 118/60
[2018-11-10] MEDS: DOCUSATE SODIUM 100 MG CAP PO SCH ×3 (09:00→21:44)
[2018-11-10] MEDS: LIDOCAINE 5% (LIDODERM) PATCH TD SCH (09:00)
[2018-11-10] MEDS: ENTRESTO 49-51MG TABLET (SACUBITRIL/VALSARTAN) PO SCH ×2 (09:15→21:43)
[2018-11-10] MEDS: ASPIRIN 81 MG ENTERIC TAB PO SCH (09:15)
[2018-11-10] MEDS: TORSEMIDE (DEMADEX) 50 MG PER 1/2 TAB PO SCH ×2 (09:16→17:34)
[2018-11-10] MEDS: SPIRONOLACTONE 25 MG TAB PO SCH (09:16)
[2018-11-10] MEDS: CLOPIDOGREL 75 MG TAB PO SCH (09:16)
[2018-11-10] MEDS: ATORVASTATIN 20 MG TAB PO SCH (09:16)
[2018-11-10] MEDS: POTASSIUM CHLORIDE 10 MEQ SR TABLET PO SCH ×4 (09:16→21:44)
[2018-11-10] MEDS: PANTOPRAZOLE 40MG TAB (PROTONIX) PO SCH (09:17)
[2018-11-10] MEDS: ENOXAPARIN 40 MG/0.4 ML SYRINGE (J1650) SC SCH (09:18)
[2018-11-10 12:00] VITALS: BP 111/60
[2018-11-10 16:00] VITALS: BP 100/59
[2018-11-10] MEDS ORDERED: metOLazone 2.5 MG TAB PO ONE (16:30)
--- NOTE | 2018-11-10 19:09 | IPNPDOC ---
Subjective Date Seen The patient was seen on 11/10/18. Subjective Chief Complaint/HPI 68m with copd and NSCLC on home oxygen, DVT, PPM, HFrEF admitted with an acute chf exacerbation. no complaints although looks visibly more sob today, not diuresing as much off dobutamine a full ROS was performed and negative except as documented above Objective Physical Examination General Exam: Positive: Cooperative, No Acute Distress Eye Exam: Positive: EOMI ENT Exam: Positive: Mucous membr. moist/pink, Other ENT (nose and lips are cyanotic ) Chest Exam: Positive: Rhonchi (Expiratory rhonchi still prominent), Other (he is able to speak a few sentences without having to stop to rest today) Heart Exam: Positive: Regular Rhythm, Normal S1, Normal S2, Other (. ICD at left upper chest) Abdomen Exam: Positive: Normal bowel sounds, Soft Extremity Exam: Positive: Edema (affecting both lower extremities), Other (ARTI in right shoulder limited by pain, bilateral lower limbs are wrapped in dressings) Skin Exam: Positive: Other skin issue (stasis dermatitis changes) Neuro Exam: Positive: Normal Speech, Cranial Nerves 3-12 NL Psych Exam: Positive: Oriented x 3 Assessment /Plan Assessment 68m p/w sob and swelling acute systolic chf exacerbation continue entresto continue torsemide continue fluid restriction would consider switching cardizem back to metoprolol given systolic chf continue aldactone given a dose of metolazone tonight to facilitate diuresis copd continue bronchodilators continue supplemental oxygen continue laba and ics Afib remains in afib off dobutamine rate controlled with cardizem no AC per cardiology urinary retention/bph continue buenrostro continue flomax voiding trial before dc Plan/VTE VTE Prophylaxis Ordered?: Yes (lovenox) VS, I&O, 24H, Fishbone Vital Signs/I&O Vital Signs Date Time Temp Pulse Resp B/P (MAP) Pulse Ox O2 Delivery O2 Flow Rate FiO2 11/10/18 17:35 91 100/59 11/10/18 16:00 98.4 18 94 4.0 11/10/18 12:11 Nasal Cannula I&O- Last 24 Hours up to 6 AM 11/10/18 05:59 Intake Total 2395 ml Output Total 4990 ml Balance -2595 ml Laboratory Data 24H LABS Laboratory Tests 2 11/10/18 05:27: Immature Granulocyte % (Auto) 0.5, White Blood Count 8.7, Red Blood Count 4.49, Hemoglobin 11.0L, Hematocrit 35.2L, Mean Corpuscular Volume 78.4L, Mean Corpuscular Hemoglobin 24.5L, Mean Corpuscular Hemoglobin Concent 31.3L, Red Cell Distribution Width 19.1H, Platelet Count 259, Neutrophils (%) (Auto) 71.5H, Lymphocytes (%) (Auto) 12.8L, Monocytes (%) (Auto) 14.1H, Eosinophils (%) (Auto) 0.8, Basophils (%) (Auto) 0.3, Neutrophils # (Auto) 6.2, Lymphocytes # (Auto) 1.1L, Monocytes # (Auto) 1.2H, Eosinophils # (Auto) 0.1, Basophils # (Auto) 0.0, Nucleated Red Blood Cells % (auto) 0.0, Anion Gap 2L, Glomerular Filtration Rate > 60.0, Blood Urea Nitrogen 40H, Creatinine 1.07, Sodium Level 137, Potassium Level 4.1, Chloride Level 91L, Carbon Dioxide Level 44H, Calcium Level 8.4L, Magnesium Level 2.4 CBC/BMP Laboratory Tests 11/10/18 05:27 Red Blood Count 4.49, Mean Corpuscular Volume 78.4 L, Mean Corpuscular Hemoglobin 24.5 L, Mean Corpuscular Hemoglobin Concent 31.3 L, Red Cell Distribution Width 19.1 H, Neutrophils (%) (Auto) 71.5 H, Lymphocytes (%) (Auto) 12.8 L, Monocytes (%) (Auto) 14.1 H, Eosinophils (%) (Auto) 0.8, Basophils (%) (Auto) 0.3, Neutrophils # (Auto) 6.2, Lymphocytes # (Auto) 1.1 L, Monocytes # (Auto) 1.2 H, Eosinophils # (Auto) 0.1, Basophils # (Auto) 0.0, Calcium Level 8.4 L BRANT CAT MD Nov 10, 2018 19:09
[2018-11-10 20:00] VITALS: BP 107/63
[2018-11-10] MEDS: TAMSULOSIN 0.4 MG CAP PO SCH (21:43)
[2018-11-10] MEDS: **NOTE PATIENT COMMENT** MISC XX SCH (21:45)
[2018-11-10 23:59] VITALS: BP_SYST 109; BP_SYST 120; BP_DIAS 60; BP_DIAS 63
[2018-11-11] MEDS: IPRATROPIUM 0.5MG/ALBUTEROL 2.5MG INH SOL UD 3ML (DUONEB)(J7620) NEB SCH ×7 (03:44→23:36)
[2018-11-11 04:00] VITALS: BP 110/70
[2018-11-11 04:47] LABS: BASO % 0.1 % (0.0-1.0); EOS # 0.1 10^3/uL (0.0-0.50); EOS % 1.2 % (0.0-3.0); HEMATOCRIT 35.8 % (42.0-52.0); HEMOGLOBIN 10.9 g/dl (13.5-17.5); LYMPH # 1.1 10^3/uL (1.5-4.5); LYMPH % 12.8 % (24.0-44.0); MEAN CORPUSCULAR HEMOGLOBIN 24.9 pg (27.0-33.0); MEAN CORPUSCULAR HGB CONC 30.4 g/dl (32.0-36.5); MEAN CORPUSCULAR VOLUME 81.7 fl (80.0-96.0); MONO % 12.1 % (0.0-5.0); NEUTROPHILS # 6.3 10^3/uL (1.8-7.7); NEUTROPHILS % 73.2 % (36.0-66.0); PLATELET COUNT, AUTOMATED 251 10^3/uL (150-450); RED BLOOD COUNT 4.38 10^6/uL (4.30-6.10); WHITE BLOOD COUNT 8.6 10^3/uL (4.0-10.0)
[2018-11-11 05:09] LABS: BLOOD UREA NITROGEN 34 MG/DL (7-18); CARBON DIOXIDE LEVEL 44 MEQ/L (21-32); CHLORIDE LEVEL 92 MEQ/L (98-107); CREATININE FOR GFR 1.13 MG/DL (0.70-1.30); GLOMERULAR FILTRATION RATE > 60.0 (>49); GLUCOSE, FASTING 113 MG/DL (70-100); SODIUM LEVEL 138 MEQ/L (136-145)
[2018-11-11 05:10] LABS: CALCIUM LEVEL 8.7 MG/DL (8.8-10.2)
[2018-11-11] MEDS: SLF 3 ML SYR IV SCH ×3 (06:13→21:53)
[2018-11-11 08:00] VITALS: BP 145/90
[2018-11-11] MEDS: FORMOTEROL FUMARATE 20 MCG/2 ML INHALATION SOLUTION (PERFOROMIST) INH SCH ×2 (08:00→20:00)
[2018-11-11] MEDS: BUDESONIDE 0.5 MG/2 ML INHALATION SUSPENSION INH SCH ×2 (08:00→20:00)
[2018-11-11] MEDS: DOCUSATE SODIUM 100 MG CAP PO SCH ×2 (09:33→21:00)
[2018-11-11] MEDS: ASPIRIN 81 MG ENTERIC TAB PO SCH (09:33)
[2018-11-11] MEDS: ENTRESTO 49-51MG TABLET (SACUBITRIL/VALSARTAN) PO SCH ×2 (09:33→21:52)
[2018-11-11] MEDS: TORSEMIDE (DEMADEX) 50 MG PER 1/2 TAB PO SCH ×2 (09:34→16:58)
[2018-11-11] MEDS: SPIRONOLACTONE 25 MG TAB PO SCH (09:34)
[2018-11-11] MEDS: POTASSIUM CHLORIDE 10 MEQ SR TABLET PO SCH ×4 (09:34→21:52)
[2018-11-11] MEDS: CLOPIDOGREL 75 MG TAB PO SCH (09:34)
[2018-11-11] MEDS: ATORVASTATIN 20 MG TAB PO SCH (09:35)
[2018-11-11] MEDS: ENOXAPARIN 40 MG/0.4 ML SYRINGE (J1650) SC SCH (09:35)
[2018-11-11] MEDS: LIDOCAINE 5% (LIDODERM) PATCH TD SCH (09:35)
[2018-11-11] MEDS: PANTOPRAZOLE 40MG TAB (PROTONIX) PO SCH (09:35)
[2018-11-11 12:00] VITALS: BP 119/74
[2018-11-11 16:00] VITALS: BP 129/70
--- NOTE | 2018-11-11 16:13 | IPNPDOC ---
Subjective Date Seen The patient was seen on 11/11/18. Subjective Chief Complaint/HPI 68m with copd and NSCLC on home oxygen, DVT, PPM, HFrEF admitted with an acute chf exacerbation. responded well to metolazone, breathing is much better today. pt had been agreeable to rehab. however now wants to go home. also notes he wants to keep his buenrostro a full ROS was performed and negative except as documented above Objective Physical Examination General Exam: Positive: Cooperative, No Acute Distress Eye Exam: Positive: EOMI ENT Exam: Positive: Mucous membr. moist/pink, Other ENT (nose and lips are cyanotic ) Chest Exam: Positive: Rhonchi (Expiratory rhonchi still prominent), Other (he is able to speak a few sentences without having to stop to rest today) Heart Exam: Positive: Regular Rhythm, Normal S1, Normal S2, Other (. ICD at left upper chest) Abdomen Exam: Positive: Normal bowel sounds, Soft Extremity Exam: Positive: Edema (affecting both lower extremities), Other (ARTI in right shoulder limited by pain, bilateral lower limbs are wrapped in dressings) Skin Exam: Positive: Other skin issue (stasis dermatitis changes) Neuro Exam: Positive: Normal Speech, Cranial Nerves 3-12 NL Psych Exam: Positive: Oriented x 3 Assessment /Plan Assessment 68m p/w sob and swelling acute systolic chf exacerbation continue entresto continue torsemide continue fluid restriction would consider switching cardizem back to metoprolol given systolic chf continue aldactone giving another dose of metolazone tonight to facilitate diuresis copd continue bronchodilators continue supplemental oxygen continue laba and ics Afib remains in afib off dobutamine rate controlled with cardizem no AC per cardiology urinary retention/bph continue buenrostro continue flomax voiding trial before dc Plan/VTE VTE Prophylaxis Ordered?: Yes (lovenox) VS, I&O, 24H, Fishbone Vital Signs/I&O Vital Signs Date Time Temp Pulse Resp B/P (MAP) Pulse Ox O2 Delivery O2 Flow Rate FiO2 11/11/18 12:00 4.0 11/11/18 12:00 97.0 96 24 119/74 (89) 96 11/10/18 12:11 Nasal Cannula I&O- Last 24 Hours up to 6 AM 11/11/18 06:00 Intake Total 1140 ml Output Total 6375 ml Balance -5235 ml Laboratory Data 24H LABS Laboratory Tests 2 11/11/18 04:20: Immature Granulocyte % (Auto) 0.6, White Blood Count 8.6, Red Blood Count 4.38, Hemoglobin 10.9L, Hematocrit 35.8L, Mean Corpuscular Volume 81.7, Mean Corpuscular Hemoglobin 24.9L, Mean Corpuscular Hemoglobin Concent 30.4L, Red Cell Distribution Width 18.8H, Platelet Count 251, Neutrophils (%) (Auto) 73.2H, Lymphocytes (%) (Auto) 12.8L, Monocytes (%) (Auto) 12.1H, Eosinophils (%) (Auto) 1.2, Basophils (%) (Auto) 0.1, Neutrophils # (Auto) 6.3, Lymphocytes # (Auto) 1.1L, Monocytes # (Auto) 1.0H, Eosinophils # (Auto) 0.1, Basophils # (Auto) 0.0, Nucleated Red Blood Cells % (auto) 0.0, Anion Gap 2L, Glomerular Filtration Rate > 60.0, Blood Urea Nitrogen 34H, Creatinine 1.13, Sodium Level 138, Potassium Level 4.0, Chloride Level 92L, Carbon Dioxide Level 44H, Calcium Level 8.7L CBC/BMP Laboratory Tests 11/11/18 04:20 Red Blood Count 4.38, Mean Corpuscular Volume 81.7, Mean Corpuscular Hemoglobin 24.9 L, Mean Corpuscular Hemoglobin Concent 30.4 L, Red Cell Distribution Width 18.8 H, Neutrophils (%) (Auto) 73.2 H, Lymphocytes (%) (Auto) 12.8 L, Monocytes (%) (Auto) 12.1 H, Eosinophils (%) (Auto) 1.2, Basophils (%) (Auto) 0.1, Neutrophils # (Auto) 6.3, Lymphocytes # (Auto) 1.1 L, Monocytes # (Auto) 1.0 H, Eosinophils # (Auto) 0.1, Basophils # (Auto) 0.0, Calcium Level 8.7 L BRANT CAT MD Nov 11, 2018 16:13
[2018-11-11] MEDS ORDERED: metOLazone 2.5 MG TAB PO ONE (16:30)
[2018-11-11] MEDS: FERROUS SULFATE 325MG TAB PO SCH (16:59)
[2018-11-11 20:00] VITALS: BP 142/69
[2018-11-11] MEDS: TAMSULOSIN 0.4 MG CAP PO SCH (21:51)
[2018-11-11] MEDS: **NOTE PATIENT COMMENT** MISC XX SCH (21:53)
[2018-11-11 23:59] VITALS: BP 138/74
[2018-11-12] VITALS (8 sets, daily range): BP systolic 83–144; BP diastolic 59–83; O2SAT 92
[2018-11-12] MEDS: IPRATROPIUM 0.5MG/ALBUTEROL 2.5MG INH SOL UD 3ML (DUONEB)(J7620) NEB SCH ×5 (04:00→19:54)
[2018-11-12 05:53] LABS: BASO % 0.3 % (0.0-1.0); EOS # 0.2 10^3/uL (0.0-0.50); EOS % 1.9 % (0.0-3.0); HEMATOCRIT 39.4 % (42.0-52.0); LYMPH # 1.2 10^3/uL (1.5-4.5); LYMPH % 12.8 % (24.0-44.0); MEAN CORPUSCULAR HEMOGLOBIN 24.8 pg (27.0-33.0); MEAN CORPUSCULAR HGB CONC 30.5 g/dl (32.0-36.5); MEAN CORPUSCULAR VOLUME 81.4 fl (80.0-96.0); MONO # 1.1 10^3/uL (0.0-0.8); MONO % 11.6 % (0.0-5.0); NEUTROPHILS % 72.9 % (36.0-66.0); PLATELET COUNT, AUTOMATED 279 10^3/uL (150-450); RED BLOOD COUNT 4.84 10^6/uL (4.30-6.10); WHITE BLOOD COUNT 9.6 10^3/uL (4.0-10.0)
[2018-11-12 06:11] LABS: BLOOD UREA NITROGEN 31 MG/DL (7-18); CALCIUM LEVEL 9.2 MG/DL (8.8-10.2); CARBON DIOXIDE LEVEL 40 MEQ/L (21-32); CHLORIDE LEVEL 93 MEQ/L (98-107); CREATININE FOR GFR 1.13 MG/DL (0.70-1.30); GLOMERULAR FILTRATION RATE > 60.0 (>49); GLUCOSE, FASTING 99 MG/DL (70-100); POTASSIUM SERUM 4.1 MEQ/L (3.5-5.1); SODIUM LEVEL 138 MEQ/L (136-145)
[2018-11-12] MEDS: SLF 3 ML SYR IV SCH ×3 (06:26→22:24)
[2018-11-12] MEDS: BUDESONIDE 0.5 MG/2 ML INHALATION SUSPENSION INH SCH ×2 (07:42→19:52)
[2018-11-12] MEDS: FORMOTEROL FUMARATE 20 MCG/2 ML INHALATION SOLUTION (PERFOROMIST) INH SCH ×2 (07:42→19:52)
[2018-11-12] MEDS: LIDOCAINE 5% (LIDODERM) PATCH TD SCH (09:00)
--- NOTE | 2018-11-12 09:14 | IPNPDOC ---
Text Note Date of Service The patient was seen on 11/12/18. NOTE Subjective: Patient seen and examined at bedside. No overnight events reported. No new medical complaints. States he does not want a trial of voiding since he feels he failed previous TOV. Objective: General: NAD, disheveled, lying comfortably in bed HEENT: NC/AT, poor dentition Lungs: mild coarse breath sounds Heart: +S1S2, RRR, AICD left sub-clav pocket Abd: soft, NT, +BS Ext: chronic venous stasis changes b/l LE A/P: 68m with copd and NSCLC on home oxygen, DVT, PPM, HFrEF admitted with an acute chf exacerbation. #acute decompensated CHF - known hx of HFrEF - continue entresto - continue torsemide - continue fluid restriction - was on metoprolol - previously switched to cardizem - continue aldactone - received metolazone last night to facilitate diuresis #COPD continue bronchodilators continue supplemental oxygen continue laba and ics #Afib - rate controlled with cardizem - no AC per cardiology #urinary retention/bph - continue buenrostro - continue flomax - patient refusing trial of voiding #DVT prophylaxis Dispo: PT/OT, PFS, patient refuses d/c buenrostro/TOV VS,Fishbone, I+O VS, Fishbone, I+O Laboratory Tests 11/12/18 05:13 Red Blood Count 4.84, Mean Corpuscular Volume 81.4, Mean Corpuscular Hemoglobin 24.8 L, Mean Corpuscular Hemoglobin Concent 30.5 L, Red Cell Distribution Width 18.8 H, Neutrophils (%) (Auto) 72.9 H, Lymphocytes (%) (Auto) 12.8 L, Monocytes (%) (Auto) 11.6 H, Eosinophils (%) (Auto) 1.9, Basophils (%) (Auto) 0.3, Neutrophils # (Auto) 7.0, Lymphocytes # (Auto) 1.2 L, Monocytes # (Auto) 1.1 H, Eosinophils # (Auto) 0.2, Basophils # (Auto) 0.0, Calcium Level 9.2 Vital Signs Date Time Temp Pulse Resp B/P (MAP) Pulse Ox O2 Delivery O2 Flow Rate FiO2 11/12/18 08:00 97.8 95 20 118/76 (90) 94 3.0 11/11/18 20:01 Nasal Cannula I&O- Last 24 Hours up to 6 AM 11/12/18 06:00 Intake Total 900 ml Output Total 5975 ml Balance -5075 ml ALTHEA CHRIS MD Nov 12, 2018 09:14
[2018-11-12] MEDS: PANTOPRAZOLE 40MG TAB (PROTONIX) PO SCH (09:34)
[2018-11-12] MEDS: ENTRESTO 49-51MG TABLET (SACUBITRIL/VALSARTAN) PO SCH ×2 (09:35→22:23)
[2018-11-12] MEDS: ATORVASTATIN 20 MG TAB PO SCH (09:35)
[2018-11-12] MEDS: CLOPIDOGREL 75 MG TAB PO SCH (09:35)
[2018-11-12] MEDS: POTASSIUM CHLORIDE 10 MEQ SR TABLET PO SCH ×4 (09:35→22:23)
[2018-11-12] MEDS: SPIRONOLACTONE 25 MG TAB PO SCH (09:35)
[2018-11-12] MEDS: DOCUSATE SODIUM 100 MG CAP PO SCH ×2 (09:35→22:24)
[2018-11-12] MEDS: TORSEMIDE (DEMADEX) 50 MG PER 1/2 TAB PO SCH ×2 (09:36→17:00)
[2018-11-12] MEDS: ASPIRIN 81 MG ENTERIC TAB PO SCH (09:36)
[2018-11-12] MEDS: ENOXAPARIN 40 MG/0.4 ML SYRINGE (J1650) SC SCH (09:37)
[2018-11-12] MEDS: **NOTE PATIENT COMMENT** MISC XX SCH (21:00)
[2018-11-12] MEDS: TAMSULOSIN 0.4 MG CAP PO SCH (22:24)
[2018-11-13] MEDS: IPRATROPIUM 0.5MG/ALBUTEROL 2.5MG INH SOL UD 3ML (DUONEB)(J7620) NEB SCH ×6 (03:15→23:39)
[2018-11-13 04:00] VITALS: BP 114/73
[2018-11-13] MEDS: SLF 3 ML SYR IV SCH ×3 (05:52→20:33)
[2018-11-13 08:00] VITALS: BP 123/67
[2018-11-13] MEDS: LIDOCAINE 5% (LIDODERM) PATCH TD SCH (09:00)
[2018-11-13] MEDS: DOCUSATE SODIUM 100 MG CAP PO SCH ×2 (09:00→20:32)
[2018-11-13] MEDS: BUDESONIDE 0.5 MG/2 ML INHALATION SUSPENSION INH SCH ×3 (09:15→20:17)
[2018-11-13] MEDS: FORMOTEROL FUMARATE 20 MCG/2 ML INHALATION SOLUTION (PERFOROMIST) INH SCH ×3 (09:15→20:17)
[2018-11-13] MEDS: SPIRONOLACTONE 25 MG TAB PO SCH (09:25)
[2018-11-13] MEDS: ATORVASTATIN 20 MG TAB PO SCH (09:25)
[2018-11-13] MEDS: ASPIRIN 81 MG ENTERIC TAB PO SCH (09:25)
[2018-11-13] MEDS: PANTOPRAZOLE 40MG TAB (PROTONIX) PO SCH (09:25)
[2018-11-13] MEDS: CLOPIDOGREL 75 MG TAB PO SCH (09:25)
[2018-11-13] MEDS: TORSEMIDE (DEMADEX) 50 MG PER 1/2 TAB PO SCH ×2 (09:26→17:00)
[2018-11-13] MEDS: POTASSIUM CHLORIDE 10 MEQ SR TABLET PO SCH ×4 (09:26→20:33)
[2018-11-13] MEDS: ENOXAPARIN 40 MG/0.4 ML SYRINGE (J1650) SC SCH (09:26)
[2018-11-13] MEDS: ENTRESTO 49-51MG TABLET (SACUBITRIL/VALSARTAN) PO SCH ×2 (09:26→20:33)
--- NOTE | 2018-11-13 10:26 | IPNPDOC ---
Text Note Date of Service The patient was seen on 11/13/18. NOTE Subjective: Patient seen and examined at bedside. No overnight events reported. No new medical complaints. Still insists he does not want a trial of voiding since he feels he failed previous TOV, does not want rehab placement. Objective: General: NAD, disheveled, lying comfortably in bed HEENT: NC/AT, poor dentition Lungs: mild coarse breath sounds Heart: +S1S2, RRR, PPM left sub-clav pocket Abd: soft, NT, +BS Ext: chronic venous stasis changes b/l LE A/P: 68m with copd and NSCLC on home oxygen, DVT, PPM, HFrEF admitted with an acute chf exacerbation. #acute decompensated CHF - grossly compensated - known hx of HFrEF - continue entresto - continue torsemide - continue fluid restriction - was on metoprolol - previously switched to cardizem - continue aldactone - received metolazone last night to facilitate diuresis #COPD continue bronchodilators continue supplemental oxygen continue laba and ics #Afib - rate controlled with cardizem - no AC per cardiology #urinary retention/bph - continue buenrostro - continue flomax - patient refusing trial of voiding #DVT prophylaxis Dispo: PT/OT, PFS, patient refuses d/c buenrostro/TOV, transfer to floor VS,Joan, I+O VS, Nidae, I+O Vital Signs Date Time Temp Pulse Resp B/P (MAP) Pulse Ox O2 Delivery O2 Flow Rate FiO2 11/13/18 09:26 71 123/67 11/13/18 08:00 97.6 22 95 3.0 11/12/18 19:54 Nasal Cannula I&O- Last 24 Hours up to 6 AM 11/13/18 06:00 Intake Total 1290 ml Output Total 4075 ml Balance -2785 ml ALTHEA CHRIS MD Nov 13, 2018 10:26
[2018-11-13] MEDS ORDERED: SODIUM CHLORIDE 0.9% 1000ML IV ONE (14:45)
[2018-11-13 15:49] LABS: CK-MB VALUE MASS 1.6 NG/ML (<3.6); MB/CK RELATIVE INDEX 3.14 (< OR =4); TROPONIN I 0.05 NG/ML (< 0.10)
[2018-11-13 16:00] VITALS: BP 98/67
[2018-11-13] MEDS: FERROUS SULFATE 325MG TAB PO SCH (18:13)
[2018-11-13 20:00] VITALS: BP 97/64
[2018-11-13 20:17] VITALS: O2SAT 92
[2018-11-13] MEDS: TAMSULOSIN 0.4 MG CAP PO SCH (20:33)
[2018-11-13] MEDS: **NOTE PATIENT COMMENT** MISC XX SCH (20:33)
[2018-11-13 20:47] LABS: CK-MB VALUE MASS 1.3 NG/ML (<3.6); MB/CK RELATIVE INDEX 3.02 (< OR =4); TROPONIN I 0.04 NG/ML (< 0.10)
[2018-11-14 01:00] VITALS: BP 90/60
[2018-11-14] MEDS: IPRATROPIUM 0.5MG/ALBUTEROL 2.5MG INH SOL UD 3ML (DUONEB)(J7620) NEB SCH ×5 (02:28→20:00)
[2018-11-14 04:00] VITALS: BP 94/62
[2018-11-14 06:02] LABS: HEMATOCRIT 38.8 % (42.0-52.0); HEMOGLOBIN 12.3 g/dl (13.5-17.5); MEAN CORPUSCULAR HEMOGLOBIN 24.6 pg (27.0-33.0); MEAN CORPUSCULAR HGB CONC 31.7 g/dl (32.0-36.5); MEAN CORPUSCULAR VOLUME 77.8 fl (80.0-96.0); PLATELET COUNT, AUTOMATED 313 10^3/uL (150-450); RED BLOOD COUNT 4.99 10^6/uL (4.30-6.10); WHITE BLOOD COUNT 9.2 10^3/uL (4.0-10.0)
[2018-11-14] MEDS: SLF 3 ML SYR IV SCH ×3 (06:05→21:31)
[2018-11-14 06:12] LABS: BLOOD UREA NITROGEN 37 MG/DL (7-18); CALCIUM LEVEL 8.6 MG/DL (8.8-10.2); CARBON DIOXIDE LEVEL 33 MEQ/L (21-32); CHLORIDE LEVEL 97 MEQ/L (98-107); CREATININE FOR GFR 1.16 MG/DL (0.70-1.30); GLOMERULAR FILTRATION RATE > 60.0 (>49); GLUCOSE, FASTING 101 MG/DL (70-100); POTASSIUM SERUM 4.6 MEQ/L (3.5-5.1); SODIUM LEVEL 136 MEQ/L (136-145)
[2018-11-14 08:00] VITALS: BP 92/58
--- NOTE | 2018-11-14 08:38 | IPNPDOC ---
Text Note Date of Service The patient was seen on 11/14/18. NOTE Subjective: Patient seen and examined at bedside. No overnight events reported. No new medical complaints. Still insists he does not want a trial of voiding since he feels he failed previous TOV, does not want rehab placement. Objective: General: NAD, disheveled, lying comfortably in bed HEENT: NC/AT, poor dentition Lungs: mild coarse breath sounds Heart: +S1S2, RRR, PPM left sub-clav pocket Abd: soft, NT, +BS Ext: chronic venous stasis changes b/l LE A/P: 68m with copd and NSCLC on home oxygen, DVT, PPM, HFrEF admitted with an acute chf exacerbation. #acute decompensated CHF - grossly compensated - known hx of HFrEF - continue entresto - continue torsemide - continue fluid restriction - continue aldactone - received metolazone last night to facilitate diuresis #COPD continue bronchodilators continue supplemental oxygen continue laba and ics #Afib - d/w cardiology - dc cardizem - no AC per cardiology #hypotension - d/w cardiology - recs to dc cardizem - continue to monitor #urinary retention/bph - continue buenrostro - continue flomax - patient refusing trial of voiding #DVT prophylaxis Dispo: PT/OT, PFS, patient refuses d/c buenrostro/TOV VS,Fishbone, I+O VS, Fishbone, I+O Laboratory Tests 11/14/18 05:37 Red Blood Count 4.99, Mean Corpuscular Volume 77.8 L, Mean Corpuscular Hemoglobin 24.6 L, Mean Corpuscular Hemoglobin Concent 31.7 L, Red Cell Distribution Width 19.3 H, Calcium Level 8.6 L Vital Signs Date Time Temp Pulse Resp B/P (MAP) Pulse Ox O2 Delivery O2 Flow Rate FiO2 11/14/18 07:51 3.0 11/14/18 04:00 97.5 108 20 94/62 (73) 98 11/13/18 20:17 Nasal Cannula I&O- Last 24 Hours up to 6 AM 11/14/18 06:00 Intake Total 1270 ml Output Total 2400 ml Balance -1130 ml ALTHEA CHRIS MD Nov 14, 2018 08:38
[2018-11-14] MEDS: FORMOTEROL FUMARATE 20 MCG/2 ML INHALATION SOLUTION (PERFOROMIST) INH SCH ×2 (08:52→20:28)
[2018-11-14] MEDS: BUDESONIDE 0.5 MG/2 ML INHALATION SUSPENSION INH SCH ×2 (08:52→20:28)
[2018-11-14] MEDS: LIDOCAINE 5% (LIDODERM) PATCH TD SCH ×2 (09:00→09:29)
[2018-11-14] MEDS: SPIRONOLACTONE 25 MG TAB PO SCH (09:28)
[2018-11-14] MEDS: ASPIRIN 81 MG ENTERIC TAB PO SCH (09:28)
[2018-11-14] MEDS: ATORVASTATIN 20 MG TAB PO SCH (09:28)
[2018-11-14] MEDS: PANTOPRAZOLE 40MG TAB (PROTONIX) PO SCH (09:29)
[2018-11-14] MEDS: DOCUSATE SODIUM 100 MG CAP PO SCH ×3 (09:29→21:31)
[2018-11-14] MEDS: ENOXAPARIN 40 MG/0.4 ML SYRINGE (J1650) SC SCH (09:29)
[2018-11-14] MEDS: POTASSIUM CHLORIDE 10 MEQ SR TABLET PO SCH ×4 (09:29→21:31)
[2018-11-14] MEDS: CLOPIDOGREL 75 MG TAB PO SCH (09:29)
[2018-11-14] MEDS: TORSEMIDE (DEMADEX) 50 MG PER 1/2 TAB PO SCH ×2 (09:32→16:14)
[2018-11-14] MEDS: ENTRESTO 49-51MG TABLET (SACUBITRIL/VALSARTAN) PO SCH ×2 (09:35→21:31)
[2018-11-14 16:00] VITALS: BP 99/58
[2018-11-14 18:00] VITALS: BP 90/62
[2018-11-14] MEDS: **NOTE PATIENT COMMENT** MISC XX SCH (21:31)
[2018-11-14] MEDS: TAMSULOSIN 0.4 MG CAP PO SCH (21:31)
[2018-11-14 22:00] VITALS: BP 108/72
[2018-11-15] MEDS: IPRATROPIUM 0.5MG/ALBUTEROL 2.5MG INH SOL UD 3ML (DUONEB)(J7620) NEB SCH ×7 (00:35→23:23)
[2018-11-15 02:00] VITALS: BP 104/70
[2018-11-15] MEDS: SLF 3 ML SYR IV SCH ×3 (05:39→20:39)
[2018-11-15 06:00] VITALS: BP 99/63
[2018-11-15] MEDS: FORMOTEROL FUMARATE 20 MCG/2 ML INHALATION SOLUTION (PERFOROMIST) INH SCH ×2 (07:27→20:13)
[2018-11-15] MEDS: BUDESONIDE 0.5 MG/2 ML INHALATION SUSPENSION INH SCH ×2 (07:27→20:13)
[2018-11-15] MEDS: LIDOCAINE 5% (LIDODERM) PATCH TD SCH (09:00)
[2018-11-15 10:00] VITALS: BP 88/61
[2018-11-15] MEDS: ATORVASTATIN 20 MG TAB PO SCH (10:02)
[2018-11-15] MEDS: ENTRESTO 49-51MG TABLET (SACUBITRIL/VALSARTAN) PO SCH ×2 (10:03→20:38)
[2018-11-15] MEDS: ASPIRIN 81 MG ENTERIC TAB PO SCH (10:03)
[2018-11-15] MEDS: PANTOPRAZOLE 40MG TAB (PROTONIX) PO SCH (10:03)
[2018-11-15] MEDS: SPIRONOLACTONE 25 MG TAB PO SCH (10:04)
[2018-11-15] MEDS: POTASSIUM CHLORIDE 10 MEQ SR TABLET PO SCH ×4 (10:04→20:39)
[2018-11-15] MEDS: TORSEMIDE (DEMADEX) 50 MG PER 1/2 TAB PO SCH ×2 (10:04→19:02)
[2018-11-15] MEDS: CLOPIDOGREL 75 MG TAB PO SCH (10:04)
[2018-11-15] MEDS: ENOXAPARIN 40 MG/0.4 ML SYRINGE (J1650) SC SCH (10:05)
[2018-11-15] MEDS: DOCUSATE SODIUM 100 MG CAP PO SCH ×2 (10:07→20:39)
[2018-11-15] MEDS ORDERED: PROPOFOL 200 MG/20 ML VIAL As Ordered ONE (11:45)
--- NOTE | 2018-11-15 13:14 | IPNPDOC ---
Text Note Date of Service The patient was seen on 11/15/18. NOTE Subjective: Patient seen and examined at bedside. No overnight events reported. No new medical complaints. Anxious to return home. Objective: General: NAD, disheveled, lying comfortably in bed HEENT: NC/AT, poor dentition Lungs: mild coarse breath sounds Heart: +S1S2, RRR, PPM left sub-clav pocket Abd: soft, NT, +BS Ext: chronic venous stasis changes b/l LE A/P: 68m with copd and NSCLC on home oxygen, DVT, PPM, HFrEF admitted with an acute chf exacerbation. #acute decompensated CHF - grossly compensated - known hx of HFrEF - continue entresto - continue torsemide - continue fluid restriction - continue aldactone - received metolazone last night to facilitate diuresis #COPD continue bronchodilators continue supplemental oxygen continue laba and ics #Afib - d/w cardiology - dc cardizem - no AC per cardiology - slightly tachy #hypotension - still hypotensive but asymptomatic - d/w cardiology - recs to dc cardizem - continue to monitor #urinary retention/bph - continue buenrostro - continue flomax - patient refusing trial of voiding #DVT prophylaxis Dispo: cardiology f/u regarding hypotension, anticipate discharge in 24-72 hours VS,Fishbone, I+O VS, Fishbone, I+O Vital Signs Date Time Temp Pulse Resp B/P (MAP) Pulse Ox O2 Delivery O2 Flow Rate FiO2 11/15/18 10:00 97.3 104 17 88/61 (70) 94 3.0 11/15/18 03:54 Nasal Cannula I&O- Last 24 Hours up to 6 AM 11/15/18 05:59 Intake Total 1590 ml Output Total 3750 ml Balance -2160 ml ALTHEA CHRIS MD Nov 15, 2018 13:14
[2018-11-15 14:00] VITALS: BP 82/56
[2018-11-15] MEDS: FERROUS SULFATE 325MG TAB PO SCH (18:59)
[2018-11-15] MEDS: DIGOXIN 0.25 MG TAB PO SCH (19:03)
[2018-11-15] MEDS: TAMSULOSIN 0.4 MG CAP PO SCH (20:38)
[2018-11-15] MEDS: **NOTE PATIENT COMMENT** MISC XX SCH (20:39)
[2018-11-15 22:00] VITALS: BP 92/57
[2018-11-16] MEDS: IPRATROPIUM 0.5MG/ALBUTEROL 2.5MG INH SOL UD 3ML (DUONEB)(J7620) NEB SCH ×6 (04:50→23:43)
[2018-11-16] MEDS: SLF 3 ML SYR IV SCH ×3 (05:36→21:24)
[2018-11-16 06:00] VITALS: BP 99/64
[2018-11-16 07:12] LABS: MAGNESIUM LEVEL 2.6 MG/DL (1.8-2.4)
[2018-11-16] MEDS: FORMOTEROL FUMARATE 20 MCG/2 ML INHALATION SOLUTION (PERFOROMIST) INH SCH ×2 (07:16→20:05)
[2018-11-16] MEDS: BUDESONIDE 0.5 MG/2 ML INHALATION SUSPENSION INH SCH ×2 (07:16→19:50)
[2018-11-16 07:41] LABS: HEMATOCRIT 42.8 % (42.0-52.0); HEMOGLOBIN 13.3 g/dl (13.5-17.5); MEAN CORPUSCULAR HEMOGLOBIN 24.7 pg (27.0-33.0); MEAN CORPUSCULAR HGB CONC 31.1 g/dl (32.0-36.5); MEAN CORPUSCULAR VOLUME 79.4 fl (80.0-96.0); PLATELET COUNT, AUTOMATED 304 10^3/uL (150-450); RED BLOOD COUNT 5.39 10^6/uL (4.30-6.10); WHITE BLOOD COUNT 8.9 10^3/uL (4.0-10.0)
[2018-11-16 07:46] LABS: CREATININE FOR GFR 1.38 MG/DL (0.70-1.30); GLOMERULAR FILTRATION RATE 54.5 (>49); POTASSIUM SERUM 5.3 MEQ/L (3.5-5.1)
[2018-11-16] MEDS: DIGOXIN 0.25 MG TAB PO SCH ×2 (09:00→10:57)
[2018-11-16] MEDS: LIDOCAINE 5% (LIDODERM) PATCH TD SCH ×2 (09:00→10:30)
[2018-11-16] MEDS: DOCUSATE SODIUM 100 MG CAP PO SCH ×2 (09:00→10:31)
--- NOTE | 2018-11-16 10:28 | IPNPDOC ---
Text Note Date of Service The patient was seen on 11/16/18. NOTE Subjective: Patient seen and examined at bedside. No overnight events reported. No new medical complaints this morning. Anxious to return home. Objective: General: NAD, sitting comfortably at edge of bed HEENT: NC/AT, poor dentition Lungs: scattered crackles Heart: +S1S2, RRR, PPM left sub-clav pocket Abd: soft, NT, +BS Ext: chronic venous stasis changes b/l LE A/P: 68m with copd and NSCLC on home oxygen, DVT, PPM, HFrEF admitted with an acute chf exacerbation. #acute decompensated CHF - grossly compensated - known hx of HFrEF - continue entresto - dosage reduced - d/c torsemide - continue fluid restriction - d/c aldactone #COPD continue bronchodilators continue supplemental oxygen continue laba and ics #Afib - d/w cardiology - dc cardizem, started digoxin loading over weekend - no AC per cardiology - slightly tachy #hypotension - still hypotensive but asymptomatic - slow fluid 500 cc @ 50 cc/hr - d/w cardiology - assistance appreciated - continue to monitor #urinary retention/bph - continue buenrostro - continue flomax - patient refusing trial of voiding #DVT prophylaxis Dispo: d/w extensively with cardiology over phone - assistance appreciated; still anticipating discharge in 48-72 hours VS,Joan, I+O VS, Joan, I+O Laboratory Tests 11/16/18 05:42 Red Blood Count 5.39, Mean Corpuscular Volume 79.4 L, Mean Corpuscular Hemoglobin 24.7 L, Mean Corpuscular Hemoglobin Concent 31.1 L, Red Cell Distribu tion Width 19.9 H, Calcium Level 9.0 Vital Signs Date Time Temp Pulse Resp B/P (MAP) Pulse Ox O2 Delivery O2 Flow Rate FiO2 11/16/18 06:00 96.8 102 18 99/64 (76) 91 3.0 11/16/18 04:50 Nasal Cannula I&O- Last 24 Hours up to 6 AM 11/16/18 06:00 Intake Total 900 ml Output Total 2675 ml Balance -1775 ml ALTHEA CHRIS MD Nov 16, 2018 10:28
[2018-11-16] MEDS: ASPIRIN 81 MG ENTERIC TAB PO SCH (10:30)
[2018-11-16] MEDS: CLOPIDOGREL 75 MG TAB PO SCH (10:31)
[2018-11-16] MEDS: ENOXAPARIN 40 MG/0.4 ML SYRINGE (J1650) SC SCH (10:31)
[2018-11-16] MEDS: ATORVASTATIN 20 MG TAB PO SCH (10:31)
[2018-11-16] MEDS: PANTOPRAZOLE 40MG TAB (PROTONIX) PO SCH (10:31)
[2018-11-16] MEDS ORDERED: NS 500 ML IV SCH (11:15)
[2018-11-16] MEDS: ENTRESTO 24-26MG TABLET (SACUBITRIL/VALSARTAN) PO SCH ×2 (12:10→21:24)
[2018-11-16 14:00] VITALS: BP 99/70
[2018-11-16] MEDS ORDERED: DOCUSATE SODIUM 100 MG CAP PO PRN (14:30)
[2018-11-16] MEDS: **NOTE PATIENT COMMENT** MISC XX SCH (21:00)
[2018-11-16] MEDS: TAMSULOSIN 0.4 MG CAP PO SCH (21:24)
[2018-11-16 22:00] VITALS: BP 90/52
[2018-11-16] MEDS ORDERED: NS 1,000 ML IV SCH (22:30)
[2018-11-17] MEDS: IPRATROPIUM 0.5MG/ALBUTEROL 2.5MG INH SOL UD 3ML (DUONEB)(J7620) NEB SCH ×6 (04:00→23:47)
[2018-11-17] MEDS: SLF 3 ML SYR IV SCH ×3 (05:46→22:03)
[2018-11-17 05:55] LABS: HEMATOCRIT 38.8 % (42.0-52.0); HEMOGLOBIN 12.1 g/dl (13.5-17.5); MEAN CORPUSCULAR HEMOGLOBIN 24.3 pg (27.0-33.0); MEAN CORPUSCULAR HGB CONC 31.2 g/dl (32.0-36.5); MEAN CORPUSCULAR VOLUME 78.1 fl (80.0-96.0); PLATELET COUNT, AUTOMATED 289 10^3/uL (150-450); RED BLOOD COUNT 4.97 10^6/uL (4.30-6.10); WHITE BLOOD COUNT 7.6 10^3/uL (4.0-10.0)
[2018-11-17 06:00] VITALS: BP 90/55
[2018-11-17 06:15] LABS: BLOOD UREA NITROGEN 60 MG/DL (7-18); CALCIUM LEVEL 9.1 MG/DL (8.8-10.2); CARBON DIOXIDE LEVEL 31 MEQ/L (21-32); CHLORIDE LEVEL 99 MEQ/L (98-107); CREATININE FOR GFR 1.22 MG/DL (0.70-1.30); GLOMERULAR FILTRATION RATE > 60.0 (>49); GLUCOSE, FASTING 96 MG/DL (70-100); POTASSIUM SERUM 4.7 MEQ/L (3.5-5.1); SODIUM LEVEL 135 MEQ/L (136-145)
[2018-11-17] MEDS: FORMOTEROL FUMARATE 20 MCG/2 ML INHALATION SOLUTION (PERFOROMIST) INH SCH ×2 (07:18→19:56)
[2018-11-17] MEDS: BUDESONIDE 0.5 MG/2 ML INHALATION SUSPENSION INH SCH ×2 (07:18→19:56)
[2018-11-17] MEDS: DIGOXIN 0.25 MG TAB PO SCH (08:45)
[2018-11-17] MEDS: CLOPIDOGREL 75 MG TAB PO SCH (08:45)
[2018-11-17] MEDS: ASPIRIN 81 MG ENTERIC TAB PO SCH (08:45)
[2018-11-17] MEDS: ENTRESTO 24-26MG TABLET (SACUBITRIL/VALSARTAN) PO SCH ×2 (08:45→22:03)
[2018-11-17] MEDS: PANTOPRAZOLE 40MG TAB (PROTONIX) PO SCH (08:45)
[2018-11-17] MEDS: ATORVASTATIN 20 MG TAB PO SCH (08:45)
[2018-11-17] MEDS: ENOXAPARIN 40 MG/0.4 ML SYRINGE (J1650) SC SCH (08:46)
--- NOTE | 2018-11-17 10:23 | IPNPDOC ---
Text Note Date of Service The patient was seen on 11/17/18. NOTE Subjective: Patient seen and examined at bedside. No overnight events reported. No new medical complaints this morning. Anxious to return home. Objective: General: NAD, sitting comfortably at edge of bed HEENT: NC/AT, poor dentition Lungs: scattered crackles Heart: +S1S2, RRR, PPM left sub-clav pocket Abd: soft, NT, +BS Ext: chronic venous stasis changes b/l LE A/P: 68m with copd and NSCLC on home oxygen, DVT, PPM, HFrEF admitted with an acute chf exacerbation. #acute decompensated CHF - grossly compensated - known hx of HFrEF - continue entresto - dosage reduced - d/c torsemide - continue fluid restriction - d/c aldactone #COPD continue bronchodilators continue supplemental oxygen continue laba and ics #Afib - d/w cardiology - dc cardizem, started digoxin loading over weekend - no AC per cardiology - slightly tachy #hypotension - improved - d/w cardiology - assistance appreciated - continue to monitor #urinary retention/bph - continue buenrostro - continue flomax - patient refusing trial of voiding #DVT prophylaxis Dispo: d/w extensively with cardiology over phone - assistance appreciated; still anticipating discharge in 24-48 hours VS,Fishbone, I+O VS, Fishbone, I+O Laboratory Tests 11/17/18 05:24 Red Blood Count 4.97, Mean Corpuscular Volume 78.1 L, Mean Corpuscular Hemoglobin 24.3 L, Mean Corpuscular Hemoglobin Concent 31.2 L, Red Cell Distribution Width 19.7 H, Calcium Level 9.1 Vital Signs Date Time Temp Pulse Resp B/P (MAP) Pulse Ox O2 Delivery O2 Flow Rate FiO2 11/17/18 08:45 100 11/17/18 06:00 96.1 18 90/55 (67) 92 3.0 11/16/18 23:44 Nasal Cannula I&O- Last 24 Hours up to 6 AM 11/17/18 06:00 Intake Total 955 ml Output Total 2275 ml Balance -1320 ml ALTHEA CHRIS MD Nov 17, 2018 10:23
[2018-11-17 14:00] VITALS: BP 90/55
[2018-11-17] MEDS: FERROUS SULFATE 325MG TAB PO SCH (17:06)
[2018-11-17 22:00] VITALS: BP 105/71
[2018-11-17] MEDS: TAMSULOSIN 0.4 MG CAP PO SCH (22:03)
[2018-11-18] MEDS: IPRATROPIUM 0.5MG/ALBUTEROL 2.5MG INH SOL UD 3ML (DUONEB)(J7620) NEB SCH ×3 (04:00→11:18)
[2018-11-18] MEDS: SLF 3 ML SYR IV SCH (05:24)
[2018-11-18 06:00] VITALS: BP 107/71
[2018-11-18 06:33] LABS: HEMOGLOBIN 12.4 g/dl (13.5-17.5); MEAN CORPUSCULAR HEMOGLOBIN 24.8 pg (27.0-33.0); MEAN CORPUSCULAR VOLUME 79.8 fl (80.0-96.0); PLATELET COUNT, AUTOMATED 306 10^3/uL (150-450); RED BLOOD COUNT 5.01 10^6/uL (4.30-6.10); WHITE BLOOD COUNT 7.7 10^3/uL (4.0-10.0)
[2018-11-18 06:55] LABS: BLOOD UREA NITROGEN 45 MG/DL (7-18); CALCIUM LEVEL 9.1 MG/DL (8.8-10.2); CARBON DIOXIDE LEVEL 29 MEQ/L (21-32); CHLORIDE LEVEL 101 MEQ/L (98-107); GLOMERULAR FILTRATION RATE > 60.0 (>49); GLUCOSE, FASTING 85 MG/DL (70-100); POTASSIUM SERUM 4.4 MEQ/L (3.5-5.1); SODIUM LEVEL 136 MEQ/L (136-145)
[2018-11-18] MEDS: FORMOTEROL FUMARATE 20 MCG/2 ML INHALATION SOLUTION (PERFOROMIST) INH SCH (07:59)
[2018-11-18] MEDS: BUDESONIDE 0.5 MG/2 ML INHALATION SUSPENSION INH SCH (08:00)
[2018-11-18] MEDS: ENOXAPARIN 40 MG/0.4 ML SYRINGE (J1650) SC SCH (09:00)
[2018-11-18] MEDS ORDERED: DIGOXIN 0.125 MG TAB PO SCH (09:00)
[2018-11-18] MEDS: CLOPIDOGREL 75 MG TAB PO SCH (09:38)
[2018-11-18] MEDS: ATORVASTATIN 20 MG TAB PO SCH (09:39)
[2018-11-18] MEDS: ASPIRIN 81 MG ENTERIC TAB PO SCH (09:39)
[2018-11-18] MEDS: PANTOPRAZOLE 40MG TAB (PROTONIX) PO SCH (09:39)
[2018-11-18] MEDS: ENTRESTO 24-26MG TABLET (SACUBITRIL/VALSARTAN) PO SCH (09:39)
[2018-11-18] MEDS ORDERED: ATOR1TAB21 PO (10:38)
[2018-11-18] MEDS ORDERED: ENTR1TAB PO ×2 (10:38→11:52)
[2018-11-18] MEDS ORDERED: DIGO0.12 PO (10:38)
[2018-11-18] MEDS ORDERED: CLOP75TA2 PO (10:38)
[2018-11-18] MEDS ORDERED: SYMB80INH INH (10:45)
--- NOTE | 2018-11-18 14:52 | DS.PDOC ---
Discharge Summary General Date of Admission Oct 30, 2018 at 17:16 Date of Discharge 11/18/18 Specialist/Consultants Involve: Alberto Stallings Discharge Summary PROCEDURES PERFORMED DURING STAY: [None]. DISCHARGE DIAGNOSES: 1. NSTEMI 2. acute decompensated heart failure SECONDARY DIAGNOSES: 1 COPD with an FEV1 per FVC ratio 50% and chronic oxygen-dependent respiratory failure 2. Pacemaker placement for second-degree heart block 3 CHF 4. Chronic hypertension. 5. 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 8. History of DVTs 9. History of urinary retention requiring indwelling urinary catheter 10. History of cervical spinal cord injury. 11 Status dermatitis. 12. Debility COMPLICATIONS/CHIEF COMPLAINT: Nstemi. HISTORY OF PRESENT ILLNESS: Harvey is a 68-year-old male who presented with complaints of excess fluid. Specifically, he had been collecting excessive amounts of fluid in his legs, his groin area and in his belly for about 1 month. He decided to come to the hospital because the swelling had become so bad that he had difficulty walking due to the chafing in the groin area. He reported previously being given fluid pills which he takes off and on. Associated symptoms included shortness of breath with walking (he can only walk a few feet without having to stop to rest), shortness of breath while sitting down, and shortness of breath while trying to talk. He denied having chest pain. HOSPITAL COURSE: . DISCHARGE MEDICATIONS: Please see below. ALLERGIES: Please see below. PHYSICAL EXAMINATION ON DISCHARGE: VITAL SIGNS: Please see below. General: NAD, sitting comfortably at edge of bed HEENT: NC/AT, poor dentition Lungs: scattered crackles Heart: +S1S2, RRR, PPM left sub-clav pocket Abd: soft, NT, +BS Ext: chronic venous stasis changes b/l LE LABORATORY DATA: Please see below. ACTIVITY: [As tolerated]. DIET: 1500 cc daily fluid restriction DISPOSITION: Discharge home with services if needed. DISCHARGE INSTRUCTIONS: 1. Cardiology in 5-10 days 2. PCP in 3-5 days DISCHARGE CONDITION: [Stable]. TIME SPENT ON DISCHARGE: 40 minutes. Vital Signs/I&Os Vital Signs Date Time Temp Pulse Resp B/P (MAP) Pulse Ox O2 Delivery O2 Flow Rate FiO2 11/18/18 09:42 80 11/18/18 06:00 97.4 18 107/71 (83) 95 3.0 11/16/18 23:44 Nasal Cannula I&O- Last 24 Hours up to 6 AM 11/18/18 06:00 Intake Total 1070 ml Output Total 2350 ml Balance -1280 ml Laboratory Data Labs 24H Laboratory Tests 2 11/18/18 05:48: Nucleated Red Blood Cells % (auto) 0.0, Anion Gap 6L, Glomerular Filtration Rate > 60.0, Blood Urea Nitrogen 45H, Creatinine 1.10, Sodium Level 136, Potassium Level 4.4, Chloride Level 101, Carbon Dioxide Level 29, Calcium Level 9.1 CBC/BMP Laboratory Tests 11/18/18 05:48 Red Blood Count 5.01, Mean Corpuscular Volume 79.8 L, Mean Corpuscular Hemoglobin 24.8 L, Mean Corpuscular Hemoglobin Concent 31.0 L, Red Cell Distribution Width 19.7 H, Calcium Level 9.1 Discharge Medications Scheduled Aspirin (Aspirin EC) 81 Mg Tab, 81 MG PO DAILY, (Reported) Atorvastatin Calcium (Atorvastatin Calcium) 20 Mg Tablet, 40 MG PO DAILY Budesonide/Formoterol (Symbicort 80-4.5 Mcg Inhaler) 6.9 Gm Hfa.aer.ad, 2 PUFF INH BID Clopidogrel Bisulfate (Clopidogrel) 75 Mg Tablet, 75 MG PO DAILY Digoxin (Digoxin) 125 Mcg Tablet, 0.125 MG PO DAILY Docusate Sodium (Colace) 100 Mg Capsule, 100 MG PO BID, (Reported) Sacubitril/Valsartan (Entresto 24 mg-26 mg Tablet) 1 Each Tablet, 1 TAB PO BID Tamsulosin HCl (Flomax) 0.4 Mg Capsule, 0.4 MG PO QHS, (Reported) Scheduled PRN Acetaminophen (Acetaminophen) 325 Mg Tab, 325 MG PO Q8H PRN for PAIN, (Reported) Ipratropium/Albuterol Sulfate (Iprat-Albut 0.5-3(2.5) mg/3 ml) 3 Ml Ampul.neb, 3 ML INH Q6HP PRN for SHORTNESS OF BREATH, (Reported) Allergies Coded Allergies: No Known Allergies (Unverified , 10/30/18) ALTHEA CHRIS MD Nov 18, 2018 14:52
== END 2018-11-18 14:33 | disposition home health service (06) | DRG 280 ==
LOC: EDBD 14:24 → M ED 14:24 → M ED INP 17:16 → M ICU 19:54 → M PCU 10-31 15:42 → M MSPAV 11-14 17:38
PROVIDERS: ADMIT Internal Medicine; ATTEND Internal Medicine
DX: I21.A1 Myocardial infarction type 2 (principal); I50.43 Acute on chronic combined systolic (congestive) and diastolic (congestive) heart failure; J96.10 Chronic respiratory failure, unspecified whether with hypoxia or hypercapnia; I47.2 Ventricular tachycardia; J44.9 Chronic obstructive pulmonary disease, unspecified; I11.0 Hypertensive heart disease with heart failure; I50.810 Right heart failure, unspecified; I87.2 Venous insufficiency (chronic) (peripheral); R53.81 Other malaise; I95.9 Hypotension, unspecified; I27.29 Other secondary pulmonary hypertension; Z87.891 Personal history of nicotine dependence; E66.9 Obesity, unspecified; R33.9 Retention of urine, unspecified; N40.1 Benign prostatic hyperplasia with lower urinary tract symptoms; D50.9 Iron deficiency anemia, unspecified; Z79.82 Long term (current) use of aspirin; Z79.899 Other long term (current) drug therapy; Z85.118 Personal history of other malignant neoplasm of bronchus and lung; Z99.81 Dependence on supplemental oxygen; Z86.718 Personal history of other venous thrombosis and embolism; Z95.0 Presence of cardiac pacemaker; Z91.14 Patient's other noncompliance with medication regimen; Z92.3 Personal history of irradiation; Z68.30 Body mass index [BMI] 30.0-30.9, adult

== ENCOUNTER → 2019-02-21 | Outpatient (CLI) | payer MEDICARE, BC ==
[~2019-02-21] MED LIST changes: +ATOR1TAB21 PO; +BENA20TA8 PO; +CLOP75TA2 PO; +DIGO0.12 PO; +ENTR1TAB PO; +ENTR1TAB7 PO; +FURO20TA2 PO; +SYMB80INH INH
--- NOTE | 2019-02-21 14:29 | REP ---
CT chest without contrast: History: Lung carcinoma. Right upper lobe treated with radiation therapy August 29, 2018. Comparison chest CT study is from October 08, 2018. 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 A pacemaker is seen in the right heart. Axial CT images demonstrate parenchymal opacity with air bronchograms and fibrosis in the right perihilar region. This may reflect post radiation fibrosis. There is a small to moderate right sided pleural effusion distributed posteriorly in a dependent fashion. Emphysematous changes are noted in the upper lobes bilaterally. There is a small amount of left pleural fluid. Cardiomegaly is observed. Scattered normal-sized mediastinal lymph nodes are again noted unchanged. There is considerable calcification in the region of the aortic valve cusps. No adrenal lesion is seen. Visualized upper abdominal structures are unremarkable. Impression: Band-like area of fibrosis in the right mid lung zone perihilar parenchyma consistent with postradiation change. COPD. Bilateral pleural effusions, right larger than left. No adenopathy. Electronically Signed by Jose Luis Garland MD 02/21/2019 06:40 P
== END ==
LOC: M RAD 10:02
PROVIDERS: ATTEND Radiology Radiation Oncology
DX: C34.90 Malignant neoplasm of unspecified part of unspecified bronchus or lung (principal)

== ENCOUNTER → 2019-08-04 | Outpatient (CLI) | payer MEDICARE, BC ==
[~2019-08-04] MED LIST changes: -DIGO0.12 PO; +DIGO0.123 PO
[2019-08-04 17:32] LABS: BASO # 0.1 10^3/uL (0.0-0.2); BASO % 0.5 % (0.0-1.0); EOS # 0.2 10^3/uL (0.0-0.5); EOS % 1.6 % (0.0-3.0); HEMATOCRIT 48.2 % (42.0-52.0); HEMOGLOBIN 15.1 g/dl (13.5-17.5); LYMPH # 1.5 10^3/uL (1.5-5.0); LYMPH % 16.4 % (24.0-44.0); MEAN CORPUSCULAR HEMOGLOBIN 27.7 pg (27.0-33.0); MEAN CORPUSCULAR HGB CONC 31.3 g/dl (32.0-36.5); MEAN CORPUSCULAR VOLUME 88.4 fl (80.0-96.0); MONO # 0.9 10^3/uL (0.0-0.8); MONO % 9.5 % (0.0-5.0); NEUTROPHILS # 6.6 10^3/uL (1.5-8.5); NEUTROPHILS % 71.7 % (36.0-66.0); PLATELET COUNT, AUTOMATED 231 10^3/uL (150-450); RED BLOOD COUNT 5.45 10^6/uL (4.30-6.10); WHITE BLOOD COUNT 9.2 10^3/uL (4.0-10.0)
[2019-08-04 17:33] LABS: ALBUMIN 3.8 GM/DL (3.2-5.2); BILIRUBIN,TOTAL 0.7 MG/DL (0.2-1.0); CALCIUM LEVEL 9.3 MG/DL (8.8-10.2); CREATININE FOR GFR 1.34 MG/DL (0.70-1.30); GLOMERULAR FILTRATION RATE 56.3 (>49); POTASSIUM SERUM 5.1 MEQ/L (3.5-5.1); TOTAL PROTEIN 7.7 GM/DL (6.4-8.2)
== END ==
LOC: M LRY 10:18
PROVIDERS: ATTEND Internal Medicine Medical Oncology
DX: C34.91 Malignant neoplasm of unspecified part of right bronchus or lung (principal)

== ENCOUNTER → 2019-08-11 | Outpatient (CLI) | payer MEDICARE, BC ==
[~2019-08-11] MED LIST changes: +GASTROGRAFIN SOLUTION 30ML (Q9963) As Ordered ONE; +ISOVUE-370 76% 100ML VIAL As Ordered ONE
--- NOTE | 2019-08-11 12:36 | REP ---
REASON: Lung carcinoma. All priors were reviewed, the latest of which is dated 02/21/2019. CONTRAST: 100 mL Isovue-370. There has been no significant change in appearance of the mediastinum or pulmonary abraham. No mass or definite adenopathy has developed. There are no pleural or pericardial effusions. The small effusion seen on the latest prior of 02/21/2019 has resolved. The imaged osseous structures are stable and intact. The band-like parenchymal opacity seen in the right lung with air bronchograms has gotten smaller. There are chronic emphysematous changes, status quo. There is bilateral lower lobe respiratory motion artifact obscuring the detail. No definite new abnormal nodules, masses, or opacities have developed. IMPRESSION: 1. Improved findings as described above. 2. Other findings and chronic changes as described above. Electronically Signed by Stuart Piña DO 08/11/2019 12:46 P
--- NOTE | 2019-08-11 12:50 | REP ---
REASON: History of carcinoma of the lung. The latest prior for comparison is 05/07/2018. CONTRAST: 100 mL Isovue-370. The liver, gallbladder, spleen, pancreas, adrenal glands, and left kidney are within normal limits. Arising from the inferior pole of the right kidney, there is a round 5-cm sized low density structure which has water density Hounsfield unit readings and is essentially unchanged from the prior exam. Once again, heavy calcific atherosclerotic change is seen in the abdominal, status quo. There is no free fluid or free air. The bowel loops and their mesenteries are within normal limits. There is no evidence of an intra-abdominal or retroperitoneal mass or adenopathy. Bone window technique throughout the examination shows chronic spinal degenerative changes, status quo. IMPRESSION: 1. Unchanged Bosniak class I simple right renal cyst. 2. Other findings as described above. 3. There is no evidence of acute intra-abdominal disease. It should be stated that CT abdomen only was performed. I have no CT images of the pelvis to review. Electronically Signed by Stuart Piña DO 08/11/2019 01:34 P
== END ==
LOC: M RAD 09:36
PROVIDERS: ATTEND Internal Medicine Medical Oncology
DX: C34.90 Malignant neoplasm of unspecified part of unspecified bronchus or lung (principal); N28.1 Cyst of kidney, acquired; J43.9 Emphysema, unspecified
CPT/HCPCS: 71260; 74177; Q9963; Q9967

== ENCOUNTER → 2020-02-19 | Outpatient (CLI) | payer MEDICARE, BC ==
[~2020-02-19] MED LIST changes: +ASCO250T20 PO; +ASPI-546 PO; -ASPI1TAB15 PO; -VITA1TAB23 PO; +VITA250T26 PO
--- NOTE | 2020-02-19 09:49 | REP ---
INDICATION: NON SMALL CELL LUNG CA. COMPARISON: 08/11/2019, 02/21/2019. TECHNIQUE: Bolus of 100 mL Isovue 370 scanning through the chest with coronal and sagittal reconstructions. 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 The curvilinear bandlike and irregular opacity in the perihilar and right mid lung zone is again seen. There is some stranding towards the hilum and periphery. There has been some recurrence of a small pleural effusion posteriorly in the right mid lung zone. This is smaller than on the 02/21/2019 exam. No left pleural effusion. Dependent atelectatic change and peripheral fibrotic changes bilaterally. Some curvilinear atelectasis inferior lingular segment of the left upper lobe at the anterior lung base along the heart margin again noted. No other masses, infiltrates or extensive scarring noted. Bullous emphysematous changes throughout mid and upper lung zones. Heart is mildly enlarged with left atrial and ventricular enlargement, unchanged. No pericardial thickening or effusion. There is a 12 mm lymph node at the left hilum which is increased from small nodes there previously. Prevascular space, precarinal, right paratracheal nodes are unchanged and not enlarged. No axillary or supraclavicular mass. The aorta is calcified without aneurysm or dissection. The main, right, left and lobar pulmonary arteries are without filling defects. There is central prominence of those pulmonary arteries consistent with pulmonary hypertension. Bone windows show sternum, manubrium, spine, shoulders, medial clavicles and ribs without fracture or destructive lesion. There is a small hiatal hernia evident. IMPRESSION: 1. Chronic bandlike curvilinear and irregular opacity the right mid-upper lung zone and perihilar region with stranding towards the periphery as before. Small amount of pleural fluid now seen in the mid chest as a recurrence compared to the previous study but less than 1 year ago. Left hilar node enlarged from subcentimeter to 12 mm since the previous study. 2. Underlying fibrosis, COPD and bullous emphysematous changes are noted and otherwise stable. No new nodules or masses. A left hilar node now 12 mm enlarged from subcentimeter on previous study. No other interval dana change. 3. Cardiomegaly with left atrial enlargement and no pericardial thickening or effusion. No aortic aneurysm or dissection. No central pulmonary emboli. Pulmonary artery hypertension. <Electronically signed by Jeff Beckett > 02/19/20 [id number]
--- NOTE | 2020-02-19 10:09 | REP ---
INDICATION: NON SMALL CELL LUNG CA. COMPARISON: 08/11/2019, 05/07/2018 CT TECHNIQUE: Bolus 100 mL Isovue 370 and oral Gastrografin mixture per our protocol. Coronal and sagittal reconstructions were provided. FINDINGS: CT abdomen small hiatal hernia is noted stomach is otherwise unremarkable there is no hepatosplenomegaly focal hepatic mass or intrahepatic biliary dilatation. Left lobe is mildly prominent spleen is not enlarged and shows no mass the gallbladder is without calcified stone or mass. Pancreas shows no ductal dilatation, mass, stone, peripancreatic fluid or adenopathy. Adrenal glands are normal. Kidneys show symmetric enhancement. A a 5.3 cm cyst off the lower pole of the right kidney unchanged. No renal stone, hydronephrosis, hydroureter or ureteral stone. Small bowel loops are fluid or contrast filled but without dilatation or abnormal wall thickening. No mesenteric edema colon shows stool and gas throughout without colitis diverticulitis stricture or mass within the abdomen. The lung window views show no evidence of perforation or free air in the abdomen and pelvis. There is no fluid in the peritoneal gutters. The aorta shows diffuse atherosclerotic calcifications without aneurysm. No periaortic or retroperitoneal pathologic sized lymphadenopathy. Some atherosclerotic calcifications are also seen at origins of abdominal vasculature from the aorta. Bone windows show diffuse degenerative disc changes with marginal osteophytes and some lower lumbar facet arthritis no acute compression deformity or destructive lesions. Visualized ribs intact. CT pelvis: The sacrum, SI joints, bony pelvis and hips show minor degenerative changes without destructive lesion. Bilateral atherosclerotic calcifications in the left greater than right common iliac artery with little or no flow in the left common iliac. Flow is reconstituted in the common femoral artery on the left side. No aneurysm. No pelvic lymphadenopathy or mass. Stool and gas without colitis or diverticulitis in the left colon, sigmoid and rectum. I do not see any inflammatory changes about the cecum. Small bowel loops in the pelvis were unremarkable. Distal ureters without dilatation or stone. The bladder partially filled without mass or stone. Prostate not grossly enlarged. No ventral or inguinal hernia nor pathologic sized inguinal adenopathy IMPRESSION: 1. No Paddock, splenic, adrenal, pancreatic or renal metastatic disease. Simple cyst off the lower pole the right kidney unchanged. 2. No abdominopelvic adenopathy ascites, perforation or abscess. 3. Stool and gas scattered in the colon without colitis or diverticulitis. No stricture or mass. 4. Some degenerative changes in spine and hips without compression deformity or destructive lesions. Stable exam. 5. Heavy atherosclerotic calcifications in the aortoiliac vessels and with the thrombus chronically throughout common iliac and much of the external iliac on the left, stable. <Electronically signed by Jeff Beckett > 02/19/20 [id number]
== END ==
LOC: M RAD 07:19
PROVIDERS: ATTEND Internal Medicine Medical Oncology
DX: C34.90 Malignant neoplasm of unspecified part of unspecified bronchus or lung (principal); Z95.0 Presence of cardiac pacemaker; J90 Pleural effusion, not elsewhere classified; J84.10 Pulmonary fibrosis, unspecified; J98.11 Atelectasis; J43.9 Emphysema, unspecified; I51.7 Cardiomegaly; I70.0 Atherosclerosis of aorta
CPT/HCPCS: 71260; 74177; Q9963; Q9967

== ENCOUNTER → 2020-06-08 | Outpatient (POV) | payer MEDICARE, BC ==
[~2020-06-08] MED LIST changes: +ASPI-569 PO; -ASPI81TAEC PO; -GASTROGRAFIN SOLUTION 30ML (Q9963) As Ordered ONE; -ISOVUE-370 76% 100ML VIAL As Ordered ONE; +LIPI20TA PO
--- NOTE | 2020-06-10 13:49 | IRCOV ---
[facility] IR Consult Office Visit IR Consult Office Visit DATE: Jun 08, 2020 Patient agreed to this telephone consultation. I spent 30 minutes reviewing patient's records and talking to the patient and his daughter. Video conferencing was performed. REASON FOR CONSULTATION/CHIEF COMPLAINT: Nonhealing wounds. HISTORY OF PRESENT ILLNESS: 70-year-old male with hypertension, hyperlipidemia, diabetes and prior [place], presents with nonhealing right lower extremity wounds. Patient states he has a big hole on the top of the foot and tiny little ones around it. He states his leg swells and hurts all the time. He describes discomfort with leg elevation and is unable to sleep at night due to the pain. Both his legs do swell and he is on diuretics with salt restriction. He reports the ulcers have been there for greater than 2 months. He uses a walker to walk around the house. He states previously he was able to walk around the store without pain in the legs. He describes his symptoms have worsened over the past few months. He is an ex- smoker and smoked 2 packs a day for the past 50 years. He quit 2 years ago. He denies prior cold leg, gangrene, amputation or arterial intervention. He reports left leg swelling but no open wounds. He denies chest pain, shortness of breath, orthopnea or paroxysmal nocturnal dyspnea. He does sleep in a recliner. He has COPD, he is on home oxygen. He does take aspirin 81 mg. ALLERGIES: Please see below. HOME MEDICATIONS: Please see below. PAST MEDICAL HISTORY: Hypertension Diabetes Hyperlipidemia Urinary retention Spinal injury Lung cancer COPD [place] 2 years ago PAST SURGICAL HISTORY: Pacemaker placement 2019 FAMILY HISTORY: Noncontributory. SOCIAL HISTORY: Ex-smoker. Quit 2 years ago. History of 2 packs a day. Denies alcohol or drugs. REVIEW OF SYSTEMS: Otherwise negative. PHYSICAL EXAMINATION: Video conference: Right lower extremity: Swollen shiny hairless with skin reddening. Large deep ulceration on the dorsum of the right foot size of a palm. Deep with raised edges and brownish discoloration of skin on the dorsum of the foot. Second ulcer on the heel. Left lower extremity: Edema. Skin appears shiny, hairless with less rubor than right lower extremity. LABORATORY DATA: 02/17/2020 hemoglobin 15.4 hematocrit 49.3 WBC 9.5 platelets 205 sodium 137 potassium 4.2 BUN 25 creatinine 1.39 GFR 53.9 fasting glucose 97. 10/31/2018 LDL 95 Imaging: I personally reviewed the CT abdomen pelvis with IV contrast performed February 2020. 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 Right common iliac and external iliac artery are patent. There is stenosis in the right common femoral artery. Proximal SFA appears patent. ASSESSMENT/PLAN: 70-year-old male with nonhealing right lower extremity ulcer and rest pain. I agree patient requires angiography and/or intervention in the same setting if possible. We discussed the risks and benefits of the procedure and patient would like to proceed. We'll schedule the patient for right leg angiography and intervention first. Given the number of ulcers and limb swelling, he will also be scheduled for bilateral lower extremity standing venous reflux study to evaluate for superimposed venous hypertension. Thank you for this referral. Cc Dr. Land Allergies Coded Allergies: No Known Allergies (Unverified , 10/30/18) Home Medications Scheduled Aspirin (Aspirin EC), 81 MG PO DAILY, (Reported) Atorvastatin Calcium (Lipitor), 1 TAB PO DAILY, (Reported) Budesonide/Formoterol (Symbicort 80-4.5 Mcg Inhaler), 2 PUFF INH BID Clopidogrel Bisulfate (Clopidogrel), 75 MG PO DAILY Digoxin (Digoxin), 0.125 MG PO DAILY Docusate Sodium (Colace), 100 MG PO BID, (Reported) Tamsulosin HCl (Flomax), 0.4 MG PO QHS, (Reported) Scheduled PRN Ipratropium/Albuterol Sulfate (Iprat-Albut 0.5-3(2.5) mg/3 ml), 3 ML INH Q6HP PRN for SHORTNESS OF BREATH, (Reported) NEGRO ZAFAR MD Jun 10, 2020 13:49
== END ==
LOC: M TMIRPOV 10:20
PROVIDERS: ATTEND Radiology Diagnostic Radiology
DX: I73.9 Peripheral vascular disease, unspecified (principal); I10 Essential (primary) hypertension; E78.5 Hyperlipidemia, unspecified; E11.9 Type 2 diabetes mellitus without complications; I25.2 Old myocardial infarction; L97.819 Non-pressure chronic ulcer of other part of right lower leg with unspecified severity; M79.604 Pain in right leg; Z87.891 Personal history of nicotine dependence

== ENCOUNTER → 2020-06-28 | Outpatient (CLI) | payer MEDICARE, BC ==
--- NOTE | 2020-06-28 11:39 | REP ---
INDICATION: VENOUS HYPERTENSION COMPARISON: 06/04/2018. TECHNIQUE: Real time compression and duplex Doppler interrogation of the bilateral lower extremity deep venous system is performed. FINDINGS: Bilaterally, the common femoral, superficial femoral and popliteal veins are fully compressible with transducer pressure and demonstrate normal spontaneous and phasic flow, without evidence of deep venous thrombosis. Evaluation for venous reflux in the right lower extremity demonstrates no evidence of reflux in any portion of the superficial or deep vein system. There is an anterior accessory greater saphenous vein present without reflux. The greater saphenous vein measures 7 mm at the saphenofemoral junction and at the level of the knee, 6 mm in the midthigh. The lesser saphenous vein could not be visualized. In the left lower extremity there is no evidence of reflux in any portion of the deep or superficial venous systems. There is an anterior accessory greater saphenous vein present without reflux. The greater saphenous vein measures 6 mm at the saphenofemoral junction and 5 mm more distally. The lesser saphenous vein could not be visualized. IMPRESSION: No evidence of deep venous thrombosis of the bilateral lower extremity femoral popliteal venous system. No evidence of reflux in any portion of the superficial or deep vein systems bilaterally. <Electronically signed by Alex Mata > 06/28/20 [id number]
== END ==
LOC: M RAD 10:14
PROVIDERS: ATTEND Radiology Diagnostic Radiology
DX: I73.9 Peripheral vascular disease, unspecified (principal); I87.311 Chronic venous hypertension (idiopathic) with ulcer of right lower extremity

== ENCOUNTER → 2020-07-05 | Outpatient (CLI) | payer MEDICARE, BC ==
[~2020-07-05] MED LIST changes: +ISOVUE-300 61% 50ML VIAL As Ordered ONE; +LIDOCAINE 1% MDV 20ML VIAL As Ordered ONE; +MIDAZOLAM INJ 2MG/2ML VIAL (J2250 PER 1MG) As Ordered ONE; +PERCOCET 5MG/325MG TAB As Ordered ONE; +diphenhydrAMINE 50MG/ML VIAL (J1200) As Ordered ONE; +fentaNYL 100 MCG/2 ML INJECTION (J3010) As Ordered ONE
[2020-07-05 10:33] LABS: HEMOGLOBIN 13.2 g/dl (13.5-17.5); MEAN CORPUSCULAR HEMOGLOBIN 24.4 pg (27.0-33.0); MEAN CORPUSCULAR VOLUME 81.3 fl (80.0-96.0); PLATELET COUNT, AUTOMATED 183 10^3/uL (150-450); RED BLOOD COUNT 5.41 10^6/uL (4.30-6.10); WHITE BLOOD COUNT 9.1 10^3/uL (4.0-10.0)
[2020-07-05 10:54] LABS: CALCIUM LEVEL 8.6 MG/DL (8.8-10.2); CREATININE FOR GFR 1.46 MG/DL (0.70-1.30); GLOMERULAR FILTRATION RATE 50.8 (>42); POTASSIUM SERUM 3.6 MEQ/L (3.5-5.1)
--- NOTE | 2020-07-05 11:26 | IRHP ---
[facility] IR Pre-Procedure H & P General Date of Service: Jul 05, 2020 Procedure: Same Day Surgery Interval History and Physical I have seen the patient and reviewed last H & P performed within 30 days. There is no significant interval change. History of Present Illness Chief Complaint The patient is a 70-year-old male admitted with a reason for visit of PAD. PRE-PROCEDURE DIAGNOSIS: PAD HEART: Normal rate. LUNGS: Normal breathing at rest. ASA Classification ASA Classification: III-Severe systemic dis. Mallampati Score: II NPO: Yes Problems with prior sedation: No Obstructive Sleep Apnea: No Plan moderate sedation Allergies Coded Allergies: No Known Allergies (Unverified , 10/30/18) Home Medications Scheduled Aspirin (Aspirin EC), 81 MG PO DAILY, (Reported) Atorvastatin Calcium (Lipitor), 1 TAB PO DAILY, (Reported) Budesonide/Formoterol (Symbicort 80-4.5 Mcg Inhaler), 2 PUFF INH BID Clopidogrel Bisulfate (Clopidogrel), 75 MG PO DAILY Digoxin (Digoxin), 0.125 MG PO DAILY Docusate Sodium (Colace), 100 MG PO BID, (Reported) Tamsulosin HCl (Flomax), 0.4 MG PO QHS, (Reported) Scheduled PRN Ipratropium/Albuterol Sulfate (Iprat-Albut 0.5-3(2.5) mg/3 ml), 3 ML INH Q6HP PRN for SHORTNESS OF BREATH, (Reported) VS, I&O, 24H, Fishbone Vital Signs/I&O Vital Signs Date Time Temp Pulse Resp B/P (MAP) Pulse Ox O2 Delivery O2 Flow Rate FiO2 07/05/20 09:50 97.2 76 24 93 Nasal Cannula 1 Laboratory Data 24H LABS Laboratory Tests 2 07/05/20 10:10: Nucleated Red Blood Cells % (auto) 0.0, Anion Gap 5L, Glomerular Filtration Rate 50.8, Calcium Level 8.6L CBC/BMP Laboratory Tests 07/05/20 10:10 NEGRO ZAFAR MD Jul 05, 2020 11:26
[2020-07-05 18:23] VITALS: BP 113/76
--- NOTE | 2020-07-08 15:06 | IRPON ---
IR Postoperative Note Date Of Procedure: Jul 05, 2020 Time Of Procedure: 16:00 IR Postoperative Note IR Right leg angiogram. IR Right below-knee runoff arteriogram. IR Ultrasound-guided left common femoral artery access. IR Ultrasound-guided right common femoral artery access. IR Moderate sedation. Clinical Information:Nonhealing right lower extremity wounds. Physician: Dr. Davis. Procedure: The patient was advised of the benefits, risks, and alternatives of the procedure and informed consent was obtained. A time out was performed with verification of the patient's name, MRN, site of procedure, and type of procedure to be performed. The patient was positioned in the supine position on the angiographic table. The site was prepped and draped in the usual sterile fashion. Moderate sedation was performed by the physician including the presence of an independent trained RN, who assisted in monitoring the patient's level of consciousness and physiological status. Following the administration of fentanyl and Versed, the physician spent 60 minutes of continuous [id number] time with the patient. A fruit loader radiograph reveals calcified left common iliac, left external iliac and left internal iliac arteries. Ultrasound of the left groin demonstrates calcified left common femoral artery. Lidocaine was used for local anesthesia. The left common femoral artery was accessed, under ultrasound guidance with a microintroducer set. A short 0.018" Henlawson wire was inserted through the needle under fluoroscopy guidance but could not be used to cannulize the occluded left external iliac artery. The needle was removed, pressure held and hemostasis achieved. Ultrasound of the right groin demonstrates patent right common femoral artery. The right common femoral artery was accessed antegrade under ultrasound guidance. An 018 wire was advanced into the right SFA. The needle was exchanged for a micro-sheath. The wire was removed and a Bentson wire was advanced through the micro-sheath under fluoroscopy guidance into the right SFA. The micro-sheath was exchanged for 6 Spanish vascular sheath. A right leg angiogram was performed through the sheath in the right SFA. This demonstrates patent proximal, mid and distal SFA. There is plaque in the mid SFA which does not impede flow. Angiography further down the right leg was performed this demonstrates patent proximal, mid and distal popliteal artery. Patent anterior tibial artery, tibia peroneal trunk, peroneal and posterior tibial artery. Runoff arteriogram to the right foot was performed. This demonstrates patent pro ximal, mid and distal anterior tibial and posterior tibial artery with complete pedal loop. The sheath was removed, pressure held and hemostasis achieved. A sterile dressing was applied to the site. The patient tolerated the procedure well and was returned to the PRU in stable condition. EBL: < 5 mL. Complications:None. Impression: 1. Right leg angiogram demonstrates patent right superficial femoral artery, popliteal artery and 2 vessel runoff to the right foot with complete pedal loop. 2. Due to occluded left common iliac and external iliac artery, up and over access was not possible to evaluate the pelvic inflow to the right leg. Retrograde right groin access with placement of sheath would interfere with evaluation of the right external iliac artery. Patient will have a CTA of the pelvis to evaluate the pelvic inflow to the right lower extremity. Thank you for this referral Cc NEGRO Pastor MD Jul 08, 2020 15:06
== END ==
LOC: M IRPRO 09:42
PROVIDERS: ATTEND Radiology Diagnostic Radiology
DX: I70.202 Unspecified atherosclerosis of native arteries of extremities, left leg (principal); L97.919 Non-pressure chronic ulcer of unspecified part of right lower leg with unspecified severity; Z79.82 Long term (current) use of aspirin; Z79.899 Other long term (current) drug therapy
CPT/HCPCS: 36246; 75774; 80048; 85027; 99152; 99153; C1769; C1887; C1894; G0269; J1644; J2250; J3010; Q9967

== ENCOUNTER → 2020-07-16 | Outpatient (CLI) | payer MEDICARE, BC ==
--- NOTE | 2020-07-16 08:29 | IRMSE ---
[facility] IR Moderate Sedation Eval. Date and Time Date: Jul 16, 2020 Time: 08:28 ASA Classification ASA Classification: III-Severe systemic dis. Mallampati Score: II NPO: Yes Obstructive Sleep Apnea: No Interval Plan: moderate sedation NEGRO ZAFRA MD Jul 16, 2020 08:29
--- NOTE | 2020-07-16 08:30 | IRHP ---
[facility] IR Pre-Procedure H & P General Date of Service: Jul 16, 2020 Procedure: Same Day Surgery Interval History and Physical I have seen the patient and reviewed last H & P performed within 30 days. There is no significant interval change. History of Present Illness Chief Complaint The patient is a 70-year-old male admitted with a reason for visit of PAD. PRE-PROCEDURE DIAGNOSIS: PAD HEART: Normal rate. LUNGS: Normal breathing at rest. ASA Classification ASA Classification: III-Severe systemic dis. Mallampati Score: II NPO: Yes Problems with prior sedation: No Obstructive Sleep Apnea: No Plan moderate sedation Allergies Coded Allergies: No Known Allergies (Unverified , 10/30/18) Home Medications Scheduled Aspirin (Aspirin EC), 81 MG PO DAILY, (Reported) Atorvastatin Calcium (Lipitor), 1 TAB PO DAILY, (Reported) Budesonide/Formoterol (Symbicort 80-4.5 Mcg Inhaler), 2 PUFF INH BID Clopidogrel Bisulfate (Clopidogrel), 75 MG PO DAILY Digoxin (Digoxin), 0.125 MG PO DAILY Docusate Sodium (Colace), 100 MG PO BID, (Reported) Tamsulosin HCl (Flomax), 0.4 MG PO QHS, (Reported) Scheduled PRN Ipratropium/Albuterol Sulfate (Iprat-Albut 0.5-3(2.5) mg/3 ml), 3 ML INH Q6HP PRN for SHORTNESS OF BREATH, (Reported) VS, I&O, 24H, Fishbone Vital Signs/I&O Vital Signs Date Time Temp Pulse Resp B/P (MAP) Pulse Ox O2 Delivery O2 Flow Rate FiO2 07/16/20 08:00 97.3 77 22 97 Room Air NEGRO ZAFAR MD Jul 16, 2020 08:30
--- NOTE | 2020-07-16 11:24 | IRPON ---
IR Postoperative Note Date Of Procedure: Jul 16, 2020 Time Of Procedure: 11:07 IR Postoperative Note IR Left leg angiogram. IR Left Below-knee runoff arteriogram. IR Ultrasound-guided right common femoral artery access. IR Moderate sedation. Clinical Information:Nonhealing left lower extremity ulcers. Physician: Dr. Davis. Procedure: The patient was advised of the benefits, risks, and alternatives of the procedure and informed consent was obtained. A time out was performed with verification of the patient's name, MRN, site of procedure, and type of procedure to be performed. The patient was positioned in the supine position on the angiographic table. The site was prepped and draped in the usual sterile fashion. Moderate sedation was performed by the physician including the presence of an independent trained RN, who assisted in monitoring the patient's level of consciousness and physiological status. Following the administration of fentanyl and Versed, the physician spent 60 minutes of continuous [id number] time with the patient. A bow rehairer radiograph reveals calcified pelvic vasculature. Ultrasound of the right groin demonstrates calcified, atherosclerotic right common femoral artery. Lidocaine was used for local anesthesia. The right common femoral artery was accessed, under ultrasound guidance with a microintroducer set. A short 0.018" [place] wire was inserted under fluoroscopy guidance and the needle was exchanged for a 4 Fr microintroducer sheath. The guidewire and dilator were removed and a 0.035" [place] wire was advanced under fluoroscopy guidance, into the abdominal aorta. A 6 Fr sheath was placed over the wire. An Omni flush catheter was then advanced over the wire under fluoroscopic guidance and used to catheterize the infrarenal abdominal aorta. A pelvic angiogram was performed. This demonstrates flush occlusion of the origin of the left common iliac artery. Complete left common iliac, internal iliac and external iliac artery occlusion and left common femoral artery occlusion. There is distal reconstitution at the left superficial femoral artery via collaterals. There is atherosclerotic disease and poor flow in the right common femoral artery but good flow in the right superficial femoral artery. Angiography further down the left leg was performed and this demonstrates patent proximal, mid and distal left superficial femoral artery with mild irregularity and atherosclerosis. No significant focal stenosis. Angiography further down the left leg was performed and this demonstrates patent proximal, mid and distal popliteal artery. Patent proximal anterior tibial, peroneal and posterior tibial artery. Runoff arteriogram to the left foot was performed and this demonstrates patent and dominant posterior tibial artery coursing into the left foot supplying calcaneal and planter branches. Anterior tibial artery hare out and dorsalis pedis is not seen. A wire was advanced through the catheter under fluoroscopy guidance, and used to probe the origin of the left common iliac artery. The catheter was removed over the wire and a RC2 catheter was advanced over the wire and used in conjunction with multiple wires to probe the origin of the left common iliac artery. The RC2 catheter was then removed over the wire. A SOS2 catheter was advanced over the wire and used to probe the origin of the left common iliac artery, under fluoroscopy guidance. Unsuccessful attempt at right groin access and up and over attempt at recanalization of the left common iliac artery. Catheter, wire and sheath were removed, pressure held and hemostasis achieved. A sterile dressing was applied to the site. The patient tolerated the procedure well and was returned to the PRU in stable condition. EBL: < 5 mL. Complications:None. Impression: 1. Left leg angiogram demonstrates complete occlusion of inflow with flush occlusion of the left common iliac, occluded external, internal iliac artery and left common femoral artery. 2. Distal reconstitution at the superficial femoral artery via collaterals. 3. Patent proximal, mid and distal left superficial femoral artery and popliteal artery. 4. Patent proximal, mid and distal left posterior tibial artery supplying plantar and calcaneal branches to the foot. Patent proximal anterior tibial artery which hare out without significant contribution to the left foot. 5. 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 6. Occluded inflow to the left lower extremity and failed attempt at endovascular recanalization. Patient will be referred to vascular surgery for left lower extremity bypass options and right common femoral endarterectomy. Thank you for this referral. Cc NEGRO Pastor MD Jul 16, 2020 11:24
[2020-07-16 15:45] VITALS: BP 120/70
== END ==
LOC: M IRPRO 07:35
PROVIDERS: ATTEND Radiology Diagnostic Radiology
DX: I70.202 Unspecified atherosclerosis of native arteries of extremities, left leg (principal); I70.92 Chronic total occlusion of artery of the extremities; Z79.82 Long term (current) use of aspirin; Z79.899 Other long term (current) drug therapy
CPT/HCPCS: 36246; 75710; 99152; 99153; C1769; C1887; C1894; J1200; J1644; J2250; J3010; Q9967

== ENCOUNTER → 2020-07-22 | Outpatient (CLI) | payer MEDICARE, BC ==
[~2020-07-22] MED LIST changes: -ISOVUE-300 61% 50ML VIAL As Ordered ONE; +LIDOCAINE 2% MDV 20ML VIAL As Ordered ONE; -PERCOCET 5MG/325MG TAB As Ordered ONE
--- NOTE | 2020-07-22 10:01 | IRHP ---
[facility] IR Pre-Procedure H & P General Date of Service: Jul 22, 2020 Procedure: Same Day Surgery Interval History and Physical I have seen the patient and reviewed last H & P performed within 30 days. There is no significant interval change. History of Present Illness Chief Complaint The patient is a 70-year-old male admitted with a reason for visit of Venous Ulcer. PRE-PROCEDURE DIAGNOSIS: Venous hypertension. Venous ulcer HEART: Normal rate. LUNGS: Normal breathing at rest. ASA Classification ASA Classification: III-Severe systemic dis. Mallampati Score: II NPO: Yes Problems with prior sedation: No Obstructive Sleep Apnea: No Plan moderate sedation Allergies Coded Allergies: No Known Allergies (Unverified , 10/30/18) Home Medications Scheduled Aspirin (Aspirin EC), 81 MG PO DAILY, (Reported) Atorvastatin Calcium (Lipitor), 1 TAB PO DAILY, (Reported) Budesonide/Formoterol (Symbicort 80-4.5 Mcg Inhaler), 2 PUFF INH BID Clopidogrel Bisulfate (Clopidogrel), 75 MG PO DAILY Digoxin (Digoxin), 0.125 MG PO DAILY Docusate Sodium (Colace), 100 MG PO BID, (Reported) Tamsulosin HCl (Flomax), 0.4 MG PO QHS, (Reported) Scheduled PRN Ipratropium/Albuterol Sulfate (Iprat-Albut 0.5-3(2.5) mg/3 ml), 3 ML INH Q6HP PRN for SHORTNESS OF BREATH, (Reported) NEGRO ZAFAR MD Jul 22, 2020 10:01
[2020-07-22 10:30] VITALS: BP 135/85
--- NOTE | 2020-07-22 11:05 | REP ---
INDICATION: RLE EVLT. Repeat unilateral right lower extremity study. COMPARISON: Comparison exam June 28, 2020.. TECHNIQUE: Right lower extremity reflux evaluation is repeated with the bed tipped and standing with Dr. Kaur in attendance. FINDINGS: No venous reflux was observed in the right lower extremity. All venous waveforms are bidirectional and pulsatile, question increased right heart pressures.. IMPRESSION: No reflux seen right lower extremity.. <Electronically signed by Cruz Garland > 07/22/20 1108
== END ==
LOC: M IRPRO 08:31
PROVIDERS: ATTEND Radiology Diagnostic Radiology
DX: I87.311 Chronic venous hypertension (idiopathic) with ulcer of right lower extremity (principal)

== ENCOUNTER → 2020-08-20 | Outpatient (CLI) | payer MEDICARE, BC ==
[~2020-08-20] MED LIST changes: +ISOVUE-370 76% 100ML VIAL As Ordered ONE; -LIDOCAINE 1% MDV 20ML VIAL As Ordered ONE; -LIDOCAINE 2% MDV 20ML VIAL As Ordered ONE; -MIDAZOLAM INJ 2MG/2ML VIAL (J2250 PER 1MG) As Ordered ONE; -diphenhydrAMINE 50MG/ML VIAL (J1200) As Ordered ONE; -fentaNYL 100 MCG/2 ML INJECTION (J3010) As Ordered ONE
--- NOTE | 2020-08-20 11:28 | REP ---
INDICATION: LUNG CA F/U. COMPARISON: 02/19/2020. TECHNIQUE: CT chest performed following the intravenous administration of 100 cc of Isovue 370. Sagittal and coronal reconstruction images are performed. FINDINGS: The lungs are unchanged in appearance. There are again moderate emphysematous changes diffusely bilaterally with scattered interstitial fibrotic change. A band of parenchymal opacity in the right parahilar region has not significantly changed. Mild bilateral pleural thickening has not significantly changed. No new nodular opacity is seen bilaterally. Scattered subcentimeter mediastinal lymph nodes are present. These have decreased in size compared to the prior study. Subcentimeter hilar lymph nodes have also decreased in size. There is no axillary adenopathy. There is moderate atherosclerotic calcification of the thoracic aorta without aneurysm or dissection. Heart is slightly enlarged. There is no pleural or pericardial effusion. There is a small hiatal hernia. There are mild degenerative changes of the spine without compression deformity. IMPRESSION: Decreased size of mediastinal and hilar lymph nodes, all are currently subcentimeter in short axis. Small amount of right pleural fluid has resolved. Otherwise, there is stable pleural thickening and a stable band of parenchymal opacity on the right as discussed in detail above. <Electronically signed by Alex Mata > 08/20/20 1124
== END ==
LOC: M RAD 10:16
PROVIDERS: ATTEND Specialist
DX: C34.90 Malignant neoplasm of unspecified part of unspecified bronchus or lung (principal)
CPT/HCPCS: 71260; Q9967